=== PATIENT | male | born 1940 | race Caucasian/White ===

== ENCOUNTER → 2016-04-24 | Outpatient (CLI) | payer MEDICARE, BC ==
--- NOTE | 2016-04-24 09:53 | XR ---
EXAMINATION TYPE: XR chest 2V DATE OF EXAM: 04/24/2016 8:52 AM COMPARISON: NONE TECHNIQUE: PA and lateral views submitted. HISTORY: Upper respiratory infection FINDINGS: The lungs are clear and there is no pneumothorax, pleural effusion, or focal pneumonia. Arthropathy of the shoulder noted. Tiny calcified granuloma right lower lobe. Atherosclerotic change aorta and d egenerative change spine. IMPRESSION: 1. No acute process.
== END | disposition home or self-care (01) ==
LOC: RADXRMAIN 08:35
PROVIDERS: ATTEND Nurse Practitioner Family
DX: J06.9 Acute upper respiratory infection, unspecified (principal)
CPT/HCPCS: 71020

== ENCOUNTER → 2016-05-28 | Outpatient (CLI) | payer MEDICARE, BC ==
[2016-05-28 18:44] LABS: Blood Urea Nitrogen 19 mg/dL (9-20); Non-African American GFR(MDRD) >60 (>60 ml/min/1.73 sqM)
--- NOTE | 2016-05-28 20:04 | CT ---
EXAMINATION TYPE: CT chest w con DATE OF EXAM: 05/28/2016 7:26 PM COMPARISON: NONE HISTORY: Cough and congestion for [address] DLP: 417 mGycm Automated exposure control for dose reduction was used. CONTRAST: CT scan of the chest is performed with IV Contrast, patient injected with 100 mL of Omnipaque 300. FINDINGS: There are a few mediastinal lymph nodes measure up to 1 cm. There are mild bronchial lymph nodes that measure up to 1 cm. I see no filling defects in the pulmonary arteries. There is no sign of aortic a neurysm or dissection. There is subpleural interstitial infiltrate in both lungs and more on the righ t side compared to the left. There is no pericardial effusion. Heart size is normal. There is spurrin g in the thoracic spine. I see no focal bone destruction. There is no sign of a primary mass. There a re renal cortical cysts noted. There is a 1 cm cyst in the left lobe of the liver. IMPRESSION: Interstitial peripheral pulmonary infiltrates consistent with idiopathic pulmonary fibro sis. Mild nonspecific mediastinal and bronchial adenopathy. This probably relates to inflammatory dis ease.
== END | disposition home or self-care (01) ==
LOC: RADCTMAIN 18:08
PROVIDERS: ATTEND Family Medicine
DX: R91.8 Other nonspecific abnormal finding of lung field (principal); R59.0 Localized enlarged lymph nodes; R06.02 Shortness of breath; R05 Cough; R09.89 Other specified symptoms and signs involving the circulatory and respiratory systems
CPT/HCPCS: 82565; 84520; 71260; Q9967

== ENCOUNTER → 2016-06-26 | Outpatient (CLI) | payer MEDICARE, BC ==
[2016-06-26 09:40] LABS: EKG EKG PERFORMED
[2016-06-26 10:04] LABS: CH 30.2; CHCM 32.1; HCT 50.6 % (39.0-53.0); HDW 2.15; HGB 16.2 gm/dL (13.0-17.5); MCH 30.1 pg (25.0-35.0); MCHC 31.9 g/dL (31.0-37.0); MCV 94.4 fL (80.0-100.0); Mean Platelet Volume 8.5; RBC 5.36 m/uL (4.30-5.90); RDW 13.3 % (11.5-15.5); WBC 6.4 k/uL (3.8-10.6)
[2016-06-26 10:09] LABS: INR 1.2 (<1.1); Partial Thromboplastin Time 24.6 sec (22.0-30.0); Prothrombin Time 11.6 sec (9.0-12.0)
[2016-06-26 10:35] LABS: Anion Gap 12 mmol/L; Blood Urea Nitrogen 25 mg/dL (9-20); Carbon Dioxide 27 mmol/L (22-30); Chloride 104 mmol/L (98-107); Glucose 122 mg/dL (74-99); Non-African American GFR(MDRD) 57 (>60 ml/min/1.73 sqM); Potassium 4.8 mmol/L (3.5-5.1); Sodium 143 mmol/L (137-145)
== END | disposition home or self-care (01) ==
LOC: LABPAT 09:15
PROVIDERS: ATTEND Thoracic Surgery (Cardiothoracic Vascular Surgery)
DX: Z01.810 Encounter for preprocedural cardiovascular examination (principal); Z01.818 Encounter for other preprocedural examination; I10 Essential (primary) hypertension
CPT/HCPCS: 80051; 82565; 82947; 84520; 85027; 85610; 85730; 93005

== ENCOUNTER 2016-06-30 10:27 | Inpatient (IN) | payer MEDICARE, BC ==
[2016-06-26 11:14] VITALS: BMI 27.1
[~2016-06-30 10:27] MED LIST: DEXAMETHASONE SOD PHOSPHATE 10 MG/ML 1 ML VIAL IV ONE; HYDROmorphone 1 MG/ML 1 ML SYRINGE IVP PRN; LACTATED RINGERS 1,000 ML IV SCH; LIDOCAINE 1% 20 ML VIAL (10MG/ML) FOR IV START INTRADERMA PRN; ONDANSETRON 4 MG/2 ML VIAL IVP ONE
[2016-06-30] MEDS ORDERED: MIDAZOLAM 2 MG/2 ML VIAL ONE (14:13)
[2016-06-30] MEDS ORDERED: NEOSTIGMINE 1 MG/ML 10 ML VIAL ONE (14:13)
[2016-06-30] MEDS ORDERED: fentaNYL (PF) 50 MCG/ML 2 ML AMP ONE (14:13)
[2016-06-30] MEDS ORDERED: VECURONIUM 10 MG VIAL IV ONE (14:13)
[2016-06-30] MEDS ORDERED: SODIUM CHLORIDE 0.9% 100 ML with ceFAZolin 2,000 MG IV ONE ×2 (14:13)
[2016-06-30] MEDS ORDERED: GLYCOPYRROLATE 0.2 MG/ML 2 ML VIAL ONE (14:13)
[2016-06-30] MEDS ORDERED: LIDOCAINE 1% INJ 10MG/ML (20 ML MDV) ONE (14:13)
[2016-06-30] MEDS ORDERED: HYDROmorphone (PF) 1 MG/ML ONE (14:13)
[2016-06-30] MEDS ORDERED: ePHEDrine 50 MG/ML 1 ML AMP ONE (14:13)
[2016-06-30] MEDS ORDERED: SUCCINYLCHOLINE CHLORIDE 100 MG/5 ML SYR IV ONE (14:13)
[2016-06-30] MEDS ORDERED: PHENYLEPHRINE-0.9% NACL SYG 1 MG/10 ML SYRINGE ONE (14:13)
[2016-06-30] MEDS ORDERED: PROPOFOL 10 MG/ML 20 ML VIAL IV ONE (14:13)
[2016-06-30] MEDS ORDERED: BUPIVACAINE (PF) 0.5% 30 ML VIAL SQ ONE (14:59)
[2016-06-30] MEDS ORDERED: LACTATED RINGERS 1,000 ML IV ONE (15:28)
[2016-06-30] MEDS ORDERED: ONDANSETRON 4 MG/2 ML VIAL IVP PRN (15:39)
[2016-06-30] MEDS ORDERED: IPRATROPIUM-ALBUTEROL 3 ML NEB IH PRN (15:39)
[2016-06-30] MEDS ORDERED: METOCLOPRAMIDE 5 MG/ML 2 ML VIAL IVP PRN (15:39)
[2016-06-30] MEDS ORDERED: HYDROcodone/APAP 5-325MG 1 EACH TAB PO PRN ×2 (15:43)
--- NOTE | 2016-06-30 15:46 | P.OP ---
Date of Procedure: 06/30/16 Preoperative Diagnosis: Bilateral pulmonary infiltrates Postoperative Diagnosis: Bilateral pulmonary infiltrates Procedure(s) Performed: Right thoracoscopic lung biopsy Implants: Anesthesia: LORETAA Surgeon: Warren Handy Estimated Blood Loss (ml): 10 IV fluids (ml): 200 Urine output (ml): 0 Pathology: other (Biopsies of the right upper middle and lower lobe were sent for pathology, culture including routine acid-fast and fungal cultures.) Condition: stable Disposition: PACU Indications for Procedure: Bilateral pulmonary infiltrates Operative Findings: Normal-appearing lung Description of Procedure: Patient was brought to the operating room placed supine on the operating table anesthetized and intubated with a double-lumen endotracheal tube tube was positioned with fiberoptic bronchoscopy. Patient was turned in the left lateral decubitus position and the right chest sterilely prepped and draped. Single lung ventilation was initiated. 3 one-inch incisions were made in the right chest carried down through skin and subcutaneous tissue and into the pleural space. Pleural space was explored. The lung appeared normal. Generous wedges of the upper middle and lower lobe were obtained with multiple firings of Endo LUIS EDUARDO medium thick stapler. 28-Belgian chest tube was placed posterior apically through an anterior stab incision. The incisions were closed with layers of Vicryl suture. Rib blocks were performed at the level of the incisions. Band-Aid dressings and an drain sponge around the chest tube were placed and patient was turned supine and extubated and transferred to recovery room in stable condition.
[2016-06-30 16:13] LABS: Glucose,Whole Blood 98 mg/dL (75-99)
[2016-06-30] MEDS: IPRATROPIUM-ALBUTEROL 3 ML NEB IH SCH ×2 (17:12→20:18)
[2016-06-30] MEDS: DEXTROSE 5%-0.45% NACL 1,000 ML IV SCH (17:36)
--- NOTE | 2016-06-30 18:31 | P.CNPUL ---
History of Present Illness Consult date: 06/30/16 Requesting physician: Warren Handy Reason for consult: pulmonary fibrosis Chief complaint: Status post-thoracoscopic lung biopsy History of present illness: This is a 66-year-old white male who is primarily a patient of Dr. Kam and Dr. Celestin. Patient was seen by Dr. Celestin about a few months ago with persistent symptoms of cough and shortness of breath. PFT showed evidence of restrictive lung disease. He was referred to Dr. Kam, and CT of the chest showed peripheral infiltrates consistent with interstitial lung disease. Hence the patient was referred to Dr. Handy for thoracoscopic lung biopsy which was done today. Postoperatively I was asked to see the patient on consultation. Patient has chronic history of shortness of breath since February, dry hacking nonproductive cough, used to smoke however he quit many years ago. He was a 20- pack-year smoker in the past. Patient is also known to have history of multiple medical problems including prostate cancer GERD, osteoarthritis, previous right hip replacement. And previous history of back surgery. Postoperatively, patient is doing relatively well, no chest pain, no fever, no chills, no hemoptysis. Review of Systems 14 point review of systems were obtained, please refer to pertinent positives and negatives in HPI. Past Medical History Past Medical History: Cancer, GERD/Reflux, Hypertension, Osteoarthritis (OA) Additional Past Medical History / Comment(s): SOB w/exertion, hx. prostate cancer 2004, past hx. of having infection in hip after surg that he saw Dr Ortiz for-says Dr Ortiz is to be notified whenever he has surgery History of Any Multi-Drug Resistant Organisms: None Reported Past Surgical History: Back Surgery, Joint Replacement, Prostate Surgery Additional Past Surgical History / Comment(s): prostatectomy,right hip replaced Past Anesthesia/Blood Transfusion Reactions: No Reported Reaction Past Psychological History: No Psychological Hx Reported Smoking Status: Former smoker Past Alcohol Use History: Daily Additional Past Alcohol Use History / Comment(s): 1-2 drinks/day, quit smoking 35 yrs. ago, 1ppd for 20 yrs. Past Drug Use History: None Reported - Past Family History Brother(s) Family Medical History: Cancer Medications and Allergies Home Medications Medication Instructions Recorded Confirmed Type Albuterol Nebulized [Ventolin 2.5 mg INHALATION RT-Q6H PRN 06/26/16 06/30/16 History Nebulized] Aspirin 81 mg PO DAILY 06/26/16 06/30/16 History Ibuprofen [Motrin] 200 - 400 mg PO Q6HR PRN 06/26/16 06/30/16 History Magnesium Oxide [Mag-Ox] 250 mg PO DAILY 06/26/16 06/30/16 History Multivit-Min/FA/Lycopen/Lutein 1 tab PO DAILY 06/26/16 06/30/16 History [Centrum Silver Men Tablet] Olmesartan Medoxomil [Benicar] 40 mg PO DAILY 06/26/16 06/30/16 History Omeprazole 20 mg PO DAILY 06/26/16 06/30/16 History Allergies Allergy/AdvReac Type Severity Reaction Status Date / Time gentamicin AdvReac Nausea & Verified 06/26/16 11:00 Vomiting levofloxacin [From Levaquin] AdvReac Nausea & Verified 06/26/16 11:00 Vomiting Physical Exam Vitals: Vital Signs Temp Pulse Resp BP BP Pulse Ox 06/30/16 17:00 62 18 131/64 92 L 06/30/16 16:45 80 18 137/72 92 L 06/30/16 16:30 79 16 148/69 92 L 06/30/16 16:15 68 16 127/68 95 06/30/16 16:00 65 16 126/88 95 06/30/16 15:45 68 16 122/63 93 L 06/30/16 15:30 98.2 F 56 L 12 123/69 94 L 06/30/16 11:12 97.7 F 79 16 152/66 94 L Intake and Output 06/30/16 06/30/16 06/30/16 06:59 14:59 22:59 Intake Total 1200 50 Output Total 10 Balance 1200 40 Intake: IV 1200 50 Output: Estimated Blood Loss 10 Other: Weight 88.451 kg Patient Weight 07/01/16 06:59 Weight 88.451 kg Physical Exam: Revealed a 76-year-old in no distress. HEENT:[Neck is supple.] [No neck masses.] [No thyromegaly.] [No JVD.] Chest: Mild crackles at the right base ]Cardiac Exam: [Normal S1 and S2, no S3 gallop, no murmur. Abdomen: [Soft, nontender, no megaly, no rebound, no guarding, normal bowel sounds.] Extremities: [No clubbing, no edema, no cyanosis.] Neurological Exam: [No focal neurologic deficit.] Assessment and Plan Plan: Impression: Interstitial lung disease, differential diagnoses includes usual interstitial pneumonitis or nonspecific interstitial pneumonitis. Patient is status post thoracoscopic lung biopsy, doing relatively well in the postoperative period, incentive spirometry is at bedside, patient will likely be discharged home in a.m., and he will follow up with Dr. Kam as scheduled. In the meantime continue present meds as listed. Time with Patient: Greater than 30
--- NOTE | 2016-06-30 19:48 | XR ---
EXAMINATION TYPE: XR chest 1V DATE OF EXAM: 06/30/2016 7:31 PM COMPARISON: 04/24/2016 HISTORY: Postop lung biopsy TECHNIQUE: Single frontal view of the chest is obtained. FINDINGS: There is a right chest tube in good position. There is mild linear density in both lungs. There is no pneumothorax. Heart size is normal. IMPRESSION: Mild bilateral subsegmental atelectasis. No pneumothorax.
[2016-06-30] MEDS: ceFAZolin 2 GM in SODIUM CHLORIDE 0.9% 100 ML IVPB SCH (23:28)
[2016-07-01 06:43] LABS: Basophils % (A) 0 %; CH 30.2; CHCM 31.6; Eosinophils # (A) 0.1 k/uL (0-0.7); Eosinophils % (A) 1 %; HCT 44.2 % (39.0-53.0); HDW 2.07; Luc # (Auto) 0.22; Luc % (Auto) 2; Lymphocytes # (A) 1.2 k/uL (1.0-4.8); Lymphocytes % (A) 11 %; MCH 30.3 pg (25.0-35.0); MCHC 31.6 g/dL (31.0-37.0); MCV 95.9 fL (80.0-100.0); Mean Platelet Volume 9.4; Monocytes # (A) 0.8 k/uL (0-1.0); Monocytes % (A) 8 %; Neutrophils # (A) 8.5 k/uL (1.3-7.7); Neutrophils % (A) 78 %; RBC 4.61 m/uL (4.30-5.90); RDW 13.3 % (11.5-15.5); WBC 10.9 k/uL (3.8-10.6); WBC (Perox) 11.17
[2016-07-01 07:01] LABS: Anion Gap 8 mmol/L; Blood Urea Nitrogen 21 mg/dL (9-20); Calcium 9.2 mg/dL (8.4-10.2); Carbon Dioxide 28 mmol/L (22-30); Chloride 99 mmol/L (98-107); Glucose 109 mg/dL (74-99); Non-African American GFR(MDRD) >60 (>60 ml/min/1.73 sqM); Potassium 4.4 mmol/L (3.5-5.1); Sodium 135 mmol/L (137-145)
[2016-07-01] MEDS: ceFAZolin 2 GM in SODIUM CHLORIDE 0.9% 100 ML IVPB SCH (07:51)
[2016-07-01] MEDS: DEXTROSE 5%-0.45% NACL 1,000 ML IV SCH (07:52)
[2016-07-01] MEDS ORDERED: PANTOPRAZOLE 40 MG TABLET PO SCH (08:30)
--- NOTE | 2016-07-01 08:44 | XR ---
EXAMINATION TYPE: XR chest 2V DATE OF EXAM: 07/01/2016 6:43 AM COMPARISON: 06/30/2016 TECHNIQUE: PA and lateral views submitted. HISTORY: Shortness of breath FINDINGS: Chest tube stable. Coarsened interstitium noted with an area of nodular masslike consolidation right midlung which may represent contusion. In the region of the chest tube. Infiltrate or neoplasm not ex cluded. Subcutaneous emphysema on the right noted. Basilar atelectasis or infiltrate. Arthropathy of both shoulders. Heart size stable. Atherosclerotic change aorta. IMPRESSION: 1. Area of dense consolidation the right midlung may be related to contusion or infiltrate. 2. Right basilar atelectasis or infiltrate with tiny effusion 3. Interstitial prominence may been the basis of pneumonitis or venous congestion.
[2016-07-01] MEDS: IPRATROPIUM-ALBUTEROL 3 ML NEB IH SCH ×3 (08:50→15:58)
[2016-07-01] MEDS ORDERED: ASPIRIN 81 MG CHEW PO SCH (09:00)
[2016-07-01] MEDS ORDERED: LOSARTAN 50 MG TAB PO SCH (09:00)
[2016-07-01] MEDS ORDERED: MAGNESIUM OXIDE 400 MG TAB PO SCH (09:00)
--- NOTE | 2016-07-01 11:28 | XR ---
EXAMINATION TYPE: XR chest 1V portable DATE OF EXAM: 07/01/2016 11:21 AM COMPARISON: 07/01/2016 HISTORY: pneumothorax TECHNIQUE: Single frontal view of the chest is obtained. FINDINGS: Chest tube stable. Coarsened interstitium noted with an area of nodular masslike consolida tion right midlung which may represent contusion. In the region of the chest tube. Infiltrate or neop lasm not excluded. Subcutaneous emphysema on the right noted. Basilar atelectasis or infiltrate. Arth ropathy of both shoulders. Heart size stable. Atherosclerotic change aorta. IMPRESSION: 1. Area of dense consolidation the right midlung may be related to contusion or infiltrate. 2. Right basilar atelectasis or infiltrate with tiny effusion 3. Interstitial prominence may been the basis of pneumonitis or venous congestion.
[2016-07-01] MEDS ORDERED: MULTIVITAMINS, THERA 1 EACH TAB PO SCH (12:00)
--- NOTE | 2016-07-01 12:31 | P.PN ---
Subjective Principal diagnosis: Bilateral pulmonary infiltrates POD #1 right thorascopic lung biopsy Patient currently sitting up in bed in no apparent distress. Right pleural chest tube was placed to waterseal this morning with repeat X ray demonstrating no pneumothorax. Objective - Vital Signs Vital signs: Vital Signs Temp 97.8 F 07/01/16 11:52 Pulse 52 L 07/01/16 12:00 Resp 18 07/01/16 12:00 BP 127/59 07/01/16 11:52 Pulse Ox 93 L 07/01/16 11:52 Intake & Output 06/30/16 07/01/16 07/01/16 18:59 06:59 18:59 Intake Total 1250 1050 520 Output Total 10 393 Balance 1240 657 520 Weight 88.451 kg 87.9 kg Intake: IV 1250 450 Dextrose 5%-0.45% NaCl 1, 450 000 ml @ 75 mls/hr IV . [id number] [facility] Rx#:[id number] Oral 600 520 Output: Chest Tube Drainage 93 Chest Tube Right 93 Urine 300 Estimated Blood Loss 10 Other: Voiding Method Urinal Urinal - Constitutional General appearance: Present: cooperative, no acute distress - Respiratory Details: Lungs sounds diminished bilaterally. Respirations even, nonlabored. Currently on room air with oxygen saturation 93%. Right pleural chest tube to waterseal. Minimal serous output. No air leak present. - Cardiovascular Details: S1, S2 present. Regular rate and rhythm, normal sinus rhythm on telemetry. - Gastrointestinal Gastrointestinal Comment(s): Abdomen soft, nontender, nondistended. Active bowel sounds 4 quadrants. Tolerating diet. - Genitourinary Genitourinary Comment(s): Voiding clear, yellow urine. - Musculoskeletal Musculoskeletal: Present: strength equal bilaterally - Psychiatric Psychiatric: Present: A&O x's 3, appropriate affect, intact judgment & insight - Allied health notes Allied health notes reviewed: nursing - Labs CBC & Chem 7: 07/01/16 05:49 07/01/16 05:49 Labs: Abnormal Lab Results - Last 24 Hours (Table) 07/01/16 07/01/16 Range/Units 05:49 05:49 WBC 10.9 H (3.8-10.6) k/uL Neutrophils # 8.5 H (1.3-7.7) k/uL Sodium 135 L (137-145) mmol/L BUN 21 H (9-20) mg/dL Glucose 109 H (74-99) mg/dL Microbiology - Last 24 Hours (Table) 06/30/16 15:20 Gram Stain - Preliminary Lung - Right Tissue Culture - Preliminary 06/30/16 15:20 Gram Stain - Preliminary Lung - Right Lower Lobe Tissue Culture - Preliminary 06/30/16 15:20 Gram Stain - Preliminary Lung - Right Upper Lobe Tissue Culture - Preliminary 06/30/16 15:20 Fungal Culture - Preliminary Lung - Right Upper Lobe 06/30/16 15:20 Anaerobic Culture - Preliminary Lung - Right 06/30/16 15:20 Acid Fast Bacilli Culture - Preliminary Lung - Right Lower Lobe 06/30/16 15:20 Fungal Culture - Preliminary Lung - Right 06/30/16 15:20 Acid Fast Bacilli Culture - Preliminary Lung - Right 06/30/16 15:20 Fungal Culture - Preliminary Lung - Right Lower Lobe 06/30/16 15:20 Anaerobic Culture - Preliminary Lung - Right Upper Lobe 06/30/16 15:20 Anaerobic Culture - Preliminary Lung - Right Lower Lobe 06/30/16 15:20 Acid Fast Bacilli Culture - Preliminary Lung - Right Upper Lobe - Imaging and Cardiology Chest x-ray: image reviewed Assessment and Plan (1) Bilateral pulmonary infiltrates on chest x-ray Status: Acute Plan: The patient was seen and examined this morning with Dr. Alvarado. He is in no apparent distress. Chest tube was placed to water seal and repeat chest x-ray demonstrated no pneumothorax. There is no air leak and the chest tube. We will discontinue the chest tube and discontinue the patient to home. Time with Patient: Greater than 30
--- NOTE | 2016-07-01 15:12 | P.PN ---
Subjective Principal diagnosis: Status post VATS lung biopsy his is a 66-year-old white male who is primarily a patient of Dr. Kam and Dr. Celestin. Patient was seen by Dr. Celestin about a few months ago with persistent symptoms of cough and shortness of breath. PFT showed evidence of restrictive lung disease. He was referred to Dr. Kam, and CT of the chest showed peripheral infiltrates consistent with interstitial lung disease. Hence the patient was referred to Dr. Handy for thoracoscopic lung biopsy which was done today. Postoperatively I was asked to see the patient on consultation. Patient has chronic history of shortness of breath since February, dry hacking nonproductive cough, used to smoke however he quit many years ago. He was a 20- pack-year smoker in the past. Patient is also known to have history of multiple medical problems including prostate cancer GERD, osteoarthritis, previous right hip replacement. And previous history of back surgery. Postoperatively, patient is doing relatively well, no chest pain, no fever, no chills, no hemoptysis. Patient was reevaluated today on 07/01/2016, doing well, chest tube was removed, discharge planning is in progress to be done today. Patient is back to his baseline. Presently asymptomatic. Labs were reviewed including CBC and basic metabolic profile. Chest x-ray from this morning when the chest tube was still in place was also reviewed. Objective - Vital Signs Vital signs: Vital Signs Temp 97.8 F 07/01/16 11:52 Pulse 52 L 07/01/16 12:00 Resp 18 07/01/16 12:00 BP 127/59 07/01/16 11:52 Pulse Ox 93 L 07/01/16 11:52 Intake & Output 06/30/16 07/01/16 07/01/16 18:59 06:59 18:59 Intake Total 1250 1050 520 Output Total 10 393 Balance 1240 657 520 Weight 88.451 kg 87.9 kg Intake: IV 1250 450 Dextrose 5%-0.45% NaCl 1, 450 000 ml @ 75 mls/hr IV . [id number] [facility] Rx#:[id number] Oral 600 520 Output: Chest Tube Drainage 93 Chest Tube Right 93 Urine 300 Estimated Blood Loss 10 Other: Voiding Method Urinal Urinal - Exam Physical Exam: Revealed a 76-year-old in no distress. HEENT:[Neck is supple.] [No neck masses.] [No thyromegaly.] [No JVD.] Chest: Mild crackles at the right base ]Cardiac Exam: [Normal S1 and S2, no S3 gallop, no murmur. Abdomen: [Soft, nontender, no megaly, no rebound, no guarding, normal bowel sounds.] Extremities: [No clubbing, no edema, no cyanosis.] Neurological Exam: [No focal neurologic deficit.] - Labs CBC & Chem 7: 07/01/16 05:49 07/01/16 05:49 Labs: Abnormal Lab Results - Last 24 Hours (Table) 07/01/16 07/01/16 Range/Units 05:49 05:49 WBC 10.9 H (3.8-10.6) k/uL Neutrophils # 8.5 H (1.3-7.7) k/uL Sodium 135 L (137-145) mmol/L BUN 21 H (9-20) mg/dL Glucose 109 H (74-99) mg/dL Microbiology - Last 24 Hours (Table) 06/30/16 15:20 Gram Stain - Preliminary Lung - Right Tissue Culture - Preliminary 06/30/16 15:20 Gram Stain - Preliminary Lung - Right Lower Lobe Tissue Culture - Preliminary 06/30/16 15:20 Gram Stain - Preliminary Lung - Right Upper Lobe Tissue Culture - Preliminary 06/30/16 15:20 Fungal Culture - Preliminary Lung - Right Upper Lobe 06/30/16 15:20 Anaerobic Culture - Preliminary Lung - Right 06/30/16 15:20 Acid Fast Bacilli Culture - Preliminary Lung - Right Lower Lobe 06/30/16 15:20 Fungal Culture - Preliminary Lung - Right 06/30/16 15:20 Acid Fast Bacilli Culture - Preliminary Lung - Right 06/30/16 15:20 Fungal Culture - Preliminary Lung - Right Lower Lobe 06/30/16 15:20 Anaerobic Culture - Preliminary Lung - Right Upper Lobe 06/30/16 15:20 Anaerobic Culture - Preliminary Lung - Right Lower Lobe 06/30/16 15:20 Acid Fast Bacilli Culture - Preliminary Lung - Right Upper Lobe Assessment and Plan Plan: Impression: Interstitial lung disease, differential diagnoses includes usual interstitial pneumonitis or nonspecific interstitial pneumonitis. Patient is status post thoracoscopic lung biopsy, postoperative day #1 doing relatively well in the postoperative period, incentive spirometry is at bedside, patient will likely be discharged today, and the patient will follow up with Dr. Kam as scheduled. Time with Patient: Less than 30
--- NOTE | 2016-07-01 15:16 | P.DS ---
Providers Date of admission: 06/30/16 13:30 Attending physician: Warren Handy Consults: 06/30/16 15:39 Consult Physician Routine Consulting Provider: Jeffy Kam Consult Reason/Comments: pulmonology, post VATS Do you want consulting provider notified?: Yes 06/30/16 15:46 Consult Physician Routine Consulting Provider: Eagle Romero Consult Reason/Comments: medical management Do you want consulting provider notified?: Already Contacted Primary care physician: Jose Celestin - Discharge Diagnosis(es) (1) Bilateral pulmonary infiltrates on chest x-ray Current Visit: Yes Status: Acute Hospital Course: FINAL DIAGNOSIS: 1.[ Bilateral pulmonary infiltrates] 2.[ Hypertension] 3.[ History of prostate cancer] PRINCIPAL PROCEDURE: [] 1.[ Right thorascopic lung biopsy] HISTORY OF PRESENT ILLNESS: [This 76-year-old gentleman had a two-month history of increased shortness of breath and productive cough. He initially saw his primary care physician who treated him with antibiotics. He ultimately underwent 3 courses of antibiotics and 2 courses of steroids, which didn't improve his symptoms. He had a chest x-ray which was normal but subsequently had a CAT scan which demonstrated bilateral pulmonary infiltrates which were ground glass in appearance and relatively peripheral, more marked on the right lung then the left. Dr. Kam referred him to Dr. Handy for diagnostic lung biopsy. All risks and benefits were explained to the patient and he elected to proceed with surgery.] HOSPITAL COURSE:[ The patient was brought to the hospital on 06/30/2016, and brought to the operating room where Dr. Handy performed an elective right thorascopic lung biopsy with subsequent placement of right pleural chest tube. In completion of surgery, the patient is transferred to the recovery room where he was recovered and monitored hemodynamically. Subsequently he was transferred to [address] [place] [address] for further monitoring. His oxygen was titrated down, his chest tube was placed to waterseal on postoperative day #1, repeat chest x-ray demonstrated no pneumothorax and his right pleural chest tube was discontinued. He was ready to be discharged to home. He received written and verbal instruction regarding his medications, activity restrictions , signs and symptoms requiring physician notification, and follow-up appointments.] COMPLICATIONS: [The patient expanse no postoperative complications.] CONSULTATIONS: 1.[ Dr. Edouard for pulmonology] 2.[ Dr. Romero for medical management] DISCHARGE INSTRUCTIONS: 1. No driving for 2 weeks, or until physician gives their ok. 2. The patient should sleep in their own bed, no medical bed needed. 3. Please call Dr. Handy's office with any signs of infection, for example temperature greater than 10 1F, redness/purulent drainage from incisions. 4. No lifting, pushing, or pulling more than 10 pounds for 2 weeks. 5. The patient is expected to continue the prescribed walking program. 6. Continue pain control per as needed orders. 7. Continue with incentive spirometry until otherwise directed by the physician. 8. Please remove dressing on [, 07/03/2016]. Must shower daily using liquid antibacterial soap starting Plan - Discharge Summary Discharge Medication List Albuterol Nebulized [Ventolin Nebulized] 2.5 mg INHALATION RT-Q6H PRN 06/26/16 [ History] Aspirin 81 mg PO DAILY 06/26/16 [History] Ibuprofen [Motrin] 200 - 400 mg PO Q6HR PRN 06/26/16 [History] Magnesium Oxide [Mag-Ox] 250 mg PO DAILY 06/26/16 [History] Multivit-Min/FA/Lycopen/Lutein [Centrum Silver Men Tablet] 1 tab PO DAILY [History] Olmesartan Medoxomil [Benicar] 40 mg PO DAILY 06/26/16 [History] Omeprazole 20 mg PO DAILY 06/26/16 [History] Follow up Appointment(s)/Referral(s): Warren Handy MD [STAFF PHYSICIAN] - 07/21/16 2:45 pm Jeffy Kam DO [Doctor of Osteopathic Medicine] - 07/17/16 11:00 am Jose Celestin DO [Primary Care Provider] - 1 Week Discharge Disposition: HOME SELF-CARE
[2016-07-01 15:58] VITALS: BP 133/62; TEMP 97.5
[2016-07-01 16:00] VITALS: PULSE 66
[2016-07-01 16:09] VITALS: RESP 16
--- NOTE | 2016-07-01 19:22 | CONS ---
DATE OF CONSULTATION: 07/01/2016 REASON FOR CONSULTATION: Medical management requested Dr. Hadny. CONSULTATION: This is a 76-year-old patient of Dr. Celestin. Chronic stable medical conditions include GERD, hypertension, osteoarthritis. The patient has been having shortness of breath and found to have lung infiltrates on the CAT scan. Underwent lung biopsy today. Post lung biopsy patient had some cough with minimal hemoptysis. Able to tolerate a diet. Patient is an ex-smoker, lying in bed. Breathing is otherwise stable. Patient is also being by Dr. Kam from pulmonary. REVIEW OF SYSTEMS: CONSTITUTIONAL: None. HEENT: None. RESPIRATORY: Some shortness of breath. CARDIOVASCULAR: None. GASTROINTESTINAL: None. GENITOURINARY: None. MUSCULOSKELETAL: Aches and pains in the joints. DERMATOLOGICAL: None. HEMATOLOGICAL: None. LYMPHATIC: None. PSYCHIATRY: None. NEUROLOGICAL: None. PAST MEDICAL HISTORY: GERD, hypertension, osteoarthritis, prostate cancer in 2004, infection of the right hip after surgery. PAST SURGICAL HISTORY: Back surgery, joint replacement, prostate surgery, prostatectomy, right hip replaced. SOCIAL HISTORY: Patient drinks 1 or 2 drinks a day. Smoked for about 20 years; stopped 35 years ago. . FAMILY HISTORY: Cancer. HOME MEDICATIONS: 1. Omeprazole 20 mg a day. 2. Benicar 40 mg a day. 3. Centrum Silver 1 tablet p.o. daily. 4. Magnesium oxide 250 mg a day. 5. Motrin p.r.n. 6. Aspirin 81 mg a day. 7. Ventolin 2.5 q.6 p.r.n. ALLERGIES: GENTAMICIN AND LEVAQUIN. On examination, temperature 97.5, pulse 72, respirations 18, blood pressure 130/62, pulse ox 94% on room air. GENERAL APPEARANCE: Average build lying in bed, not in distress. EYES: Pupils equal. Conjunctivae normal. HEENT: External appearance of nose and ears normal. Oral cavity normal. NECK: JVD not raised. Mass not palpable. RESPIRATORY: Effort normal. LUNGS: Decreased breath sounds. CARDIOVASCULAR: First and second sounds normal. No edema. ABDOMEN: Soft, nontender. Liver and spleen not palpable. LYMPHATIC: No lymph nodes palpable effective. PSYCHIATRY: Alert and oriented x3. Mood and affect normal. NEUROLOGICAL: Pupils equal. Cranial nerves grossly intact. Power and sensation grossly intact. INVESTIGATIONS: White count 10.9, potassium 4.4, BUN 51, creatinine 1.09. Chest x-ray shows some infiltrate and interstitial prominence. ASSESSMENT: 1. Status post right thoracoscopic lung biopsy including cultures done. 2. Interstitial lung disease, wedge biopsy was done. 3. Primary osteoarthritis of multiple joints, bilateral. 4. Essential hypertension. 5. Gastroesophageal reflux disease. PLAN: Continue current medication and treatment plan. When discharged should follow up with the family doctor. Thank you Dr. Handy.
--- NOTE | 2016-07-10 09:52 | CDI ---
In responding to this query, please exercise your independent professional judgment. The [facility] Coding Staff and Clinical Documentation Specialists appreciate your assistance in clarifying documentation, maintaining compliance with coding guidelines, accurately documenting patients condition and capturing severity of illness. The fact that a question is asked does not imply that any particular answer is desired or expected. Communication forms are a method of clarifying documentation and are not made part of the Legal Health Record. Thank you in advance for your clarification. Last Revision, December 2014 Yenny Soto [address] [place] [address] Documentation Clarification Form Date: 07/10/2016 9:27:00 AM From: Kamila Bautista/Sylvie Darling Admit Date: 06/30/2016 1:30:00 PM Patient Name: Gustavo Rodriguez Visit Number: [id number] Discharge Date: Dr. Warren Handy Patient has a history of persistent cough and shortness of breath. PFT showed evidence of restrictive lung disease. Recent CT of the chest showed peripheral infiltrates consistent with interstitial lung disease. Clinical Indicators: Persistent cough and shortness of breath. Radiology findings: Chest x-ray: 1. Area of dense consolidation of the right midlung may be related to contusion or infiltrate. 2. Right basilar atelectasis or infiltrate with tiny effusion. 3. Interstitial prominence may be the basis of pneumonitis or venous congestion. Vital Signs: T. 97.7, P. 79, R. 16 BP 123/69 Pathology: Lung, right upper, middle and lower lobes, wedge biopsies: nonspecific interstitial pneumonia with fibrosis and chronic bonchiolitis. Treatment: Duoneb treatments, IV cefazolin sodium, IV Decadron Consults: Interstitial lung disease, differential diagnoses include usual interstitial pneumonitis or nospecific interstitial pneumonitis. In your professional opinion, can you give a more specific final diagnosis with the final pathology report now available? Other Unable to determine Please document in your progress notes and discharge summary in order to capture severity of illness and risk of mortality. Include clinical findings that support your diagnosis. FYI: Press F11 to launch patient chart. Place X here if this finding has no clinical significance, is not applicable or if you are not able to provide any additional documentation. GABRIELLED
== END 2016-07-01 17:28 | disposition home or self-care (01) | DRG 167 ==
LOC: OR 10:27 → EDSTATUS 12:00 → 6SEL 13:30
PROVIDERS: ADMIT Thoracic Surgery (Cardiothoracic Vascular Surgery); ATTEND Thoracic Surgery (Cardiothoracic Vascular Surgery)
PROC: 0BBC4ZX Excision of Right Upper Lung Lobe, Percutaneous Endoscopic Approach, Diagnostic (ICD-10-PCS; 2016-06-30)
PROC: 0BBD4ZX Excision of Right Middle Lung Lobe, Percutaneous Endoscopic Approach, Diagnostic (ICD-10-PCS; 2016-06-30)
PROC: 0BBF4ZX Excision of Right Lower Lung Lobe, Percutaneous Endoscopic Approach, Diagnostic (ICD-10-PCS; principal; 2016-06-30 12:00)
DX: J44.0 Chronic obstructive pulmonary disease with (acute) lower respiratory infection (principal); J84.9 Interstitial pulmonary disease, unspecified; J84.10 Pulmonary fibrosis, unspecified; I10 Essential (primary) hypertension; K21.9 Gastro-esophageal reflux disease without esophagitis; M15.9 Polyosteoarthritis, unspecified; Z79.82 Long term (current) use of aspirin; Z79.899 Other long term (current) drug therapy; Z85.46 Personal history of malignant neoplasm of prostate; Z87.891 Personal history of nicotine dependence; Z96.641 Presence of right artificial hip joint
CPT/HCPCS: 71010; 71020; 80048; 85025; 87070; 87075; 87102; 87116; 87205; 87206; 88307; 94640; 94760

== ENCOUNTER → 2016-07-17 | Outpatient (CLI) | payer MEDICARE, BC ==
[2016-07-21 14:47] LABS: Mis test requested (Blood) FUNGAL AB BY CF
[2016-07-26 11:36] LABS: Alternaria tenius IgG 27.7 mcg/mL (< 13.6); Cladosporium herbarium IgG 33.5 mcg/mL (< 14.7); Phoma ssp. IgG 32.5 mcg/mL (< 6.6); Saccaharomospora viridis Not detected (Not detected); Saccaharopoly. rectivirgula Not detected (Not detected)
== END | disposition home or self-care (01) ==
LOC: LABWHC1 11:42
PROVIDERS: ATTEND Internal Medicine Critical Care Medicine
DX: J67.9 Hypersensitivity pneumonitis due to unspecified organic dust (principal); J84.9 Interstitial pulmonary disease, unspecified
CPT/HCPCS: 36415; 82164; 86001; 86606; 86609; 86612; 86635; 86698

== ENCOUNTER → 2017-04-02 | Outpatient (CLI) | payer MEDICARE, BC ==
--- NOTE | 2017-04-02 09:32 | FL ---
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 Total fluoroscopy time: 1 minute. Total images: 11. FINDINGS: Real-time fluoroscopy of the lower thorax/diaphragm. The right leaf of the diaphragm is minimally hig her than the left. During normal, quite breathing, the right hemidiaphragm is noticed to be minimally sluggish as compar ed to the left. During deep inspiration and expiration, the right hemidiaphragm is again noted to be slightly sluggis h and with decreased excursion as compared to the left. However, with sniffing maneuver, there is appropriate symmetrical movement and excursion of both denia diaphragms. IMPRESSION: 1. Sniffing maneuver shows appropriate, symmetrical movement and excursion of both hemidiaphragms arg uing against any significant diaphragmatic paresis. 2. During both quiet breathing and deep inspirations, there is slight sluggish movement and decreased excursion noted of the right hemidiaphragm. This may be due to chest wall/chest wall musculature fac tors. Clinically correlate.
== END | disposition home or self-care (01) ==
LOC: RADFLWHC 07:52
PROVIDERS: ATTEND Internal Medicine
DX: J98.4 Other disorders of lung (principal)
CPT/HCPCS: 76000

== ENCOUNTER 2018-02-26 06:45 | Emergency (ER) | payer MEDICARE, BC ==
[2018-02-26 06:51] VITALS: BP 172/97; PULSE 49; RESP 18; TEMP 97.5
[2018-02-26] MEDS ORDERED: LIDOCAINE 1% INJ 10MG/ML (20 ML MDV) SQ ONE (07:21)
--- NOTE | 2018-02-26 07:26 | ED ---
General Adult HPI - General Chief complaint: Wound/Laceration Stated complaint: Laceration Time Seen by Provider: 02/26/18 07:10 Source: patient, RN notes reviewed, old records reviewed Mode of arrival: ambulatory Limitations: no limitations - History of Present Illness Initial comments: 77-year-old male presents with injury and laceration to the right dorsal hand. Injury occurred approximately 5 PM yesterday, 14 hours prior to evaluation. Patient was using a saw, piece of wood molding flew back striking the posterior aspect of his right hand. He has stellate laceration which he cleansed at home and applied Neosporin. He is presenting with concerns that this may need repair. He also has some pain and soft tissue swelling in the hand associated with this injury. Patient states his tetanus is up-to-date. No other injuries. No other complaints. - Related Data Home Medications Medication Instructions Recorded Confirmed Aspirin 81 mg PO DAILY 06/26/16 02/26/18 Magnesium Oxide [Mag-Ox] 250 mg PO DAILY 06/26/16 02/26/18 Multivit-Min/FA/Lycopen/Lutein 1 tab PO DAILY 06/26/16 02/26/18 [Centrum Silver Men Tablet] Olmesartan Medoxomil [Benicar] 40 mg PO DAILY 06/26/16 02/26/18 Omeprazole 20 mg PO DAILY 06/26/16 02/26/18 Metoprolol Succinate [Toprol XL] 25 mg PO DAILY 02/26/18 02/26/18 amLODIPine [Norvasc] 5 mg PO DAILY 02/26/18 02/26/18 Allergies Allergy/AdvReac Type Severity Reaction Status Date / Time gentamicin AdvReac Nausea & Verified 02/26/18 07:11 Vomiting levofloxacin [From Levaquin] AdvReac Nausea & Verified 02/26/18 07:11 Vomiting Review of Systems ROS Statement: Those systems with pertinent positive or pertinent negative responses have been documented in the HPI. ROS Other: All systems not noted in ROS Statement are negative. Past Medical History Past Medical History: Cancer, GERD/Reflux, Hypertension, Osteoarthritis (OA) Additional Past Medical History / Comment(s): SOB w/exertion, hx. prostate cancer 2005, past hx. of having infection in hip after surg that he saw Dr Ortiz for-says Dr Ortiz is to be notified whenever he has surgery History of Any Multi-Drug Resistant Organisms: None Reported Past Surgical History: Back Surgery, Joint Replacement, Prostate Surgery Additional Past Surgical History / Comment(s): prostatectomy,right hip replaced Past Anesthesia/Blood Transfusion Reactions: No Reported Reaction Past Psychological History: No Psychological Hx Reported Smoking Status: Former smoker Past Alcohol Use History: Daily Past Drug Use History: None Reported - Past Family History Brother(s) Family Medical History: Cancer General Exam Limitations: no limitations General appearance: alert, in no apparent distress Head exam: Present: atraumatic, normocephalic Eye exam: Present: normal appearance, PERRL Neck exam: Present: normal inspection. Absent: tenderness, meningismus Respiratory exam: Present: normal lung sounds bilaterally. Absent: respiratory distress, wheezes Cardiovascular Exam: Present: normal rhythm, bradycardia GI/Abdominal exam: Present: soft. Absent: distended, tenderness Extremities exam: Present: other Back exam: Present: normal inspection, full ROM Neurological exam: Present: alert, oriented X3. Absent: motor sensory deficit Psychiatric exam: Present: normal affect, normal mood Skin exam: Present: warm, dry. Absent: cyanosis, diaphoretic Course Vital Signs 02/26/18 06:45 Temperature 97.5 F L Pulse Rate 49 L Respiratory 18 Rate Blood Pressure 172/97 O2 Sat by Pulse 93 L Oximetry Procedures - Laceration Laceration #1 Consent Obtained: verbal consent Time Out Performed: Yes Indication: laceration Site: hand Description: stellate, flap, avulsion Depth: simple, single layer Anesthetic Used: lidocaine 1% Anesthesia Technique: local infiltration Pre-repair: wound explored, irrigated extensively Type of Sutures: nylon Size of Sutures: 5-0 Number of Sutures: 4 Technique: simple, interrupted Patient Tolerated Procedure: well Medical Decision Making - Medical Decision Making 77-year-old presents with laceration, curved 14 hours prior. There was some soft tissue injury and concern for bony abnormality. X-ray obtained, no foreign body, no visualized fracture deformity. This is reviewed by myself. Given the timeframe extensively irrigate this laceration and loosely approximated with 5-0 nylon suture. Patient will watch closely for signs of infection. There is no underlying tendon injury. He will return for suture removal in 10-14 days. Disposition Clinical Impression: Laceration Disposition: HOME SELF-CARE Condition: Good Instructions: Laceration (ED) Additional Instructions: Please return for suture removal 10-14 days Is patient prescribed a controlled substance at d/c from ED?: No Referrals: Jose Celestin DO [Primary Care Provider] - 1-2 days Time of Disposition: 07:53
--- NOTE | 2018-02-26 07:54 | XR ---
EXAMINATION TYPE: XR hand complete RT DATE OF EXAM: 02/26/2018 COMPARISON: None HISTORY: Laceration third metacarpal right hand TECHNIQUE: Three-view right hand FINDINGS: No acute fractures are evident. Advanced degenerative changes are within the distal interph alangeal joint spaces of the index and middle fingers. More moderate degenerative changes are present elsewhere within the joint spaces. There is advanced degenerative change within the proximal carpal row. Prior scaphoid fracture with re sorption of the proximal portion may be present with disruption of the scapholunate space by the capi tellum which articulates with the radius. Degenerative changes are through the first carpal metacarpa l region. Some soft tissue swelling is over the dorsum of the hand. No radiopaque foreign bodies are evident. IMPRESSION: 1. No acute osseous abnormality. 2. No radiopaque foreign body. 3. Advanced degenerative changes within the carpal row with disruption of the scapholunate space and interposition of the capitellum now articulating with the radius.
--- NOTE | 2018-02-28 02:29 | CDI ---
Documentation Clarification OP Dear Jeffy JEREZ MD, Please do addendum to ED report that describes the laceration length of the repair. Thank you, Ally Smith Graphic Artist If you have any question, Please contact coding machine operator at [phone] [facility]
== END 2018-02-26 08:05 | disposition home or self-care (01) ==
LOC: EC 06:45
DX: S61.411A Laceration without foreign body of right hand, initial encounter (principal); K21.9 Gastro-esophageal reflux disease without esophagitis; I10 Essential (primary) hypertension; Z79.82 Long term (current) use of aspirin; Z85.46 Personal history of malignant neoplasm of prostate; M19.90 Unspecified osteoarthritis, unspecified site; Z87.891 Personal history of nicotine dependence; Z79.899 Other long term (current) drug therapy; Z88.1 Allergy status to other antibiotic agents; Z96.641 Presence of right artificial hip joint; W22.8XXA Striking against or struck by other objects, initial encounter; Y93.89 Activity, other specified; Y92.009 Unspecified place in unspecified non-institutional (private) residence as the place of occurrence of the external cause
CPT/HCPCS: 73130; 99283; 12002; J2001

== ENCOUNTER → 2018-06-16 | Outpatient (CLI) | payer MEDICARE, BC | END | disposition home or self-care (01) | LOC: LABWHC1 15:52 | PROVIDERS: ATTEND Internal Medicine Critical Care Medicine | DX: F41.9 Anxiety disorder, unspecified (principal); R53.83 Other fatigue | CPT/HCPCS: 36415; 82533 ==

== ENCOUNTER → 2018-07-13 | Outpatient (CLI) | payer MEDICARE, BC ==
--- NOTE | 2018-07-13 14:32 | CT ---
EXAMINATION TYPE: CT chest wo con DATE OF EXAM: 07/13/2018 COMPARISON: 05/28/2016 HISTORY: Cough. hx of prostate CA CT DLP: 178 mGycm. Automated Exposure Control for Dose Reduction was Utilized. TECHNIQUE: CT scan of the thorax is performed without IV contrast. High-resolution chest CT protocol was performed limiting evaluation for pulmonary nodule. FINDINGS: LUNGS: There is bilateral subpleural reticulation that is seen in the upper and lower lobes throughou t with a slight upper lobe predominance. This is nondependent and does not improve in supine and pron e imaging. This is unchanged from the prior 05/28/2016 without progression. There are new calcified/hi gh density sutures contiguous with a chest wall defect beginning in the right midlung and extending t o the lateral right middle lobe from either prior open biopsy or wedge resection. There is no evidence of interlobular septal thickening. No honeycombing is seen. No suspicious pulmon marianela nodule or mass however there is limited evaluation for pulmonary nodule given noncontiguous slice s. New right basilar granulomas are seen posteriorly in the right lower lobe with surrounding fibrosi s and calcifications extending to the pleural surface. Alternatively this could be a second site of p rior biopsy. No focal consolidation, pleural effusion or pneumothorax. Main tracheobronchial tree appears patent. MEDIASTINUM: Lack of IV contrast is noted to limit evaluation for mediastinal and especially hilar ad enopathy. There are no definitive greater than 1 cm hilar or mediastinal lymph nodes. Heart is mildly enlarged without pericardial effusion. Moderate coronary artery calcifications are evident. OTHER: There is a too small to accurately characterize right hepatic lobe lesion in segment 8, stable from the prior and left hepatic lobe cyst measuring 1.4 cm. There are bilateral renal cysts that are partially visualized. Largest on the right measures up to 8.7 cm in its visualized portion. Very sma ll hiatal hernia is noted. Extensive degenerative changes of the shoulders are seen with diffuse osse ous demineralization and moderate to severe degenerative change of the spine. Old healed left rib fra ctures are seen. These are new from 2017. IMPRESSION: 1. Surgical change of either prior open biopsy or wedge resection with chest wall defect and slight h erniation of the adjacent right middle lobe. 2. Similar subpleural reticulation in comparison to the prior of 05/28/2016 without progression. This can be seen in early pulmonary fibrosis, aging independent of tobacco abuse, or early and NSIP. No fi ndings to suspect UIP. 3. High resolution protocol limits evaluation for pulmonary nodule in this patient with known prostat e carcinoma.
== END | disposition home or self-care (01) ==
LOC: RADCTMAIN 13:15
PROVIDERS: ATTEND Internal Medicine Critical Care Medicine
DX: J94.8 Other specified pleural conditions (principal); R05 Cough; Z98.890 Other specified postprocedural states; Z88.0 Allergy status to penicillin; Z88.1 Allergy status to other antibiotic agents
CPT/HCPCS: 71250

== ENCOUNTER → 2018-09-22 | Outpatient (CLI) | payer MEDICARE, BC ==
[2018-09-22 10:11] LABS: Potassium 4.7 mmol/L (3.5-5.1)
[2018-09-22 10:12] LABS: HCT 49.4 % (39.0-53.0); HGB 15.8 gm/dL (13.0-17.5); MCH 31.3 pg (25.0-35.0); MCV 97.8 fL (80.0-100.0); Mean Platelet Volume 9.4; Platelet Count 199 k/uL (150-450); RBC 5.05 m/uL (4.30-5.90); RDW 14.9 % (11.5-15.5); WBC 9.8 k/uL (3.8-10.6)
== END | disposition home or self-care (01) ==
LOC: LABPAT 09:29
PROVIDERS: ATTEND Internal Medicine Interventional Cardiology
DX: Z01.812 Encounter for preprocedural laboratory examination (principal); I48.1 Persistent atrial fibrillation
CPT/HCPCS: 36415; 80051; 82565; 84520; 85027

== ENCOUNTER → 2018-10-06 | Day surgery (SDC) | payer MEDICARE, BC ==
[2018-09-29 11:56] VITALS: BMI 26.7
[~2018-10-06] MED LIST changes: +ACETAMINOPHEN 650 MG PO PRN; +APIXABAN 5 MG TAB PO SCH; +ASPIRIN 81 MG PO SCH; +BENZOCAINE SPRAY 1 CAN MUCOUS MEM ONE; -DEXAMETHASONE SOD PHOSPHATE 10 MG/ML 1 ML VIAL IV ONE; +HYDROCORTISONE 10 MG TAB PO SCH; +HYDROCORTISONE 20 MG TAB PO SCH; -HYDROmorphone 1 MG/ML 1 ML SYRINGE IVP PRN; -LACTATED RINGERS 1,000 ML IV SCH; -LIDOCAINE 1% 20 ML VIAL (10MG/ML) FOR IV START INTRADERMA PRN; +METOPROLOL SUCCINATE (ER) 25 MG TAB.ER.24H PO SCH; +NON-FORMULARY DRUG (Magnesium Oxide 500 MG) PO SCH; +NON-FORMULARY DRUG (Multivit-Min/Fa/Lycopen/Lutein [Centrum Silver Men Tablet] 1 TAB) PO SCH; +NON-FORMULARY DRUG (Omeprazole [Omeprazole] 20 MG) PO SCH; +OLMESARTAN MEDOXOMIL 40 MG PO SCH; -ONDANSETRON 4 MG/2 ML VIAL IVP ONE; +PROPOFOL 10 MG/ML 20 ML VIAL IV ONE; +SODIUM CHLORIDE 0.9% 1,000 ML IV SCH; +SODIUM CHLORIDE 0.9% 500 ML 500 ML IV ONE; +amLODIPine 5 MG TAB PO SCH; +traMADol 50 MG TAB PO PRN
[2018-10-06 08:56] VITALS: TEMP 98.3
--- NOTE | 2018-10-06 11:01 | CE ---
CARDIAC ELECTROPHYSIOLOGY REPORT CARDIOVERSION DATE OF SERVICE: October 06, 2018. PERFORMING PHYSICIAN: Jim Mina MD. PROCEDURE PERFORMED: Cardioversion. INDICATION: Atrial fibrillation. COMPLICATION: None. LEVEL OF SEDATION: Deep sedation was performed with SUBMERSIBLE PILOT in the room. PROCEDURE DESCRIPTION: After transesophageal echocardiogram was performed and left atrial appendage thrombus was ruled out, we did cardioversion. The patient cardioverted from atrial fibrillation to normal sinus mechanism using 200 joules on attempt. CONCLUSION: Successful cardioversion of atrial fibrillation to normal sinus mechanism using 200 joules on attempt. MMODL / IJN: [id number] /
--- NOTE | 2018-10-06 11:22 | ECHOT ---
TRANSESOPHAGEAL ECHOCARDIOGRAM DATE OF SERVICE: 10/06/2018. PERFORMING PHYSICIAN: Jim Mina MD, Clearing Distribution Clerk. PROCEDURE PERFORMED: Transesophageal echocardiogram. INDICATION: This is a pleasant 78-year-old gentleman who continues to be in atrial fibrillation with RVR and he was brought today to undergo a ANETA and cardioversion. The ANETA is to rule out any intracardiac thrombus before the cardioversion. COMPLICATION: None. LEVEL OF SEDATION: Deep sedation was performed with a REGIONAL LIAISON in the room. PROCEDURE DESCRIPTION: After obtaining an informed consent, explaining the procedure, benefits, risks, complications and alternatives, the patient was brought to the transesophageal echocardiogram suite. A pulse oximetry and heart rate monitors were attached to the patient prior to the procedure. The patient's throat was sprayed using lidocaine locally. Following that, the patient was turned into left lateral position. A bite guard was placed and the patient was then sedated with the above doses of Versed and fentanyl in divided doses. Following that, the transesophageal echocardiogram probe was advanced through the bite guard into the mid esophagus where 2-D echocardiogram images as well as color Doppler images of various cardiac structures were obtained. We evaluated the interatrial septum using 2-D echocardiogram, color Doppler, and contrast study. The procedure was completed. There were no complications. FINDINGS: The left ventricular dimension and systolic function appeared to be within normal limits. The ejection fraction appeared to be in the range of 60%. The right ventricle appeared to be of normal size and function. The left atrium appeared to be mildly dilated. Left atrial appendage appeared to be free from any thrombus. The interatrial septum appeared to be intact. The aortic valve is trileaflet valve without stenosis or regurgitation. The mitral valve appeared to be mildly thickened with evidence of moderate to severe mitral regurgitation. The tricuspid valve and pulmonic valve appeared to be within normal limits. CONCLUSION: 1. Intact left atrial appendage without any evidence of thrombus. 2. Intact interatrial septum without any evidence of shunt. 3. Mildly dilated left and right atrium. 4. Normal left ventricular dimension and systolic function. 5. Trileaflet aortic valve without stenosis or regurgitation. 6. Thickened mitral valve leaflets with evidence of moderate to severe mitral regurgitation. 7. Normal tricuspid valve and pulmonic valve. 8. Normal aortic root dimension. 9. No evidence of pericardial effusion. MMODL / IJN: [id number] /
[2018-10-06 11:32] LABS: Calcium 9.3 mg/dL (8.4-10.2); Potassium 4.1 mmol/L (3.5-5.1)
[2018-10-06 13:08] VITALS: BP 128/73; PULSE 72; RESP 16
== END ==
LOC: CATHCVL 08:26
PROVIDERS: ATTEND Internal Medicine Interventional Cardiology
DX: I48.1 Persistent atrial fibrillation (principal); I34.0 Nonrheumatic mitral (valve) insufficiency; I49.1 Atrial premature depolarization; I10 Essential (primary) hypertension; E78.5 Hyperlipidemia, unspecified; K21.9 Gastro-esophageal reflux disease without esophagitis; Z79.01 Long term (current) use of anticoagulants; Z79.51 Long term (current) use of inhaled steroids; Z79.82 Long term (current) use of aspirin; Z79.899 Other long term (current) drug therapy; Z88.1 Allergy status to other antibiotic agents; Z82.49 Family history of ischemic heart disease and other diseases of the circulatory system
CPT/HCPCS: 93312; 93320; 93325; 92960; 80048; 83735; J2704

== ENCOUNTER 2019-02-28 06:03 | Day surgery (SDC) | payer MEDICARE, BC ==
[2019-02-21 14:54] VITALS: BMI 27.8
[~2019-02-28 06:03] MED LIST changes: -ACETAMINOPHEN 650 MG PO PRN; -APIXABAN 5 MG TAB PO SCH; -ASPIRIN 81 MG PO SCH; -BENZOCAINE SPRAY 1 CAN MUCOUS MEM ONE; -HYDROCORTISONE 10 MG TAB PO SCH; -HYDROCORTISONE 20 MG TAB PO SCH; +LACTATED RINGERS 1,000 ML IV SCH; -METOPROLOL SUCCINATE (ER) 25 MG TAB.ER.24H PO SCH; -NON-FORMULARY DRUG (Magnesium Oxide 500 MG) PO SCH; -NON-FORMULARY DRUG (Multivit-Min/Fa/Lycopen/Lutein [Centrum Silver Men Tablet] 1 TAB) PO SCH; -NON-FORMULARY DRUG (Omeprazole [Omeprazole] 20 MG) PO SCH; -OLMESARTAN MEDOXOMIL 40 MG PO SCH; -PROPOFOL 10 MG/ML 20 ML VIAL IV ONE; -SODIUM CHLORIDE 0.9% 500 ML 500 ML IV ONE; -amLODIPine 5 MG TAB PO SCH; -traMADol 50 MG TAB PO PRN
[2019-02-28 06:43] VITALS: TEMP 98.1
[2019-02-28 07:04] LABS: Calcium 9.4 mg/dL (8.4-10.2)
[2019-02-28 07:05] LABS: Potassium 5.4 mmol/L (3.5-5.1)
[2019-02-28] MEDS ORDERED: PROPOFOL 10 MG/ML 20 ML VIAL IV ONE (07:20)
[2019-02-28 07:50] VITALS: RESP 16
--- NOTE | 2019-02-28 08:18 | CE ---
CARDIAC ELECTROPHYSIOLOGY REPORT CARDIOVERSION: PERFORMING PHYSICIAN: Jim Mina MD. PROCEDURE PERFORMED: Cardioversion of atrial fibrillation. COMPLICATIONS: None. LEVEL OF SEDATION: The procedure was performed under deep sedation with CIGAR MAKING MACHINE OPERATOR in the room and using propofol. PROCEDURE DESCRIPTION: After deep sedation was achieved, we did a cardioversion of atrial fibrillation using 200 joules on first attempt. CONCLUSION: Successful cardioversion of atrial fibrillation to normal sinus mechanism using 200 joules on first attempt. MMODL / IJN: [id number] /
[2019-02-28 09:16] VITALS: BP 106/62; PULSE 64
== END 2019-02-28 09:16 | disposition home or self-care (01) ==
LOC: CATHCVL 06:03
PROVIDERS: ATTEND Internal Medicine Interventional Cardiology
DX: I48.0 Paroxysmal atrial fibrillation (principal); I10 Essential (primary) hypertension; E78.5 Hyperlipidemia, unspecified; I34.0 Nonrheumatic mitral (valve) insufficiency; K21.9 Gastro-esophageal reflux disease without esophagitis; Z82.49 Family history of ischemic heart disease and other diseases of the circulatory system; Z79.01 Long term (current) use of anticoagulants; Z79.82 Long term (current) use of aspirin; Z79.899 Other long term (current) drug therapy; Z88.1 Allergy status to other antibiotic agents
CPT/HCPCS: 92960; 80048; J2704

== ENCOUNTER → 2019-06-16 | Outpatient (CLI) | payer MEDICARE, BC ==
[2019-06-16 08:51] LABS: Basophils # (A) 0.1 k/uL (0-0.2); Basophils % (A) 1 %; Eosinophils # (A) 0.3 k/uL (0-0.7); Eosinophils % (A) 3 %; HCT 47.1 % (39.0-53.0); HGB 14.5 gm/dL (13.0-17.5); Lymphocytes # (A) 1.7 k/uL (1.0-4.8); Lymphocytes % (A) 18 %; MCH 30.2 pg (25.0-35.0); MCHC 30.9 g/dL (31.0-37.0); MCV 97.7 fL (80.0-100.0); Mean Platelet Volume 10.2; Monocytes # (A) 0.7 k/uL (0-1.0); Monocytes % (A) 8 %; Neutrophils # (A) 6.4 k/uL (1.3-7.7); Neutrophils % (A) 69 %; Platelet Count 205 k/uL (150-450); RBC 4.82 m/uL (4.30-5.90); RDW 14.1 % (11.5-15.5); WBC 9.3 k/uL (3.8-10.6)
[2019-06-16 17:21] LABS: T4, Free (Free Thyroxine) 1.3 ng/dL (0.80-1.80)
== END | disposition home or self-care (01) ==
LOC: LABWHC1 08:02
PROVIDERS: ATTEND Internal Medicine
DX: E27.40 Unspecified adrenocortical insufficiency (principal)
CPT/HCPCS: 36415; 84439; 84443; 85025

== ENCOUNTER 2019-07-18 08:03 | Observation (INO) | payer MEDICARE, BC ==
--- NOTE | 2019-07-18 08:23 | ED ---
Back Pain HPI - General Chief Complaint: Back Pain/Injury Stated Complaint: fall/Rib pain Time Seen by Provider: 07/18/19 08:11 Source: patient, RN notes reviewed, old records reviewed Limitations: no limitations - History of Present Illness Initial Comments: Patient is a pleasant 79-year-old male who states that he is having left-sided rib and paraspinal muscle tenderness after tripping on a hole in the yard and falling backward onto his left ribs. Patient states that he heard a crack at that time. Patient reports that he has worsening pain with movement and deep breath. Patient denies any chest pain. Denies any abdominal pain or nausea or vomiting. - Related Data Home Medications Medication Instructions Recorded Confirmed Aspirin 81 mg PO QAM 06/26/16 02/28/19 Magnesium Oxide [Mag-Ox] 500 mg PO DAILY 06/26/16 02/28/19 Multivit-Min/FA/Lycopen/Lutein 1 tab PO DAILY 06/26/16 02/28/19 [Centrum Silver Men Tablet] Olmesartan Medoxomil [Benicar] 40 mg PO DAILY 06/26/16 02/28/19 Omeprazole 20 mg PO DAILY 06/26/16 02/28/19 Metoprolol Succinate [Toprol XL] 25 mg PO BID 02/26/18 02/28/19 amLODIPine [Norvasc] 5 mg PO QAM 02/26/18 02/28/19 Simvastatin [Zocor] 20 mg PO HS 06/21/18 02/28/19 Apixaban [Eliquis] 5 mg PO BID 09/29/18 02/28/19 Hydrocortisone 10 mg PO HS 09/29/18 02/28/19 Hydrocortisone 20 mg PO QAM 09/29/18 02/28/19 Amiodarone HCl [Pacerone] 200 mg PO DAILY 02/21/19 02/28/19 Allergies Allergy/AdvReac Type Severity Reaction Status Date / Time gentamicin AdvReac Nausea & Verified 07/18/19 09:46 Vomiting levofloxacin [From Levaquin] AdvReac Nausea & Verified 07/18/19 09:46 Vomiting Review of Systems ROS Statement: Those systems with pertinent positive or pertinent negative responses have been documented in the HPI. ROS Other: All systems not noted in ROS Statement are negative. Past Medical History Past Medical History: Atrial Fibrillation, Cancer, GERD/Reflux, Hypertension, Osteoarthritis (OA) Additional Past Medical History / Comment(s): See Dr Mina's H&P. SOB w/exertion, resolving, hx. prostate cancer 2004. History of Any Multi-Drug Resistant Organisms: None Reported Past Surgical History: Back Surgery, Joint Replacement, Prostate Surgery Additional Past Surgical History / Comment(s): Prostatectomy, right hip replac ement. Past Anesthesia/Blood Transfusion Reactions: No Reported Reaction Past Psychological History: No Psychological Hx Reported Smoking Status: Former smoker Past Alcohol Use History: Occasional Past Drug Use History: None Reported - Past Family History Brother(s) Family Medical History: Cancer Mother Family Medical History: Cancer General Exam - General Exam Comments Initial Comments: 79-year-old male. Alert and oriented. No distress. Limitations: no limitations General appearance: alert, in no apparent distress Head exam: Present: atraumatic, normocephalic, normal inspection Eye exam: Present: normal appearance, PERRL, EOMI. Absent: scleral icterus, conjunctival injection, periorbital swelling ENT exam: Present: normal exam, mucous membranes moist Neck exam: Present: normal inspection. Absent: tenderness, meningismus, lymphadenopathy Respiratory exam: Present: normal lung sounds bilaterally, other (tenderness over left ribs). Absent: respiratory distress, wheezes, rales, rhonchi, stridor Cardiovascular Exam: Present: regular rate, normal rhythm, normal heart sounds. Absent: systolic murmur, diastolic murmur, rubs, gallop, clicks GI/Abdominal exam: Present: soft, normal bowel sounds. Absent: distended, tenderness, guarding, rebound, rigid Extremities exam: Present: normal inspection Back exam: Present: normal inspection Neurological exam: Present: alert, oriented X3, CN II-XII intact Psychiatric exam: Present: normal affect, normal mood Skin exam: Present: warm, dry, intact, normal color. Absent: rash Course Vital Signs 07/18/19 07/18/19 08:06 09:40 Temperature 98.2 F Pulse Rate 89 71 Respiratory 18 18 Rate Blood Pressure 150/78 147/84 O2 Sat by Pulse 95 95 Oximetry Medical Decision Making - Medical Decision Making This patient's a pleasant 79-year-old male who presents emergency department today for evaluation for left-sided rib pain after tripping on his lawn and falling backward. Patient's states since then he's been having some generalized weakness or tingling getting up especially due to the rib pain. Chest x-ray shows evidence of displaced fractures on ribs 78 and 9 and possibly the sixth rib. I discussed the case with Dr. Velazquez and he discussed the case with Dr. Busby. Patient admitted under trauma services consult anesthesia in regards to patient's persistent rib pain and may possibly have a nerve block. - Lab Data Result diagrams: 07/18/19 09:19 07/18/19 09:19 Lab Results 07/18/19 07/18/19 07/18/19 Range/Units 09:19 09:19 09:19 WBC 10.1 (3.8-10.6) k/uL RBC 5.60 (4.30-5.90) m/uL Hgb 17.1 (13.0-17.5) gm/dL Hct 54.3 H (39.0-53.0) % MCV 96.9 (80.0-100.0) fL MCH 30.5 (25.0-35.0) pg MCHC 31.5 (31.0-37.0) g/dL RDW 13.2 (11.5-15.5) % Plt Count 252 (150-450) k/uL Neutrophils % 75 % Lymphocytes % 11 % Monocytes % 9 % Eosinophils % 2 % Basophils % 1 % Neutrophils # 7.6 (1.3-7.7) k/uL Lymphocytes # 1.1 (1.0-4.8) k/uL Monocytes # 0.9 (0-1.0) k/uL Eosinophils # 0.2 (0-0.7) k/uL Basophils # 0.1 (0-0.2) k/uL PT 10.1 (9.0-12.0) sec INR 1.0 (<1.2) APTT 25.2 (22.0-30.0) sec Sodium 140 (137-145) mmol/L Potassium 5.4 H (3.5-5.1) mmol/L Chloride 100 (98-107) mmol/L Carbon Dioxide 27 (22-30) mmol/L Anion Gap 13 mmol/L BUN 31 H (9-20) mg/dL Creatinine 1.87 H (0.66-1.25) mg/dL Est GFR (CKD-EPI)AfAm 39 (>60 ml/min/1.73 sqM) Est GFR (CKD-EPI)NonAf 34 (>60 ml/min/1.73 sqM) Glucose 126 H (74-99) mg/dL Calcium 10.4 H (8.4-10.2) mg/dL Magnesium 2.2 (1.6-2.3) mg/dL Total Bilirubin 0.7 (0.2-1.3) mg/dL AST 33 (17-59) U/L ALT 25 (4-49) U/L Alkaline Phosphatase 83 (38-126) U/L NT-Pro-B Natriuret Pep pg/mL Total Protein 8.1 (6.3-8.2) g/dL Albumin 4.8 (3.5-5.0) g/dL Lipase 257 (23-300) U/L 07/18/19 Range/Units 09:19 WBC (3.8-10.6) k/uL RBC (4.30-5.90) m/uL Hgb (13.0-17.5) gm/dL Hct (39.0-53.0) % MCV (80.0-100.0) fL MCH (25.0-35.0) pg MCHC (31.0-37.0) g/dL RDW (11.5-15.5) % Plt Count (150-450) k/uL Neutrophils % % Lymphocytes % % Monocytes % % Eosinophils % % Basophils % % Neutrophils # (1.3-7.7) k/uL Lymphocytes # (1.0-4.8) k/uL Monocytes # (0-1.0) k/uL Eosinophils # (0-0.7) k/uL Basophils # (0-0.2) k/uL PT (9.0-12.0) sec INR (<1.2) APTT (22.0-30.0) sec Sodium (137-145) mmol/L Potassium (3.5-5.1) mmol/L Chloride (98-107) mmol/L Carbon Dioxide (22-30) mmol/L Anion Gap mmol/L BUN (9-20) mg/dL Creatinine (0.66-1.25) mg/dL Est GFR (CKD-EPI)AfAm (>60 ml/min/1.73 sqM) Est GFR (CKD-EPI)NonAf (>60 ml/min/1.73 sqM) Glucose (74-99) mg/dL Calcium (8.4-10.2) mg/dL Magnesium (1.6-2.3) mg/dL Total Bilirubin (0.2-1.3) mg/dL AST (17-59) U/L ALT (4-49) U/L Alkaline Phosphatase (38-126) U/L NT-Pro-B Natriuret Pep 282 pg/mL Total Protein (6.3-8.2) g/dL Albumin (3.5-5.0) g/dL Lipase (23-300) U/L - Radiology Data Radiology results: report reviewed Posterior lateral rib fractures are chronic at left third fourth ribs. Fractures are noted with minimal displacement on 7 8/9 and possibly sixth rib. No evident pneumothorax or pleural effusion. Arthropathy is noted within shoulders. Cardiac mediastinal silhouette and pulmonary vascular are stable. Interstitial lung disease is noted. Thoracic spondylosis. The aortic stents. Disposition Clinical Impression: Rib fracture, Fall, MIQUEL (acute kidney injury) Disposition: ADMITTED IP TO THIS HOSP Is patient prescribed a controlled substance at d/c from ED?: No Referrals: Jose Celestin DO [Primary Care Provider] - 1-2 days Time of Disposition: 10:01
--- NOTE | 2019-07-18 08:46 | XR ---
Chest x-ray with left RIBS HISTORY: Trauma 3 days prior, pain Frontal view of the chest, 6 views of the left ribs submitted and correlated to prior chest x-ray 05/11, chest CT 07/13/2018 Posterior lateral left rib fractures are chronic at the left third, fourth ribs. There are rib fractu res noted with minimal displacement of the left seventh, eighth, ninth ribs, possibly sixth rib. Ther e is no evident pneumothorax or pleural effusion. Arthropathy is noted within the shoulders. Cardiac mediastinal silhouette, pulmonary vascularity and edith are stable. Interstitial lung disease is again noted. There is thoracic spondylosis. Aorta is dense. IMPRESSION: Rib fractures as described.
[2019-07-18] MEDS ORDERED: MORPHINE SULFATE 4 MG/ML SYRINGE IV STA (09:00)
[2019-07-18] MEDS ORDERED: SODIUM CHLORIDE 0.9% 1,000 ML IV STA ×2 (09:00)
[2019-07-18] MEDS ORDERED: ACETAMINOPHEN TAB 325 MG TAB PO PRN (09:16)
[2019-07-18] MEDS ORDERED: NALOXONE 0.4 MG/ML 1 ML VIAL IV PRN (09:16)
[2019-07-18 09:30] LABS: Basophils # (A) 0.1 k/uL (0-0.2); Basophils % (A) 1 %; Eosinophils # (A) 0.2 k/uL (0-0.7); Eosinophils % (A) 2 %; HCT 54.3 % (39.0-53.0); HGB 17.1 gm/dL (13.0-17.5); Lymphocytes # (A) 1.1 k/uL (1.0-4.8); Lymphocytes % (A) 11 %; MCH 30.5 pg (25.0-35.0); MCHC 31.5 g/dL (31.0-37.0); MCV 96.9 fL (80.0-100.0); Mean Platelet Volume 9.8; Monocytes # (A) 0.9 k/uL (0-1.0); Monocytes % (A) 9 %; Neutrophils # (A) 7.6 k/uL (1.3-7.7); Neutrophils % (A) 75 %; Platelet Count 252 k/uL (150-450); RDW 13.2 % (11.5-15.5); WBC 10.1 k/uL (3.8-10.6)
[2019-07-18 09:40] LABS: Albumin 4.8 g/dL (3.5-5.0); Calcium 10.4 mg/dL (8.4-10.2); Magnesium 2.2 mg/dL (1.6-2.3); Partial Thromboplastin Time 25.2 sec (22.0-30.0); Potassium 5.4 mmol/L (3.5-5.1); Prothrombin Time 10.1 sec (9.0-12.0); Total Bilirubin 0.7 mg/dL (0.2-1.3); Total Protein 8.1 g/dL (6.3-8.2)
--- NOTE | 2019-07-18 10:44 | P.GSHP ---
History of Present Illness H&P Date: 07/18/19 Chief Complaint: Left back pain This is a 71-year-old male who fell 3 days ago while bleed with pain. Patient states he fell on his back. Patient had complaints of left-sided back pain. Patient underwent chest x-ray which shows evidence of third, fourth, 6, seventh, eighth, ninth rib fractures. Patient denies any other significant pain. Past Medical History Past Medical History: Atrial Fibrillation, Cancer, GERD/Reflux, Hypertension, Osteoarthritis (OA) Additional Past Medical History / Comment(s): See Dr Mina's H&P. SOB w/exertion, resolving, hx. prostate cancer 2004. History of Any Multi-Drug Resistant Organisms: None Reported Past Surgical History: Back Surgery, Joint Replacement, Prostate Surgery Additional Past Surgical History / Comment(s): Prostatectomy, right hip replacement. Past Anesthesia/Blood Transfusion Reactions: No Reported Reaction Past Psychological History: No Psychological Hx Reported Smoking Status: Former smoker Past Alcohol Use History: Occasional Past Drug Use History: None Reported - Past Family History Brother(s) Family Medical History: Cancer Mother Family Medical History: Cancer Medications and Allergies Home Medications Medication Instructions Recorded Confirmed Type Aspirin 81 mg PO QAM 06/26/16 07/18/19 History Multivit-Min/FA/Lycopen/Lutein 1 tab PO DAILY 06/26/16 07/18/19 History [Centrum Silver Men Tablet] Olmesartan Medoxomil [Benicar] 40 mg PO DAILY 06/26/16 07/18/19 History Omeprazole 20 mg PO DAILY 06/26/16 07/18/19 History Metoprolol Succinate [Toprol XL] 25 mg PO BID 02/26/18 07/18/19 History amLODIPine [Norvasc] 5 mg PO QAM 02/26/18 07/18/19 History Simvastatin [Zocor] 20 mg PO HS 06/21/18 07/18/19 History Apixaban [Eliquis] 5 mg PO BID 09/29/18 07/18/19 History Hydrocortisone 10 mg PO HS 09/29/18 07/18/19 History Amiodarone HCl [Pacerone] 200 mg PO DAILY 02/21/19 07/18/19 History ALPRAZolam [Xanax] 0.25 mg PO HS PRN 07/18/19 07/18/19 History Acetaminophen [Tylenol Arthritis] 1,300 mg PO Q8H PRN 07/18/19 07/18/19 History Cholecalciferol [Vitamin D3 (25 1,000 unit PO DAILY 07/18/19 07/18/19 History Mcg = 1000 Iu)] Hydrocortisone 20 mg PO QAM 07/18/19 07/18/19 History Loratadine [Claritin] 10 mg PO DAILY 07/18/19 07/18/19 History Magnesium Oxide [Meehan] 500 mg PO DAILY 07/18/19 07/18/19 History traMADol HCL 50 mg PO Q6H PRN 07/18/19 07/18/19 History Allergies Allergy/AdvReac Type Severity Reaction Status Date / Time gentamicin AdvReac Nausea & Verified 07/18/19 09:46 Vomiting levofloxacin [From Levaquin] AdvReac Nausea & Verified 07/18/19 09:46 Vomiting Surgical - Exam Vital Signs Temp Pulse Resp BP Pulse Ox 98.2 F 89 18 150/78 95 07/18/19 08:06 07/18/19 08:06 07/18/19 08:06 07/18/19 08:06 07/18/19 08:06 - General well developed, well nourished, no distress - Eyes PERRL - ENT normal pinna - Neck no masses - Respiratory normal expansion - Cardiovascular Rhythm: regular - Abdomen Abdomen: soft, non tender Results - Labs 07/18/19 09:19 07/18/19 09:19 Abnormal Lab Results - Last 24 Hours (Table) 07/18/19 07/18/19 Range/Units 09:19 09:19 Hct 54.3 H (39.0-53.0) % Potassium 5.4 H (3.5-5.1) mmol/L BUN 31 H (9-20) mg/dL Creatinine 1.87 H (0.66-1.25) mg/dL Glucose 126 H (74-99) mg/dL Calcium 10.4 H (8.4-10.2) mg/dL Diabetes panel 07/18/19 Range/Units 09:19 Sodium 140 (137-145) mmol/L Potassium 5.4 H (3.5-5.1) mmol/L Chloride 100 (98-107) mmol/L Carbon Dioxide 27 (22-30) mmol/L BUN 31 H (9-20) mg/dL Creatinine 1.87 H (0.66-1.25) mg/dL Glucose 126 H (74-99) mg/dL Calcium 10.4 H (8.4-10.2) mg/dL AST 33 (17-59) U/L ALT 25 (4-49) U/L Alkaline Phosphatase 83 (38-126) U/L Total Protein 8.1 (6.3-8.2) g/dL Albumin 4.8 (3.5-5.0) g/dL Calcium panel 07/18/19 Range/Units 09:19 Calcium 10.4 H (8.4-10.2) mg/dL Albumin 4.8 (3.5-5.0) g/dL Pituitary panel 07/18/19 Range/Units 09:19 Sodium 140 (137-145) mmol/L Potassium 5.4 H (3.5-5.1) mmol/L Chloride 100 (98-107) mmol/L Carbon Dioxide 27 (22-30) mmol/L BUN 31 H (9-20) mg/dL Creatinine 1.87 H (0.66-1.25) mg/dL Glucose 126 H (74-99) mg/dL Calcium 10.4 H (8.4-10.2) mg/dL Adrenal panel 07/18/19 Range/Units 09:19 Sodium 140 (137-145) mmol/L Potassium 5.4 H (3.5-5.1) mmol/L Chloride 100 (98-107) mmol/L Carbon Dioxide 27 (22-30) mmol/L BUN 31 H (9-20) mg/dL Creatinine 1.87 H (0.66-1.25) mg/dL Glucose 126 H (74-99) mg/dL Calcium 10.4 H (8.4-10.2) mg/dL Total Bilirubin 0.7 (0.2-1.3) mg/dL AST 33 (17-59) U/L ALT 25 (4-49) U/L Alkaline Phosphatase 83 (38-126) U/L Total Protein 8.1 (6.3-8.2) g/dL Albumin 4.8 (3.5-5.0) g/dL Assessment and Plan Assessment: Multiple rib fractures left side. Patient was admitted to hospital for analgesia.
[2019-07-18] MEDS ORDERED: ALPRAZolam 0.25 MG TAB PO PRN (11:56)
[2019-07-18] MEDS ORDERED: PNEUMOCOCCAL VACC-PNEUMOVAX 23 25 MCG/0.5 ML VIAL IM ONE (11:56)
--- NOTE | 2019-07-18 12:15 | P.CNPUL ---
History of Present Illness Consult date: 07/18/19 Requesting physician: Daryl Hartman Reason for consult: chest pain Chief complaint: Fall, multiple rib fractures History of present illness: 79-year-old white male patient of Dr. Price with past medical history of chronic A. 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 Patient states he heard a crack at that time. He is experiencing worsening pain over last 3 days with any movement and deep breathing. He denied any lightheadedness or syncopal episode, no nausea vomiting diarrhea, no fever or chills. Patient presents the emergency department today on 07/18/2019 for evaluation of worsening left chest rib pain, his chest x-ray showed rib fractures with minimal displacement of the left seventh and eighth and ninth ribs, possibly the 6th rib. No evident pneumothorax or pleural effusion. Interstitial lung disease was noted. EKG s hows sinus rhythm with PACs, and evidence of possible inferior infarct of undetermined age. No signs are stable, temperature is 98.2, blood pressure is 150/78, sinus mechanism, controlled rate on the monitor, room air pulse ox is 94%. Lab work has been reviewed showing white blood cell count of 10.1, hemoglobin of 17.1, INR is 1.0, sodium is 140, potassium is 5.4, heart is 100, BUN is 31 creatinine is 1.87, troponin is 0.022, proBNP is 282. Review of Systems All systems: negative Constitutional: Denies chills, Denies fever Eyes: denies blurred vision, denies pain Ears, nose, mouth and throat: Denies headache, Denies sore throat Cardiovascular: Denies chest pain, Denies shortness of breath Respiratory: Reports pain, Denies cough Gastrointestinal: Denies abdominal pain, Denies diarrhea, Denies nausea, Denies vomiting Musculoskeletal: Reports limitation of motion, Denies myalgias Integumentary: Denies pruritus, Denies rash Neurological: Denies numbness, Denies weakness Psychiatric: Denies anxiety, Denies depression Endocrine: Denies fatigue, Denies weight change 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 History of Any Multi-Drug Resistant Organisms: None Reported Past Surgical History: Adenoidectomy, Back Surgery, Joint Replacement, Orthopedic Surgery, Prostate Surgery, Tonsillectomy Additional Past Surgical History / Comment(s): Prostatectomy, right hip replacement, low back surgery, L hand 2nd/3rd finger partial amputations, ANETA/cardioversions, colonoscopy, R lung thorascopy. Past Anesthesia/Blood Transfusion Reactions: No Reported Reaction Smoking Status: Former smoker - Past Family History Brother(s) Family Medical History: Cancer Additional Family Medical History / Comment(s): Brother of pancreatic cancer. Mother Family Medical History: Vascular Disorder Additional Family Medical History / Comment(s): Mother had varicosities and leg ulcers. Father Family Medical History: Myocardial Infarction ([place]) Additional Family Medical History / Comment(s): Father of a [place] at the age of 64 yrs. Medications and Allergies Home Medications Medication Instructions Recorded Confirmed Type Aspirin 81 mg PO QAM 06/26/16 07/18/19 History Multivit-Min/FA/Lycopen/Lutein 1 tab PO DAILY 06/26/16 07/18/19 History [Centrum Silver Men Tablet] Olmesartan Medoxomil [Benicar] 40 mg PO DAILY 06/26/16 07/18/19 History Omeprazole 20 mg PO DAILY 06/26/16 07/18/19 History Metoprolol Succinate [Toprol XL] 25 mg PO BID 02/26/18 07/18/19 History amLODIPine [Norvasc] 5 mg PO QAM 02/26/18 07/18/19 History Simvastatin [Zocor] 20 mg PO HS 06/21/18 07/18/19 History Apixaban [Eliquis] 5 mg PO BID 09/29/18 07/18/19 History Hydrocortisone 10 mg PO HS 09/29/18 07/18/19 History Amiodarone HCl [Pacerone] 200 mg PO DAILY 02/21/19 07/18/19 History ALPRAZolam [Xanax] 0.25 mg PO HS PRN 07/18/19 07/18/19 History Acetaminophen [Tylenol Arthritis] 1,300 mg PO Q8H PRN 07/18/19 07/18/19 History Cholecalciferol [Vitamin D3 (25 1,000 unit PO DAILY 07/18/19 07/18/19 History Mcg = 1000 Iu)] Hydrocortisone 20 mg PO QAM 07/18/19 07/18/19 History Loratadine [Claritin] 10 mg PO DAILY 07/18/19 07/18/19 History Magnesium Oxide [Meehan] 500 mg PO DAILY 07/18/19 07/18/19 History traMADol HCL 50 mg PO Q6H PRN 07/18/19 07/18/19 History Allergies Allergy/AdvReac Type Severity Reaction Status Date / Time gentamicin AdvReac Nausea & Verified 07/18/19 09:46 Vomiting levofloxacin [From Levaquin] AdvReac Nausea & Verified 07/18/19 09:46 Vomiting Physical Exam Vitals: Vital Signs Temp Pulse Resp BP Pulse Ox 07/18/19 11:34 61 18 139/77 94 L 07/18/19 10:00 61 16 142/77 93 L 07/18/19 09:40 71 18 147/84 95 07/18/19 08:06 98.2 F 89 18 150/78 95 Intake and Output 07/17/19 07/18/19 07/18/19 22:59 06:59 14:59 Other: Weight 93.894 kg GENERAL EXAM: Alert, very pleasant, 79-year-old white male, on room air with a pulse ox of 94-95% comfortable in no apparent distress. HEAD: Normocephalic/atraumatic. EYES: Normal reaction of pupils, equal size. Conjunctiva pink, sclera white. NOSE: Clear with pink turbinates. THROAT: No erythema or exudates. NECK: No masses, no JVD, no thyroid enlargement, no adenopathy. CHEST: No chest wall deformity. Symmetrical expansion. Left rib chest ten derness with deep breathing and coughing LUNGS: Equal air entry with no crackles, wheeze, rhonchi or dullness. CVS: Regular rate and rhythm, normal S1 and S2, no gallops, no murmurs, no rubs ABDOMEN: Soft, nontender. No hepatosplenomegaly, normal bowel sounds, no guarding or rigidity. EXTREMITIES: No clubbing, no edema, no cyanosis, 2+ pulses and upper and lower extremities. MUSCULOSKELETAL: Muscle strength and tone normal. SPINE: No scoliosis or deformity SKIN: No rashes CENTRAL NERVOUS SYSTEM: Alert and oriented -3. No focal deficits, tone is normal in all 4 extremities. PSYCHIATRIC: Alert and oriented -3. Appropriate affect. Intact judgment and insight. Results - Laboratory Findings CBC and BMP: 07/18/19 09:19 07/18/19 09:19 PT/INR, D-dimer PT 10.1 sec (9.0-12.0) 07/18/19 09:19 INR 1.0 (<1.2) 07/18/19 09:19 Abnormal lab findings: Abnormal Labs 07/18/19 07/18/19 09:19 09:19 Hct 54.3 H Potassium 5.4 H BUN 31 H Creatinine 1.87 H Glucose 126 H Calcium 10.4 H - Diagnostic Findings Chest x-ray: report reviewed, image reviewed Assessment and Plan Plan: Assessment: #1. Left chest rib pain, related to multiple rib fractures of the seventh, eighth, ninth, and possibly the sixth rib on the left side. No evidence of pneumothorax or pleural effusion. #2. Mechanical fall at home, sustaining trauma to the left ribs #3. 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 Chronic adrenal cortical hypofunction #5. Chronic atrial fibrillation, currently in sinus rhythm, on Eliquis for anticoagulation #6. Benign essential hypertension #7. GERD/reflux #8. History of prostate cancer #9. Hyperlipidemia #10. Mild hyperkalemia, serum potassium is 5.4 #11. Acute kidney injury Plan: We'll reorder patient's home medications will hold Benicar. Patient is receiving IV hydration for acute kidney injury. Hold Eliquis and aspirin for possibility of epidural, pain control anesthesia services have been consulted, encourage deep breathing and coughing, chest x-ray showed multiple broken ribs on the left side but no evidence of pneumothorax, no acute dyspnea, vital signs are stable, we'll reorder patient's anticoagulation for history of atrial fibrillation. Will restart home dose of Cortef 20 mg in the morning and 10 mg at night. Continue IV hydration. Recheck labs in the morning. Repeat chest x- ray in the morning I performed a history & physical examination of the patient and discussed their management with my nurse practitioner, Jennifer Pal. I reviewed the nurse practitioner's note and agree with the documented findings and plan of care. Lung sounds are positive for diminished breath sounds at the bases. The findings and the impression was discussed with the patient. I attest to the documentation by the nurse practitioner. Time with Patient: Greater than 30
[2019-07-18] MEDS ORDERED: SODIUM POLYSTYRENE SULFONATE 15 GM/60 ML BOTTLE PO STA (12:25)
[2019-07-18] MEDS: HYDROcodone/APAP 5-325MG 1 EACH TAB PO PRN ×2 (15:37→20:15)
[2019-07-18] MEDS: ENOXAPARIN 40 MG/0.4 ML SYRINGE SQ SCH (15:37)
[2019-07-18] MEDS: DIAZEPAM 2 MG TAB PO SCH ×2 (17:40→21:48)
--- NOTE | 2019-07-18 18:28 | P.CONS ---
History of Present Illness - Reason for Consult Consult date: 07/18/19 Medical management Requesting physician: Daryl Hartman - Chief Complaint Fall - History of Present Illness Consultation: This is a very pleasant 79-year-old patient of Dr. Celestin. Chronic stable medical conditions include GERD, hypertension, hyperlipidemia, osteoarthritis, hiatal hernia, colonic diverticulosis, interstitial lung disease, atrial fibrillation the past. Patient drinks about 2 beers and couple shots of alcohol at night. at the bedside states he probably drinks a bit more. Patient was in her yard and he tripped on a hole in the yard and fell backwards onto his left ribs. He had a crack at that time. His worsening pain with deep breaths and movement. Denies any loss of consciousness, no palpitation, no hemoptysis. This occurred about 3 days ago. The patient has been worsening. To control the pain was drinking a bit more of alcohol. Review of systems: GEN.: None EYES: None HEENT: None NECK: None RESPIRATORY: As above CARDIOVASCULAR: None GASTROINTESTINAL: None GENITOURINARY: None MUSCULOSKELETAL: Joint pains and as above LYMPHATICS: None HEMATOLOGICAL: None PSYCHIATRY: None NEUROLOGICAL: None Past medical history to include: Atrial fibrillation corrected, GERD, hyperlipidemia, hypertension, osteoarthritis, prostate cancer in 2004 with surgery, hiatal hernia, gastric ulcer as a teenager, iron deficiency anemia, diverticulosis, interstitial lung disease, anxiety Social history: . Started smoking in 9060. Benign 2017. Drinking at least 2 beers and a couple shots of alcohol more so in the last few 3 days since the fall. Retired Physical examination: VITAL SIGNS: 98.2, 89, 18, 150/78, 95% on room air GENERAL: BMI 28.9, propped up in bed, slightly uncomfortable. EYES: Pupils equal. Conjunctiva normal. HEENT: External appearance of nose and ears normal, oral cavity grossly normal. NECK: JVD not raised; masses not palpable. HEART: First and second heart sounds are normal; no edema. LUNGS: Respiratory rate increased, diminished breath sounds but strongly left- sided MUSCULOSKELETAL: Left chest wall tenderness and evidence of OA. ABDOMEN: Soft, nontender, liver spleen not palpable, no masses palpable. PSYCH: Alert and oriented x3; mood and affect normal. NEUROLOGICAL: Cranial nerves grossly intact; no facial asymmetry, power and sensation grossly intact. LYMPHATICS: No lymph nodes palpable in the axilla and neck INVESTIGATIONS, reviewed in the clinical context: White count 10.1 hemoglobin 17.1 potassium 5.4 bun 31 creatinine 1.87 EKG tracing personally reviewed by me-normal sinus rhythm Chest x-ray film personally reviewed by me-also report was reviewed by me. Left rib fractures a chronic cath third fourth. Also fractures noted with minimal displacement of left 7 8/9 possibly sixth. Lab work from February 2019 shows a bun of 21 and creatinine of 1.29 Assessment: -Acute fracture of the left ribs 7, 8, 9 possibly 6, with evidence of chronic rib fractures of third and fourth, secondary to fall -Paroxysmal atrial fibrillation patient was cardioverted in February of this year. Currently in sinus rhythm -GERD -Hyperlipidemia -Essential hypertension -Primary osteoarthritis -Hiatal hernia -Chronic diverticulosis and -Interstitial lung disease -COPD in an ex-smoker -Recent increase in alcohol use as per the , patient feels otherwise -Chronic kidney disease stage III likely nephrosclerosis. Patient also has some kidney stones removed. -Hyperkalemia secondary to chronic kidney disease Plan: Home medications resumed. Patient educated about incentive spirometry and given 1. Lovenox for DVT prophylaxis. CIWA scale. Care was discussed at length with the patient and . Questions were answered. We'll put the patient on DT prophylactic doses of Valium 2 mg every 8. We'll order renal ultrasound. And a UA. Also given a dose of Kayexalate. Repeat labs in the morning. Patient also getting IV fluids. We will DC Tylenol arthritis. Thank you Dr. Hartman 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 History of Any Multi-Drug Resistant Organisms: None Reported Past Surgical History: Adenoidectomy, Back Surgery, Joint Replacement, Orthopedic Surgery, Prostate Surgery, Tonsillectomy Additional Past Surgical History / Comment(s): Prostatectomy, right hip replacement, low back surgery, L hand 2nd/3rd finger partial amputations, ANETA/cardioversions, colonoscopy, R lung thorascopy. Past Anesthesia/Blood Transfusion Reactions: No Reported Reaction Smoking Status: Former smoker - Past Family History Brother(s) Family Medical History: Cancer Additional Family Medical History / Comment(s): Brother of pancreatic cancer. Mother Family Medical History: Vascular Disorder Additional Family Medical History / Comment(s): Mother had varicosities and leg ulcers. Father Family Medical History: Myocardial Infarction ([place]) Additional Family Medical History / Comment(s): Father of a [place] at the age of 64 yrs. Medications and Allergies Home Medications Medication Instructions Recorded Confirmed Type Aspirin 81 mg PO QAM 06/26/16 07/18/19 History Multivit-Min/FA/Lycopen/Lutein 1 tab PO DAILY 06/26/16 07/18/19 History [Centrum Silver Men Tablet] Olmesartan Medoxomil [Benicar] 40 mg PO DAILY 06/26/16 07/18/19 History Omeprazole 20 mg PO DAILY 06/26/16 07/18/19 History Metoprolol Succinate [Toprol XL] 25 mg PO BID 02/26/18 07/18/19 History amLODIPine [Norvasc] 5 mg PO QAM 02/26/18 07/18/19 History Simvastatin [Zocor] 20 mg PO HS 06/21/18 07/18/19 History Apixaban [Eliquis] 5 mg PO BID 09/29/18 07/18/19 History Hydrocortisone 10 mg PO HS 09/29/18 07/18/19 History Amiodarone HCl [Pacerone] 200 mg PO DAILY 02/21/19 07/18/19 History ALPRAZolam [Xanax] 0.25 mg PO HS PRN 07/18/19 07/18/19 History Acetaminophen [Tylenol Arthritis] 1,300 mg PO Q8H PRN 07/18/19 07/18/19 History Cholecalciferol [Vitamin D3 (25 1,000 unit PO DAILY 07/18/19 07/18/19 History Mcg = 1000 Iu)] Hydrocortisone 20 mg PO QAM 07/18/19 07/18/19 History Loratadine [Claritin] 10 mg PO DAILY 07/18/19 07/18/19 History Magnesium Oxide [Meehan] 500 mg PO DAILY 07/18/19 07/18/19 History traMADol HCL 50 mg PO Q6H PRN 07/18/19 07/18/19 History Allergies Allergy/AdvReac Type Severity Reaction Status Date / Time gentamicin AdvReac Nausea & Verified 07/18/19 09:46 Vomiting levofloxacin [From Levaquin] AdvReac Nausea & Verified 07/18/19 09:46 Vomiting Physical Exam Vitals: Vital Signs Temp Pulse Resp BP Pulse Ox 07/18/19 11:34 61 18 139/77 94 L 07/18/19 10:00 61 16 142/77 93 L 07/18/19 09:40 71 18 147/84 95 07/18/19 08:06 98.2 F 89 18 150/78 95 Intake and Output 07/17/19 07/18/19 07/18/19 22:59 06:59 14:59 Other: Weight 93.894 kg Results CBC & Chem 7: 07/18/19 09:19 07/18/19 09:19 Labs: Abnormal Lab Results - Last 24 Hours (Table) 07/18/19 07/18/19 Range/Units 09:19 09:19 Hct 54.3 H (39.0-53.0) % Potassium 5.4 H (3.5-5.1) mmol/L BUN 31 H (9-20) mg/dL Creatinine 1.87 H (0.66-1.25) mg/dL Glucose 126 H (74-99) mg/dL Calcium 10.4 H (8.4-10.2) mg/dL
--- NOTE | 2019-07-18 18:41 | US ---
EXAMINATION TYPE: US kidneys/renal and bladder DATE OF EXAM: 07/18/2019 COMPARISON: CT CLINICAL HISTORY: assess for CKD. CKD EXAM MEASUREMENTS: Right Kidney: 10.6 x 6.4 x 6.3 cm Left Kidney: 11.5 x 6.4 x 5.7 cm Right Kidney: Cortical thinning, multiple cysts, largest upper pole= 8.9 x 6.8 x 7.4 cm Left Kidney: Cortical thinning, multiple cysts, largest upper pole= 4.0 x 3.1 x 4.6 cm Bladder: wnl Bilateral Jets seen: No There is no evidence for hydronephrosis at this point in time. No nephrolithiasis is seen. No jaylin s are identified. The urinary bladder is anechoic. Bilateral ureteral jets are seen. IMPRESSION: There is mild renal bilateral atrophy. Multiple renal simple cortical cysts. No solid renal mass. No evidence of a bladder mass.
[2019-07-18] MEDS: METOPROLOL SUCCINATE (ER) 25 MG TAB.ER.24H PO SCH (20:15)
[2019-07-18] MEDS ORDERED: ATORVASTATIN 10 MG TAB PO SCH (21:00)
[2019-07-18] MEDS ORDERED: APIXABAN 5 MG TAB PO SCH (21:00)
[2019-07-18] MEDS ORDERED: HYDROCORTISONE 10 MG TAB PO SCH (21:00)
[2019-07-19 03:16] LABS: Appearance,Urine Clear (Clear); Bilirubin,Urine Negative (Negative); Blood,Urine Negative (Negative); Color,Urine Yellow; Glucose,Urine (UA) Negative (Negative); Ketones,Urine 1+ (Negative); Leukocyte Esterase,Urine Negative (Negative); Nitrite,Urine Negative (Negative); PH, Urine 6.5 (5.0-8.0); Protein,Urine Trace (Negative); Specific Gravity,Urine 1.018 (1.001-1.035); Urobilinogen,Urine <2.0 mg/dL (<2.0)
[2019-07-19] MEDS ORDERED: PANTOPRAZOLE 40 MG TABLET PO SCH (07:30)
[2019-07-19 07:44] LABS: HCT 45.7 % (39.0-53.0); HGB 14.2 gm/dL (13.0-17.5); MCH 30.5 pg (25.0-35.0); MCHC 31.1 g/dL (31.0-37.0); MCV 98.1 fL (80.0-100.0); Mean Platelet Volume 9.3; Platelet Count 181 k/uL (150-450); RBC 4.66 m/uL (4.30-5.90); RDW 13.4 % (11.5-15.5); WBC 7.4 k/uL (3.8-10.6)
[2019-07-19 07:54] LABS: Calcium 8.9 mg/dL (8.4-10.2); Potassium 4.4 mmol/L (3.5-5.1)
[2019-07-19] MEDS: DIAZEPAM 2 MG TAB PO SCH (08:35)
[2019-07-19] MEDS: METOPROLOL SUCCINATE (ER) 25 MG TAB.ER.24H PO SCH (08:35)
[2019-07-19] MEDS: ENOXAPARIN 40 MG/0.4 ML SYRINGE SQ SCH (08:36)
[2019-07-19] MEDS ORDERED: LORATADINE 10 MG TAB PO SCH (09:00)
[2019-07-19] MEDS ORDERED: CHOLECALCIFEROL 1,000 UNIT TAB PO SCH (09:00)
[2019-07-19] MEDS ORDERED: amLODIPine 5 MG TAB PO SCH (09:00)
[2019-07-19] MEDS ORDERED: NON FORMULARY DRUG (Omeprazole [Omeprazole] 20 MG) PO SCH (09:00)
[2019-07-19] MEDS ORDERED: ASPIRIN 81 MG PO SCH (09:00)
[2019-07-19] MEDS ORDERED: AMIODARONE 200 MG TAB PO SCH (09:00)
[2019-07-19] MEDS ORDERED: OLMESARTAN MEDOXOMIL 40 MG PO SCH (09:00)
[2019-07-19] MEDS ORDERED: HYDROCORTISONE 20 MG TAB PO SCH (09:00)
[2019-07-19] MEDS ORDERED: MULTIVITAMINS, THERA 1 EACH TAB PO SCH (09:00)
--- NOTE | 2019-07-19 10:51 | P.NPCON ---
History of Present Illness - Reason for Consult acute renal failure - History of Present Illness Reason for consultation: Acute kidney injury History of present illness: Patient is a 79-year-old male seen in consultation for acute kidney injury. Patient's creatinine was 1.87 on admission and is down to 1.1 today. Patient denies any prior history of kidney disease. He states he fell in his yard on Thursday and landed on his left ribs. He did hear a crack at the time. He is noted to have fractures of left sixth through ninth ribs. Patient states due to pain he wasn't eating and drinking much over the weekend. He denies any chest pain or shortness of breath now. No vomiting or diarrhea. Oral intake is better now. Denies use of nonsteroidals. Hemodynamically stable. No evidence of hypotension. No history of diabetes. Denies family history of renal disease. Renal ultrasound revealed no evidence of hydronephrosis. He does have history of atrial fibrillation. Patient also has history of interstitial lung disease. No active complaints at this time. No edema. No hematuria or dysur ia. Pain controlled. He does admit to drinking alcohol on a daily basis. Vital signs are stable. General: The patient appeared well nourished and normally developed. HEENT: Head exam is unremarkable. Neck is without jugular venous distension. LUNGS: Lungs are clear to auscultation and percussion. Breath sounds decreased. HEART: Rate and Rhythm are regular. ABDOMEN: Nontender, nondistended. EXTREMITITES: No clubbing, cyanosis, or edema. Past Medical History Past Medical History: Atrial Fibrillation, Cancer, GERD/Reflux, Hyperlipidemia, Hypertension, Osteoarthritis (OA), Respiratory Disorder Additional Past Medical History / Comment(s): 2005 prostate cancer with surgery, hiatal hernia, gastric ulcers when a teenager, iron anemia in the past, diverticulosis, 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 History of Any Multi-Drug Resistant Organisms: None Reported Past Surgical History: Adenoidectomy, Back Surgery, Joint Replacement, Orthopedic Surgery, Prostate Surgery, Tonsillectomy Additional Past Surgical History / Comment(s): Prostatectomy, right hip replacement, low back surgery, L hand 2nd/3rd finger partial amputations, ANETA/cardioversions, colonoscopy, R lung thorascopy. Past Anesthesia/Blood Transfusion Reactions: No Reported Reaction Smoking Status: Former smoker - Past Family History Brother(s) Family Medical History: Cancer Additional Family Medical History / Comment(s): Brother of pancreatic cancer. Mother Family Medical History: Vascular Disorder Additional Family Medical History / Comment(s): Mother had varicosities and leg ulcers. Father Family Medical History: Myocardial Infarction ([place]) Additional Family Medical History / Comment(s): Father of a [place] at the age of 64 yrs. Medications and Allergies Home Medications Medication Instructions Recorded Confirmed Type Aspirin 81 mg PO QAM 06/26/16 07/18/19 History Multivit-Min/FA/Lycopen/Lutein 1 tab PO DAILY 06/26/16 07/18/19 History [Centrum Silver Men Tablet] Olmesartan Medoxomil [Benicar] 40 mg PO DAILY 06/26/16 07/18/19 History Omeprazole 20 mg PO DAILY 06/26/16 07/18/19 History Metoprolol Succinate [Toprol XL] 25 mg PO BID 02/26/18 07/18/19 History amLODIPine [Norvasc] 5 mg PO QAM 02/26/18 07/18/19 History Simvastatin [Zocor] 20 mg PO HS 06/21/18 07/18/19 History Apixaban [Eliquis] 5 mg PO BID 09/29/18 07/18/19 History Hydrocortisone 10 mg PO HS 09/29/18 07/18/19 History Amiodarone HCl [Pacerone] 200 mg PO DAILY 02/21/19 07/18/19 History ALPRAZolam [Xanax] 0.25 mg PO HS PRN 07/18/19 07/18/19 History Acetaminophen [Tylenol Arthritis] 1,300 mg PO Q8H PRN 07/18/19 07/18/19 History Cholecalciferol [Vitamin D3 (25 1,000 unit PO DAILY 07/18/19 07/18/19 History Mcg = 1000 Iu)] Hydrocortisone 20 mg PO QAM 07/18/19 07/18/19 History Loratadine [Claritin] 10 mg PO DAILY 07/18/19 07/18/19 History Magnesium Oxide [Meehan] 500 mg PO DAILY 07/18/19 07/18/19 History traMADol HCL 50 mg PO Q6H PRN 07/18/19 07/18/19 History Allergies Allergy/AdvReac Type Severity Reaction Status Date / Time gentamicin AdvReac Nausea & Verified 07/18/19 09:46 Vomiting levofloxacin [From Levaquin] AdvReac Nausea & Verified 07/18/19 09:46 Vomiting Physical Exam Vitals: Vital Signs Temp Pulse Pulse Resp BP BP Pulse Ox 07/19/19 05:00 98.3 F 59 L 18 160/83 94 L 07/18/19 20:33 98.1 F 68 18 137/79 93 L 07/18/19 14:05 98.1 F 72 18 140/81 94 L 07/18/19 13:15 65 18 161/95 94 L 07/18/19 11:34 61 18 139/77 94 L Intake and Output 07/18/19 07/19/19 07/19/19 22:59 06:59 14:59 Intake Total 425 240 Balance 425 240 Intake: Oral 425 240 Other: Voiding Method Toilet # Voids 1 1 Results - Lab Results Most recent lab results Calcium 8.9 mg/dL (8.4-10.2) 07/19/19 07:26 Magnesium 2.2 mg/dL (1.6-2.3) 07/18/19 09:19 07/19/19 07:26 07/19/19 07:26 Assessment and Plan Plan: Assessment: 1. Acute kidney injury mostly prerenal improving with IV fluids. Creatinine was 1.87 on admission and is 1.1 today. UA fairly benign. No evidence of hydronephrosis noted on kidney ultrasound. 2. Mild hypercalcemia secondary to volume depletion and vitamin D supplementation. Resolved. 3. Benign hypertension. Stable. 4. Status post fall with left sided rib fractures. Surgery following. 5. History of A. fib maintained on amiodarone as well as Toprol. 6. Chronic renal insufficiency maintained on Cortef. Blood pressure stable. Plan: Hep-Lock IV fluids. Encouraged oral intake. Avoid nephrotoxins. Thank you for the consultation. I will continue to follow patient with you during his hospital stay.
--- NOTE | 2019-07-19 10:57 | P.DS ---
Providers Date of admission: 07/18/19 09:13 Expected date of discharge: 07/19/19 Attending physician: Daryl Hartman Consults: 07/18/19 09:13 Consult Physician Urgent Consulting Provider: Eagle Romero Consult Reason/Comments: medical care Do you want consulting provider notified?: Yes 07/18/19 09:16 Consult to Anesthesia Stat Consulting Provider: Anesthesia,Services Consult Reason/Comments: rib fractures 07/18/19 12:23 Consult Physician Routine Consulting Provider: Jimbo Mckeon Consult Reason/Comments: renal failure Do you want consulting provider notified?: Yes Primary care physician: [facility] Course: This a 71-year-old male who was admitted to the hospital for multiple left rib fractures after a ground-level fall. Patient received IV analgesia. Patient had good pain control on his due to his admission. Please see hospital chart for details. Health Concerns: Multiple left rib fractures Patient Condition at Discharge: Good Plan - Discharge Summary Discharge Rx Participant: No New Discharge Prescriptions: New Docusate [Colace] 100 mg PO BID #20 capsule HYDROcodone/APAP 5-325MG [[place] 5-325] 1 tab PO Q6HR PRN #10 tab PRN Reason: Pain No Action Omeprazole 20 mg PO DAILY Olmesartan Medoxomil [Benicar] 40 mg PO DAILY Aspirin 81 mg PO QAM Multivit-Min/FA/Lycopen/Lutein [Centrum Silver Men Tablet] 1 tab PO DAILY Metoprolol Succinate [Toprol XL] 25 mg PO BID amLODIPine [Norvasc] 5 mg PO QAM Simvastatin [Zocor] 20 mg PO HS Apixaban [Eliquis] 5 mg PO BID Hydrocortisone 10 mg PO HS Amiodarone HCl [Pacerone] 200 mg PO DAILY traMADol HCL 50 mg PO Q6H PRN PRN Reason: Pain Cholecalciferol [Vitamin D3 (25 Mcg = 1000 Iu)] 1,000 unit PO DAILY Loratadine [Claritin] 10 mg PO DAILY Magnesium Oxide [Meehan] 500 mg PO DAILY Hydrocortisone 20 mg PO QAM ALPRAZolam [Xanax] 0.25 mg PO HS PRN PRN Reason: sleep Acetaminophen [Tylenol Arthritis] 1,300 mg PO Q8H PRN PRN Reason: Pain Discharge Medication List Aspirin 81 mg PO QAM 06/26/16 [History] Multivit-Min/FA/Lycopen/Lutein [Centrum Silver Men Tablet] 1 tab PO DAILY 06/26/16 [History] Olmesartan Medoxomil [Benicar] 40 mg PO DAILY 06/26/16 [History] Omeprazole 20 mg PO DAILY 06/26/16 [History] Metoprolol Succinate [Toprol XL] 25 mg PO BID 02/26/18 [History] amLODIPine [Norvasc] 5 mg PO QAM 02/26/18 [History] Simvastatin [Zocor] 20 mg PO HS 06/21/18 [History] Apixaban [Eliquis] 5 mg PO BID 09/29/18 [History] Hydrocortisone 10 mg PO HS 09/29/18 [History] Amiodarone HCl [Pacerone] 200 mg PO DAILY 02/21/19 [History] ALPRAZolam [Xanax] 0.25 mg PO HS PRN 07/18/19 [History] Acetaminophen [Tylenol Arthritis] 1,300 mg PO Q8H PRN 07/18/19 [History] Cholecalciferol [Vitamin D3 (25 Mcg = 1000 Iu)] 1,000 unit PO DAILY 07/18/19 [History] Hydrocortisone 20 mg PO QAM 07/18/19 [History] Loratadine [Claritin] 10 mg PO DAILY 07/18/19 [History] Magnesium Oxide [Meehan] 500 mg PO DAILY 07/18/19 [History] traMADol HCL 50 mg PO Q6H PRN 07/18/19 [History] Docusate [Colace] 100 mg PO BID #20 capsule 07/19/19 [Rx] HYDROcodone/APAP 5-325MG [[place] 5-325] 1 tab PO Q6HR PRN #10 tab 07/19/19 [Rx] Follow up Appointment(s)/Referral(s): Jose Celestin DO [Primary Care Provider] - 1-2 days Daryl Hartman MD [STAFF PHYSICIAN] - 1 Week
--- NOTE | 2019-07-19 11:04 | XR ---
EXAMINATION TYPE: XR chest 2V DATE OF EXAM: 07/19/2019 COMPARISON: Prior chest x-ray dated 07/18/2019 HISTORY: Rib fractures TECHNIQUE: Frontal and lateral views of the chest are obtained. FINDINGS: Minimal blunting the posterior costophrenic angle noted on the lateral exam. No evident pn eumothorax. Heart size is stable. Aorta is dense. Arthropathy again noted within the shoulders. Upper old healed left-sided rib fractures again seen. Lower rib fractures not as well identified. Lung vol umes are low. Patchy basilar density noted. Thoracic and lumbar degenerative disc changes are present . IMPRESSION: Probable basilar subsegmental atelectatic changes, there may be minimal effusion.
[2019-07-19] MEDS: HYDROcodone/APAP 5-325MG 1 EACH TAB PO PRN (11:34)
--- NOTE | 2019-07-19 11:45 | P.PN ---
Subjective Progress Note Date: 07/19/19 Principal diagnosis: Fall, trauma, left chest rib pain, multiple rib fractures 79-year-old white male patient of Dr. Dee Celestin with past medical history of chronic A. 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 Patient states he heard a crack at that time. He is experiencing worsening pain over last 3 days with any movement and deep breathing. He denied any lightheadedness or syncopal episode, no nausea vomiting diarrhea, no fever or chills. Patient presents the emergency department today on 07/18/2019 for evaluation of worsening left chest rib pain, his chest x-ray showed rib fractures with minimal displacement of the left seventh and eighth and ninth ribs, possibly the 6th rib. No evident pneumothorax or pleural effusion. Interstitial lung disease was noted. EKG shows sinus rhythm with PACs, and evidence of possible inferior infarct of undetermined age. No signs are stable, temperature is 98.2, blood pressure is 150/78, sinus mechanism, controlled rate on the monitor, room air pulse ox is 94%. Lab work has been reviewed showing white blood cell count of 10.1, hemoglobin of 17.1, INR is 1.0, sodium is 140, potassium is 5.4, heart is 100, BUN is 31 creatinine is 1.87, troponin is 0.022, proBNP is 282. On 07/19/2019 patient seen in follow-up on medical floor. His left-sided rib pain is better controlled, he is in no acute distress, no shortness of breath, room air pulse ox is 94%, no fever or chills, hemodynamically patient is stable, today's chest x-ray has been reviewed showing probable basilar subsegmental atelectatic changes, with minimal effusion. Today's labs have been reviewed, CBC is within normal limits, repeat renal profile showed improvement with BUN down to 21 and creatinine is 1.1, Benicar remains on hold, patient has received IV hydration, nephrology has been consulted, ultrasound of the kidneys, renal and bladder showed no evidence for hydronephrosis, known nephrolithiasis no masses. No acute issues overnight, anticipate discharge home today. Objective - Vital Signs Vital signs: Vital Signs Temp 98.3 F 07/19/19 05:00 Pulse 59 L 07/19/19 05:00 Resp 18 07/19/19 05:00 BP 160/83 07/19/19 05:00 Pulse Ox 94 L 07/19/19 05:00 Intake & Output 07/18/19 07/19/19 07/19/19 18:59 06:59 18:59 Intake Total 120 425 240 Balance 120 425 240 Weight 93.894 kg Intake: Oral 120 425 240 Other: Voiding Method Toilet # Voids 1 - Exam GENERAL EXAM: Alert, very pleasant, 79-year-old white male, on room air with a pulse ox of 94-95% comfortable in no apparent distress. HEAD: Normocephalic/atraumatic. EYES: Normal reaction of pupils, equal size. Conjunctiva pink, sclera white. NOSE: Clear with pink turbinates. THROAT: No erythema or exudates. NECK: No masses, no JVD, no thyroid enlargement, no adenopathy. CHEST: No chest wall deformity. Symmetrical expansion. Left rib chest tenderness with deep breathing and coughing LUNGS: Equal air entry with no crackles, wheeze, rhonchi or dullness. CVS: Regular rate and rhythm, normal S1 and S2, no gallops, no murmurs, no rubs ABDOMEN: Soft, nontender. No hepatosplenomegaly, normal bowel sounds, no guarding or rigidity. EXTREMITIES: No clubbing, no edema, no cyanosis, 2+ pulses and upper and lower extremities. MUSCULOSKELETAL: Muscle strength and tone normal. SPINE: No scoliosis or deformity SKIN: No rashes CENTRAL NERVOUS SYSTEM: Alert and oriented -3. No focal deficits, tone is normal in all 4 extremities. PSYCHIATRIC: Alert and oriented -3. Appropriate affect. Intact judgment and insight. - Labs CBC & Chem 7: 07/19/19 07:26 07/19/19 07:26 Labs: Abnormal Lab Results - Last 24 Hours (Table) 07/18/19 07/19/19 07/19/19 Range/Units 03:00 07:26 07:26 BUN 21 H (9-20) mg/dL Plasma Lactic Acid Esteban 0.6 L (0.7-2.0) mmol/L Urine Protein Trace H (Negative) Urine Ketones 1+ H (Negative) Assessment and Plan Plan: Assessment: #1. Left chest rib pain, related to multiple rib fractures of the seventh, eighth, ninth, and possibly the sixth rib on the left side. No evidence of pneumothorax or pleural effusion. #2. Mechanical fall at home, sustaining trauma to the left ribs #3. 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 Chronic adrenal cortical hypofunction #5. Chronic atrial fibrillation, currently in sinus rhythm, on Eliquis for anticoagulation #6. Benign essential hypertension #7. GERD/reflux #8. History of prostate cancer #9. Hyperlipidemia #10. Mild hyperkalemia, serum potassium is 5.4 #11. Acute kidney injury Plan: Patient is doing well, pain is under reasonable control, he is on room air, no shortness of breath, today's chest x-ray has been reviewed showing some atelectatic changes at left base, no pneumothorax. Renal profile has recovered, no nausea vomiting or diarrhea, patient has received IV hydration, blood press ure stable, no acute issues overnight, patient is being discharged home today. I performed a history & physical examination of the patient and discussed their management with my nurse practitioner, Jennifer Pal. I reviewed the nurse practitioner's note and agree with the documented findings and plan of care. Lung sounds are positive for diminished breath sounds at the bases. The findings and the impression was discussed with the patient. I attest to the documentation by the nurse practitioner. Time with Patient: Less than 30
[2019-07-19 12:59] VITALS: BP 132/82; PULSE 60; RESP 22; TEMP 97.9
--- NOTE | 2019-07-19 22:31 | P.PN ---
Progress Note - Text Progress Note Date: 07/19/19 - Chief Complaint Fall Consultation: This is a very pleasant 79-year-old patient of Dr. Celestin. Chronic stable medical conditions include GERD, hypertension, hyperlipidemia, osteoarthritis, hiatal hernia, colonic diverticulosis, interstitial lung disease, atrial fibrillation the past. Patient drinks about 2 beers and couple shots of alcohol at night. at the bedside states he probably drinks a bit more. Patient was in her yard and he tripped on a hole in the yard and fell backwards onto his left ribs. He had a crack at that time. His worsening pain with deep breaths and movement. Denies any loss of consciousness, no palpitation, no hemoptysis. This occurred about 3 days ago. The patient has been worsening. To control the pain was drinking a bit more of alcohol. Today-feeling better. Pain is better controlled. Has been using his incentive spirometer. Keen to go home. Care was discussed with the patient. Question answered. Review of systems: Was done for constitutional, cardiovascular, GI, pulmonary. relevant finding as above Current medications reviewed in today's electronic records Physical examination: VITAL SIGNS: 97.9, 60, 22, 130 282, 95% on room air GENERAL: BMI 28.9, propped up in bed, slightly uncomfortable. EYES: Pupils equal. Conjunctiva normal. HEENT: External appearance of nose and ears normal, oral cavity grossly normal. NECK: JVD not raised; masses not palpable. HEART: First and second heart sounds are normal; no edema. LUNGS: Respiratory rate increased, diminished breath sounds but strongly left- sided MUSCULOSKELETAL: Left chest wall tenderness and evidence of OA. ABDOMEN: Soft, nontender, liver spleen not palpable, no masses palpable. PSYCH: Alert and oriented x3; mood and affect normal. INVESTIGATIONS, reviewed in the clinical context: White count 7.4 hemoglobin 14.2 potassium 4.4 creatinine 1.10 Previous testing White count 10.1 hemoglobin 17.1 potassium 5.4 bun 31 creatinine 1.87 EKG tracing personally reviewed by me-normal sinus rhythm Chest x-ray film personally reviewed by me-also report was reviewed by me. Left rib fractures a chronic cath third fourth. Also fractures noted with minimal displacement of left 7 8/9 possibly sixth. Lab work from February 2019 shows a bun of 21 and creatinine of 1.29 Assessment: -Acute fracture of the left ribs 7, 8, 9 possibly 6, with evidence of chronic rib fractures of third and fourth, secondary to fall -Paroxysmal atrial fibrillation patient was cardioverted in February of this year. Currently in sinus rhythm -GERD -Hyperlipidemia -Essential hypertension -Primary osteoarthritis -Hiatal hernia -Chronic diverticulosis and -Interstitial lung disease -COPD in an ex-smoker -Recent increase in alcohol use as per the , patient feels otherwise -Acute kidney injury likely prerenal -Chronic kidney disease stage 2 likely nephrosclerosis. Patient also has some kidney stones removed. -Hyperkalemia secondary to chronic kidney disease-improved Plan: -Blood pressure medications resumed. Patient never outpatient follow-up with regional function. Discussed with him. Advised against alcohol. Thank you Dr. Hartman
== END 2019-07-19 13:48 | disposition home or self-care (01) ==
LOC: EC 08:03 → 5NMEDONC 09:13 → INTOOBSV 09:13 → 5NMEDONC 13:04
PROVIDERS: ADMIT Surgery; ATTEND Surgery
DX: S22.42XA Multiple fractures of ribs, left side, initial encounter for closed fracture (principal); S37.099A Other injury of unspecified kidney, initial encounter; W01.198A Fall on same level from slipping, tripping and stumbling with subsequent striking against other object, initial encounter; Y92.007 Garden or yard of unspecified non-institutional (private) residence as the place of occurrence of the external cause; J84.9 Interstitial pulmonary disease, unspecified; Z77.098 Contact with and (suspected) exposure to other hazardous, chiefly nonmedicinal, chemicals; E27.40 Unspecified adrenocortical insufficiency; K21.9 Gastro-esophageal reflux disease without esophagitis; I48.0 Paroxysmal atrial fibrillation; K44.9 Diaphragmatic hernia without obstruction or gangrene; E78.5 Hyperlipidemia, unspecified; Z87.891 Personal history of nicotine dependence; Z87.11 Personal history of peptic ulcer disease; Z85.46 Personal history of malignant neoplasm of prostate; Z96.641 Presence of right artificial hip joint; Z98.890 Other specified postprocedural states; Z80.0 Family history of malignant neoplasm of digestive organs; Z82.49 Family history of ischemic heart disease and other diseases of the circulatory system; K57.30 Diverticulosis of large intestine without perforation or abscess without bleeding; M19.91 Primary osteoarthritis, unspecified site; J44.9 Chronic obstructive pulmonary disease, unspecified; E87.5 Hyperkalemia; I12.9 Hypertensive chronic kidney disease with stage 1 through stage 4 chronic kidney disease, or unspecified chronic kidney disease; N18.3 Chronic kidney disease, stage 3 (moderate); Z87.442 Personal history of urinary calculi; Z89.022 Acquired absence of left finger(s); Z90.79 Acquired absence of other genital organ(s); Z79.01 Long term (current) use of anticoagulants; Z79.82 Long term (current) use of aspirin; Z79.52 Long term (current) use of systemic steroids; Z79.899 Other long term (current) drug therapy; Z88.1 Allergy status to other antibiotic agents; R06.02 Shortness of breath
CPT/HCPCS: 96361 ×3; 96372 ×2; 96374; 99285; 36415; 93005; 83880; 80053; 80048; 83605; 83690; 83735; 84484; 85025; 85027; 85610; 85730; 81003; 71101; 71046; 76770; 90732; G0378 ×2; U0003; G0009; J2270; J1650 ×2

== ENCOUNTER → 2019-07-20 | Outpatient (CLI) | payer MEDICARE, BC ==
--- NOTE | 2019-07-21 09:25 | CT ---
EXAMINATION TYPE: High-resolution CT chest DATE OF EXAM: 07/21/2019 COMPARISON: 07/13/2018 HISTORY: 79-year-old male J84.9, unspecified ILD TECHNIQUE: Contiguous high-resolution axial scanning of the chest utilizing 1 mm slice thickness and 1 cm gap or HRCT protocol without IV contrast. Patient unable to perform imaging in the prone positio n. CT DLP: 438.20 mGycm Automated exposure control for dose reduction was used. FINDINGS: Heart is upper limits of normal in size without pericardial effusion. Scattered coronary artery calci fications are present. Aorta is ectatic with ascending aorta measuring up to 3.5 cm and upper descending thoracic aorta arlene uring 3.1 cm. Moderate atherosclerotic arch calcifications with conventional branching anatomy. Borderline caliber to the main right and left pulmonary arteries and 2.7 and 2.5 cm, respectively, ra ising possibility of underlying pulmonary hypertension. Allowing for HRCT technique, no obvious thoracic lymphadenopathy. Subpleural reticulations and mild groundglass is redemonstrated. Scattered calcified granulomas are n oted. HRCT technique limits assessment for pulmonary nodules. Overall appearance is unchanged from 07/13/2018. No farnaz honeycombing is identified. No thickening of the bronchovascular bundles. There may be mild posterior basilar bronchiolectasis. No dominant cystic change. Small hiatal hernia. A 1.3 cm hypodense lesion, probable cyst within the left hepatic dome is unchang ed. Some chronic left-sided healed fracture deformities. However, new lucencies are present, such as ramirez g the fifth, seventh, and eighth lateral left ribs. IMPRESSION: 1. STABLE INTERSTITIAL THICKENING AND MINIMAL GROUNDGLASS THROUGHOUT THE PERIPHERY OF THE BILATERAL L UNGS. CORRELATE FOR INTERSTITIAL FIBROSIS INCLUDING NSIP. NO PROGRESSION TO HONEYCOMBING TO SUGGEST U IP. 2. THERE MAY BE UNDERLYING PULMONARY ARTERIAL HYPERTENSION. 3. SMALL HIATAL HERNIA. 4. SOME LUCENCIES ALONG THE LEFT LATERAL FIFTH, SEVENTH, EIGHTH RIBS NOT CLEARLY SEEN ON 07/13/2018. CO RRELATE TO EXCLUDE ACUTE OR SUBACUTE NONDISPLACED FRACTURES HERE.
== END | disposition home or self-care (01) ==
LOC: RADCTMAIN 13:21
PROVIDERS: ATTEND Internal Medicine Critical Care Medicine
DX: J98.4 Other disorders of lung (principal); K44.9 Diaphragmatic hernia without obstruction or gangrene
CPT/HCPCS: 71250

== ENCOUNTER 2020-02-02 12:11 | Emergency (ER) | payer MEDICARE, BC ==
[2020-02-02 12:17] VITALS: BP 182/81; PULSE 82; RESP 18; TEMP 99
[2020-02-02] MEDS ORDERED: LIDOCAINE 1% INJ 10MG/ML (20 ML MDV) SQ ONE (12:28)
--- NOTE | 2020-02-02 12:30 | ED ---
General Adult HPI - General Chief complaint: Skin/Abscess/Foreign Body Stated complaint: Head bleeding Time Seen by Provider: 02/02/20 12:19 Source: patient, family, RN notes reviewed Mode of arrival: ambulatory Limitations: no limitations - History of Present Illness Initial comments: Patient is a pleasant 79-year-old male presenting to the emergency department for bleeding. Patient states he did have an area removed on the scalp 2 weeks ago to look for skin cancer. Patient states this Fell off yesterday. Patient states all of a sudden this morning it started bleeding and squirting. Patient is on Eliquis and aspirin secondary to history of atrial fibrillation. Patient denies any weakness or lightheadedness. No other areas of bleeding. Patient states he has soaked through a couple of wash rag Carissa. - Related Data Home Medications Medication Instructions Recorded Confirmed Aspirin 81 mg PO QAM 06/26/16 07/18/19 Multivit-Min/FA/Lycopen/Lutein 1 tab PO DAILY 06/26/16 07/18/19 [Centrum Silver Men Tablet] Olmesartan Medoxomil [Benicar] 40 mg PO DAILY 06/26/16 07/18/19 Omeprazole 20 mg PO DAILY 06/26/16 07/18/19 Metoprolol Succinate [Toprol XL] 25 mg PO BID 02/26/18 07/18/19 amLODIPine [Norvasc] 5 mg PO QAM 02/26/18 07/18/19 Simvastatin [Zocor] 20 mg PO HS 06/21/18 07/18/19 Apixaban [Eliquis] 5 mg PO BID 09/29/18 07/18/19 Hydrocortisone 10 mg PO HS 09/29/18 07/18/19 Amiodarone HCl [Pacerone] 200 mg PO DAILY 02/21/19 07/18/19 ALPRAZolam [Xanax] 0.25 mg PO HS PRN 07/18/19 07/18/19 Acetaminophen [Tylenol Arthritis] 1,300 mg PO Q8H PRN 07/18/19 07/18/19 Cholecalciferol [Vitamin D3 (25 1,000 unit PO DAILY 07/18/19 07/18/19 Mcg = 1000 Iu)] Hydrocortisone 20 mg PO QAM 07/18/19 07/18/19 Loratadine [Claritin] 10 mg PO DAILY 07/18/19 07/18/19 Magnesium Oxide [Meehan] 500 mg PO DAILY 07/18/19 07/18/19 Previous Rx's Medication Instructions Recorded Docusate [Colace] 100 mg PO BID #20 capsule 07/19/19 HYDROcodone/APAP 5-325MG [[place] 1 tab PO Q6HR PRN #10 tab 07/19/19 5-325] Allergies Allergy/AdvReac Type Severity Reaction Status Date / Time gentamicin AdvReac Nausea & Verified 02/02/20 12:17 Vomiting levofloxacin [From Levaquin] AdvReac Nausea & Verified 02/02/20 12:17 Vomiting Review of Systems ROS Statement: Those systems with pertinent positive or pertinent negative responses have been documented in the HPI. ROS Other: All systems not noted in ROS Statement are negative. Constitutional: Denies: fever Eyes: Denies: eye pain ENT: Denies: ear pain Respiratory: Denies: cough Cardiovascular: Denies: chest pain Endocrine: Denies: fatigue Gastrointestinal: Denies: abdominal pain Genitourinary: Denies: dysuria Musculoskeletal: Denies: back pain Skin: Denies: rash Neurological: Denies: headache 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 History of Any Multi-Drug Resistant Organisms: None Reported Past Surgical History: Adenoidectomy, Back Surgery, Joint Replacement, Orthopedic Surgery, Prostate Surgery, Tonsillectomy Additional Past Surgical History / Comment(s): Prostatectomy, right hip replacement, low back surgery, L hand 2nd/3rd finger partial amputations, ANETA/cardioversions, colonoscopy, R lung thorascopy. Past Anesthesia/Blood Transfusion Reactions: No Reported Reaction Past Psychological History: Anxiety Smoking Status: Former smoker Past Alcohol Use History: Daily Past Drug Use History: None Reported - Past Family History Brother(s) Family Medical History: Cancer Additional Family Medical History / Comment(s): Brother of pancreatic cancer. Mother Family Medical History: Vascular Disorder Additional Family Medical History / Comment(s): Mother had varicosities and leg ulcers. Father Family Medical History: Myocardial Infarction (PA) Additional Family Medical History / Comment(s): Father of a PA at the age of 64 yrs. General Exam Limitations: no limitations General appearance: alert, in no apparent distress Head exam: Present: other (Right parietal scalp region with small bleeding varicocele) Eye exam: Present: normal appearance Neck exam: Present: normal inspection Respiratory exam: Present: normal lung sounds bilaterally Cardiovascular Exam: Present: regular rate, normal rhythm. Absent: irregular rhythm Neurological exam: Present: alert Psychiatric exam: Present: normal affect, normal mood Skin exam: Present: other (Scalpel bleeding) Course Vital Signs 02/02/20 12:14 Temperature 99.0 F Pulse Rate 82 Respiratory 18 Rate Blood Pressure 182/81 O2 Sat by Pulse 94 L Oximetry Procedures - Laceration Laceration #1 Consent Obtained: verbal consent Indication: other (Bleeding vessel) Site: scalp Anesthetic Used: lidocaine 1% Anesthesia Technique: local infiltration Pre-repair: wound explored (Betadine cleansing) Size of Sutures: 5-0 Number of Sutures: 3 Technique: simple, interrupted Patient Tolerated Procedure: well, no complications Additional Comments: Bleeding vessel hemostasis obtained with third suture. Disposition Clinical Impression: Bleeding of blood vessel Disposition: HOME SELF-CARE Condition: Stable Additional Instructions: Hold Eliquis for the next 3 days. Twice daily apply antibiotic ointment to area. Please follow-up with senior procurement specialist in the next couple of days for recheck. Return for bleeding, other areas of bleeding, worsening symptoms or other concerns. Is patient prescribed a controlled substance at d/c from ED?: No Referrals: Jose Celestin DO [Primary Care Provider] - 1-2 days Time of Disposition: 12:58
[2020-02-02] MEDS ORDERED: BACITRACIN OINT 1 EACH PACKET TOPICAL ONE (12:43)
== END 2020-02-02 13:03 | disposition home or self-care (01) ==
LOC: EC 12:11
DX: S09.0XXA Injury of blood vessels of head, not elsewhere classified, initial encounter (principal); F41.9 Anxiety disorder, unspecified; I48.91 Unspecified atrial fibrillation; K21.9 Gastro-esophageal reflux disease without esophagitis; E78.5 Hyperlipidemia, unspecified; I10 Essential (primary) hypertension; M19.90 Unspecified osteoarthritis, unspecified site; Z79.01 Long term (current) use of anticoagulants; Z79.82 Long term (current) use of aspirin; Z79.899 Other long term (current) drug therapy; Z88.1 Allergy status to other antibiotic agents; Z88.8 Allergy status to other drugs, medicaments and biological substances; Z87.891 Personal history of nicotine dependence; Z90.89 Acquired absence of other organs; Z96.641 Presence of right artificial hip joint; Z89.022 Acquired absence of left finger(s); Z90.79 Acquired absence of other genital organ(s); X58.XXXA Exposure to other specified factors, initial encounter
CPT/HCPCS: 99283 ×2; 12001 ×2; J2001

== ENCOUNTER 2020-02-11 01:11 | Observation (INO) | payer MEDICARE, BC ==
[2020-02-11] MEDS ORDERED: SODIUM CHLORIDE 0.9% 1,000 ML IV STA (01:28)
[2020-02-11] MEDS ORDERED: ONDANSETRON 4 MG/2 ML VIAL IVP STA (01:28)
[2020-02-11] MEDS ORDERED: MORPHINE SULFATE 4 MG/ML SYRINGE IV STA (01:28)
--- NOTE | 2020-02-11 01:39 | ED ---
Abdominal Pain HPI - General Source: patient, family Mode of arrival: wheelchair Limitations: no limitations <Kandice Philippe - Last Filed: 02/11/20 03:01> <Art You - Last Filed: 02/13/20 09:07> - General Chief Complaint: Abdominal Pain Stated Complaint: Chest Pain Time Seen by Provider: 02/11/20 01:22 - History of Present Illness Initial Comments: 79-year-old male patient presents to the emergency department today for evaluation of midepigastric abdominal pain, nausea, vomiting. Patient states symptoms started this morning and have been worsening throughout the day. Denies history of similar symptoms. She denies history of abdominal surgery. Denies any fever or chills. Denies hematuria, dysuria, urinary frequency, urinary urgency. Denies hematemesis, hematochezia, or melena. States he did have an ulcer when he was in his 20s. Denies any known history of aortic aneurysm. Patient denies any recent rash, cough, shortness of breath, chest pain, diarrhea, constipation, back pain, numbness, tingling, dizziness, weakness, headache, visual changes, or any other complaints. (Kandice Philippe) - Related Data Home Medications Medication Instructions Recorded Confirmed Aspirin 81 mg PO QAM 06/26/16 02/11/20 Multivit-Min/FA/Lycopen/Lutein 1 tab PO DAILY 06/26/16 02/11/20 [Centrum Silver Men Tablet] Olmesartan Medoxomil [Benicar] 40 mg PO DAILY 06/26/16 02/11/20 Omeprazole 20 mg PO DAILY 06/26/16 02/11/20 Metoprolol Succinate [Toprol XL] 25 mg PO BID 02/26/18 02/11/20 amLODIPine [Norvasc] 5 mg PO QAM 02/26/18 02/11/20 Simvastatin [Zocor] 10 mg PO HS 06/21/18 02/11/20 Apixaban [Eliquis] 5 mg PO BID 09/29/18 02/11/20 Hydrocortisone 10 mg PO HS 09/29/18 02/11/20 Amiodarone HCl [Pacerone] 100 mg PO DAILY 02/21/19 02/11/20 ALPRAZolam [Xanax] 0.25 mg PO HS PRN 07/18/19 02/11/20 Acetaminophen [Tylenol Arthritis] 1,300 mg PO Q8H PRN 07/18/19 02/11/20 Cholecalciferol [Vitamin D3 (25 1,000 unit PO DAILY 07/18/19 02/11/20 Mcg = 1000 Iu)] Hydrocortisone 15 mg PO QAM 07/18/19 02/11/20 Loratadine [Claritin] 10 mg PO DAILY 07/18/19 02/11/20 Magnesium Oxide [Meehan] 500 mg PO DAILY 07/18/19 02/11/20 Aspirin EC [Ecotrin Low Dose] 81 mg PO DAILY 02/11/20 02/11/20 Allergies Allergy/AdvReac Type Severity Reaction Status Date / Time gentamicin AdvReac Nausea & Verified 02/11/20 01:16 Vomiting levofloxacin [From Levaquin] AdvReac Nausea & Verified 02/11/20 01:16 Vomiting Review of Systems ROS Other: All systems not noted in ROS Statement are negative. <Kandice Philippe - Last Filed: 02/11/20 03:01> ROS Other: All systems not noted in ROS Statement are negative. <Art You - Last Filed: 02/13/20 09:07> ROS Statement: Those systems with pertinent positive or pertinent negative responses have been documented in the HPI. 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 History of Any Multi-Drug Resistant Organisms: None Reported Past Surgical History: Adenoidectomy, Back Surgery, Joint Replacement, Orthopedic Surgery, Prostate Surgery, Tonsillectomy Additional Past Surgical History / Comment(s): Prostatectomy, right hip replacement, low back surgery, L hand 2nd/3rd finger partial amputations, ANETA/cardioversions, colonoscopy, R lung thorascopy. Past Anesthesia/Blood Transfusion Reactions: No Reported Reaction Past Psychological History: Anxiety Smoking Status: Former smoker Past Alcohol Use History: Daily Past Drug Use History: None Reported - Past Family History Brother(s) Family Medical History: Cancer Additional Family Medical History / Comment(s): Brother of pancreatic cancer. Mother Family Medical History: Vascular Disorder Additional Family Medical History / Comment(s): Mother had varicosities and leg ulcers. Father Family Medical History: Myocardial Infarction ([place]) Additional Family Medical History / Comment(s): Father of a [place] at the age of 64 yrs. <Kandice Philippe Last Filed: 02/11/20 03:01> General Exam Limitations: no limitations General appearance: alert, in no apparent distress, other (This is a well- developed, well-nourished adult male patient in no acute distress. Vital signs upon presentation temperature 98.9F, pulse 69, respirations 24, blood pressure 166/85, pulse ox 95% on room air.) Eye exam: Present: normal appearance, PERRL, EOMI. Absent: scleral icterus, conjunctival injection, periorbital swelling ENT exam: Present: normal exam, normal oropharynx, mucous membranes moist Respiratory exam: Present: normal lung sounds bilaterally. Absent: respiratory distress, wheezes, rales, rhonchi, stridor Cardiovascular Exam: Present: regular rate, normal rhythm, normal heart sounds. Absent: systolic murmur, diastolic murmur, rubs, gallop, clicks GI/Abdominal exam: Present: soft, tenderness (Midepigastric), normal bowel sound s. Absent: distended, guarding, rebound, rigid Neurological exam: Present: alert, oriented X3, CN II-XII intact Psychiatric exam: Present: normal affect, normal mood Skin exam: Present: warm, dry, intact, normal color. Absent: rash <Kandice Philippe - Last Filed: 02/11/20 03:01> Course Vital Signs 02/11/20 02/11/20 01:13 04:05 Temperature 98.9 F Pulse Rate 69 92 Respiratory 24 16 Rate Blood Pressure 166/85 130/103 O2 Sat by Pulse 95 96 Oximetry Medical Decision Making - Lab Data Result diagrams: 02/11/20 01:47 02/11/20 01:47 - Radiology Data Radiology results: report reviewed, image reviewed <Kandice Philippe Last Filed: 02/11/20 03:01> - Lab Data Result diagrams: 02/12/20 06:44 02/12/20 06:44 <Art You - Last Filed: 02/13/20 09:07> - Medical Decision Making 79-year-old male patient presents to the emergency department today for evaluation of midepigastric pain with vomiting. Physical examination did reveal midepigastric tenderness. Labs reviewed and did reveal white blood cell count is 17.8. Urinalysis is pending. CT abdomen and pelvis was obtained and did show ground glass opacities in the lower lungs as well as thickening of the descending colon consistent with underdistention versus colitis. Given white blood cell count pain and findings on CT we will admit to the hospital with IV antibiotics. We will consult GI specialist. Patient is agreeable to this plan. (Kandice Philippe) I saw this patient in conjunction with the physician environmental emergencies assistant. I performed independent history and physical exam. Agree with case management. (Art You) - Lab Data Lab Results 02/11/20 02/11/20 02/11/20 Range/Units 01:47 01:47 01:47 WBC 17.9 H (3.8-10.6) k/uL RBC 4.94 (4.30-5.90) m/uL Hgb 15.0 (13.0-17.5) gm/dL Hct 45.2 (39.0-53.0) % MCV 91.5 (80.0-100.0) fL MCH 30.4 (25.0-35.0) pg MCHC 33.2 (31.0-37.0) g/dL RDW 13.2 (11.5-15.5) % Plt Count 251 (150-450) k/uL MPV 9.9 Neutrophils % 85 % Lymphocytes % 5 % Monocytes % 8 % Eosinophils % 1 % Basophils % 1 % Neutrophils # 15.2 H (1.3-7.7) k/uL Lymphocytes # 0.8 L (1.0-4.8) k/uL Monocytes # 1.4 H (0-1.0) k/uL Eosinophils # 0.2 (0-0.7) k/uL Basophils # 0.1 (0-0.2) k/uL Sodium 136 L (137-145) mmol/L Potassium 4.8 (3.5-5.1) mmol/L Chloride 100 (98-107) mmol/L Carbon Dioxide 29 (22-30) mmol/L Anion Gap 7 mmol/L BUN 20 (9-20) mg/dL Creatinine 1.30 H (0.66-1.25) mg/dL Est GFR (CKD-EPI)AfAm 61 (>60 ml/min/1.73 sqM) Est GFR (CKD-EPI)NonAf 52 (>60 ml/min/1.73 sqM) Glucose 154 H (74-99) mg/dL Plasma Lactic Acid Esteban 1.3 (0.7-2.0) mmol/L Calcium 10.1 (8.4-10.2) mg/dL Total Bilirubin 0.8 (0.2-1.3) mg/dL AST 28 (17-59) U/L ALT 20 (4-49) U/L Alkaline Phosphatase 94 (38-126) U/L Troponin I (0.000-0.034) ng/mL Total Protein 7.4 (6.3-8.2) g/dL Albumin 4.4 (3.5-5.0) g/dL Amylase 114 H (30-110) U/L Lipase 220 (23-300) U/L 02/11/20 Range/Units 01:47 WBC (3.8-10.6) k/uL RBC (4.30-5.90) m/uL Hgb (13.0-17.5) gm/dL Hct (39.0-53.0) % MCV (80.0-100.0) fL MCH (25.0-35.0) pg MCHC (31.0-37.0) g/dL RDW (11.5-15.5) % Plt Count (150-450) k/uL MPV Neutrophils % % Lymphocytes % % Monocytes % % Eosinophils % % Basophils % % Neutrophils # (1.3-7.7) k/uL Lymphocytes # (1.0-4.8) k/uL Monocytes # (0-1.0) k/uL Eosinophils # (0-0.7) k/uL Basophils # (0-0.2) k/uL Sodium (137-145) mmol/L Potassium (3.5-5.1) mmol/L Chloride (98-107) mmol/L Carbon Dioxide (22-30) mmol/L Anion Gap mmol/L BUN (9-20) mg/dL Creatinine (0.66-1.25) mg/dL Est GFR (CKD-EPI)AfAm (>60 ml/min/1.73 sqM) Est GFR (CKD-EPI)NonAf (>60 ml/min/1.73 sqM) Glucose (74-99) mg/dL Plasma Lactic Acid Esteban (0.7-2.0) mmol/L Calcium (8.4-10.2) mg/dL Total Bilirubin (0.2-1.3) mg/dL AST (17-59) U/L ALT (4-49) U/L Alkaline Phosphatase (38-126) U/L Troponin I 0.017 (0.000-0.034) ng/mL Total Protein (6.3-8.2) g/dL Albumin (3.5-5.0) g/dL Amylase (30-110) U/L Lipase (23-300) U/L - Radiology Data CT abdomen and pelvis is obtained. Report was reviewed in its entirety. Impression by Dr. Tian shows scattered reticular and groundglass opacities within the visualized lower lungs which may represent chronic interstitial lung disease versus an acute infectious process. Nonobstructing calculus within the left kidney. No hydronephrosis. Apparent thickening of the descending colon extending to the sigmoid colon likely secondary to underdistention versus a nonspecific colitis. (Kandice Philippe) Disposition <Kandice Philippe - Last Filed: 02/11/20 03:01> <Art You - Last Filed: 02/13/20 09:07> Clinical Impression: Abdominal pain, Leukocytosis, Colitis Disposition: ADMITTED IP TO THIS [facility] Condition: Serious
[2020-02-11 02:04] LABS: Basophils # (A) 0.1 k/uL (0-0.2); Basophils % (A) 1 %; Eosinophils # (A) 0.2 k/uL (0-0.7); Eosinophils % (A) 1 %; HCT 45.2 % (39.0-53.0); Lymphocytes # (A) 0.8 k/uL (1.0-4.8); Lymphocytes % (A) 5 %; MCH 30.4 pg (25.0-35.0); MCHC 33.2 g/dL (31.0-37.0); MCV 91.5 fL (80.0-100.0); Mean Platelet Volume 9.9; Monocytes # (A) 1.4 k/uL (0-1.0); Monocytes % (A) 8 %; Neutrophils # (A) 15.2 k/uL (1.3-7.7); Neutrophils % (A) 85 %; Platelet Count 251 k/uL (150-450); RBC 4.94 m/uL (4.30-5.90); RDW 13.2 % (11.5-15.5); WBC 17.9 k/uL (3.8-10.6)
[2020-02-11 02:07] LABS: Albumin 4.4 g/dL (3.5-5.0); Calcium 10.1 mg/dL (8.4-10.2); Potassium 4.8 mmol/L (3.5-5.1); Total Bilirubin 0.8 mg/dL (0.2-1.3); Total Protein 7.4 g/dL (6.3-8.2)
[2020-02-11] MEDS ORDERED: HYDROmorphone 1 MG/ML 1 ML SYRINGE IVP STA (02:44)
--- NOTE | 2020-02-11 02:47 | CT ---
EXAM: CT Abdomen and Pelvis With Intravenous Contrast CLINICAL HISTORY: ITS.REASON CT Reason: Abd pain; leukocytosis TECHNIQUE: Axial computed tomography images of the abdomen and pelvis with intravenous contrast. CTDI is 29.4 mGy and DLP is 1256.7 mGy-cm. This CT exam was performed using one or more of the following dose reduction techniques: automated exposure control, adjustment of the mA and/or kV according to patient size, and/or use of iterative reconstruction technique. COMPARISON: No relevant prior studies available. FINDINGS: Lung bases: Scattered reticular and groundglass opacities within visualized lower lungs which may represent chronic interstitial lung disease versus an acute infectious process. ABDOMEN: Liver: 14 mm hypodensity within the left hepatic lobe. Question liver cirrhosis. Gallbladder and bile ducts: Unremarkable. Pancreas: Unremarkable. Spleen: Unremarkable. Adrenals: Unremarkable. Kidneys and ureters: Nonobstructing calculus within the left kidney. No hydronephrosis. Cyst within both kidneys. Stomach and bowel: Apparent wall thickening of the descending colon extending the sigmoid colon likely secondary to underdistention versus a nonspecific colitis. Colonic diverticulosis. PELVIS: Appendix: Appendix is unremarkable. Bladder: Unremarkable. Reproductive: Unremarkable as visualized. ABDOMEN and PELVIS: Intraperitoneal space: Unremarkable. Bones/joints: Total right hip arthroplasty. No acute fracture. No dislocation. Soft tissues: Unremarkable. Vasculature: Extensive vascular calcifications. Lymph nodes: Unremarkable. IMPRESSION: 1. Scattered reticular and groundglass opacities within visualized lower lungs which may represent chronic interstitial lung disease versus an acute infectious process. 2. Nonobstructing calculus within the left kidney. No hydronephrosis. 3. Apparent wall thickening of the descending colon extending the sigmoid colon likely secondary to underdistention versus a nonspecific colitis.
[2020-02-11] MEDS ORDERED: PIPERACILLIN-TAZOBACTAM 3.375 GM in SODIUM CHLORIDE 0.9% 100 ML IVPB STA (02:52)
[2020-02-11] MEDS ORDERED: ONDANSETRON 4 MG/2 ML VIAL IVP PRN (02:54)
[2020-02-11] MEDS ORDERED: HYDROmorphone 1 MG/ML 1 ML SYRINGE IVP PRN (02:54)
[2020-02-11] MEDS ORDERED: NALOXONE 0.4 MG/ML 1 ML VIAL IV PRN (02:54)
[2020-02-11] MEDS: SODIUM CHLORIDE 0.9% 1,000 ML IV SCH ×2 (03:34→16:20)
[2020-02-11 04:24] LABS: Appearance,Urine Clear (Clear); Bilirubin,Urine Negative (Negative); Blood,Urine Negative (Negative); Color,Urine Yellow; Glucose,Urine (UA) Negative (Negative); Ketones,Urine Negative (Negative); Leukocyte Esterase,Urine Negative (Negative); Mucus,Urine Rare /hpf; Nitrite,Urine Negative (Negative); PH, Urine 5.5 (5.0-8.0); Protein,Urine 2+ (Negative); RBC,Urine 1 /hpf (0-5); Urobilinogen,Urine <2.0 mg/dL (<2.0); WBC,Urine <1 /hpf (0-5)
[2020-02-11 04:50] LABS: Specific Gravity,Urine >1.050 (1.001-1.035)
[2020-02-11] MEDS ORDERED: ALPRAZolam 0.25 MG TAB PO PRN (08:34)
[2020-02-11] MEDS ORDERED: ACETAMINOPHEN TAB 325 MG TAB PO PRN (08:34)
[2020-02-11] MEDS ORDERED: PANTOPRAZOLE 40 MG TABLET PO SCH (09:00)
[2020-02-11] MEDS: ASPIRIN 81 MG PO SCH (09:21)
[2020-02-11] MEDS: APIXABAN 5 MG TAB PO SCH ×2 (09:21→20:03)
[2020-02-11] MEDS: LOSARTAN 50 MG TAB PO SCH (09:21)
[2020-02-11] MEDS: MAGNESIUM OXIDE 400 MG TAB PO SCH (09:21)
[2020-02-11] MEDS: AMIODARONE 100 MG TAB PO SCH (09:22)
[2020-02-11] MEDS: HYDROCORTISONE 10 MG TAB PO SCH ×2 (09:22→20:33)
[2020-02-11] MEDS: METOPROLOL SUCCINATE (ER) 25 MG TAB.ER.24H PO SCH ×2 (09:22→20:34)
--- NOTE | 2020-02-11 09:26 | P.CRDCN ---
History of Present Illness Consult date: 02/11/20 Consult reason: known to you History of present illness: The patient is a 79-year-old male with past medical history of hypertension, dyslipidemia, interstitial lung disease, and paroxysmal atrial fibrillation who follows in the office with Dr. Alba. He presented to the emergency room after experiencing epigastric discomfort, which worsened over the past 24 hours. He states it was mild in the morning, however steadily progressed throughout the day. He states the pain worsened with eating and eventually caused him to vomit around 8-9 PM last night. He denies any fever or chills. No change in bowel habits. His emesis did not contain blood or coffee grounds. He denies any dark or bloody stools. He states he has not been ill recently. DIAGNOSTICS: Sinus rhythm with PACs CT of the chest and abdomen shows scattered groundglass opacities in the lower lungs correlating with his history of interstitial lung disease. Wall thickenin g of the descending colon extending into the sigmoid colon, secondary to under distention versus nonspecific colitis Laboratory data shows WBC at 17.9, hemoglobin 15.0, hematocrit 45.2, platelet 251, sodium 136, potassium 4.8, BUN 20, creatinine 1.30, lactic acid 1.3, AST 28, ALT 20, troponin 0.017, amylase 114, lipase 220 Vital signs show blood pressure 159/82, respiratory rate 20, pulse rate 98, temperature 99.1F, SpO2 89% on room air PAST MEDICAL HISTORY: Hypertension, dyslipidemia, interstitial lung disease, paroxysmal atrial fibrillation, acid reflux, hiatal hernia, prostate cancer REVIEW OF SYSTEMS: No fever or chills. No cough or expectoration. No diaphoresis. Patient denies headache, dizziness, blurred vision, double vision. Positive for abdominal pain. Positive for nausea. No vomiting since arrival to the hospital. No hematochezia. No hematemesis. Denies any black stools or blood in his stools. Denies dysuria or hematuria. No muscle weakness or numbness. Negative for chest pain. Positive for chronic shortness of breath; unchanged. PHYSICAL EXAMINATION: This is a 79-year-old -year-old in no apparent distress at the time of my examination. HEENT: Head is atraumatic, normocephalic. Pupils are equal, round. Sclerae anicteric. Conjunctivae are clear. Mucous membranes of the mouth are moist. Neck is supple. There is no jugular venous distention. No carotid bruit is heard. CHEST EXAMINATION: Lungs are clear to auscultation. No chest wall tenderness is noted on palpation or with deep breathing. HEART EXAMINATION: Heart regular rate and rhythm; occasional PACs. S1, S2 heard. No murmurs, gallops or rub. ABDOMEN: Soft. Mild tenderness to deep palpation in right upper and lower quadrants. Bowel sounds are hypoactive. No organomegaly noted. EXTREMITIES: 2+ peripheral pulses with no evidence of peripheral edema and no calf tenderness noted. NEUROLOGIC EXAMINATION: Patient is awake, alert and oriented x3. FINAL ASSESSMENT AND PLAN: #1 abdominal pain, possible colitis #2 leukocytosis #3 paroxysmal atrial fibrillation, maintaining sinus rhythm #4 hypertension #5 dyslipidemia PLAN: May hold Eliquis until cleared to resume by gastroenterology Continue all other cardiac medications No need for additional testing from the cardiac standpoint at this time. The patient has been seen and evaluated. Plan of care has been reviewed and agreed upon by Dr Hightower. 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 History of Any Multi-Drug Resistant Organisms: None Reported Past Surgical History: Adenoidectomy, Back Surgery, Joint Replacement, Orthopedic Surgery, Prostate Surgery, Tonsillectomy Additional Past Surgical History / Comment(s): Prostatectomy, right hip repl acement, low back surgery, L hand 2nd/3rd finger partial amputations, ANETA/cardioversions, colonoscopy, R lung thorascopy. Past Anesthesia/Blood Transfusion Reactions: No Reported Reaction Past Psychological History: Anxiety Additional Psychological History / Comment(s): Pt resides with his spouse. He is independent. Smoking Status: Former smoker Past Alcohol Use History: Daily Additional Past Alcohol Use History / Comment(s): Pt started smoking in 1961 and quit in 2018. Pt states he has 2 beers or a couple shots of alcohol pretty much nightly. Past Drug Use History: None Reported - Past Family History Brother(s) Family Medical History: Cancer Additional Family Medical History / Comment(s): Brother of pancreatic cancer. Mother Family Medical History: Vascular Disorder Additional Family Medical History / Comment(s): Mother had varicosities and leg ulcers. Father Family Medical History: Myocardial Infarction ([place]) Additional Family Medical History / Comment(s): Father of a [place] at the age of 64 yrs. Medications and Allergies Home Medications Medication Instructions Recorded Confirmed Type Aspirin 81 mg PO QAM 06/26/16 02/11/20 History Multivit-Min/FA/Lycopen/Lutein 1 tab PO DAILY 06/26/16 02/11/20 History [Centrum Silver Men Tablet] Olmesartan Medoxomil [Benicar] 40 mg PO DAILY 06/26/16 02/11/20 History Omeprazole 20 mg PO DAILY 06/26/16 02/11/20 History Metoprolol Succinate [Toprol XL] 25 mg PO BID 02/26/18 02/11/20 History amLODIPine [Norvasc] 5 mg PO QAM 02/26/18 02/11/20 History Simvastatin [Zocor] 10 mg PO HS 06/21/18 02/11/20 History Apixaban [Eliquis] 5 mg PO BID 09/29/18 02/11/20 History Hydrocortisone 10 mg PO HS 09/29/18 02/11/20 History Amiodarone HCl [Pacerone] 100 mg PO DAILY 02/21/19 02/11/20 History ALPRAZolam [Xanax] 0.25 mg PO HS PRN 07/18/19 02/11/20 History Acetaminophen [Tylenol Arthritis] 1,300 mg PO Q8H PRN 07/18/19 02/11/20 History Cholecalciferol [Vitamin D3 (25 1,000 unit PO DAILY 07/18/19 02/11/20 History Mcg = 1000 Iu)] Hydrocortisone 15 mg PO QAM 07/18/19 02/11/20 History Loratadine [Claritin] 10 mg PO DAILY 07/18/19 02/11/20 History Magnesium Oxide [Meehan] 500 mg PO DAILY 07/18/19 02/11/20 History Aspirin EC [Ecotrin Low Dose] 81 mg PO DAILY 02/11/20 02/11/20 History Allergies Allergy/AdvReac Type Severity Reaction Status Date / Time gentamicin AdvReac Nausea & Verified 02/11/20 01:16 Vomiting levofloxacin [From Levaquin] AdvReac Nausea & Verified 02/11/20 01:16 Vomiting Physical Exam Vitals: Vital Signs Temp Pulse Pulse Resp BP BP Pulse Ox 02/11/20 08:00 99.1 F 98 20 159/82 89 L 02/11/20 04:12 99.3 F 63 18 156/77 93 L 02/11/20 04:05 92 16 130/103 96 02/11/20 01:13 98.9 F 69 24 166/85 95 Intake and Output 02/10/20 02/11/20 02/11/20 22:59 06:59 14:59 Other: # Voids 1 Weight 95.254 kg Results 02/11/20 01:47 02/11/20 01:47 Cardiac Enzymes 02/11/20 02/11/20 Range/Units 01:47 01:47 AST 28 (17-59) U/L Troponin I 0.017 (0.000-0.034) ng/mL CBC 02/11/20 Range/Units 01:47 WBC 17.9 H (3.8-10.6) k/uL RBC 4.94 (4.30-5.90) m/uL Hgb 15.0 (13.0-17.5) gm/dL Hct 45.2 (39.0-53.0) % Plt Count 251 (150-450) k/uL Comprehensive Metabolic Panel 02/11/20 Range/Units 01:47 Sodium 136 L (137-145) mmol/L Potassium 4.8 (3.5-5.1) mmol/L Chloride 100 (98-107) mmol/L Carbon Dioxide 29 (22-30) mmol/L BUN 20 (9-20) mg/dL Creatinine 1.30 H (0.66-1.25) mg/dL Glucose 154 H (74-99) mg/dL Calcium 10.1 (8.4-10.2) mg/dL AST 28 (17-59) U/L ALT 20 (4-49) U/L Alkaline Phosphatase 94 (38-126) U/L Total Protein 7.4 (6.3-8.2) g/dL Albumin 4.4 (3.5-5.0) g/dL Current Medications Generic Name Dose Route Start Last Admin Trade Name Freq PRN Reason Stop Dose Admin Acetaminophen 650 mg 02/11/20 08:34 Acetaminophen Tab 325 Mg Tab PO Q4H PRN Pain Alprazolam 0.25 mg 02/11/20 08:34 Alprazolam 0.25 Mg Tab PO HS PRN sleep Amiodarone HCl 100 mg 02/11/20 09:00 Amiodarone 100 Mg Tab PO DAILY [facility] Amlodipine Besylate 5 mg 02/11/20 09:00 Amlodipine 5 Mg Tab PO QAM [facility] Apixaban 5 mg 02/11/20 09:00 Apixaban 5 Mg Tab PO BID [facility] Aspirin 81 mg 02/11/20 09:00 Aspirin 81 Mg PO QAM [facility] Atorvastatin Calcium 10 mg 02/11/20 21:00 Atorvastatin 10 Mg Tab PO HS [facility] Cholecalciferol 1,000 unit 02/11/20 09:00 Cholecalciferol 1,000 Unit Tab PO DAILY [facility] Hydrocortisone 10 mg 02/11/20 21:00 Hydrocortisone 10 Mg Tab PO HS [facility] Hydrocortisone 15 mg 02/11/20 09:00 Hydrocortisone 10 Mg Tab PO QAM [facility] Hydromorphone HCl 1 mg 02/11/20 02:54 Hydromorphone 1 Mg/Ml 1 Ml Syringe IVP Q3HR PRN Severe Pain Piperacillin Sod/Tazobactam 100 mls @ 25 mls/hr 02/11/20 08:00 Sod 3.375 gm/ Sodium Chloride IVPB Q8HR [facility] Sodium Chloride 1,000 mls @ 75 mls/hr 02/11/20 03:00 02/11/20 03:34 Saline 0.9% IV 75 mls/hr .[id number] [facility] Administration Loratadine 10 mg 02/11/20 09:00 Loratadine 10 Mg Tab PO DAILY [facility] Losartan Potassium 150 mg 02/11/20 09:00 Losartan 50 Mg Tab PO DAILY [facility] Magnesium Oxide 400 mg 02/11/20 09:00 Magnesium Oxide 400 Mg Tab PO DAILY [facility] Metoprolol Succinate 25 mg 02/11/20 09:00 Metoprolol Succinate (Er) 25 Mg Tab.Er.24h PO BID [facility] Multivitamins 1 each 02/11/20 09:00 Multivitamins, Thera 1 Each Tab PO DAILY [facility] Naloxone HCl 0.2 mg 02/11/20 02:54 Naloxone 0.4 Mg/Ml 1 Ml Vial IV Q2M PRN Opioid Reversal Ondansetron HCl 4 mg 02/11/20 02:54 Ondansetron 4 Mg/2 Ml Vial IVP Q8HR PRN Nausea And Vomiting Pantoprazole Sodium 40 mg 02/11/20 09:00 Pantoprazole 40 Mg Tablet PO [id number] [facility] Intake and Output 02/10/20 02/11/20 02/11/20 22:59 06:59 14:59 Other: # Voids 1 Weight 95.254 kg 02/11/20 01:47 02/11/20 01:47
[2020-02-11] MEDS: PIPERACILLIN-TAZOBACTAM 3.375 GM in SODIUM CHLORIDE 0.9% 100 ML IVPB SCH ×4 (09:30→23:29)
[2020-02-11] MEDS: MULTIVITAMINS, THERA 1 EACH TAB PO SCH (13:15)
[2020-02-11] MEDS: LORATADINE 10 MG TAB PO SCH (13:15)
[2020-02-11] MEDS: CHOLECALCIFEROL 1,000 UNIT TAB PO SCH (13:15)
[2020-02-11] MEDS: amLODIPine 5 MG TAB PO SCH (13:17)
--- NOTE | 2020-02-11 14:13 | P.HPIM ---
History of Present Illness H&P Date: 02/11/20 Chief Complaint: Abdominal pain for one to 2 day duration Patient is a pleasant 79-year-old male came into the hospital with epigastric abdominal pain along with that he had some nausea vomiting associated, he had the symptoms started 1 day prior to coming into the hospital, denies any prior episode before denies any chills nausea vomiting and diarrhea, denies any melena, he does have a history of the ulcer in and remote past, his past medical history significant for a hypertension hypertensive cardiovascular disease dyslipidemia, chronic atrial fibrillation history of GERD, also history of degenerative joint disease osteoarthritis, history of prostate cancer status post surgery, patient noted to have elevated WBC count of 17,800, CT scan does show some groundglass attenuation and infiltrate in the bases, along with that some colitis-like changes seen in the descending and sigmoid colon, patient admitted into the hospital with GI on consult, a covid testing has been sent to rule out covid, Review of Systems All systems: negative 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 History of Any Multi-Drug Resistant Organisms: None Reported Past Surgical History: Adenoidectomy, Back Surgery, Joint Replacement, Orthopedic Surgery, Prostate Surgery, Tonsillectomy Additional Past Surgical History / Comment(s): Prostatectomy, right hip repl acement, low back surgery, L hand 2nd/3rd finger partial amputations, ANETA/cardioversions, colonoscopy, R lung thorascopy. Past Anesthesia/Blood Transfusion Reactions: No Reported Reaction Past Psychological History: Anxiety Additional Psychological History / Comment(s): Pt resides with his spouse. He is independent. Smoking Status: Former smoker Past Alcohol Use History: Daily Additional Past Alcohol Use History / Comment(s): Pt started smoking in 1961 and quit in 2018. Pt states he has 2 beers or a couple shots of alcohol pretty much nightly. Past Drug Use History: None Reported - Past Family History Brother(s) Family Medical History: Cancer Additional Family Medical History / Comment(s): Brother of pancreatic cancer. Mother Family Medical History: Vascular Disorder Additional Family Medical History / Comment(s): Mother had varicosities and leg ulcers. Father Family Medical History: Myocardial Infarction ([place]) Additional Family Medical History / Comment(s): Father of a [place] at the age of 64 yrs. Medications and Allergies Home Medications Medication Instructions Recorded Confirmed Type Aspirin 81 mg PO QAM 06/26/16 02/11/20 History Multivit-Min/FA/Lycopen/Lutein 1 tab PO DAILY 06/26/16 02/11/20 History [Centrum Silver Men Tablet] Olmesartan Medoxomil [Benicar] 40 mg PO DAILY 06/26/16 02/11/20 History Omeprazole 20 mg PO DAILY 06/26/16 02/11/20 History Metoprolol Succinate [Toprol XL] 25 mg PO BID 02/26/18 02/11/20 History amLODIPine [Norvasc] 5 mg PO QAM 02/26/18 02/11/20 History Simvastatin [Zocor] 10 mg PO HS 06/21/18 02/11/20 History Apixaban [Eliquis] 5 mg PO BID 09/29/18 02/11/20 History Hydrocortisone 10 mg PO HS 09/29/18 02/11/20 History Amiodarone HCl [Pacerone] 100 mg PO DAILY 02/21/19 02/11/20 History ALPRAZolam [Xanax] 0.25 mg PO HS PRN 07/18/19 02/11/20 History Acetaminophen [Tylenol Arthritis] 1,300 mg PO Q8H PRN 07/18/19 02/11/20 History Cholecalciferol [Vitamin D3 (25 1,000 unit PO DAILY 07/18/19 02/11/20 History Mcg = 1000 Iu)] Hydrocortisone 15 mg PO QAM 07/18/19 02/11/20 History Loratadine [Claritin] 10 mg PO DAILY 07/18/19 02/11/20 History Magnesium Oxide [Meehan] 500 mg PO DAILY 07/18/19 02/11/20 History Aspirin EC [Ecotrin Low Dose] 81 mg PO DAILY 02/11/20 02/11/20 History Allergies Allergy/AdvReac Type Severity Reaction Status Date / Time gentamicin AdvReac Nausea & Verified 02/11/20 01:16 Vomiting levofloxacin [From Levaquin] AdvReac Nausea & Verified 02/11/20 01:16 Vomiting Physical Exam Vitals: Vital Signs Temp Pulse Pulse Resp BP BP Pulse Ox 02/11/20 12:54 68 20 125/57 94 L 02/11/20 09:43 85 96 02/11/20 09:00 20 02/11/20 08:00 99.1 F 98 20 159/82 89 L 02/11/20 04:12 99.3 F 63 18 156/77 93 L 02/11/20 04:05 92 16 130/103 96 02/11/20 01:13 98.9 F 69 24 166/85 95 Intake and Output 02/10/20 02/11/20 02/11/20 22:59 06:59 14:59 Other: Voiding Method Toilet # Voids 1 Weight 95.254 kg - Constitutional General appearance: average body habitus, cooperative, disheveled - EENT Eyes: EOMI, PERRLA Ears: bilateral: normal - Neck Carotids: bilateral: upstroke normal - Respiratory Respiratory: bilateral: CTA - Cardiovascular Rhythm: irregularly irregular Heart sounds: normal: S1, S2 - Gastrointestinal General gastrointestinal: soft - Neurologic Neurologic: CNII-XII intact - Musculoskeletal Musculoskeletal: gait normal, generalized weakness, strength equal bilaterally - Psychiatric Psychiatric: A&O x's 3, appropriate affect, intact judgment & insight Results CBC & Chem 7: 02/11/20 01:47 02/11/20 01:47 Labs: Abnormal Lab Results - Last 24 Hours (Table) 02/11/20 02/11/20 02/11/20 Range/Units 01:47 01:47 04:05 WBC 17.9 H (3.8-10.6) k/uL Neutrophils # 15.2 H (1.3-7.7) k/uL Lymphocytes # 0.8 L (1.0-4.8) k/uL Monocytes # 1.4 H (0-1.0) k/uL Sodium 136 L (137-145) mmol/L Creatinine 1.30 H (0.66-1.25) mg/dL Glucose 154 H (74-99) mg/dL Amylase 114 H (30-110) U/L Ur Specific [place] >1.050 H (1.001-1.035) Urine Protein 2+ H (Negative) Urine Mucus Rare H (None) /hpf Chest x-ray: report reviewed, image reviewed Thrombosis Risk Factor Assmnt - Choose All That Apply Each Risk Factor Represents 3 Points: Age 75 years or older Thrombosis Risk Factor Assessment Total Risk Factor Score: 3 Thrombosis Risk Factor Assessment Level: Moderate Risk Assessment and Plan Assessment: Colitis of sigmoid colon and descending colon Leukocytosis Interstitial infiltrates/pneumonia Hypertension hypertensive cardiovascular disease Chronic atrial fibrillation History of GERD Plan: Patient is being started on PPI Antibiotics Continue home medications Supportive care GI evaluation Further recommendations pending plan of care as per clinical response of patient Time with Patient: Greater than 30
--- NOTE | 2020-02-11 17:59 | P.CONS ---
History of Present Illness - Reason for Consult Consult date: 02/11/20 Abdominal pain Requesting physician: Jules Wild - Chief Complaint Abdominal pain - History of Present Illness 79-year-old male with a medical history significant for hypertension, coronary artery disease, chronic atrial fibrillation on anticoagulation therapy, GERD, osteoarthritis, history of prior prostate cancer treated with surgical resection, remote history of peptic ulcer disease in his 20s who presented to the hospital for abdominal pain. The patient reports that the pain started suddenly. Pain was in the epigastric region of his abdomen and was sharp and constant. He had some associated nausea and vomiting. He denies any signs or symptoms of GI bleeding with no hematemesis, coffee-ground emesis, melena or hematochezia. He denies any change in his bowel habits and reports a normal nonbloody bowel movement yesterday. On presentation laboratory evaluation significant for a normal hemoglobin of 15 with a WBC 17.9, platelet count 251,000, total bilirubin 0.8, pleasant phosphatase 94, AST 28 and ALT 20 with a amylase of 114 and a lipase of 220. Computed tomography scan of the abdomen performed in evaluation showed opacities in the lower lungs, left sided renal calculus, and wall thickening of the descending colon and sigmoid possibly under distention versus nonspecific colitis. He denies any pain in that area at this time. He reports that his last colonoscopy was in the past few years and normal. He denies any excessive NSAID use and reports taking Tylenol for pain. He is on daily PPI therapy for reflux. Review of Systems REVIEW OF SYSTEMS: CONSTITUTIONAL: Denies any fevers, chills, weight change or fatigue. CARDIOVASCULAR: Denies any chest pain, palpitations high or low blood pressures RESPIRATORY: Denies any shortness of breath, hemoptysis or cough. GENITOURINARY: No dysuria or hematuria. MUSCULOSKELETAL: No weakness reported. SKIN: Denies any new rashes or lesions, jaundice or pallor. PSYCHIATRIC: Denies any depression or anxiety. NEUROLOGY: Denies headache, denies any new focal deficits. EARS/NOSE/THROAT: No recent hearing change, congestion, nasal discharge or sore throat. EYES: No pain in eyes, discharge or change in vision. GASTROINTESTINAL: As per HPI. 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 History of Any Multi-Drug Resistant Organisms: None Reported Past Surgical History: Adenoidectomy, Back Surgery, Joint Replacement, Orthopedic Surgery, Prostate Surgery, Tonsillectomy Additional Past Surgical History / Comment(s): Prostatectomy, right hip replacem ent, low back surgery, L hand 2nd/3rd finger partial amputations, ANETA/cardioversions, colonoscopy, R lung thorascopy. Past Anesthesia/Blood Transfusion Reactions: No Reported Reaction Past Psychological History: Anxiety Additional Psychological History / Comment(s): Pt resides with his spouse. He is independent. Smoking Status: Former smoker Past Alcohol Use History: Daily Additional Past Alcohol Use History / Comment(s): Pt started smoking in 196 and quit in 2017. Pt states he has 2 beers or a couple shots of alcohol pretty much nightly. Past Drug Use History: None Reported - Past Family History Brother(s) Family Medical History: Cancer Additional Family Medical History / Comment(s): Brother of pancreatic cancer. Mother Family Medical History: Vascular Disorder Additional Family Medical History / Comment(s): Mother had varicosities and leg ulcers. Father Family Medical History: Myocardial Infarction ([place]) Additional Family Medical History / Comment(s): Father of a [place] at the age of 64 yrs. Medications and Allergies Home Medications Medication Instructions Recorded Confirmed Type Aspirin 81 mg PO QAM 06/26/16 02/11/20 History Multivit-Min/FA/Lycopen/Lutein 1 tab PO DAILY 06/26/16 02/11/20 History [Centrum Silver Men Tablet] Olmesartan Medoxomil [Benicar] 40 mg PO DAILY 06/26/16 02/11/20 History Omeprazole 20 mg PO DAILY 06/26/16 02/11/20 History Metoprolol Succinate [Toprol XL] 25 mg PO BID 02/26/18 02/11/20 History amLODIPine [Norvasc] 5 mg PO QAM 02/26/18 02/11/20 History Simvastatin [Zocor] 10 mg PO HS 06/21/18 02/11/20 History Apixaban [Eliquis] 5 mg PO BID 09/29/18 02/11/20 History Hydrocortisone 10 mg PO HS 09/29/18 02/11/20 History Amiodarone HCl [Pacerone] 100 mg PO DAILY 02/21/19 02/11/20 History ALPRAZolam [Xanax] 0.25 mg PO HS PRN 07/18/19 02/11/20 History Acetaminophen [Tylenol Arthritis] 1,300 mg PO Q8H PRN 07/18/19 02/11/20 History Cholecalciferol [Vitamin D3 (25 1,000 unit PO DAILY 07/18/19 02/11/20 History Mcg = 1000 Iu)] Hydrocortisone 15 mg PO QAM 07/18/19 02/11/20 History Loratadine [Claritin] 10 mg PO DAILY 07/18/19 02/11/20 History Magnesium Oxide [Meehan] 500 mg PO DAILY 07/18/19 02/11/20 History Aspirin EC [Ecotrin Low Dose] 81 mg PO DAILY 02/11/20 02/11/20 History Allergies Allergy/AdvReac Type Severity Reaction Status Date / Time gentamicin AdvReac Nausea & Verified 02/11/20 01:16 Vomiting levofloxacin [From Levaquin] AdvReac Nausea & Verified 02/11/20 01:16 Vomiting Physical Exam Vitals: Vital Signs Temp Pulse Pulse Resp BP BP Pulse Ox 02/11/20 09:43 85 96 02/11/20 09:00 20 02/11/20 08:00 99.1 F 98 20 159/82 89 L 02/11/20 04:12 99.3 F 63 18 156/77 93 L 02/11/20 04:05 92 16 130/103 96 02/11/20 01:13 98.9 F 69 24 166/85 95 Intake and Output 02/10/20 02/11/20 02/11/20 22:59 06:59 14:59 Other: Voiding Method Toilet # Voids 1 Weight 95.254 kg On physical examination, patient appears comfortable in no apparent distress. HEAD: Normocephalic, atraumatic. EYES: No scleral icterus. No conjunctival injection. MOUTH: No lesions, tongue midline. NECK: Trachea midline, no gross abnormalities. CHEST: Clear to auscultation with no wheezing or rhonchi appreciated. HEART: . S1-S2 appreciated ABDOMEN: Soft, nontender to palpation. Bowel sounds are positive. No organomegaly. No guarding or rigidity. EXTREMITIES: No pedal edema. SKIN: No rashes, no jaundice. NEUROLOGIC: Alert and oriented x3. No focal deficits. Results CBC & Chem 7: 02/11/20 01:47 02/11/20 01:47 Labs: Abnormal Lab Results - Last 24 Hours (Table) 02/11/20 02/11/20 02/11/20 Range/Units 01:47 01:47 04:05 WBC 17.9 H (3.8-10.6) k/uL Neutrophils # 15.2 H (1.3-7.7) k/uL Lymphocytes # 0.8 L (1.0-4.8) k/uL Monocytes # 1.4 H (0-1.0) k/uL Sodium 136 L (137-145) mmol/L Creatinine 1.30 H (0.66-1.25) mg/dL Glucose 154 H (74-99) mg/dL Amylase 114 H (30-110) U/L Ur Specific [place] >1.050 H (1.001-1.035) Urine Protein 2+ H (Negative) Urine Mucus Rare H (None) /hpf CT scan - abdomen: report reviewed (Computed tomography scan of the abdomen with findings of opacities in the lower lung bases, left renal calculi, and some wall thickening of the descending and sigmoid colon possibly secondary to under distention versus nonspecific colitis.) Assessment and Plan (1) Colitis Narrative/Plan: 71-year-old male with multiple medical comorbidities who presented to the hospital due to complaints of epigastric abdominal pain. Pain started suddenly and was in the epigastric region of his abdomen with associated nausea and vomiting. Subsequently the symptoms of improved. It is unknown history of reflux and is on home PPI therapy. He denies any signs or symptoms GI bleeding. He did have a leukocytosis with a WBC count of 17.9 on presentation. Amylase and lipase normalized 114 and 220. Currently symptoms are resolved. Computed tomography scan of the abdomen with findings of opacities of the lung bases, left renal calculi and possible colitis of the descending colon and sigmoid versus under distention. He denies any change in bowel habits, blood per rectum, diarrhea or constipation reports a normal bowel movement yesterday. Unclear etiology, may be related to infectious or ischemic colitis, however given the absence of lower GI symptoms may be related to under distention of the colon as stated and CT report. Current Visit: Yes Status: Acute Code(s): K52.9 - NONINFECTIVE GASTROENTERITIS AND COLITIS, UNSPECIFIED SNOMED Code(s): 46871188 (2) GERD (gastroesophageal reflux disease) Current Visit: Yes Status: Acute Code(s): K21.9 - GASTRO-ESOPHAGEAL REFLUX DISEASE WITHOUT ESOPHAGITIS SNOMED Code(s): 754242872 (3) Abdominal pain Current Visit: Yes Status: Acute Code(s): R10.9 - UNSPECIFIED ABDOMINAL PAIN SNOMED Code(s): 26337290 (4) Leukocytosis Current Visit: Yes Status: Acute Code(s): D72.829 - ELEVATED WHITE BLOOD CELL COUNT, UNSPECIFIED SNOMED Code(s): 911547593 Plan: Supportive care Okay for liquid diet, advance to low fiber low residual is tired tolerated Continue to monitor stool output Continue monitor CBC, BMP, LFTs [place] okay for short seven-day course of antibiotics for possible colitis No plans for endoscopic evaluation at this time, however would recommend colonoscopy in 4-6 weeks if patient's colonoscopies are not up to date as no report was able to be identified in the system, however he does report that he believes last colonoscopy was in the past 2-3 years Okay to resume anticoagulation therapy Thank you for allowing us to participate in the care of the patient
[2020-02-11] MEDS: ATORVASTATIN 10 MG TAB PO SCH (20:03)
[2020-02-12] MEDS: SODIUM CHLORIDE 0.9% 1,000 ML IV SCH ×2 (03:42→16:59)
[2020-02-12] MEDS: PANTOPRAZOLE 40 MG TABLET PO SCH ×2 (06:35→16:25)
[2020-02-12 07:02] LABS: Basophils # (A) 0.1 k/uL (0-0.2); Basophils % (A) 1 %; Eosinophils # (A) 0.3 k/uL (0-0.7); Eosinophils % (A) 2 %; HCT 39.7 % (39.0-53.0); Lymphocytes # (A) 1.3 k/uL (1.0-4.8); Lymphocytes % (A) 10 %; MCH 30.9 pg (25.0-35.0); MCHC 32.8 g/dL (31.0-37.0); MCV 94.2 fL (80.0-100.0); Mean Platelet Volume 8.9; Monocytes # (A) 1.3 k/uL (0-1.0); Monocytes % (A) 10 %; Neutrophils # (A) 9.7 k/uL (1.3-7.7); Neutrophils % (A) 76 %; Platelet Count 180 k/uL (150-450); RBC 4.21 m/uL (4.30-5.90); RDW 13.1 % (11.5-15.5); WBC 12.8 k/uL (3.8-10.6)
[2020-02-12 07:11] LABS: Albumin 3.3 g/dL (3.5-5.0); Calcium 8.9 mg/dL (8.4-10.2); Potassium 4.8 mmol/L (3.5-5.1); Total Bilirubin 0.8 mg/dL (0.2-1.3); Total Protein 5.9 g/dL (6.3-8.2)
[2020-02-12] MEDS: LOSARTAN 50 MG TAB PO SCH (08:41)
[2020-02-12] MEDS: METOPROLOL SUCCINATE (ER) 25 MG TAB.ER.24H PO SCH ×2 (08:41→20:14)
[2020-02-12] MEDS: MAGNESIUM OXIDE 400 MG TAB PO SCH (08:41)
[2020-02-12] MEDS: CHOLECALCIFEROL 1,000 UNIT TAB PO SCH (08:42)
[2020-02-12] MEDS: APIXABAN 5 MG TAB PO SCH ×2 (08:42→20:15)
[2020-02-12] MEDS: HYDROCORTISONE 10 MG TAB PO SCH ×2 (08:42→20:14)
[2020-02-12] MEDS: MULTIVITAMINS, THERA 1 EACH TAB PO SCH (08:42)
[2020-02-12] MEDS: ASPIRIN 81 MG PO SCH (08:42)
[2020-02-12] MEDS: PIPERACILLIN-TAZOBACTAM 3.375 GM in SODIUM CHLORIDE 0.9% 100 ML IVPB SCH ×2 (08:42→16:25)
[2020-02-12] MEDS: AMIODARONE 100 MG TAB PO SCH (08:42)
[2020-02-12] MEDS: LORATADINE 10 MG TAB PO SCH (08:42)
--- NOTE | 2020-02-12 09:45 | P.PN ---
Subjective Progress Note Date: 02/12/20 Principal diagnosis: Colitis, GERD Patient seen lying in bed. He states he has had no further pain since presentation. No reports of diarrhea or GI bleeding. Objective - Vital Signs Vital signs: Vital Signs Temp 99.1 F 02/12/20 02:19 Pulse 65 02/12/20 02:19 Resp 18 02/12/20 02:19 BP 121/48 02/12/20 02:19 Pulse Ox 94 L 02/12/20 02:19 Intake & Output 02/11/20 02/12/20 02/12/20 18:59 06:59 18:59 Intake Total 1000 Output Total 300 1200 Balance 700 -1200 Intake: IV 800 Piperacillin-Tazobactam 3 200 .375 gm In Sodium Chloride 0.9% 100 ml @ 200 mls/hr IVPB ONCE STA Rx#:[id number] Sodium Chloride 0.9% 1, 600 000 ml @ 75 mls/hr IV . [id number] Rx#:[id number] Oral 200 Output: Urine 300 1200 Other: Voiding Method Toilet Toilet Urinal - Exam On physical examination, patient appears comfortable in no apparent distress. HEAD: Normocephalic, atraumatic. EYES: No scleral icterus. No conjunctival injection. MOUTH: No lesions, tongue midline. NECK: Trachea midline, no gross abnormalities. CHEST: Clear to auscultation with no wheezing or rhonchi appreciated. HEART: Regular rate and rhythm. ABDOMEN: Soft, obese. Bowel sounds are positive. No organomegaly. No guarding or rigidity. EXTREMITIES: No pedal edema. SKIN: No rashes, no jaundice. NEUROLOGIC: Alert and oriented x3. No focal deficits. - Labs CBC & Chem 7: 02/12/20 06:44 02/12/20 06:44 Labs: Abnormal Lab Results - Last 24 Hours (Table) 02/12/20 02/12/20 Range/Units 06:44 06:44 WBC 12.8 H (3.8-10.6) k/uL RBC 4.21 L (4.30-5.90) m/uL Neutrophils # 9.7 H (1.3-7.7) k/uL Monocytes # 1.3 H (0-1.0) k/uL Sodium 133 L (137-145) mmol/L Carbon Dioxide 34 H (22-30) mmol/L Creatinine 1.33 H (0.66-1.25) mg/dL Total Protein 5.9 L (6.3-8.2) g/dL Albumin 3.3 L (3.5-5.0) g/dL Assessment and Plan (1) Colitis Narrative/Plan: 79-year-old male with multiple medical comorbidities who presented to the hospital due to complaints of epigastric abdominal pain. Pain started suddenly and was in the epigastric region of his abdomen with associated nausea and vomiting. Subsequently the symptoms of improved. It is unknown history of reflux and is on home PPI therapy. He denies any signs or symptoms GI bleeding. He did have a leukocytosis with a WBC count of 17.9 on presentation. Amylase and lipase normalized 114 and 220. Currently symptoms are resolved. Computed tomography scan of the abdomen with findings of opacities of the lung bases, left renal calculi and possible colitis of the descending colon and sigmoid versus under distention. He denies any change in bowel habits, blood per rectum, diarrhea or constipation reports a normal bowel movement yesterday. Unclear etiology, may be related to infectious or ischemic colitis, however given the absence of lower GI symptoms may be related to under distention of the colon as stated and CT report. Patient continues to do well today. No complaints of constipation or diarrhea or any further abdominal pain. Current Visit: Yes Status: Acute Code(s): K52.9 - NONINFECTIVE GASTROENTERITIS AND COLITIS, UNSPECIFIED SNOMED Code(s): 75001991 (2) GERD (gastroesophageal reflux disease) Current Visit: Yes Status: Acute Code(s): K21.9 - GASTRO-ESOPHAGEAL REFLUX DISEASE WITHOUT ESOPHAGITIS SNOMED Code(s): 237507869 (3) Abdominal pain Current Visit: Yes Status: Acute Code(s): R10.9 - UNSPECIFIED ABDOMINAL PAIN SNOMED Code(s): 28281382 (4) Leukocytosis Current Visit: Yes Status: Acute Code(s): D72.829 - ELEVATED WHITE BLOOD CELL COUNT, UNSPECIFIED SNOMED Code(s): 846118429 Plan: Supportive care Diet advance to low fiber low residual astolerated Continue to monitor stool output Continue monitor CBC, BMP, LFTs [place] okay for short seven-day course of antibiotics for possible colitis No plans for endoscopic evaluation at this time, however would recommend colonoscopy in 4-6 weeks if patient's colonoscopies are not up to date as no report was able to be identified in the system, however he does report that he believes last colonoscopy was in the past 2-3 years Okay to resume anticoagulation therapy Okay for discharge from GI when otherwise medically stable Thank you for allowing us to participate in the care of the patient
--- NOTE | 2020-02-12 14:38 | P.PN ---
Subjective Progress Note Date: 02/12/20 Principal diagnosis: Colitis of sigmoid colon and descending colon Leukocytosis Interstitial infiltrates/pneumonia Hypertension hypertensive cardiovascular disease Chronic atrial fibrillation History of GERD 02/12/2020, patient seen eval examined remains on antibiotic and PPI, has been resumed on home medications, now with improved abdominal discomfort, patient has been evaluated by cardiovascular and GI services, is gradually being Advanced, patient to be continued on IV antibiotics hopefully changed to oral in next 24-48 hours Patient is a pleasant 79-year-old male came into the hospital with epigastric abdominal pain along with that he had some nausea vomiting associated, he had the symptoms started 1 day prior to coming into the hospital, denies any prior episode before denies any chills nausea vomiting and diarrhea, denies any melena, he does have a history of the ulcer in and remote past, his past medical history significant for a hypertension hypertensive cardiovascular disease dyslipidemia, chronic atrial fibrillation history of GERD, also history of degenerative joint disease osteoarthritis, history of prostate cancer status post surgery, patient noted to have elevated WBC count of 17,800, CT scan does show some groundglass attenuation and infiltrate in the bases, along with that some colitis-like changes seen in the descending and sigmoid colon, patient admitted into the hospital with GI on consult, a covid testing has been sent to rule out covid, Objective - Vital Signs Vital signs: Vital Signs Temp 99.1 F 02/12/20 08:40 Pulse 57 L 02/12/20 08:40 Resp 20 02/12/20 09:00 BP 144/70 02/12/20 08:40 Pulse Ox 96 02/12/20 08:40 Intake & Output 02/11/20 02/12/20 02/12/20 18:59 06:59 18:59 Intake Total 1000 500 Output Total 300 1200 300 Balance 700 -1200 200 Intake: IV 800 Piperacillin-Tazobactam 3 200 .375 gm In Sodium Chloride 0.9% 100 ml @ 200 mls/hr IVPB ONCE [facility] Rx#:[id number] Sodium Chloride 0.9% 1, 600 000 ml @ 75 mls/hr IV . [id number] [facility] Rx#:[id number] Oral 200 500 Output: Urine 300 1200 300 Other: Voiding Method Toilet Toilet Toilet Urinal Urinal - Exam - Constitutional General appearance: average body habitus, cooperative, disheveled - EENT Eyes: EOMI, PERRLA Ears: bilateral: normal - Neck Carotids: bilateral: upstroke normal - Respiratory Respiratory: bilateral: CTA - Cardiovascular Rhythm: irregularly irregular Heart sounds: normal: S1, S2 - Gastrointestinal General gastrointestinal: soft - Neurologic Neurologic: CNII-XII intact - Musculoskeletal Musculoskeletal: gait normal, generalized weakness, strength equal bilaterally - Psychiatric Psychiatric: A&O x's 3, appropriate affect, intact judgment & insight - Labs CBC & Chem 7: 02/12/20 06:44 02/12/20 06:44 Labs: Abnormal Lab Results - Last 24 Hours (Table) 02/12/20 02/12/20 Range/Units 06:44 06:44 WBC 12.8 H (3.8-10.6) k/uL RBC 4.21 L (4.30-5.90) m/uL Neutrophils # 9.7 H (1.3-7.7) k/uL Monocytes # 1.3 H (0-1.0) k/uL Sodium 133 L (137-145) mmol/L Carbon Dioxide 34 H (22-30) mmol/L Creatinine 1.33 H (0.66-1.25) mg/dL Total Protein 5.9 L (6.3-8.2) g/dL Albumin 3.3 L (3.5-5.0) g/dL Assessment and Plan Assessment: Colitis of sigmoid colon and descending colon Leukocytosis Interstitial infiltrates/pneumonia Hypertension hypertensive cardiovascular disease Chronic atrial fibrillation History of GERD Plan: Patient is being continued on PPI Antibiotics Continue home medications Supportive care GI evaluation and cardiovascular evaluation Further recommendations pending plan of care as per clinical response of patient Time with Patient: Greater than 30
[2020-02-12] MEDS: amLODIPine 5 MG TAB PO SCH (14:51)
[2020-02-12] MEDS: ATORVASTATIN 10 MG TAB PO SCH (20:15)
[2020-02-13] MEDS: PIPERACILLIN-TAZOBACTAM 3.375 GM in SODIUM CHLORIDE 0.9% 100 ML IVPB SCH ×2 (00:19→08:39)
[2020-02-13] MEDS: PANTOPRAZOLE 40 MG TABLET PO SCH (06:17)
[2020-02-13 07:42] VITALS: BP 156/91; PULSE 62; RESP 16; TEMP 98.9
[2020-02-13] MEDS: CHOLECALCIFEROL 1,000 UNIT TAB PO SCH (08:42)
[2020-02-13] MEDS: APIXABAN 5 MG TAB PO SCH (08:42)
[2020-02-13] MEDS: ASPIRIN 81 MG PO SCH (08:42)
[2020-02-13] MEDS: MULTIVITAMINS, THERA 1 EACH TAB PO SCH (08:42)
[2020-02-13] MEDS: MAGNESIUM OXIDE 400 MG TAB PO SCH (08:42)
[2020-02-13] MEDS: HYDROCORTISONE 10 MG TAB PO SCH (08:42)
[2020-02-13] MEDS: LOSARTAN 50 MG TAB PO SCH (08:42)
[2020-02-13] MEDS: LORATADINE 10 MG TAB PO SCH (08:42)
[2020-02-13] MEDS: AMIODARONE 100 MG TAB PO SCH (08:42)
[2020-02-13] MEDS: amLODIPine 5 MG TAB PO SCH (08:42)
[2020-02-13] MEDS: METOPROLOL SUCCINATE (ER) 25 MG TAB.ER.24H PO SCH (08:43)
[2020-02-13] MEDS: SODIUM CHLORIDE 0.9% 1,000 ML IV SCH (08:46)
--- NOTE | 2020-02-13 17:00 | P.PN ---
Subjective Progress Note Date: 02/13/20 Principal diagnosis: Colitis, GERD Patient was seen sitting up in bed. He states he's had no further abdominal pain. He reports no nausea or vomiting, no diarrhea or GI bleeding. Objective - Vital Signs Vital signs: Vital Signs Temp 98.9 F 02/13/20 07:41 Pulse 62 02/13/20 07:42 Resp 16 02/13/20 07:42 BP 156/91 02/13/20 07:41 Pulse Ox 91 L 02/13/20 07:41 Intake & Output 02/12/20 02/13/20 02/13/20 18:59 06:59 18:59 Intake Total 1300 660 Output Total 300 1100 1200 Balance 1000 -440 -1200 Intake: IV 700 Piperacillin-Tazobactam 3 100 .375 gm In Sodium Chloride 0.9% 100 ml @ 25 mls/hr IVPB Q8HR [facility] Rx# :[id number] Sodium Chloride 0.9% 1, 600 000 ml @ 75 mls/hr IV . [id number] [facility] Rx#:[id number] Oral 600 660 Output: Urine 300 1100 1200 Other: Voiding Method Toilet Toilet Toilet Urinal Urinal Urinal # Voids 1 1 1 # Bowel Movements 1 - Exam General appearance: The patient is alert, oriented, in no acute distress. HET: Head is normocephalic and atraumatic. Conjunctiva pink. Sclera anicteric. Neck: Supple without lymphadenopathy. Abdomen: Soft, nontender, nondistended with bowel sounds. No guarding or r igidity. Extremities: Normal skin color and turgor. No pedal edema Neurological: No focal deficits. Alert and oriented 3. - Labs CBC & Chem 7: 02/12/20 06:44 02/12/20 06:44 Labs: Microbiology - Last 24 Hours (Table) 02/11/20 14:50 Blood Culture - Preliminary Blood No Growth after 24 hours Assessment and Plan (1) Colitis Narrative/Plan: 79-year-old male with multiple medical comorbidities who presented to the hospital due to complaints of epigastric abdominal pain. Pain started suddenly and was in the epigastric region of his abdomen with associated nausea and vomiting. Subsequently the symptoms of improved. It is unknown history of reflux and is on home PPI therapy. He denies any signs or symptoms GI bleeding. He did have a leukocytosis with a WBC count of 17.9 on presentation. Amylase and lipase normalized 114 and 220. Currently symptoms are resolved. Computed tomography scan of the abdomen with findings of opacities of the lung bases, left renal calculi and possible colitis of the descending colon and sigmoid versus under distention. He denies any change in bowel habits, blood per rectum, diarrhea or constipation reports a normal bowel movement yesterday. Unclear etiology, may be related to infectious or ischemic colitis, however given the absence of lower GI symptoms may be related to under distention of the colon as stated and CT report. Status: Acute Code(s): K52.9 - NONINFECTIVE GASTROENTERITIS AND COLITIS, UNSPECIFIED SNOMED Code(s): 50240598 (2) Abdominal pain Status: Acute Code(s): R10.9 - UNSPECIFIED ABDOMINAL PAIN SNOMED Code(s): 09593302 (3) GERD (gastroesophageal reflux disease) Status: Acute Code(s): K21.9 - GASTRO-ESOPHAGEAL REFLUX DISEASE WITHOUT E SOPHAGITIS SNOMED Code(s): 157790192 (4) Leukocytosis Status: Acute Code(s): D72.829 - ELEVATED WHITE BLOOD CELL COUNT, UNSPECIFIED SNOMED Code(s): 805494012 Plan: 1. Supportive care 2. Continue low fiber lower residual diet 3. No plans for endoscopic evaluation at this time, it is recommended patient have colonoscopy in 4-6 weeks 4. Patient may be discharged home from a gastrointestinal standpoint Dr. Remington Stone I agree with the dictator's note, documented as a scribe by Jennifer Rooney.
--- NOTE | 2020-02-14 19:09 | P.DS ---
Providers Date of admission: 02/11/20 03:40 Expected date of discharge: 02/13/20 Attending physician: Eagle Romero Consults: 02/11/20 02:58 Consult Physician Routine Consulting Provider: Gilberto Freeman Consult Reason/Comments: Poss colitis; abd pain Do you want consulting provider notified?: Yes Primary care physician: [facility] Course: Presenting complaint: Abdominal pain Interval history: Patient presented 1 day history of nausea vomiting abdominal pain. Computed tomography scan abdomen is suggestive of descending colon colitis. Patient was treated with IV Zosyn. Seen by GI. Responded well. Today-feeling well. Tolerated diet. No abdominal pain. Cleared by GI to go home. On examination: 98.9, 62, 16, 156.91, 91% room air Abdomen-soft nontender Lungs-clear Investigations: White count 12.8 hemoglobin 13.0 platelets 180 potassium 4.88 creatinine 1.33 COVID 19 P/Cr-not detected Computed tomography scan of the abdomen-scattered reticular and groundglass obesity in the lower lungs. Nonobstructing calculus in the left kidney. Thickening of the descending colon extending into the sigmoid colon. Consultation: Gastroenterology. Dr. Hightower from cardiology Final diagnosis: -Acute colitis, left: -Calculus in the left kidney-nonobstructive -Paroxysmal atrial fibrillation, currently in sinus rhythm on eliquis -GERD -Essential hypertension -Hyperlipidemia -Primary osteoarthritis -Diverticulosis-colonic -Chronic adrenal insufficiency on steroids Disposition: Home Patient Condition at Discharge: Stable Plan - Discharge Summary New Discharge Prescriptions: New Amoxicillin/Potassium Clav [Augmentin 875-125 Tablet] 1 tab PO BID #14 tab Continue Omeprazole 20 mg PO DAILY Olmesartan Medoxomil [Benicar] 40 mg PO DAILY Multivit-Min/FA/Lycopen/Lutein [Centrum Silver Men Tablet] 1 tab PO DAILY Metoprolol Succinate [Toprol XL] 25 mg PO BID amLODIPine [Norvasc] 5 mg PO QAM Simvastatin [Zocor] 10 mg PO HS Apixaban [Eliquis] 5 mg PO BID Hydrocortisone 10 mg PO HS Amiodarone HCl [Pacerone] 100 mg PO DAILY Cholecalciferol [Vitamin D3 (25 Mcg = 1000 Iu)] 1,000 unit PO DAILY Loratadine [Claritin] 10 mg PO DAILY Magnesium Oxide [Meehan] 500 mg PO DAILY Hydrocortisone 15 mg PO QAM ALPRAZolam [Xanax] 0.25 mg PO HS PRN PRN Reason: sleep Acetaminophen [Tylenol Arthritis] 1,300 mg PO Q8H PRN PRN Reason: Pain Aspirin EC [Ecotrin Low Dose] 81 mg PO DAILY Discontinued Aspirin 81 mg PO QAM Discharge Medication List Multivit-Min/FA/Lycopen/Lutein [Centrum Silver Men Tablet] 1 tab PO DAILY 06/26/16 [History] Olmesartan Medoxomil [Benicar] 40 mg PO DAILY 06/26/16 [History] Omeprazole 20 mg PO DAILY 06/26/16 [History] Metoprolol Succinate [Toprol XL] 25 mg PO BID 02/26/18 [History] amLODIPine [Norvasc] 5 mg PO QAM 02/26/18 [History] Simvastatin [Zocor] 10 mg PO HS 06/21/18 [History] Apixaban [Eliquis] 5 mg PO BID 09/29/18 [History] Hydrocortisone 10 mg PO HS 09/29/18 [History] Amiodarone HCl [Pacerone] 100 mg PO DAILY 02/21/19 [History] ALPRAZolam [Xanax] 0.25 mg PO HS PRN 07/18/19 [History] Acetaminophen [Tylenol Arthritis] 1,300 mg PO Q8H PRN 07/18/19 [History] Cholecalciferol [Vitamin D3 (25 Mcg = 1000 Iu)] 1,000 unit PO DAILY 07/18/19 [History] Hydrocortisone 15 mg PO QAM 07/18/19 [History] Loratadine [Claritin] 10 mg PO DAILY 07/18/19 [History] Magnesium Oxide [Meehan] 500 mg PO DAILY 07/18/19 [History] Aspirin EC [Ecotrin Low Dose] 81 mg PO DAILY 02/11/20 [History] Amoxicillin/Potassium Clav [Augmentin 875-125 Tablet] 1 tab PO BID #14 tab 02/13/20 [Rx] Follow up Appointment(s)/Referral(s): Jose Celestin DO [Primary Care Provider] - 02/21/20 11:45 am Gilberto Freeman MD [STAFF PHYSICIAN] - 03/15/20 2:30 pm Patient Instructions/Handouts: Gastroesophageal Reflux Disease (DC) Activity/Diet/Wound Care/Special Instructions: soft bland diet
== END 2020-02-13 13:14 ==
LOC: EC 01:11 → 1SOBS 03:40
PROVIDERS: ADMIT Hospitalist; ATTEND Hospitalist
DX: K52.9 Noninfective gastroenteritis and colitis, unspecified (principal); K21.9 Gastro-esophageal reflux disease without esophagitis; N20.0 Calculus of kidney; I48.0 Paroxysmal atrial fibrillation; I11.9 Hypertensive heart disease without heart failure; E78.5 Hyperlipidemia, unspecified; M89.49 Other hypertrophic osteoarthropathy, multiple sites; K57.30 Diverticulosis of large intestine without perforation or abscess without bleeding; E27.40 Unspecified adrenocortical insufficiency; K44.9 Diaphragmatic hernia without obstruction or gangrene; J98.4 Other disorders of lung; F41.9 Anxiety disorder, unspecified; R00.0 Tachycardia, unspecified; I49.1 Atrial premature depolarization; Z20.828 Contact with and (suspected) exposure to other viral communicable diseases; Z79.82 Long term (current) use of aspirin; Z79.899 Other long term (current) drug therapy; Z79.02 Long term (current) use of antithrombotics/antiplatelets; Z79.52 Long term (current) use of systemic steroids; Z79.01 Long term (current) use of anticoagulants; Z88.1 Allergy status to other antibiotic agents; Z85.46 Personal history of malignant neoplasm of prostate; Z87.09 Personal history of other diseases of the respiratory system; Z98.890 Other specified postprocedural states; Z87.11 Personal history of peptic ulcer disease; Z86.2 Personal history of diseases of the blood and blood-forming organs and certain disorders involving the immune mechanism; Z90.89 Acquired absence of other organs; Z96.641 Presence of right artificial hip joint; Z90.79 Acquired absence of other genital organ(s); Z89.022 Acquired absence of left finger(s); Z87.891 Personal history of nicotine dependence; Z80.0 Family history of malignant neoplasm of digestive organs; Z82.49 Family history of ischemic heart disease and other diseases of the circulatory system; Z84.0 Family history of diseases of the skin and subcutaneous tissue
CPT/HCPCS: 96361 ×3; 96366 ×3; 96376; 96365; 96375; 99285; 36415; 93005; 80053 ×2; 82150; 83605; 83690 ×2; 84484; 85025 ×2; 81001; 87040; 74177; G0378 ×3; U0003; J2543 ×3; J2270; J2405; J1170; Q9967

== ENCOUNTER 2020-06-15 06:28 | Day surgery (SDC) | payer MEDICARE, BC ==
[2020-06-12 13:10] VITALS: BMI 29.2
[~2020-06-15 06:28] MED LIST changes: -LACTATED RINGERS 1,000 ML IV SCH
[2020-06-15] MEDS ORDERED: SODIUM CHLORIDE 0.9% 1,000 ML IV ONE ×2 (06:44→08:19)
[2020-06-15 06:51] VITALS: TEMP 98.1
[2020-06-15 07:12] LABS: Calcium 9.4 mg/dL (8.4-10.2); Potassium 5.1 mmol/L (3.5-5.1)
[2020-06-15] MEDS ORDERED: PROPOFOL 10 MG/ML 20 ML VIAL IV ONE (07:28)
--- NOTE | 2020-06-15 08:16 | CE ---
CARDIAC ELECTROPHYSIOLOGY REPORT DATE OF SERVICE: June 15, 2020. PERFORMING PHYSICIAN: Jim Mina MD. PROCEDURE PERFORMED: Successful cardioversion of atrial fibrillation to normal sinus mechanism using 200 joules on first attempt. INDICATION: Atrial fibrillation. PROCEDURE DESCRIPTION: After obtaining an informed consent, the patient was brought to the recovery room. The pulse oximetry and heart rate monitors were attached to the patient. The patient was receiving oral anticoagulation for the last 6 weeks continuously and for that reason, ANETA was not performed. The patient successfully cardioverted to normal sinus mechanism using 200 joules on first attempt. CONCLUSION: Successful cardioversion of atrial fibrillation to normal sinus mechanism using 200 joules on first attempt. MMODL / IJN: [id number] /
[2020-06-15 08:18] VITALS: RESP 14
[2020-06-15 09:35] VITALS: BP 138/71; PULSE 90
== END 2020-06-15 09:35 | disposition home or self-care (01) ==
LOC: CATHCVL 06:28
PROVIDERS: ATTEND Internal Medicine Interventional Cardiology
DX: I48.0 Paroxysmal atrial fibrillation (principal); I12.9 Hypertensive chronic kidney disease with stage 1 through stage 4 chronic kidney disease, or unspecified chronic kidney disease; N18.9 Chronic kidney disease, unspecified; E78.5 Hyperlipidemia, unspecified; Z20.822 Contact with and (suspected) exposure to COVID-19; I65.23 Occlusion and stenosis of bilateral carotid arteries; J44.9 Chronic obstructive pulmonary disease, unspecified; Z82.49 Family history of ischemic heart disease and other diseases of the circulatory system; Z79.01 Long term (current) use of anticoagulants; Z79.899 Other long term (current) drug therapy; Z88.1 Allergy status to other antibiotic agents
CPT/HCPCS: 92960; 80048; 87635; J2704; 93005

== ENCOUNTER 2020-07-06 07:21 | Day surgery (SDC) | payer MEDICARE, BC ==
[2020-07-03 16:08] VITALS: BMI 28.7
[~2020-07-06 07:21] MED LIST changes: +ALPRAZolam 0.25 MG TAB PO PRN; +ALPRAZolam 0.5 MG TAB PO PRN; +ASPIRIN 325 MG TAB PO ONE; +ATORVASTATIN 80 MG TAB PO ONE; +HEPARIN SODIUM,PORCINE 10,000 UNIT in SODIUM CHLORIDE 0.9% 1,000 ML IRRIGATION PRN; +HEPARIN SODIUM,PORCINE 2,500 UNIT in SODIUM CHLORIDE 0.9% 250 ML IRRIGATION PRN; +NITROGLYCERIN SL TABS 0.4 MG TAB SUBLINGUAL PRN; -SODIUM CHLORIDE 0.9% 1,000 ML IV SCH; +SODIUM CHLORIDE 0.9% 1,000 ML in EMPTY BAG 1 BAG IV ONE
[2020-07-06 08:09] LABS: Basophils # (A) 0.1 k/uL (0-0.2); Basophils % (A) 1 %; Eosinophils # (A) 0.5 k/uL (0-0.7); Eosinophils % (A) 4 %; HGB 14.5 gm/dL (13.0-17.5); Lymphocytes # (A) 1.2 k/uL (1.0-4.8); Lymphocytes % (A) 10 %; MCH 30.8 pg (25.0-35.0); MCV 93.5 fL (80.0-100.0); Mean Platelet Volume 9.2; Monocytes # (A) 0.9 k/uL (0-1.0); Monocytes % (A) 8 %; Neutrophils # (A) 8.8 k/uL (1.3-7.7); Neutrophils % (A) 75 %; Platelet Count 323 k/uL (150-450); RBC 4.71 m/uL (4.30-5.90); RDW 14.4 % (11.5-15.5); WBC 11.7 k/uL (3.8-10.6)
[2020-07-06] MEDS ORDERED: LIDOCAINE 1% INJ 10MG/ML (20 ML MDV) ONE (09:01)
[2020-07-06] MEDS ORDERED: VERAPAMIL 2.5 MG/ML 2 ML AMP ONE (09:22)
[2020-07-06] MEDS ORDERED: MIDAZOLAM 2 MG/2 ML VIAL IV ONE (09:25)
[2020-07-06] MEDS ORDERED: LIDOCAINE 1% INJ 10MG/ML (20 ML MDV) SQ ONE (09:36)
[2020-07-06] MEDS: VERAPAMIL SYRINGE (5 MG/10 ML) INTRAARTER ONE ×2 (09:37→11:05)
[2020-07-06] MEDS: MIDAZOLAM 2 MG/2 ML VIAL IV ONE ×2 (09:40→09:58)
[2020-07-06] MEDS ORDERED: HEPARIN SODIUM 1,000 UN/ML (10ML VL) ONE (09:41)
[2020-07-06] MEDS: HEPARIN SODIUM 1,000 UN/ML (10ML VL) IV ONE ×2 (09:43→10:01)
[2020-07-06] MEDS ORDERED: IOPAMIDOL-370 125ML BTL INJ ONE (10:18)
[2020-07-06] MEDS ORDERED: CLOPIDOGREL 75 MG TAB ONE (10:40)
[2020-07-06] MEDS ORDERED: CLOPIDOGREL 75 MG TAB PO ONE (10:54)
[2020-07-06] MEDS ORDERED: IOPAMIDOL-370 100ML BTL INJ ONE (11:00)
[2020-07-06] MEDS ORDERED: NITROGLYCERIN 1000MCG/10ML SYRINGE IV ONE (11:02)
[2020-07-06] MEDS ORDERED: ACETAMINOPHEN TAB 325 MG TAB PO PRN (11:11)
[2020-07-06] MEDS ORDERED: SODIUM CHLORIDE 0.9% 1,000 ML IV SCH (11:15)
--- NOTE | 2020-07-06 12:01 | CC ---
CARDIAC CATHETERIZATION REPORT DATE OF SERVICE: 07/06/2020 PERFORMING PHYSICIAN: Jim Mina MD. PROCEDURE PERFORMED: 1. Right heart catheterization. 2. Left heart catheterization. 3. Selective right and left coronary angiogram. 4. Successful stenting of the distal left circumflex using 2.0 x 18 mm Stilwell drug- eluting stent with an excellent angiographic results. 5. Successful stenting of the mid left circumflex using 3.0 x 23 mm Xience drug- eluting stent with an excellent angiographic results. 6. Successful stenting of the proximal left circumflex using 3.5 x 15 mm Xience drug- eluting stent with an excellent angiographic result. INDICATION: This is a 80-year-old gentleman who continues to have shortness of breath in spite of maximized medical treatment. Because of that, a heart catheterization was advised. APPROACH: Right radial artery. COMPLICATION: None. LEVEL OF SEDATION: Moderate with sedation length of 90 minutes. PROCEDURE DESCRIPTION: After obtaining informed consent, the patient was brought to the cardiac slab puller. The right radial artery was cannulated using micropuncture technique. A micropuncture wire passed easily. Then I placed a 6-Mont[place]grin sheath. I gave the patient 2 mg of verapamil IA and 5000 units of heparin IV. I did exchange the IV access in the vein in the right arm using an 018 wire and I placed a 6-[place] sheath there. Right heart catheterization was performed using 6-[place]in [place] catheter. Left heart catheterization was performed using the JR4 catheter which crossed the aortic valve then I did pullback across the valve. Selective right and left coronary angiogram performed using JR4 and JL3.5 catheters. After that, I did intervene on the left circumflex. Please see a separate paragraph for that. HEMODYNAMIC: 1. Pulmonary capillary wedge pressure was 13 mmHg. 2. PA pressures were as follows: Systolic 38 and diastolic 18 and mean of 24 mmHg. 3. RV pressures were as follows: Systolic 33 and end-diastolic of 10 mmHg. 4. RA pressure was 8 mmHg. 5. LVEDP was 11 mmHg. SELECTIVE CORONARY ANGIOGRAM: 1. RCA is a large caliber vessel. It is a dominant vessel. The RCA is angiographically normal. Distally, it bifurcates into PDA and PLV branches both appeared to be angiographically normal. 2. The left main is angiographically normal. It bifurcates into LCX and LAD. 3. The LCX proximally has a lesion appeared to be in the range of 70%. The mid left circumflex has a lesion appeared to be in the range of 50% by the bifurcation of a large OM branch and the circumflex distally appeared to have a long tubular lesion appeared to be in the range of 80% to 90%. 4. The LAD is a large caliber vessel. The LAD has mild diffuse disease only. PCI OF THE LCX: Anticoagulation was achieved with heparin only with continuous ACT monitoring. After that, I did engage the left circumflex using JL35 guide. I did wire it using 2 wires. A run-through and whisper wire. Balloon angioplasty was performed using 2.0 x 12 mm balloon. Attempting advancing stent was unsuccessful in spite of using the GuideLiner. At that point, I decided to balloon the mid left circumflex. I did that using 3.0 x 12 mm balloon and in spite of that, I was able to deliver the stent to distal left circumflex. After that, I did place an Ironman wire. With that, I was able to deliver the stent to the left circumflex distally where I placed x 2.0 x 18 mm stent. In the mid left circumflex, I placed 3.0 x 18 mm and proximally I placed 3.5 x 15 mm. The final angiogram showed excellent angiographic results and the procedure was completed without any complication. CONCLUSION: 1. Mildly calcified right and left coronary system. 2. Critical disease involving the left circumflex. 3. Successful stenting of the left circumflex as described above. 4. Mild pulmonary hypertension. 5. Normal filling pressures. MMODL / IJN: [id number] /
[2020-07-06] MEDS: SODIUM CHLORIDE 0.9% 1,000 ML IV SCH ×3 (15:46→21:10)
[2020-07-06] MEDS ORDERED: ATORVASTATIN 10 MG TAB PO SCH (21:00)
[2020-07-06] MEDS ORDERED: HYDROCORTISONE 10 MG TAB PO SCH (21:00)
[2020-07-06] MEDS: APIXABAN 5 MG TAB PO SCH (21:08)
[2020-07-07] MEDS ORDERED: PANTOPRAZOLE 40 MG TABLET PO SCH (07:30)
[2020-07-07 07:52] VITALS: BP 131/75; RESP 19; TEMP 98.5
[2020-07-07] MEDS: APIXABAN 5 MG TAB PO SCH (08:45)
[2020-07-07] MEDS ORDERED: LOSARTAN 50 MG TAB PO SCH (09:00)
[2020-07-07] MEDS ORDERED: LORATADINE 10 MG TAB PO SCH (09:00)
[2020-07-07] MEDS ORDERED: MAGNESIUM OXIDE 400 MG TAB PO SCH (09:00)
[2020-07-07] MEDS ORDERED: HYDROCORTISONE 10 MG TAB PO SCH (09:00)
[2020-07-07] MEDS ORDERED: CLOPIDOGREL 75 MG TAB PO SCH (09:00)
[2020-07-07] MEDS ORDERED: AMIODARONE 200 MG TAB PO SCH (09:00)
[2020-07-07] MEDS ORDERED: CHOLECALCIFEROL 25 MCG (1000 IU) TABLET PO SCH (09:00)
[2020-07-07] MEDS ORDERED: MULTIVITAMINS, THERA 1 EACH TAB PO SCH (09:00)
[2020-07-07] MEDS ORDERED: METOPROLOL SUCCINATE (ER) 50 MG TAB.ER.24H PO SCH (09:00)
[2020-07-07] MEDS ORDERED: amLODIPine 5 MG TAB PO SCH (09:00)
[2020-07-07 09:01] LABS: Basophils # (A) 0.1 k/uL (0-0.2); Basophils % (A) 1 %; Eosinophils # (A) 0.3 k/uL (0-0.7); Eosinophils % (A) 3 %; HGB 14.2 gm/dL (13.0-17.5); Lymphocytes # (A) 1.3 k/uL (1.0-4.8); Lymphocytes % (A) 13 %; MCH 30.2 pg (25.0-35.0); MCHC 32.3 g/dL (31.0-37.0); MCV 93.5 fL (80.0-100.0); Mean Platelet Volume 8.9; Monocytes # (A) 0.8 k/uL (0-1.0); Monocytes % (A) 8 %; Neutrophils # (A) 7.5 k/uL (1.3-7.7); Neutrophils % (A) 73 %; Platelet Count 279 k/uL (150-450); RDW 14.3 % (11.5-15.5); WBC 10.3 k/uL (3.8-10.6)
--- NOTE | 2020-07-07 09:11 | DS ---
DISCHARGE SUMMARY DATE OF ADMISSION: July 06, 2020 DATE OF DISCHARGE: July 07, 2020 BRIEF HISTORY: This is a very pleasant 80-year-old female patient with permanent atrial fibrillation, who was experiencing increasing shortness of breath with exertion concerning for severe underlying coronary artery disease. He underwent a heart catheterization yesterday and was found to have complex lesion involving the proximal and mid and distal left circumflex coronary artery. He underwent successful percutaneous coronary intervention of the left circumflex with an excellent angiographic results and without any complication. The patient was seen this morning. He is feeling overall better. He is going to be discharged on dual anti-platelet therapy along with low dose oral anticoagulation, to be seen in the office in a week or so. MMODL / IJN: [id number] /
[2020-07-07 09:13] LABS: African American GFR (CKD) 59 (>60 ml/min/1.73 sqM); Anion Gap 7 mmol/L; Blood Urea Nitrogen 18 mg/dL (9-20); Calcium 9.4 mg/dL (8.4-10.2); Carbon Dioxide 29 mmol/L (22-30); Chloride 102 mmol/L (98-107); Glucose 98 mg/dL (74-99); Non-African American GFR(CKD) 51 (>60 ml/min/1.73 sqM); Potassium 4.5 mmol/L (3.5-5.1); Sodium 138 mmol/L (137-145)
[2020-07-07 09:14] VITALS: PULSE 84
== END 2020-07-07 12:00 | disposition home or self-care (01) ==
LOC: CATHCVL 07:21 → 6NMEDSUR 12:48 → CATHCVL 07-07 12:00
PROVIDERS: ATTEND Internal Medicine Interventional Cardiology
DX: I25.10 Atherosclerotic heart disease of native coronary artery without angina pectoris (principal); I27.20 Pulmonary hypertension, unspecified; I48.19 Other persistent atrial fibrillation; Z79.01 Long term (current) use of anticoagulants; I12.9 Hypertensive chronic kidney disease with stage 1 through stage 4 chronic kidney disease, or unspecified chronic kidney disease; N18.9 Chronic kidney disease, unspecified; E78.5 Hyperlipidemia, unspecified; I65.23 Occlusion and stenosis of bilateral carotid arteries; J44.9 Chronic obstructive pulmonary disease, unspecified; Z82.49 Family history of ischemic heart disease and other diseases of the circulatory system; I34.0 Nonrheumatic mitral (valve) insufficiency; Z79.899 Other long term (current) drug therapy
CPT/HCPCS: 93460; 80048; 85025 ×2; 87635; C9600; C1769 ×4; C1887 ×2; C1894; C1725 ×2; C1751; C1874 ×2; J2250; J2001; J1644; Q9967 ×2

== ENCOUNTER 2021-07-03 09:05 | Emergency (ER) | payer MEDICARE, BC ==
[2021-07-03 09:09] VITALS: BP 119/72; PULSE 107; RESP 14; TEMP 97.5
--- NOTE | 2021-07-03 09:48 | XR ---
Bilateral knees HISTORY: Trauma and pain 3 views of each knee submitted. Bone mineralization, joint spaces and alignment are maintained. Vascular calcifications are noted inc identally. There is soft tissue swelling. Suprapatellar increased density bilaterally suggest joint e ffusions. Marginal spurring present at patellofemoral joints suggesting osteoarthritic change. IMPRESSION: No radiographically apparent fracture or dislocation.
--- NOTE | 2021-07-03 10:30 | ED ---
General Adult HPI - General Chief complaint: Extremity Injury, Lower Stated complaint: Fall, knee injury Time Seen by Provider: 07/03/21 09:17 Source: patient, RN notes reviewed, old records reviewed Mode of arrival: ambulatory Limitations: no limitations - History of Present Illness Initial comments: Patient is an 81-year-old male with past medical history remarkable for cancer, hypertension, atrial fibrillation on xeralto who presents emergency Department after falling on Thursday. Is currently Thursday. Patient states that he reached for the rail when he got out of bed, however missed and fell for dental bilateral knees. Has been having persistent bilateral right knee pain. States his anterior over the kneecaps. Has been attempting use Tylenol for pain control with mild improvement. Presents for further evaluation of this time. Denies any numbness. Denies any weakness. Denies any abdominal pain, nausea, vomiting. Denies any chest pain, shortness breath. Denies hitting his head or loss of consciousness. Has been acting normally since. No other acute complaints at this time. Is seeking evaluation of his bilateral knee pain. - Related Data Home Medications Medication Instructions Recorded Confirmed Multivit-Min/FA/Lycopen/Lutein 1 tab PO DAILY 06/26/16 05/14/21 [Centrum Silver Men Tablet] Olmesartan Medoxomil [Benicar] 40 mg PO QAM 06/26/16 05/14/21 Omeprazole 20 mg PO QAM 06/26/16 05/14/21 amLODIPine [Norvasc] 2.5 mg PO QAM 02/26/18 05/14/21 Simvastatin [Zocor] 20 mg PO HS 06/21/18 05/14/21 ALPRAZolam [Xanax] 0.125 mg PO HS PRN 07/18/19 05/14/21 Acetaminophen [Tylenol Arthritis] 1,300 mg PO Q8H PRN 07/18/19 05/14/21 Cholecalciferol [Vitamin D3 (25 1,000 unit PO DAILY 07/18/19 05/14/21 Mcg = 1000 Iu)] Loratadine [Claritin] 10 mg PO DAILY 07/18/19 05/14/21 Magnesium Oxide [Meehan] 500 mg PO DAILY 07/18/19 05/14/21 Metoprolol Succinate (ER) [Toprol 50 mg PO QAM 07/03/20 05/14/21 XL] Rivaroxaban [Xarelto] 15 mg PO DAILY 05/10/21 05/14/21 Previous Rx's Medication Instructions Recorded Clopidogrel Bisulfate [Plavix] 75 mg PO DAILY #90 tab 07/07/20 Methocarbamol [Robaxin-750] 750 mg PO BID PRN 7 Days #14 tablet 07/03/21 Allergies Allergy/AdvReac Type Severity Reaction Status Date / Time gentamicin AdvReac Nausea & Verified 07/03/21 09:09 Vomiting levofloxacin [From Levaquin] AdvReac Nausea & Verified 07/03/21 09:09 Vomiting Review of Systems ROS Statement: Those systems with pertinent positive or pertinent negative responses have been documented in the HPI. Review of Systems: CONST: Denies fever EYES: Denies blurry vision ENT: Denies nasal congestion C/V: Denies Chest pain RESP: Denies shortness of breath GI: Denies abdominal pain : Denies dysuria SKIN: Denies rash. MSK: Endorses bilateral knee pain NEURO: Denies headache ROS Other: All systems not noted in ROS Statement are negative. 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, bronchitis-last episode May 2020 ,adrenal insufficiency, arthritis in multiple joints,prednisone May 2020,steroids April 2020,Back infection after back surgery History of Any Multi-Drug Resistant Organisms: None Reported Past Surgical History: Adenoidectomy, Back Surgery, Cardiac Ablation, EPS, Heart Catheterization With Stent, Joint Replacement, Orthopedic Surgery, Prostate Surgery, Tonsillectomy Additional Past Surgical History / Comment(s): Prostatectomy, right hip replacement, low back surgery, L hand 2nd/3rd finger partial amputations, ANETA/cardioversions, colonoscopy, R lung thorascopy,cardiac stents x3 Past Anesthesia/Blood Transfusion Reactions: No Reported Reaction Date of Last Stent Placement:: Past Psychological History: Anxiety Smoking Status: Former smoker Past Alcohol Use History: None Reported Past Drug Use History: None Reported - Past Family History Brother(s) Family Medical History: Cancer Additional Family Medical History / Comment(s): Brother of pancreatic cancer. Mother Family Medical History: Vascular Disorder Additional Family Medical History / Comment(s): Mother had varicosities and leg ulcers. Father Family Medical History: Myocardial Infarction ([place]) Additional Family Medical History / Comment(s): Father of a [place] at the age of 64 yrs. General Exam - General Exam Comments Initial Comments: General: Appears in no acute distress. HEAD: Normal with no signs of head trauma. EYES: EOMI ENT: Hearing grossly intact, normal oropharynx. RESPIRATORY: Clear breath sounds bilaterally. No wheezes, rales, or rhonchi. C/V: Regular rate and rhythm. S1 and S2 auscultated, no edema, peripheral pulses 2+ and intact throughout ABD: Abd is soft, nontender, nondistended EXT: No obvious deformity. Tenderness to palpation over bilateral patella. Able to hold bilateral knees and full extension. Mild tenderness with flexion. No obvious deformities. No obvious injuries. Neurovascularly intact throughout including bilateral lower extremities. SKIN: No rashes or lesions observed on exposed skin. NEURO: Alert and oriented 4. Limitations: no limitations Course Vital Signs 07/03/21 09:06 Temperature 97.5 F L Pulse Rate 107 H Respiratory 14 Rate Blood Pressure 119/72 O2 Sat by Pulse 96 Oximetry Medical Decision Making - Medical Decision Making Based on the patient's presentation and physical exam, I'm concerned for acute bony traumatic injury to the patient's bilateral knees. Screening x-rays will be obtained. I do not believe that further laboratory studies or imaging required at this time. He was in agreement this plan. Bilateral x-ray showed no acute process. I discussed results with the patient. I believe it is safe for him to be discharged home. Will be given a muscle relaxer for home. Recommended follow-up with his orthopedic surgeon if symptoms persist and he was in agreement this plan. He likely experienced significant bone bruising. I will provide the patient with a prescription for Robaxin. I instructed the patient to follow up with their PCP in the next 3 days. I explained that the patient should return to the emergency department if they experience any worsening symptoms. Strict return precautions were discussed with the patient. The patient expressed understanding of these instructions. I answered all questions that the patient had. The patient was discharged home in good condition with their prescriptions and follow up information. Disposition Clinical Impression: Knee pain, Fall Disposition: HOME SELF-CARE Condition: Good Instructions (If sedation given, give patient instructions): Knee Pain (ED) Prescriptions: Methocarbamol [Robaxin-750] 750 mg PO BID PRN 7 Days #14 tablet PRN Reason: Pain Is patient prescribed a controlled substance at d/c from ED?: No Referrals: Jose Celestin DO [Primary Care Provider] - 1-2 days Time of Disposition: 10:18
== END 2021-07-03 10:41 | disposition home or self-care (01) ==
LOC: EC 09:05
DX: M25.562 Pain in left knee (principal); M25.561 Pain in right knee; I10 Essential (primary) hypertension; E78.5 Hyperlipidemia, unspecified; I48.91 Unspecified atrial fibrillation; K21.9 Gastro-esophageal reflux disease without esophagitis; M19.90 Unspecified osteoarthritis, unspecified site; F41.9 Anxiety disorder, unspecified; Z79.01 Long term (current) use of anticoagulants; Z79.02 Long term (current) use of antithrombotics/antiplatelets; Z79.899 Other long term (current) drug therapy; Z87.891 Personal history of nicotine dependence; Z95.5 Presence of coronary angioplasty implant and graft; W06.XXXA Fall from bed, initial encounter
CPT/HCPCS: 99284

== ENCOUNTER → 2021-08-09 | Outpatient (CLI) | payer MEDICARE, BC ==
--- NOTE | 2021-08-09 17:38 | CT ---
EXAMINATION TYPE: High resolution CT chest DATE OF EXAM: 08/09/2021 COMPARISON: 07/20/2019 HISTORY: 81-year-old male follow-up, J84.9 INTERSTITIAL PULMONARY DISEASE, UNSPECIFIED TECHNIQUE: High-resolution CT chest without contrast utilizing 1 mm slice thickness at 1 cm gap. Both supine and prone imaging is performed. CT DLP: 908.2 mGycm Automated exposure control for dose reduction was used. FINDINGS: Heart upper limits of normal in size without pericardial effusion. Three-vessel coronary artery calci fication is present and there is a marker for coronary artery disease. Ascending aorta borderline ectatic at 3.5 cm and upper descending thoracic aorta 3.1 cm. Mild to mode rate atherosclerotic arch calcifications with conventional arch vessel branching anatomy. Allowing for HRCT technique, no thoracic lymphadenopathy seen. Borderline to mildly enlarged caliber to the main right and left pulmonary arteries up to 2.6 cm may be seen with pulmonary arterial hypertension as mentioned previously. Redemonstrated diffuse subpleural interstitial reticulations and scattered minimal groundglass change . Surgical material periphery of the right midlung and also posterior right base. Interstitial change s are unchanged from 07/20/2019. No farnaz progression to honeycombing. Mild bibasilar bronchiolectasis . Small hiatal hernia. Unchanged hepatic hypodensities and bilateral renal cysts measuring up to 3.1 cm . Bones: Interval healing of previous left-sided rib fractures. Moderate endplate spondylosis mid to lo wer thoracic spine. IMPRESSION: 1. REDEMONSTRATED SUBPLEURAL RETICULATIONS THROUGHOUT THE LUNGS, MINIMAL ASSOCIATED GROUNDGLASS DENSI TY, AND MILD BIBASILAR BRONCHIOLECTASIS. POSSIBLE NSIP WITHOUT FARNAZ HONEYCOMBING TO CLEARLY SUGGEST UIP. OVERALL FINDINGS REMAIN SIMILAR TO 07/20/2019 WITHOUT ANY SIGNIFICANT PROGRESSION. 2. PULMONARY ARTERIAL HYPERTENSION AND CAD WITH 3 VESSEL CORONARY ARTERY CALCIFICATIONS. 3. SMALL HIATAL HERNIA.
== END | disposition home or self-care (01) ==
LOC: RADCTMAIN 13:06
PROVIDERS: ATTEND Internal Medicine Critical Care Medicine
DX: J84.9 Interstitial pulmonary disease, unspecified (principal); K44.9 Diaphragmatic hernia without obstruction or gangrene; I25.10 Atherosclerotic heart disease of native coronary artery without angina pectoris
CPT/HCPCS: 71250

== ENCOUNTER → 2022-04-29 | Outpatient (CLI) | payer MEDICARE, BC ==
[2022-04-29 14:21] LABS: HCT 46.5 % (39.6-50.0); HGB 14.6 g/dL (13.0-17.0); MCH 30.5 pg (27.0-32.0); MCHC 31.4 g/dL (32.0-37.0); MCV 97.1 fL (80.0-97.0); Mean Platelet Volume 12.3 fL (9.5-12.2); NRBC Per 100 WBC 0 /100 WBCS (0.0-0.0); Platelet Count 216 X 10*3/uL (140-440); RBC 4.79 X 10*6/uL (4.40-5.60); RDW 15.7 % (11.5-14.5); WBC 20.66 X 10*3/uL (4.50-10.00)
[2022-04-29 15:26] LABS: African American GFR (CKD) 59.7 (60.0-200.0); Blood Urea Nitrogen 31.3 mg/dL (9.0-27.0); Non-African American GFR(CKD) 51.5 (60.0-200.0)
== END | disposition home or self-care (01) ==
LOC: LABPAT 08:21
PROVIDERS: ATTEND Internal Medicine Interventional Cardiology
DX: Z01.812 Encounter for preprocedural laboratory examination (principal); I25.10 Atherosclerotic heart disease of native coronary artery without angina pectoris; R06.02 Shortness of breath
CPT/HCPCS: 82565; 84520; 85027

== ENCOUNTER 2022-05-06 08:42 | Day surgery (SDC) | payer MEDICARE, BC ==
[~2022-05-06 08:42] MED LIST changes: -ATORVASTATIN 80 MG TAB PO ONE; -HEPARIN SODIUM,PORCINE 10,000 UNIT in SODIUM CHLORIDE 0.9% 1,000 ML IRRIGATION PRN; -HEPARIN SODIUM,PORCINE 2,500 UNIT in SODIUM CHLORIDE 0.9% 250 ML IRRIGATION PRN; +LIDOCAINE 1% INJ 10MG/ML (20 ML MDV) SQ ONE
[2022-05-06] MEDS ORDERED: MIDAZOLAM 2 MG/2 ML VIAL IV ONE (09:35)
[2022-05-06] MEDS ORDERED: HEPARIN SODIUM 1,000 UN/ML (10ML VL) ONE (09:35)
[2022-05-06] MEDS ORDERED: VERAPAMIL 2.5 MG/ML 2 ML AMP ONE (09:35)
[2022-05-06] MEDS ORDERED: VERAPAMIL SYRINGE (5 MG/10 ML) INTRAARTER ONE (09:42)
[2022-05-06] MEDS ORDERED: HEPARIN SODIUM 1,000 UN/ML (10ML VL) IV ONE (09:45)
[2022-05-06] MEDS ORDERED: CLOPIDOGREL 75 MG TAB ONE (10:10)
[2022-05-06] MEDS ORDERED: CLOPIDOGREL 75 MG TAB PO ONE (10:20)
[2022-05-06] MEDS ORDERED: IOPAMIDOL-370 125ML BTL INJ ONE (10:20)
[2022-05-06] MEDS ORDERED: ACETAMINOPHEN TAB 325 MG TAB PO PRN (10:32)
[2022-05-06] MEDS ORDERED: MAG HYDROX/AL HYDROX/SIMETH 30 ML CUP PO PRN (10:34)
[2022-05-06] MEDS ORDERED: ATROPINE SULFATE 0.1 MG/ML 10ML SYRINGE IV PRN (10:34)
[2022-05-06] MEDS ORDERED: RX INFO: IV CONTRAST WAS GIVEN 1 EACH MISC MISCELLANE PRN (10:34)
[2022-05-06] MEDS ORDERED: ZOLPIDEM 5 MG TAB PO PRN (10:34)
[2022-05-06] MEDS ORDERED: SODIUM CHLORIDE 0.9% 1,000 ML in EMPTY BAG 1 BAG IV SCH (10:45)
--- NOTE | 2022-05-06 11:09 | P.PCN ---
Date of Procedure: 05/06/22 Operative Findings: Heart catheterization and percutaneous coronary intervention Performing physician Jim Mina MD Procedure performed 1. Selective right and left coronary angiogram 2. Left heart catheterization 3. FFR of the LAD 4. Successful stenting of the proximal left anterior descending artery using 3.5 x 15 mm Xience MAGALI with an excellent angiographic results with adjunctive use of Indication The patient is a pleasant 81-year-old gentleman with known CAD and prior stenting of the LCx who continues to be symptomatic in terms of shortness of breath with exertion which was his angina symptoms previously. Because he continues to be symptomatic and the symptoms got worse lately he is scheduled to undergo a heart catheterization Approach Right radial artery Complications None Level of sedation Moderate with sedation length of 45 minutes Procedure description After obtaining informed consent the patient was brought to the cardiac Music Director. Right radial artery was cannulated using micropuncture technique the micropuncture wire passed easily then I placed a 6 Polish sheath with a give the patient 2 mg of verapamil intra-arterial and 5000 units of heparin intravenous. Selective right and left coronary angiogram performed using JR 3.5 and JL 3.5 catheters. Left heart catheterization was performed using the JR catheter which crossed the aortic valve then I did pullback across the valve. After that I did FFR of the LAD and subsequ Selective coronary angiogram The RCA is a large-caliber vessel and the dominant vessel with mild disease only. The left main has mild disease only. The LCx is a large-caliber vessel and codominant vessel. The stents in the proximal and distal LCx are patent. OM 2 has ostial lesion appears to be in the range of 50% The LAD is a large-caliber vessel. The proximal LAD has intermediate lesion appears to be in the range of 60% was mostly identified on the HURD caudal view. We did an IFR on it and that came in to be ischemic. The mid and distal LAD appear to be angiographically FFR and PCI of the LAD Initially I decided to do an IFR of the LAD. After zeroing the Doppler wire and equalizing between the Doppler wire and the guiding catheter we did an IFR and that came in to be ischemic at 0.84 and repeated 1 was 0.86. Subsequently I did do intravascular ultrasound and that showed a diameter of the LAD around 3.75 mm. I did balloon angioplasty using 3.5 mm x 12 mm balloon before I deployed a 3.5 x 15 mm stent where the stent was positioned under fluoroscopy guidance and deployed under 16 andressa with postdilatation was performed using 3.75 mm noncompliant balloon with a final angiogram showing excellent angiographic results and the procedure was completed with no complication Conclusion 1. Patent stents in the LCx 2. Intermediate disease involving the LAD. iFR was ischemic. I did perform successful stenting of the LAD. Postprocedure management Dual antiplatelet therapy using aspirin and Plavix for 6 months Aggressive cholesterol control Risk factors modification
[2022-05-06] MEDS ORDERED: ATORVASTATIN 10 MG TAB PO SCH (21:00)
[2022-05-07] MEDS ORDERED: PANTOPRAZOLE 40 MG TABLET PO SCH (07:30)
[2022-05-07 08:47] VITALS: BP 103/60; PULSE 96; RESP 16; TEMP 98
[2022-05-07] MEDS ORDERED: amLODIPine 2.5 MG TAB PO SCH (09:00)
[2022-05-07] MEDS ORDERED: CLOPIDOGREL 75 MG TAB PO SCH (09:00)
[2022-05-07] MEDS ORDERED: LOSARTAN 50 MG TAB PO SCH (09:00)
[2022-05-07] MEDS ORDERED: RIVAROXABAN 15 MG TAB PO SCH (09:00)
[2022-05-07] MEDS ORDERED: ASPIRIN 81 MG PO SCH (09:00)
[2022-05-07] MEDS ORDERED: LORATADINE 10 MG TAB PO SCH (09:00)
--- NOTE | 2022-05-07 09:01 | P.DS ---
Providers Attending physician: Jim Mina Consults: 05/06/22 10:34 Consult Physician Routine Consulting Provider: [facility] Consult Reason/Comments: Post Interventional patient Do you want consulting provider notified?: Already Contacted Primary care physician: [facility] Course: The patient is a pleasant 81-year-old gentleman who underwent yesterday successful stenting of the left anterior descending artery. He was seen this morning. He stated that he is feeling better. The shortness of breath is better. No pain in the chest. He is going to be discharged on anticoagulation for atrial fibrillation as well as antiplatelet with Plavix. The right radial site is soft and nontender and with good pulse. The patient is going to be discharged home today and follow-up with me in the office in a week from now Plan - Discharge Summary Discharge Rx Participant: No New Discharge Prescriptions: Continue Omeprazole 20 mg PO QAM Olmesartan Medoxomil [Benicar] 40 mg PO QAM Multivit-Min/FA/Lycopen/Lutein [Centrum Silver Men Tablet] 1 tab PO DAILY amLODIPine [Norvasc] 2.5 mg PO QAM Simvastatin [Zocor] 20 mg PO HS Cholecalciferol [Vitamin D3 (25 Mcg = 1000 Iu)] 1,000 unit PO DAILY Loratadine [Claritin] 10 mg PO DAILY Magnesium Oxide [Meehan] 500 mg PO DAILY ALPRAZolam [Xanax] 0.125 mg PO HS PRN PRN Reason: sleep Acetaminophen [Tylenol Arthritis] 1,300 mg PO Q8H PRN PRN Reason: Pain Calcium Carbonate [Calcium] 600 mg PO BID Metoprolol Succinate (ER) [Toprol XL] 50 mg PO QAM Clopidogrel Bisulfate [Plavix] 75 mg PO DAILY #90 tab Rivaroxaban [Xarelto] 15 mg PO DAILY Discharge Medication List Multivit-Min/FA/Lycopen/Lutein [Centrum Silver Men Tablet] 1 tab PO DAILY 06/26/16 [History] Olmesartan Medoxomil [Benicar] 40 mg PO QAM 06/26/16 [History] Omeprazole 20 mg PO QAM 06/26/16 [History] amLODIPine [Norvasc] 2.5 mg PO QAM 02/26/18 [History] Simvastatin [Zocor] 20 mg PO HS 06/21/18 [History] ALPRAZolam [Xanax] 0.125 mg PO HS PRN 07/18/19 [History] Acetaminophen [Tylenol Arthritis] 1,300 mg PO Q8H PRN 07/18/19 [History] Cholecalciferol [Vitamin D3 (25 Mcg = 1000 Iu)] 1,000 unit PO DAILY 07/18/19 [History] Loratadine [Claritin] 10 mg PO DAILY 07/18/19 [History] Magnesium Oxide [Meehan] 500 mg PO DAILY 07/18/19 [History] Metoprolol Succinate (ER) [Toprol XL] 50 mg PO QAM 07/03/20 [History] Clopidogrel Bisulfate [Plavix] 75 mg PO DAILY #90 tab 07/07/20 [Rx] Rivaroxaban [Xarelto] 15 mg PO DAILY 05/10/21 [History] Calcium Carbonate [Calcium] 600 mg PO BID 05/01/22 [History] Follow up Appointment(s)/Referral(s): Jim Mina MD [STAFF PHYSICIAN] - 05/14/22 3:30 pm ()
[2022-05-07 11:23] VITALS: BMI 26.3
[2022-05-07 11:36] LABS: Basophils % (A) 0 %; Eosinophils # (A) 0.2 k/uL (0-0.7); Eosinophils % (A) 2 %; HCT 48.4 % (39.0-53.0); HGB 15.3 gm/dL (13.0-17.5); Lymphocytes # (A) 1.2 k/uL (1.0-4.8); Lymphocytes % (A) 10 %; MCH 30.4 pg (25.0-35.0); MCHC 31.5 g/dL (31.0-37.0); MCV 96.5 fL (80.0-100.0); Mean Platelet Volume 9.4; Monocytes # (A) 0.9 k/uL (0-1.0); Monocytes % (A) 8 %; Neutrophils # (A) 9.2 k/uL (1.3-7.7); Neutrophils % (A) 79 %; Platelet Count 177 k/uL (150-450); RBC 5.02 m/uL (4.30-5.90); RDW 14.7 % (11.5-15.5); WBC 11.7 k/uL (3.8-10.6)
[2022-05-07 11:47] LABS: African American GFR (CKD) 70 (>60 ml/min/1.73 sqM); Anion Gap 6 mmol/L; Blood Urea Nitrogen 19 mg/dL (9-20); Calcium 9.2 mg/dL (8.4-10.2); Carbon Dioxide 30 mmol/L (22-30); Chloride 104 mmol/L (98-107); Glucose 72 mg/dL (74-99); Non-African American GFR(CKD) 60 (>60 ml/min/1.73 sqM); Potassium 4.8 mmol/L (3.5-5.1); Sodium 140 mmol/L (137-145)
== END 2022-05-07 13:17 | disposition home or self-care (01) ==
LOC: CATHCVL 08:42 → 6NMEDSUR 10:11 → CATHCVL 05-07 13:17
PROVIDERS: ATTEND Internal Medicine Interventional Cardiology
DX: I25.10 Atherosclerotic heart disease of native coronary artery without angina pectoris (principal); Z79.01 Long term (current) use of anticoagulants; Z95.5 Presence of coronary angioplasty implant and graft
CPT/HCPCS: 94760; 92978; 93458; 93799; 80048; 84132; 85025; C9600; C1887; C1769 ×2; C1894; C1725 ×2; C1753; C1874; J2250; J2001; J1644; Q9967

== ENCOUNTER 2022-05-25 11:40 | Inpatient (IN) | payer MEDICARE, BC ==
--- NOTE | 2022-05-25 12:07 | ED ---
General Adult HPI - General Chief complaint: Shortness of Breath Stated complaint: SOB Time Seen by Provider: 05/25/22 11:53 Source: patient, RN notes reviewed Mode of arrival: wheelchair Limitations: no limitations - History of Present Illness Initial comments: Patient is a pleasant 81-year-old male presenting to the emergency department with concerns with not feeling well. Onset of symptoms was the past one to 2 weeks. Patient is having a lot of fatigue. Patient does have some cough and some shortness of breath. No chest pain. Patient states his blood pressure has been labile. - Related Data Home Medications Medication Instructions Recorded Confirmed Multivit-Min/FA/Lycopen/Lutein 1 tab PO DAILY 06/26/16 05/06/22 [Centrum Silver Men Tablet] Olmesartan Medoxomil [Benicar] 40 mg PO QAM 06/26/16 05/06/22 Omeprazole 20 mg PO QAM 06/26/16 05/06/22 amLODIPine [Norvasc] 2.5 mg PO QAM 02/26/18 05/06/22 Simvastatin [Zocor] 20 mg PO HS 06/21/18 05/06/22 ALPRAZolam [Xanax] 0.125 mg PO HS PRN 07/18/19 05/06/22 Acetaminophen [Tylenol Arthritis] 1,300 mg PO Q8H PRN 07/18/19 05/01/22 Cholecalciferol [Vitamin D3 (25 1,000 unit PO DAILY 07/18/19 05/06/22 Mcg = 1000 Iu)] Loratadine [Claritin] 10 mg PO DAILY 07/18/19 05/06/22 Magnesium Oxide [Meehan] 500 mg PO DAILY 07/18/19 05/06/22 Metoprolol Succinate (ER) [Toprol 50 mg PO QAM 07/03/20 05/06/22 XL] Rivaroxaban [Xarelto] 15 mg PO DAILY 05/10/21 05/06/22 Calcium Carbonate [Calcium] 600 mg PO BID 05/01/22 05/06/22 Previous Rx's Medication Instructions Recorded Clopidogrel Bisulfate [Plavix] 75 mg PO DAILY #90 tab 07/07/20 Allergies Allergy/AdvReac Type Severity Reaction Status Date / Time gentamicin AdvReac Nausea & Verified 05/25/22 11:49 Vomiting levofloxacin [From Levaquin] AdvReac Nausea & Verified 05/25/22 11:49 Vomiting Review of Systems ROS Statement: Those systems with pertinent positive or pertinent negative responses have been documented in the HPI. ROS Other: All systems not noted in ROS Statement are negative. Constitutional: Denies: fever Eyes: Denies: eye pain ENT: Denies: ear pain Respiratory: Reports: as per HPI, cough, dyspnea Cardiovascular: Denies: chest pain Endocrine: Reports: fatigue Gastrointestinal: Reports: nausea. 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,prednisone May 2020,steroids April 2020,Back infection after back surgery History of Any Multi-Drug Resistant Organisms: None Reported Past Surgical History: Adenoidectomy, Back Surgery, Cardiac Ablation, EPS, Heart Catheterization With Stent, Joint Replacement, Orthopedic Surgery, Prostate Surgery, Tonsillectomy Additional Past Surgical History / Comment(s): Prostatectomy, right hip replacement, low back surgery, L hand 2nd/3rd finger partial amputations, ANETA/cardioversions, colonoscopy, R lung thorascopy,cardiac stents x3 Past Anesthesia/Blood Transfusion Reactions: No Reported Reaction Date of Last Stent Placement:: Past Psychological History: Anxiety Smoking Status: Never smoker Past Alcohol Use History: None Reported Past Drug Use History: None Reported - Past Family History Brother(s) Family Medical History: Cancer Additional Family Medical History / Comment(s): Brother of pancreatic cancer. Mother Family Medical History: Vascular Disorder Additional Family Medical History / Comment(s): Mother had varicosities and leg ulcers. Father Family Medical History: Myocardial Infarction ([place]) Additional Family Medical History / Comment(s): Father of a [place] at the age of 64 yrs. General Exam Limitations: no limitations General appearance: alert, in no apparent distress Head exam: Present: normocephalic Eye exam: Present: normal appearance Neck exam: Present: normal inspection Respiratory exam: Present: normal lung sounds bilaterally Cardiovascular Exam: Present: tachycardia, irregular rhythm GI/Abdominal exam: Present: soft. Absent: tenderness Extremities exam: Present: normal inspection Neurological exam: Present: alert. Absent: motor sensory deficit Psychiatric exam: Present: normal affect, normal mood Skin exam: Present: normal color Course Vital Signs 05/25/22 05/25/22 05/25/22 11:45 13:00 13:07 Temperature 98.1 F Pulse Rate 65 104 H 122 H Respiratory 18 18 20 Rate Blood Pressure 98/68 95/70 O2 Sat by Pulse 95 90 L 95 Oximetry 05/25/22 05/25/22 13:30 14:00 Temperature Pulse Rate 123 H 122 H Respiratory 24 24 Rate Blood Pressure 105/77 O2 Sat by Pulse 95 95 Oximetry - Reevaluation(s) Reevaluation #1: 05/25/22 14:08 Patient does meet sepsis criteria diagnosed at 1405. Blood culture and lactic acid and IV antibiotics and follow-up and ordered. EKG Findings - EKG Results: EKG: interpreted by ERMD, normal axis, normal QRS, normal ST/T EKG shows: tachycardia, atrial fibrillation Medical Decision Making - Medical Decision Making Was pt. sent in by a medical professional or institution (, PA, ARCHITECTURAL EXAMINER, urgent care, hospital, or alf...) When possible be specific @ -No Did you speak to anyone other than the patient for history (EMS, parent, family, police, friend...)? What history was obtained from this source @ -No Did you review nursing and triage notes (agree or disagree)? Why? @ -I reviewed and agree with nursing and triage notes Were old charts reviewed (outside hosp., previous admission, EMS record, old EKG, old radiological studies, urgent care reports/EKG's, alf records)? Report findings @ -No old charts were reviewed Differential Diagnosis (chest pain, altered mental status, abdominal pain women, abdominal pain men, vaginal bleeding, weakness, fever, dyspnea, syncope, headache, dizziness, GI bleed, back pain, seizure, CVA, palpatations, mental health)? @ -Differential Dyspnea: Coronary syndrome, arrhythmia, tamponade, asthma, COPD, pulmonary embolism, pneumonia, pneumothorax, pulmonary effusion, anaphylaxis, diabetic ketoacidosis, flailed chest, pulmonary contusion, diaphragmatic rupture, anemia, neuromuscular, this is not meant to be an all-inclusive list. EKG interpreted by me (3pts min.). @ -As above X-rays interpreted by me (1pt min.). @ -Chest x-ray shows bibasilar infiltrates concerning for pneumonia CT interpreted by me (1pt min.). @ -None done U/S interpreted by me (1pt. min.). @ -None done What testing was considered but not performed or refused? (CT, X-rays, U/S, labs)? Why? @ -None What meds were considered but not given or refused? Why? @ -None Did you discuss the management of the patient with other professionals (professionals i.e. Dr., PA, ARCHITECTURAL EXAMINER, lab, RT, psych nurse, director of social work, offset platemaker, teacher, protection officer, porter sample case)? Give summary @ -Case was discussed with Dr. Farrar, who will admit covering for Dr. Celestin. Was smoking cessation discussed for >3mins.? @ -No Was critical care preformed (if so, how long)? @ -32 minutes critical care time Were there social determinants of health that impacted care today? How? (Homelessness, low income, unemployed, alcoholism, drug addiction, transportation, low edu. Level, literacy, decrease access to med. care, prison, rehab)? @ -No Was there de-escalation of care discussed even if they declined (Discuss DNR or withdrawal of care, Hospice)? DNR status @ -No What co-morbidities impacted this encounter? (DM, HTN, Smoking, COPD, CAD, Cancer, CVA, ARF, Chemo, Hep., AIDS, mental health diagnosis, sleep apnea, morbid obesity)? @ -None Was patient admitted / discharged? Hospital course, mention meds given and route, prescriptions, significant lab abnormalities, going to OR and other pertinent info. @ -Patient reevaluated. Patient states A. fib with a heart rate of 124. Patient and family are updated on results and plan. Patient will be admitted with IV antibiotics and cardiac consult. Undiagnosed new problem with uncertain prognosis? @ -No Drug Therapy requiring intensive monitoring for toxicity (Heparin, Nitro, Insulin, Cardizem)? @ -Patient will be placed on Cardizem drip and need to be monitored for heart rate Were any procedures done? @ -No Diagnosis/symptom? @ -Pneumonia, sepsis, A. fib with RVR Acute, or Chronic, or Acute on Chronic? @ -Acute, acute, acute on chronic Uncomplicated (without systemic symptoms) or Complicated (systemic symptoms)? @ -Pneumonia complicated with sepsis Side effects of treatment? @ -No Exacerbation, Progression, or Severe Exacerbation? @ -No Poses a threat to life or bodily function? How? (Chest pain, USA, [place], pneumonia, PE, COPD, DKA, ARF, appy, cholecystitis, CVA, Diverticulitis, Homicidal, Suicidal, threat to staff... and all critical care pts) @ -And potential threat to life and lungs and cardiac pneumonia sepsis in A. fib - Lab Data Result diagrams: 05/25/22 12:06 05/25/22 12:06 Lab Results 05/25/22 05/25/22 05/25/22 Range/Units 12:06 12:06 12:06 WBC 23.4 H (3.8-10.6) k/uL RBC 5.18 (4.30-5.90) m/uL Hgb 15.9 (13.0-17.5) gm/dL Hct 48.7 (39.0-53.0) % MCV 94.0 (80.0-100.0) fL MCH 30.7 (25.0-35.0) pg MCHC 32.6 (31.0-37.0) g/dL RDW 13.9 (11.5-15.5) % Plt Count 241 (150-450) k/uL MPV 8.8 Neutrophils % 88 % Lymphocytes % 5 % Monocytes % 4 % Eosinophils % 2 % Basophils % 0 % Neutrophils # 20.7 H (1.3-7.7) k/uL Lymphocytes # 1.1 (1.0-4.8) k/uL Monocytes # 1.0 (0-1.0) k/uL Eosinophils # 0.4 (0-0.7) k/uL Basophils # 0.1 (0-0.2) k/uL PT 11.9 (9.0-12.0) sec INR 1.2 H (<1.2) APTT 25.0 (22.0-30.0) sec Sodium 137 (137-145) mmol/L Potassium 4.9 (3.5-5.1) mmol/L Chloride 102 (98-107) mmol/L Carbon Dioxide 25 (22-30) mmol/L Anion Gap 10 mmol/L BUN 25 H (9-20) mg/dL Creatinine 1.68 H (0.66-1.25) mg/dL Est GFR (CKD-EPI)AfAm 44 (>60 ml/min/1.73 sqM) Est GFR (CKD-EPI)NonAf 38 (>60 ml/min/1.73 sqM) Glucose 110 H (74-99) mg/dL Plasma Lactic Acid Esteban (0.7-2.0) mmol/L Calcium 10.3 H (8.4-10.2) mg/dL Magnesium 1.8 (1.6-2.3) mg/dL Total Bilirubin 0.9 (0.2-1.3) mg/dL AST 32 (17-59) U/L ALT 26 (4-49) U/L Alkaline Phosphatase 74 (38-126) U/L Troponin I (0.000-0.034) ng/mL NT-Pro-B Natriuret Pep pg/mL Total Protein 7.1 (6.3-8.2) g/dL Albumin 4.0 (3.5-5.0) g/dL Influenza Type A (PCR) (Not Detectd) Influenza Type B (PCR) (Not Detectd) RSV (PCR) (Not Detectd) SARS-CoV-2 (PCR) (Not Detectd) 05/25/22 05/25/22 05/25/22 Range/Units 12:06 12:06 12:06 WBC (3.8-10.6) k/uL RBC (4.30-5.90) m/uL Hgb (13.0-17.5) gm/dL Hct (39.0-53.0) % MCV (80.0-100.0) fL MCH (25.0-35.0) pg MCHC (31.0-37.0) g/dL RDW (11.5-15.5) % Plt Count (150-450) k/uL MPV Neutrophils % % Lymphocytes % % Monocytes % % Eosinophils % % Basophils % % Neutrophils # (1.3-7.7) k/uL Lymphocytes # (1.0-4.8) k/uL Monocytes # (0-1.0) k/uL Eosinophils # (0-0.7) k/uL Basophils # (0-0.2) k/uL PT (9.0-12.0) sec INR (<1.2) APTT (22.0-30.0) sec Sodium (137-145) mmol/L Potassium (3.5-5.1) mmol/L Chloride (98-107) mmol/L Carbon Dioxide (22-30) mmol/L Anion Gap mmol/L BUN (9-20) mg/dL Creatinine (0.66-1.25) mg/dL Est GFR (CKD-EPI)AfAm (>60 ml/min/1.73 sqM) Est GFR (CKD-EPI)NonAf (>60 ml/min/1.73 sqM) Glucose (74-99) mg/dL Plasma Lactic Acid Esteban 1.6 (0.7-2.0) mmol/L Calcium (8.4-10.2) mg/dL Magnesium (1.6-2.3) mg/dL Total Bilirubin (0.2-1.3) mg/dL AST (17-59) U/L ALT (4-49) U/L Alkaline Phosphatase (38-126) U/L Troponin I 0.069 H* (0.000-0.034) ng/mL NT-Pro-B Natriuret Pep 3130 pg/mL Total Protein (6.3-8.2) g/dL Albumin (3.5-5.0) g/dL Influenza Type A (PCR) (Not Detectd) Influenza Type B (PCR) (Not Detectd) RSV (PCR) (Not Detectd) SARS-CoV-2 (PCR) (Not Detectd) 05/25/22 Range/Units 12:06 WBC (3.8-10.6) k/uL RBC (4.30-5.90) m/uL Hgb (13.0-17.5) gm/dL Hct (39.0-53.0) % MCV (80.0-100.0) fL MCH (25.0-35.0) pg MCHC (31.0-37.0) g/dL RDW (11.5-15.5) % Plt Count (150-450) k/uL MPV Neutrophils % % Lymphocytes % % Monocytes % % Eosinophils % % Basophils % % Neutrophils # (1.3-7.7) k/uL Lymphocytes # (1.0-4.8) k/uL Monocytes # (0-1.0) k/uL Eosinophils # (0-0.7) k/uL Basophils # (0-0.2) k/uL PT (9.0-12.0) sec INR (<1.2) APTT (22.0-30.0) sec Sodium (137-145) mmol/L Potassium (3.5-5.1) mmol/L Chloride (98-107) mmol/L Carbon Dioxide (22-30) mmol/L Anion Gap mmol/L BUN (9-20) mg/dL Creatinine (0.66-1.25) mg/dL Est GFR (CKD-EPI)AfAm (>60 ml/min/1.73 sqM) Est GFR (CKD-EPI)NonAf (>60 ml/min/1.73 sqM) Glucose (74-99) mg/dL Plasma Lactic Acid Esteban (0.7-2.0) mmol/L Calcium (8.4-10.2) mg/dL Magnesium (1.6-2.3) mg/dL Total Bilirubin (0.2-1.3) mg/dL AST (17-59) U/L ALT (4-49) U/L Alkaline Phosphatase (38-126) U/L Troponin I (0.000-0.034) ng/mL NT-Pro-B Natriuret Pep pg/mL Total Protein (6.3-8.2) g/dL Albumin (3.5-5.0) g/dL Influenza Type A (PCR) Not Detected (Not Detectd) Influenza Type B (PCR) Not Detected (Not Detectd) RSV (PCR) Not Detected (Not Detectd) SARS-CoV-2 (PCR) Not Detected (Not Detectd) Critical Care Time Critical Care Time: Yes Total Critical Care Time: 32 Disposition Clinical Impression: Atrial fibrillation with RVR, Pneumonia, Sepsis Disposition: ADMITTED IP TO THIS HOSP Is patient prescribed a controlled substance at d/c from ED?: No Referrals: Jose Celestin DO [Primary Care Provider] - 1-2 days Time of Disposition: 14:08
[2022-05-25 12:31] LABS: Basophils # (A) 0.1 k/uL (0-0.2); Basophils % (A) 0 %; Eosinophils # (A) 0.4 k/uL (0-0.7); Eosinophils % (A) 2 %; HCT 48.7 % (39.0-53.0); HGB 15.9 gm/dL (13.0-17.5); Lymphocytes # (A) 1.1 k/uL (1.0-4.8); Lymphocytes % (A) 5 %; MCH 30.7 pg (25.0-35.0); MCHC 32.6 g/dL (31.0-37.0); Mean Platelet Volume 8.8; Monocytes % (A) 4 %; Neutrophils # (A) 20.7 k/uL (1.3-7.7); Neutrophils % (A) 88 %; Platelet Count 241 k/uL (150-450); RBC 5.18 m/uL (4.30-5.90); RDW 13.9 % (11.5-15.5); WBC 23.4 k/uL (3.8-10.6)
--- NOTE | 2022-05-25 12:36 | XR ---
EXAMINATION TYPE: XR chest 2V DATE OF EXAM: 05/25/2022 12:31 PM COMPARISON: Chest radiographs from 04/18/2022 TECHNIQUE: XR chest 2V Frontal and lateral views of the chest. CLINICAL INDICATION:Male, 81 years old with history of difficulty breathing; FINDINGS: Lungs/Pleura: No pleural effusion or pneumothorax. Subtle bibasilar patchy airspace opacities. Pulmonary vascularity: Unremarkable. Heart/mediastinum: Cardiomediastinal silhouette is unremarkable. Atherosclerotic calcifications are seen in the aorta. Musculoskeletal: Multiple level degenerative disc disease changes seen throughout the spine. No acute osseous abnormality. Right shoulder arthropathy. IMPRESSION: Subtle bibasilar patchy airspace opacities concerning for pneumonia.
[2022-05-25 12:42] LABS: Calcium 10.3 mg/dL (8.4-10.2); Magnesium 1.8 mg/dL (1.6-2.3); Potassium 4.9 mmol/L (3.5-5.1); Total Bilirubin 0.9 mg/dL (0.2-1.3); Total Protein 7.1 g/dL (6.3-8.2)
[2022-05-25 12:45] LABS: INR 1.2 (<1.2); Prothrombin Time 11.9 sec (9.0-12.0)
[2022-05-25] MEDS ORDERED: AZITHROMYCIN 500 MG in SODIUM CHLORIDE 0.9% 250 ML IVPB STA (14:09)
[2022-05-25] MEDS ORDERED: PNEUMONIA PROTOCOL UTILIZED 1 EACH MISC PO PRN (14:09)
[2022-05-25] MEDS ORDERED: DILTIAZEM 125 MG in SODIUM CHLORIDE 0.9% 100 ML IV SCH (14:15)
[2022-05-25] MEDS ORDERED: ALBUTEROL NEBULIZED 2.5 MG/3 ML INHALATION PRN (15:39)
[2022-05-25] MEDS ORDERED: FUROSEMIDE 10 MG/ML 2 ML VIAL IV STA (15:41)
[2022-05-25] MEDS: RIVAROXABAN 15 MG TAB PO SCH (20:50)
[2022-05-25] MEDS: ALPRAZolam 0.25 MG TAB PO PRN (20:54)
[2022-05-25] MEDS ORDERED: ATORVASTATIN 10 MG TAB PO SCH (21:00)
--- NOTE | 2022-05-25 22:57 | P.HPIM ---
History of Present Illness H&P Date: 05/25/22 Chief Complaint: Shortness of breath Patient is a 81-year-old male with a known history of coronary artery disease status post stent placement in June 2020, history of fibrillation, history of gastric ulcer, prostate cancer status postsurgery, interstitial lung disease due to chemical exposure, renal insufficiency and other medical problems presents to ER with complaints of shortness of breath and not feeling well. He has been having cough with greenish to yellowish phlegm. Did have episodes of vomiting x2 and he was hypoxic when checked his oxygen at home. Patient also felt very weak. No complaints of chest pain. No leg swelling. Was diaphoretic last night. Patient states that he had cardiac cath on 29 April 2022. He has not been feeling well since then and his symptoms worsened last couple of days which made him come to ER. Chest x-ray showed subtle bibasilar basilar patchy airspace opacities concerning for pneumonia. EKG showed atrial fibrillation with rapid ventricular response. Laboratory data showed WBC 23.4 hemoglobin 15.9 and platelets 241 Sodium 137 potassium 4.9 chloride 102 bicarb is 25 BUN 25 creatinine 1.68, calcium 10.3 Troponin 0.069 and proBNP 3130 COVID-19, influenza A B and RSV PCR not detected. Review of Systems Constitutional: Patient denies any fever or chills. Patient does have generalized weakness. Abdomen: Had nausea and episode of vomiting x2. No abd. pain. No diarrhea. Cardiovascular: Patient denies any chest pain. Patient does have short of breath no palpitations. No leg swelling. Respiratory: Cough with green sputum production and shortness of breath Neurologic: Patient denied any numbness or tingling headache. Musculoskeletal: Patient denies any complaints of joint swelling or deformity. Skin: Negative Psychiatric: Negative Endocrine: No heat or cold intolerance. No recent weight gain. Genitourinary: No dysuria or hematuria. 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,prednisone May 2020,steroids April 2020,Back infection after back surgery History of Any Multi-Drug Resistant Organisms: None Reported Past Surgical History: Adenoidectomy, Back Surgery, Cardiac Ablation, EPS, Heart Catheterization With Stent, Joint Replacement, Orthopedic Surgery, Prostate Surgery, Tonsillectomy Additional Past Surgical History / Comment(s): Prostatectomy, right hip replacement, low back surgery, L hand 2nd/3rd finger partial amputations, ANETA/cardioversions, colonoscopy, R lung thorascopy,cardiac stents x3 Past Anesthesia/Blood Transfusion Reactions: No Reported Reaction Date of Last Stent Placement:: Past Psychological History: Anxiety Smoking Status: Never smoker Past Alcohol Use History: None Reported Past Drug Use History: None Reported - Past Family History Brother(s) Family Medical History: Cancer Additional Family Medical History / Comment(s): Brother of pancreatic cancer. Mother Family Medical History: Vascular Disorder Additional Family Medical History / Comment(s): Mother had varicosities and leg ulcers. Father Family Medical History: Myocardial Infarction ([place]) Additional Family Medical History / Comment(s): Father of a NC at the age of 64 yrs. Medications and Allergies Home Medications Medication Instructions Recorded Confirmed Type Multivit-Min/FA/Lycopen/Lutein 1 tab PO DAILY 06/26/16 05/25/22 History [Centrum Silver Men Tablet] Olmesartan Medoxomil [Benicar] 40 mg PO DAILY 06/26/16 05/25/22 History amLODIPine [Norvasc] 2.5 mg PO DAILY 02/26/18 05/25/22 History Simvastatin [Zocor] 20 mg PO HS 06/21/18 05/25/22 History ALPRAZolam [Xanax] 0.125 mg PO HS PRN 07/18/19 05/25/22 History Acetaminophen [Tylenol Arthritis] 1,300 mg PO Q8H PRN 07/18/19 05/25/22 History Cholecalciferol [Vitamin D3 (25 25 mcg PO DAILY 07/18/19 05/25/22 History Mcg = 1000 Iu)] Loratadine [Claritin] 10 mg PO DAILY 07/18/19 05/25/22 History Magnesium Oxide [Meehan] 500 mg PO DAILY 07/18/19 05/25/22 History Metoprolol Succinate (ER) [Toprol 50 mg PO DAILY 07/03/20 05/25/22 History XL] Clopidogrel Bisulfate [Plavix] 75 mg PO DAILY #90 tab 07/07/20 05/25/22 Rx Rivaroxaban [Xarelto] 15 mg PO HS 05/10/21 05/25/22 History Calcium Carbonate [Calcium] 600 mg PO BID 05/01/22 05/25/22 History Albuterol Nebulized [Ventolin 2.5 mg INHALATION RT-TID 05/25/22 05/25/22 History Nebulized] Pantoprazole [Protonix] 40 mg PO DAILY 05/25/22 05/25/22 History Allergies Allergy/AdvReac Type Severity Reaction Status Date / Time gentamicin AdvReac Nausea & Verified 05/25/22 14:50 Vomiting levofloxacin [From Levaquin] AdvReac Nausea & Verified 05/25/22 14:50 Vomiting Physical Exam Vitals: Vital Signs Temp Pulse Resp BP Pulse Ox 05/25/22 15:30 110 H 18 112/80 96 05/25/22 15:00 130 H 20 108/76 95 05/25/22 14:30 123 H 20 108/74 94 L 05/25/22 14:00 122 H 24 105/77 95 05/25/22 13:30 123 H 24 95 05/25/22 13:07 122 H 20 95 05/25/22 13:00 104 H 18 95/70 90 L 05/25/22 11:45 98.1 F 65 18 98/68 95 Intake and Output 05/25/22 05/25/22 05/25/22 06:59 14:59 22:59 Other: Weight 81.647 kg PHYSICAL EXAMINATION: Patient is lying in the bed comfortably, no acute distress, awake alert and o riented.. HEENT: Normocephalic. Neck is supple. Pupils reactive. Nostrils clear. Oral cavity is moist. Neck reveals no JVD, carotid bruits, or thyromegaly. CHEST EXAMINATION: Trachea is central. Symmetrical expansion. Bibasilar crackles. No wheezing or rhonchi.. CARDIAC: Normal S1, S2 with no gallops. No murmurs. Irregularly irregular rhythm. ABDOMEN: Soft. Bowel sounds present. Nontender. No organomegaly. No abdominal bruits. Extremities: reveal no edema. No clubbing or cyanosis Neurologically awake, alert, oriented x3 with well-coordinated movements. No focal deficits noted Skin: No rash or skin lesions. Psychiatric: Coperative. Nonsuicidal, Musculoskeletal: No joint swelling or deformity. Normal range of motion. Results CBC & Chem 7: 05/25/22 12:06 05/25/22 12:06 Labs: Abnormal Lab Results - Last 24 Hours (Table) 05/25/22 05/25/22 05/25/22 Range/Units 12:06 12:06 12:06 WBC 23.4 H (3.8-10.6) k/uL Neutrophils # 20.7 H (1.3-7.7) k/uL INR 1.2 H (<1.2) BUN 25 H (9-20) mg/dL Creatinine 1.68 H (0.66-1.25) mg/dL Glucose 110 H (74-99) mg/dL Calcium 10.3 H (8.4-10.2) mg/dL Troponin I (0.000-0.034) ng/mL 05/25/22 Range/Units 12:06 WBC (3.8-10.6) k/uL Neutrophils # (1.3-7.7) k/uL INR (<1.2) BUN (9-20) mg/dL Creatinine (0.66-1.25) mg/dL Glucose (74-99) mg/dL Calcium (8.4-10.2) mg/dL Troponin I 0.069 H* (0.000-0.034) ng/mL Thrombosis Risk Factor Assmnt - DVT/VTE Prophylaxis DVT/VTE Prophylaxis: Pharmacologic Prophylaxis ordered Assessment and Plan Assessment: Acute hypoxic respiratory failure requiring oxygen at 2 L via nasal cannula due to pneumonia and CHF Atrial fibrillation with rapid ventricular response Acute CHF. Ejection fraction not known.. Bibasilar pneumonia and sepsis Elevated troponin level/troponin leak Acute kidney injury likely prerenal. Creatinine 1.68. Baseline 1.1 Coronary artery disease with history of stent placement and recent cardiac cath in April 2022 Interstitial lung disease due to chemical exposure History of prostate cancer status post surgery History of ANETA/cardioversion Paroxysmal atrial fibrillation on anticoagulation with Xarelto Osteoarthritis History of low back surgery Anxiety GI prophylaxis Plan: Patient will be continued on telemetry monitoring. Started on Cardizem drip due to atrial fibrillation with rapid ventricular response. Lasix 20 mg IV push x1 and monitor respiratory status and renal function closely. Continue with oxygen supplementation. Cardiology consult for evaluation. Continue with ceftriaxone azithromycin. Procalcitonin was ordered. Continue other home medications and follow-up closely. Prognosis is guarded at this time. Discussed with the patient and his at bedside in detail. Time with Patient: Greater than 30
--- NOTE | 2022-05-26 02:32 | P.CNPUL ---
History of Present Illness Consult date: 05/26/22 Requesting physician: Yayo Velazquez Reason for consult: pneumonia Chief complaint: Exertional shortness of breath History of present illness: I am seeing this patient in new consultation today 05/26/2022 for suspected pneumonia. Patient is a 81-year-old white male with past medical history of chr onic interstitial lung disease, extrinsic ALLERGIC alveolitis, previous rib fractures, hypertension, hyperlipidemia, atrial fibrillation anticoagulated on Xarelto, coronary artery disease with previous stents, GERD, prostate cancer with previous prostatectomy, remote history of smoking. Patient does follow with Dr. Kam in the office, and was recently seen and treated for acute bronchitis with prednisone and azithromycin. Patient also takes an as needed albuterol inhaler. Patient presented to the emergency room yesterday evening with a chief complaint of exertional dyspnea for approximately 2 weeks. Patient denies any fever, chills, cough, chest pain. Denies any heart palpitations, lig htheadedness, syncope, orthopnea. Patient is currently resting comfortably, on 2 L nasal cannula, in no acute distress. Patient's chest x-ray on arrival showed some bibasilar patchy infiltrates concerning for pneumonia. Patient's CBC on arrival showed some leukocytosis with a WBC count of 23.4, hemoglobin 15.9, hematocrit 40.7, platelets 241,000. Patient's BMP on arrival showed a sodium 137, potassium 4.9, chloride 102, serum CO2 25, BUN 25, creatinine 1.68, glucose 110. Patient was also found to be in atrial fibrillation with rapid ventricular rate on arrival. Patient was initially started on a Cardizem infusion at 10 mg an hour, which is currently on hold. Troponins are slightly elevated at 0.069. An NT-proBNP is 3130. Patient was negative for influenza, RSV, COVID-19. Patient is being covered for community-acquired pneumonia with a combination of Rocephin and Zithromax. Procalcitonin levels pending. Heart rhythm is currently atrial fibrillation with a controlled ventricular rate of about 100 bpm. Vital signs are stable. Review of Systems REVIEW OF SYSTEMS: CONSTITUTIONAL: Denies any recent significant weight loss or weight gain. EYES: Denies change in vision. EARS, NOSE, MOUTH, THROAT: Denies headaches, denies sore throat. CARDIOVASCULAR: Denies chest pain, palpitations or syncopal episodes. RESPIRATORY: See HPI GASTROINTESTINAL: Denies change in appetite, abdominal pain, nausea and vomiting, or diarrhea GENITOURINARY: Denies hematuria, denies infections. MUSKULOSKELETAL: Denies pain, denies swelling. INTEGUMENTARY: Denies rash, denies eczema. NEUROLOGICAL: Denies recent memory loss, no recent seizure activity. PSYCHIATRIC: Denies anxiety, denies depression. 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,prednisone May 2020,steroids April 2020,Back infection after back surgery History of Any Multi-Drug Resistant Organisms: None Reported Past Surgical History: Adenoidectomy, Back Surgery, Cardiac Ablation, EPS, Heart Catheterization With Stent, Joint Replacement, Orthopedic Surgery, Prostate Surgery, Tonsillectomy Additional Past Surgical History / Comment(s): Prostatectomy, right hip replacement, low back surgery, L hand 2nd/3rd finger partial amputations, ANETA/cardioversions, colonoscopy, R lung thorascopy,cardiac stents x3 Past Anesthesia/Blood Transfusion Reactions: No Reported Reaction Date of Last Stent Placement:: Smoking Status: Former smoker - Past Family History Brother(s) Family Medical History: Cancer Additional Family Medical History / Comment(s): Brother of pancreatic cancer. Mother Family Medical History: Vascular Disorder Additional Family Medical History / Comment(s): Mother had varicosities and leg ulcers. Father Family Medical History: Myocardial Infarction ([place]) Additional Family Medical History / Comment(s): Father of a NC at the age of 64 yrs. Medications and Allergies Home Medications Medication Instructions Recorded Confirmed Type Multivit-Min/FA/Lycopen/Lutein 1 tab PO DAILY 06/26/16 05/25/22 History [Centrum Silver Men Tablet] Olmesartan Medoxomil [Benicar] 40 mg PO DAILY 06/26/16 05/25/22 History amLODIPine [Norvasc] 2.5 mg PO DAILY 02/26/18 05/25/22 History Simvastatin [Zocor] 20 mg PO HS 06/21/18 05/25/22 History ALPRAZolam [Xanax] 0.125 mg PO HS PRN 07/18/19 05/25/22 History Acetaminophen [Tylenol Arthritis] 1,300 mg PO Q8H PRN 07/18/19 05/25/22 History Cholecalciferol [Vitamin D3 (25 25 mcg PO DAILY 07/18/19 05/25/22 History Mcg = 1000 Iu)] Loratadine [Claritin] 10 mg PO DAILY 07/18/19 05/25/22 History Magnesium Oxide [Meehan] 500 mg PO DAILY 07/18/19 05/25/22 History Metoprolol Succinate (ER) [Toprol 50 mg PO DAILY 07/03/20 05/25/22 History XL] Clopidogrel Bisulfate [Plavix] 75 mg PO DAILY #90 tab 07/07/20 05/25/22 Rx Rivaroxaban [Xarelto] 15 mg PO HS 05/10/21 05/25/22 History Calcium Carbonate [Calcium] 600 mg PO BID 05/01/22 05/25/22 History Albuterol Nebulized [Ventolin 2.5 mg INHALATION RT-TID 05/25/22 05/25/22 History Nebulized] Pantoprazole [Protonix] 40 mg PO DAILY 05/25/22 05/25/22 History Allergies Allergy/AdvReac Type Severity Reaction Status Date / Time gentamicin AdvReac Nausea & Verified 05/25/22 14:50 Vomiting levofloxacin [From Levaquin] AdvReac Nausea & Verified 05/25/22 14:50 Vomiting Physical Exam Vitals: Vital Signs Temp Pulse Pulse Resp BP BP Pulse Ox 05/26/22 01:10 98.2 F 113 H 19 102/65 93 L 05/26/22 00:25 103 H 18 104/64 95 05/26/22 00:01 107 H 20 100/68 93 L 05/25/22 22:32 98 22 89/69 95 05/25/22 21:28 104 H 05/25/22 21:16 101 H 05/25/22 19:48 102 H 18 110/80 97 05/25/22 18:26 101 H 20 99/70 94 L 05/25/22 18:00 113 H 18 113/88 95 05/25/22 17:30 112 H 18 95 05/25/22 17:00 101 H 20 95 05/25/22 16:30 121 H 24 113/88 95 05/25/22 16:00 113 H 18 122/85 95 05/25/22 15:30 110 H 18 112/80 96 05/25/22 15:00 130 H 20 108/76 95 05/25/22 14:30 123 H 20 108/74 94 L 05/25/22 14:00 122 H 24 105/77 95 05/25/22 13:30 123 H 24 95 05/25/22 13:07 122 H 20 95 05/25/22 13:00 104 H 18 95/70 90 L 05/25/22 11:45 98.1 F 65 18 98/68 95 Intake and Output 05/25/22 05/25/22 05/26/22 14:59 22:59 06:59 Intake Total 14.083 Balance 14.083 Intake: Intake, IV Titration 14.083 Amount Diltiazem 125 mg In 14.083 Sodium Chloride 0.9% 100 ml @ 5 MG/HR 5 mls/hr IV .Q24H [facility] Rx#:[id number] Other: Weight 81.647 kg 81.647 kg GENERAL EXAM: Alert, 81-year-old white male, comfortable in no apparent distress. HEAD: Normocephalic and atraumatic EYES: Normal reaction of pupils, equal size. NOSE: Clear with pink turbinates. THROAT: No erythema or exudates. NECK: No masses, no JVD. CHEST: No chest wall deformity. LUNGS: Equal air entry with diffuse bilateral Velcro crackles. No wheeze, rhonchi or dullness. On 2 L nasal cannula. No conversational dyspnea or accessory muscle use.. CVS: S1 and S2 normal with no audible murmur, irregular rhythm. No extra heart sounds ABDOMEN: No hepatosplenomegaly, active bowel sounds, no guarding or rigidity. SPINE: No scoliosis or deformity SKIN: No rashes CENTRAL NERVOUS SYSTEM: No focal deficits, tone is normal in all 4 extremities. EXTREMITIES: There is no peripheral edema, clubbing, or cyanosis. Peripheral pulses are intact. Results - Laboratory Findings CBC and BMP: 05/25/22 12:06 05/25/22 12:06 PT/INR, D-dimer PT 11.9 sec (9.0-12.0) 05/25/22 12:06 INR 1.2 (<1.2) H 05/25/22 12:06 Abnormal lab findings: Abnormal Labs 05/25/22 05/25/22 05/25/22 12:06 12:06 12:06 WBC 23.4 H Neutrophils # 20.7 H INR 1.2 H BUN 25 H Creatinine 1.68 H Glucose 110 H Calcium 10.3 H Troponin I 05/25/22 12:06 WBC Neutrophils # INR BUN Creatinine Glucose Calcium Troponin I 0.069 H* - Diagnostic Findings Chest x-ray: image reviewed Assessment and Plan Assessment: Acute hypoxic respiratory failure secondary to suspected community-acquired pneumonia and a component of congestive heart failure. Currently on 2 L nasal cannula Atrial fibrillation with rapid ventricular rate, currently under control and Cardizem is paused Elevated troponins, likely related to supply demand mismatch History of chronic interstitial lung disease/extrinsic ALLERGIC alveolitis Acute kidney injury Coronary artery disease with previous stents to the left circumflex Hyperlipidemia GERD History of prostate cancer post-prostatectomy Plan: Patient's medication, labs, chest x-ray reviewed Continue antibiotics for community-acquired pneumonia Check pro calcitonin level Continue supplemental oxygen maintain oxygen saturation of 92% or greater Continue bronchodilators Patient was given one dose of Lasix Cardizem is currently paused Anticoagulation was resumed Protonix for GI prophylaxis We will continue to follow I have personally seen and examined the patient, performed the documentation and the assessment and plan as written. Number of minutes spent on the visit:20 Time with Patient: Greater than 30
[2022-05-26] MEDS: PANTOPRAZOLE 40 MG TABLET PO SCH (06:05)
[2022-05-26] MEDS: ALBUTEROL NEBULIZED 2.5 MG/3 ML INHALATION SCH ×4 (07:33→20:35)
[2022-05-26] MEDS ORDERED: AMIODARONE 360 MG in DEXTROSE 5% IN WATER 200 ML IV ONE ×2 (07:51)
[2022-05-26] MEDS ORDERED: DEXTROSE 5% IN WATER 100 ML with AMIODARONE 150 MG IV ONE (07:51)
[2022-05-26] MEDS: CLOPIDOGREL 75 MG TAB PO SCH (08:10)
[2022-05-26] MEDS: MAGNESIUM OXIDE 400 MG TAB PO SCH (08:10)
[2022-05-26 08:14] LABS: Basophils % (A) 0 %; Eosinophils # (A) 0.2 k/uL (0-0.7); Eosinophils % (A) 2 %; HCT 44.9 % (39.0-53.0); HGB 14.8 gm/dL (13.0-17.5); Lymphocytes # (A) 1.2 k/uL (1.0-4.8); Lymphocytes % (A) 11 %; MCH 31.4 pg (25.0-35.0); MCHC 32.9 g/dL (31.0-37.0); MCV 95.3 fL (80.0-100.0); Mean Platelet Volume 9.2; Monocytes # (A) 0.7 k/uL (0-1.0); Monocytes % (A) 7 %; Neutrophils # (A) 8.5 k/uL (1.3-7.7); Neutrophils % (A) 78 %; Platelet Count 214 k/uL (150-450); RBC 4.71 m/uL (4.30-5.90); RDW 13.8 % (11.5-15.5); WBC 10.9 k/uL (3.8-10.6)
[2022-05-26 08:27] LABS: Calcium 9.7 mg/dL (8.4-10.2); Potassium 4.5 mmol/L (3.5-5.1)
[2022-05-26] MEDS: LOSARTAN 50 MG TAB PO SCH (08:31)
[2022-05-26] MEDS ORDERED: LOSARTAN 50 MG TAB PO SCH (09:00)
[2022-05-26] MEDS ORDERED: METOPROLOL SUCCINATE (ER) 50 MG TAB.ER.24H PO SCH (09:00)
[2022-05-26] MEDS ORDERED: AZITHROMYCIN 500 MG TAB PO SCH (09:00)
--- NOTE | 2022-05-26 09:06 | XR ---
EXAMINATION TYPE: XR chest 1V DATE OF EXAM: 05/26/2022 6:53 AM COMPARISON: Chest radiographs from 05/25/2022 TECHNIQUE: XR chest 1V Frontal view of the chest. CLINICAL INDICATION:Male, 81 years old with history of Pneumonia; FINDINGS: Lungs/Pleura: Similar multifocal airspace opacities. No evidence of pneumothorax or pleural effusion. Chronic interstitial thickening is unchanged. Pulmonary vascularity: Unremarkable. Heart/mediastinum: Cardiomediastinal silhouette is unremarkable. Musculoskeletal: Degenerative changes of the shoulder joints. IMPRESSION: Stable exam with persistent chronic interstitial opacities superimposed on suspected acute airspace d isease.
--- NOTE | 2022-05-26 10:04 | P.CRDCN ---
History of Present Illness Consult date: 05/26/22 History of present illness: HISTORY OF PRESENT ILLNESS: This is a 81-year-old male with a past medical history significant for coronary artery disease with previous stenting, hypertension, hyperlipidemia, valvular heart disease, permanent atrial fibrillation, pulmonary hypertension, and COPD. Patient follows in the office with Dr. Mina. We have been asked to see the patient in consultation for A. fib with RVR. Patient examined at the bedside. Patient presented to the hospital with a chief complaint of shortness of breath. Patient states he has been feeling short of breath for the past few days. He reports he has been feeling more tired than usual. He reports a productive cough at home with yellow sputum. Patient is being treated for pneumonia and is receiving IV antibiotics. Patient was found to be in A. fib with RVR when he came to the hospital. Patient was started on a Cardizem drip. However, this made him hypotensive and it was discontinued. Patient maintaining atrial fibrillation this morning with a heart rate in the 140s. IV amiodarone has been ordered but not yet started at the time of examination. Patient denies any chest pain or pressure. Blood pressure stable. * EKG reveals atrial fibrillation with RVR * Chest xray: Stable exam with persistent chronic interstitial opacity superimposed on suspected acute airspace disease. * Laboratory data: WBC 23.4. Hemoglobin 15.9. Platelet count 241. Sodium 137. Potassium 4.9. BUN 25. Creatinine 1.68. Troponin 0.069. ProBNP 3130. * Current home cardiac medications include Norvasc 2.5 mg daily, simvastatin 20 mg at night, Xarelto 15 mg at night, Benicar 40 mg daily, Plavix 75 mg daily * Most recent echocardiogram obtained in July 2021 revealed normal ejection fraction, mild MR, severe pulmonary hypertension * Cardiac catheterization history: 05/06/2022 with PCI to the LAD. Patient had patent stent in the left circumflex REVIEW OF SYSTEMS: At the time of my exam: CONSTITUTIONAL: Denies fever or chills. HEENT: Denies blurred vision, vision changes, or eye pain. Denies hemoptysis CARDIOVASCULAR: Denies chest pain. Denies orthopnea. Denies PND. Denies palpitations RESPIRATORY: Reports shortness of breath. GASTROINTESTINAL: Denies abdominal pain. Denies nausea or vomiting. HEMATOLOGIC: Denies bleeding disorders. GENITOURINARY: Denies any blood in urine. SKIN: Denies pruitis. Denies rash. PHYSICAL EXAM: VITAL SIGNS: Reviewed. GENERAL: Well-developed in no acute distress. HEENT: Head is normocephalic. Pupils are equal, round. Sclerae anicteric. Mucous membranes of the mouth are moist. Neck supple. No JVD or thyromegaly LUNGS: Respirations even and unlabored. Lungs diminished bilaterally. No crackles noted. HEART: Tachycardia. Irregular rate and rhythm. S1 and S2 heard. Systolic mu rmur noted. ABDOMEN: Soft. Nondistended. Nontender. EXTREMITIES: Normal range of motion. No clubbing or cyanosis. Peripheral pulses intact. No lower extremity edema NEUROLOGIC: Awake and alert. Oriented x 3. ASSESSMENT: Shortness of breath Leukocytosis Pneumonia Permanent atrial fibrillation with RVR History of cardioversion 2 Coronary artery disease with previous stenting, most recently to the LAD in April 2021 Hypertension Hyperlipidemia Valvular heart disease Pulmonary hypertension PLAN: Obtain 2-D echo to assess cardiac structure and function Continue anticoagulation with Xarelto Continue Plavix secondary to recent stenting IV amiodarone ordered for rate control Increase metoprolol succinate to 50 mg twice a day Continue telemetry monitoring Decrease losartan to 50 mg daily. Continue to monitor blood pressure Further recommendations pending patient's course Nurse practitioner note has been reviewed by physician. Signing provider agrees with the documented findings, assessment, and plan of care. 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,prednisone May 2020,steroids April 2020,Back infection after back surgery History of Any Multi-Drug Resistant Organisms: None Reported Past Surgical History: Adenoidectomy, Back Surgery, Cardiac Ablation, EPS, Heart Catheterization With Stent, Joint Replacement, Orthopedic Surgery, Prostate Surgery, Tonsillectomy Additional Past Surgical History / Comment(s): Prostatectomy, right hip replacement, low back surgery, L hand 2nd/3rd finger partial amputations, ANETA/cardioversions, colonoscopy, R lung thorascopy,cardiac stents x3 Past Anesthesia/Blood Transfusion Reactions: No Reported Reaction Date of Last Stent Placement:: Smoking Status: Former smoker - Past Family History Brother(s) Family Medical History: Cancer Additional Family Medical History / Comment(s): Brother of pancreatic cancer. Mother Family Medical History: Vascular Disorder Additional Family Medical History / Comment(s): Mother had varicosities and leg ulcers. Father Family Medical History: Myocardial Infarction ([place]) Additional Family Medical History / Comment(s): Father of a DC at the age of 64 yrs. Medications and Allergies Home Medications Medication Instructions Recorded Confirmed Type Multivit-Min/FA/Lycopen/Lutein 1 tab PO DAILY 06/26/16 05/25/22 History [Centrum Silver Men Tablet] Olmesartan Medoxomil [Benicar] 40 mg PO DAILY 06/26/16 05/25/22 History amLODIPine [Norvasc] 2.5 mg PO DAILY 02/26/18 05/25/22 History Simvastatin [Zocor] 20 mg PO HS 06/21/18 05/25/22 History ALPRAZolam [Xanax] 0.125 mg PO HS PRN 07/18/19 05/25/22 History Acetaminophen [Tylenol Arthritis] 1,300 mg PO Q8H PRN 07/18/19 05/25/22 History Cholecalciferol [Vitamin D3 (25 25 mcg PO DAILY 07/18/19 05/25/22 History Mcg = 1000 Iu)] Loratadine [Claritin] 10 mg PO DAILY 07/18/19 05/25/22 History Magnesium Oxide [Meehan] 500 mg PO DAILY 07/18/19 05/25/22 History Metoprolol Succinate (ER) [Toprol 50 mg PO DAILY 07/03/20 05/25/22 History XL] Clopidogrel Bisulfate [Plavix] 75 mg PO DAILY #90 tab 07/07/20 05/25/22 Rx Rivaroxaban [Xarelto] 15 mg PO HS 05/10/21 05/25/22 History Calcium Carbonate [Calcium] 600 mg PO BID 05/01/22 05/25/22 History Albuterol Nebulized [Ventolin 2.5 mg INHALATION RT-TID 05/25/22 05/25/22 History Nebulized] Pantoprazole [Protonix] 40 mg PO DAILY 05/25/22 05/25/22 History Allergies Allergy/AdvReac Type Severity Reaction Status Date / Time gentamicin AdvReac Nausea & Verified 05/25/22 14:50 Vomiting levofloxacin [From Levaquin] AdvReac Nausea & Verified 05/25/22 14:50 Vomiting Physical Exam Vitals: Vital Signs Temp Pulse Pulse Resp BP BP Pulse Ox 05/26/22 09:07 111 H 17 110/70 93 L 05/26/22 08:52 118 H 18 95/62 91 L 05/26/22 08:37 120 H 17 111/62 92 L 05/26/22 08:22 141 H 18 105/68 93 L 05/26/22 08:10 98.3 F 141 H 17 91/63 91 L 05/26/22 07:49 104 H 05/26/22 07:34 108 H 92 L 05/26/22 04:00 98.2 F 112 H 18 105/74 96 05/26/22 01:10 98.2 F 113 H 19 102/65 93 L 05/26/22 00:25 103 H 18 104/64 95 05/26/22 00:01 107 H 20 100/68 93 L 05/25/22 22:32 98 22 89/69 95 05/25/22 21:28 104 H 05/25/22 21:16 101 H 05/25/22 19:48 102 H 18 110/80 97 05/25/22 18:26 101 H 20 99/70 94 L 05/25/22 18:00 113 H 18 113/88 95 05/25/22 17:30 112 H 18 95 05/25/22 17:00 101 H 20 95 05/25/22 16:30 121 H 24 113/88 95 05/25/22 16:00 113 H 18 122/85 95 05/25/22 15:30 110 H 18 112/80 96 05/25/22 15:00 130 H 20 108/76 95 05/25/22 14:30 123 H 20 108/74 94 L 05/25/22 14:00 122 H 24 105/77 95 05/25/22 13:30 123 H 24 95 05/25/22 13:07 122 H 20 95 05/25/22 13:00 104 H 18 95/70 90 L 05/25/22 11:45 98.1 F 65 18 98/68 95 Intake and Output 0405/26/22 05/26/22 22:59 06:59 14:59 Intake Total 14.083 Output Total 150 Balance 14.083 -150 Intake: Intake, IV Titration 14.083 Amount Diltiazem 125 mg In 14.083 Sodium Chloride 0.9% 100 ml @ 5 MG/HR 5 mls/hr IV .Q24H [facility] Rx#:[id number] Output: Urine 150 Other: Voiding Method Toilet Toilet Urinal Urinal Weight 81.647 kg Results 05/26/22 07:27 05/26/22 07:27 Cardiac Enzymes 05/25/22 05/25/22 Range/Units 12:06 12:06 AST 32 (17-59) U/L Troponin I 0.069 H* (0.000-0.034) ng/mL Coagulation 05/25/22 Range/Units 12:06 PT 11.9 (9.0-12.0) sec APTT 25.0 (22.0-30.0) sec CBC 05/25/22 05/26/22 Range/Units 12:06 07:27 WBC 23.4 H 10.9 H (3.8-10.6) k/uL RBC 5.18 4.71 (4.30-5.90) m/uL Hgb 15.9 14.8 (13.0-17.5) gm/dL Hct 48.7 44.9 (39.0-53.0) % Plt Count 241 214 (150-450) k/uL Comprehensive Metabolic Panel 05/25/22 05/26/22 Range/Units 12:06 07:27 Sodium 137 138 (137-145) mmol/L Potassium 4.9 4.5 (3.5-5.1) mmol/L Chloride 102 102 (98-107) mmol/L Carbon Dioxide 25 29 (22-30) mmol/L BUN 25 H 23 H (9-20) mg/dL Creatinine 1.68 H 1.58 H (0.66-1.25) mg/dL Glucose 110 H 90 (74-99) mg/dL Calcium 10.3 H 9.7 (8.4-10.2) mg/dL AST 32 (17-59) U/L ALT 26 (4-49) U/L Alkaline Phosphatase 74 (38-126) U/L Total Protein 7.1 (6.3-8.2) g/dL Albumin 4.0 (3.5-5.0) g/dL Current Medications Generic Name Dose Route Start Last Admin Trade Name Freq PRN Reason Stop Dose Admin Albuterol Sulfate 2.5 mg 05/25/22 15:39 05/25/22 21:15 Albuterol Nebulized 2.5 Mg/3 Ml INHALATION 2.5 mg RT-TID PRN Administration Shortness Of Breath Albuterol Sulfate 2.5 mg 05/26/22 08:00 05/26/22 07:33 Albuterol Nebulized 2.5 Mg/3 Ml INHALATION 2.5 mg RT-QID WILFRED Administration Alprazolam 0.125 mg 05/25/22 15:39 05/25/22 20:54 Alprazolam 0.25 Mg Tab PO 0.125 mg HS PRN Administration Insomnia Atorvastatin Calcium 40 mg 05/26/22 21:00 Atorvastatin 40 Mg Tab PO HS WILFRED Azithromycin 500 mg 05/26/22 09:00 05/26/22 08:10 Azithromycin 500 Mg Tab PO 05/27/22 09:01 500 mg DAILY WILFRED Administration Protocol Clopidogrel Bisulfate 75 mg 05/26/22 09:00 05/26/22 08:10 Clopidogrel 75 Mg Tab PO 75 mg DAILY WILFRED Administration Ceftriaxone Sodium 2 gm/ 50 mls @ 100 mls/hr 05/26/22 09:00 05/26/22 08:10 Sodium Chloride IVPB 05/29/22 09:29 100 mls/hr Q24HR WILFRED Administration Protocol Amiodarone HCl 360 mg/ 200 mls @ 33.333 mls/hr 05/26/22 07:51 05/26/22 08:32 Dextrose/Water IV 05/26/22 13:50 1 mg/min .Q6H ONE 33.333 mls/hr Administration Protocol 1 MG/MIN Amiodarone HCl 450 mg/ 250 mls @ 16.667 mls/hr 05/26/22 14:00 Dextrose/Water IV 05/27/22 07:59 .Q15H WILFRED Protocol 0.5 MG/MIN Losartan Potassium 50 mg 05/26/22 09:00 05/26/22 08:31 Losartan 50 Mg Tab PO 50 mg DAILY WILFRED Administration Magnesium Oxide 400 mg 05/26/22 09:00 05/26/22 08:10 Magnesium Oxide 400 Mg Tab PO 400 mg DAILY WILFRED Administration Metoprolol Succinate 50 mg 05/26/22 21:00 Metoprolol Succinate (Er) 50 Mg Tab.Er.24h PO BID [facility] Miscellaneous Information 1 each 05/25/22 14:09 Pneumonia Protocol Utilized 1 Each Misc PO ONCE PRN Per Protocol Pantoprazole Sodium 40 mg 05/26/22 07:30 05/26/22 06:05 Pantoprazole 40 Mg Tablet PO 40 mg DAILY@0730 WILFRED Administration Rivaroxaban 15 mg 05/25/22 21:00 05/25/22 20:50 Rivaroxaban 15 Mg Tab PO 15 mg HS WILFRED Administration Protocol Intake and Output 05/25/22 05/26/22 05/26/22 22:59 06:59 14:59 Intake Total 14.083 Output Total 150 Balance 14.083 -150 Intake: Intake, IV Titration 14.083 Amount Diltiazem 125 mg In 14.083 Sodium Chloride 0.9% 100 ml @ 5 MG/HR 5 mls/hr IV .Q24H [facility] Rx#:[id number] Output: Urine 150 Other: Voiding Method Toilet Toilet Urinal Urinal Weight 81.647 kg 05/26/22 07:27 05/26/22 07:27
--- NOTE | 2022-05-26 11:23 | CA ---
Transthoracic Echo Report Name: Gustavo Rodriguez Age: 81 Gender: M : 1940 Exam Date: 05/26/2022 08:51 Exam Location: [facility] Ht (in): 71 Wt (lb): 185 Ordering Physician: Harriett Salnias Attending/Referring Phys: [id number], Rita [employer] Source Collection Manager Ko Doyle RDCS Procedure CPT: Indications: LV function Cardiac Hx: HTN; A. Fib.; High Chol. Technical Quality: Fair Contrast 1: Total Dose (mL): Contrast 2: Total Dose (mL): MEASUREMENTS (Male / Female) Normal Values 2D ECHO LV Diastolic Diameter PLAX 3.2 cm 4.2 - 5.9 / 3.9 - 5.3 cm LV Systolic Diameter PLAX 2.5 cm LV Fractional Shortening PLAX 23.5 % IVS Diastolic Thickness 1.5 cm 0.6 - 1.0 / 0.6 - 0.9 cm IVS Systolic Thickness 1.6 cm LVPW Diastolic Thickness 1.5 cm 0.6 - 1.0 / 0.6 - 0.9 cm LVPW Systolic Thickness 1.9 cm LV Relative Wall Thickness 0.9 RV Internal Dim ED PLAX 3.8 cm LVOT Diameter 2.0 cm LA Systolic Diameter LX 4.1 cm 3.0 - 4.0 / 2.7 - 3.8 cm LV Diastolic Volume MOD BP 71.2 cm??? 67 - 155 / 56 - 104 cm??? LV Systolic Volume MOD BP 21.4 cm??? 22 - 58 / 19 - 49 cm??? LV Ejection Fraction MOD BP 70.0 % >= 55 % LV Stroke Volume MOD BP 49.8 cm??? LV Diastolic Volume MOD 4C 73.9 cm??? LV Systolic Volume MOD 4C 22.8 cm??? LV Ejection Fraction MOD 4C 69.2 % LV Stroke Volume MOD 4C 51.1 cm??? LV Diastolic Length 4C 7.3 cm LV Systolic Length 4C 5.2 cm LV Diastolic Volume MOD 2C 67.9 cm??? LV Systolic Volume MOD 2C 19.3 cm??? LV Ejection Fraction MOD 2C 71.5 % LV Stroke Volume MOD 2C 48.5 cm??? LV Diastolic Length 2C 7.4 cm LV Systolic Length 2C 5.4 cm Ascending Aorta Diameter 2.3 cm M-MODE Aortic Root Diameter MM 3.5 cm LA Systolic Diameter MM 5.1 cm LA Ao Ratio MM 1.5 AV Cusp Separation MM 1.8 cm DOPPLER AV Peak Velocity 124.3 cm/s AV Peak Gradient 6.2 mmHg LVOT Peak Velocity 118.9 cm/s LVOT Peak Gradient 5.7 mmHg AV Area Cont Eq pk 3.0 cm??? MV Peak Velocity 133.2 cm/s MV Peak Gradient 7.1 mmHg MV Mean Velocity 78.7 cm/s MV Mean Gradient 2.9 mmHg MV Velocity Time Integral 23.2 cm MR Peak Velocity 448.3 cm/s MR Peak Gradient 80.4 mmHg MV E' Velocity 8.1 cm/s TR Peak Velocity 307.0 cm/s TR Peak Gradient 37.7 mmHg Right Ventricular Systolic Press 47.7 mmHg PV Peak Velocity 98.2 cm/s PV Peak Gradient 3.9 mmHg FINDINGS Left Ventricle Left ventricular ejection fraction is estimated at 45-50%. Moderate concentric left ventricular hypertrophy. Abnormal left ventricular diastolic filling pattern. Decreased basal systolic function. Right Ventricle Right ventricular dilatation. RVSP-48 mm Hg. Right Atrium Mild right atrial dilatation. Left Atrium Mild left atrial dilatation. Mitral Valve Mitral valve thickened. Minimal mitral stenosis. Moderate mitral regurgitation. Aortic Valve Trileaflet aortic valve. Diffuse thickening (sclerosis) of the aortic valve cusps without reduced excursion. Tricuspid Valve [id number] tricuspid regurgitation. Pulmonic Valve Pulmonic valve not well visualized. Mild pulmonic regurgitation. Pericardium Normal pericardium. No pericardial effusion. Aorta Mild aortic dilatation at the level of the sinuses of valsalva (root). CONCLUSIONS Mild LV systolic dysfunction Basal inferior wall hypokinesis Moderate pulmonary hypertension Mild to moderate tricuspid regurgitation Moderate mitral regurgitation Previewed by: Dr. José Luis Stone MD (Electronically Signed) Final Date: 26 May 2022 11:22
[2022-05-26] MEDS: AMIODARONE 450 MG in DEXTROSE 5% IN WATER 250 ML IV SCH ×2 (15:11)
[2022-05-26] MEDS: ALPRAZolam 0.25 MG TAB PO PRN (20:12)
[2022-05-26] MEDS: RIVAROXABAN 15 MG TAB PO SCH (20:49)
[2022-05-26] MEDS: METOPROLOL SUCCINATE (ER) 50 MG TAB.ER.24H PO SCH (20:50)
[2022-05-26] MEDS ORDERED: ATORVASTATIN 40 MG TAB PO SCH (21:00)
--- NOTE | 2022-05-27 04:54 | P.PN ---
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 He has been having cough with greenish to yellowish phlegm. Did have episodes of vomiting x2 and he was hypoxic when checked his oxygen at home. Patient also felt very weak. No complaints of chest pain. No leg swelling. Was diaphoretic last night. Patient states that he had cardiac cath on 29 April 2022. He has not been feeling well since then and his symptoms worsened last couple of days which made him come to ER. Chest x-ray showed subtle bibasilar basilar patchy airspace opacities concerning for pneumonia. EKG showed atrial fibrillation with rapid ventricular response. Laboratory data showed WBC 23.4 hemoglobin 15.9 and platelets 241 Sodium 137 potassium 4.9 chloride 102 bicarb is 25 BUN 25 creatinine 1.68, calcium 10.3 Troponin 0.069 and proBNP 3130 COVID-19, influenza A B and RSV PCR not detected. 05/26/2022 Patient seen and evaluated in follow-up today being followed by cardiology along with pulmonary. Patient remains with atrial fibrillation with RVR having irregular elevated rates in the 140s overnight being started on amiodarone drip per cardiology. Repeat echo ordered and pending at this time patient recently had PCI stenting in April 2022 is maintained on anticoagulation along with Plavix and will continue. Patient is currently requiring 2-3 L via nasal cannula for shortness of breath. Patient reports that shortness of breath is okay while at rest although when getting up to walk he has to take multiple breaks due to shortness of breath. Patient does not wear oxygen in the outpatient setting. Patient was given a dose of Lasix. Awaiting pro calcitonin level as patient is maintained on IV antibiotics for possible pneumonia. Patient is afebrile and WBC is trending down with no reports of chest pain noted. Patient does report some palpitations although denies dizziness or lightheadedness. Will continue breathing treatments as well. Review of systems: Constitutional: No reports of fatigue, fever, or chills Cardiovascular: No reports of chest pain, reports palpitations Respiratory: reports of shortness of breath especially with exertion GI: No reports of nausea, vomiting, or diarrhea : No reports of dysuria or retention Neurovascular: No reports of weakness or numbness All medications have been reviewed Active Medications Albuterol Sulfate (Albuterol Nebulized 2.5 Mg/3 Ml) 2.5 mg INHALATION RT-TID PRN PRN Reason: Shortness Of Breath Last Admin: 05/25/22 21:15 Dose: 2.5 mg Albuterol Sulfate (Albuterol Nebulized 2.5 Mg/3 Ml) 2.5 mg INHALATION RT-QID [facility] Last Admin: 05/26/22 07:33 Dose: 2.5 mg Alprazolam (Alprazolam 0.25 Mg Tab) 0.125 mg PO HS PRN PRN Reason: Insomnia Last Admin: 05/25/22 20:54 Dose: 0.125 mg Atorvastatin Calcium (Atorvastatin 40 Mg Tab) 40 mg PO HS WILFRED Azithromycin (Azithromycin 500 Mg Tab) 500 mg PO DAILY [facility]; Protocol Stop: 05/27/22 09:01 Last Admin: 05/26/22 08:10 Dose: 500 mg Clopidogrel Bisulfate (Clopidogrel 75 Mg Tab) 75 mg PO DAILY [facility] Last Admin: 05/26/22 08:10 Dose: 75 mg Ceftriaxone Sodium 2 gm/ (Sodium Chloride) 50 mls @ 100 mls/hr IVPB Q24HR [facility]; Protocol Stop: 05/29/22 09:29 Last Admin: 05/26/22 08:10 Dose: 100 mls/hr Amiodarone HCl 360 mg/ (Dextrose/Water) 200 mls @ 33.333 mls/hr IV .Q6H [facility]; Protocol Stop: 05/26/22 13:50 Last Admin: 05/26/22 08:32 Dose: 1 mg/min, 33.333 mls/hr Amiodarone HCl 450 mg/ (Dextrose/Water) 250 mls @ 16.667 mls/hr IV .Q15H [facility]; Protocol Stop: 05/27/22 07:59 Losartan Potassium (Losartan 50 Mg Tab) 50 mg PO DAILY [facility] Last Admin: 05/26/22 08:31 Dose: 50 mg Magnesium Oxide (Magnesium Oxide 400 Mg Tab) 400 mg PO DAILY [facility] Last Admin: 05/26/22 08:10 Dose: 400 mg Metoprolol Succinate (Metoprolol Succinate (Er) 50 Mg Tab.Er.24h) 50 mg PO BID [facility] Miscellaneous Information (Pneumonia Protocol Utilized 1 Each Misc) 1 each PO ONCE PRN PRN Reason: Per Protocol Pantoprazole Sodium (Pantoprazole 40 Mg Tablet) 40 mg PO DAILY@0730 [facility] Last Admin: 05/26/22 06:05 Dose: 40 mg Rivaroxaban (Rivaroxaban 15 Mg Tab) 15 mg PO HS [facility]; Protocol Last Admin: 05/25/22 20:50 Dose: 15 mg PHYSICAL EXAMINATION: Patient is sitting up in the chair comfortably, no acute distress, awake alert and oriented.. HEENT: Normocephalic. Neck is supple. Pupils reactive. Nostrils clear. Oral cavity is moist. Neck reveals no JVD, carotid bruits, or thyromegaly. CHEST EXAMINATION: Trachea is central. Symmetrical expansion. Bibasilar crackles. No wheezing or rhonchi.. CARDIAC: S1, S2 are muffled with an irregularly irregular rhythm ABDOMEN: Soft. Bowel sounds present. Nontender. No organomegaly. No abdominal bruits. Extremities: reveal no edema. No clubbing or cyanosis Neurologically awake, alert, oriented x3 with well-coordinated movements. No focal deficits noted Skin: No rash or skin lesions. Psychiatric: Cooperative. Non-suicidal, Musculoskeletal: No joint swelling or deformity. Normal range of motion. Assessment: Acute hypoxic respiratory failure requiring oxygen at 2 L via nasal cannula due to CHF exacerbation Atrial fibrillation with rapid ventricular response Acute CHF. Ejection fraction not known.. Concerns of Bibasilar pneumonia and sepsis, present on admission although suspicion is low and pro calcitonin is negative, most likely CHF exacerbation Elevated troponin level/troponin leak Acute kidney injury likely prerenal. Creatinine 1.68. Baseline 1.1, trending down Coronary artery disease with history of stent placement and recent cardiac cath in April 2022 Interstitial lung disease due to chemical exposure History of prostate cancer status post surgery History of ANETA/cardioversion Paroxysmal atrial fibrillation on anticoagulation with Xarelto Osteoarthritis History of low back surgery Anxiety GI prophylaxis Plan: Recommend patient to continue on telemetry monitoring with pulmonary following. Patient was continued on IV antibiotics although pro calcitonin is negative and will discontinue antibiotics and monitor closely off. Patient is continued on breathing treatments and currently 2-3 L via nasal cannula and recommend weaning FiO2 as tolerated. Patient did receive a dose of IV Lasix and awaiting follow- up chest x-ray Patient's heart rate into the 140s with A. fib with RVR and was on Cardizem and now being transitioned amiodarone drip with cardiology following. Awaiting 2-D echo. Patient had recent stenting in April 2022 to the LAD. Encouraged increased activity as tolerated Recommend repeat labs in the a.m. to monitor kidney functions and electrolytes and recommend replacing per protocol. The impression and plan of care has been dictated by Luba Ortiz, Nurse Practitioner as directed. Dr. Thang MD I have performed a history and examination and MDM of this patient, discussed the same with the dictator, and agree with the dictator's assessment and plan as written ,documented as a scribe. Based on total visit time, I have performed more than 50% of the visit. Objective - Vital Signs Vital signs: Vital Signs Temp 98.3 F 05/26/22 08:10 Pulse 111 H 05/26/22 09:07 Resp 17 05/26/22 09:07 BP 110/70 05/26/22 09:07 Pulse Ox 93 L 05/26/22 09:07 FiO2 Intake & Output 05/25/22 05/26/22 05/26/22 18:59 06:59 18:59 Intake Total 14.083 Output Total 150 Balance 14.083 -150 Weight 81.647 kg 81.647 kg Intake: Intake, IV Titration 14.083 Amount Diltiazem 125 mg In 14.083 Sodium Chloride 0.9% 100 ml @ 5 MG/HR 5 mls/hr IV .Q24H [facility] Rx#:[id number] Output: Urine 150 Other: Voiding Method Toilet Toilet Urinal Urinal - Labs CBC & Chem 7: 05/26/22 07:27 05/26/22 07:27 Labs: Abnormal Lab Results - Last 24 Hours (Table) 05/25/22 05/25/22 05/25/22 Range/Units 12:06 12:06 12:06 WBC 23.4 H (3.8-10.6) k/uL Neutrophils # 20.7 H (1.3-7.7) k/uL INR 1.2 H (<1.2) BUN 25 H (9-20) mg/dL Creatinine 1.68 H (0.66-1.25) mg/dL Glucose 110 H (74-99) mg/dL Calcium 10.3 H (8.4-10.2) mg/dL Troponin I (0.000-0.034) ng/mL 05/25/22 05/26/22 05/26/22 Range/Units 12:06 07:27 07:27 WBC 10.9 H (3.8-10.6) k/uL Neutrophils # 8.5 H (1.3-7.7) k/uL INR (<1.2) BUN 23 H (9-20) mg/dL Creatinine 1.58 H (0.66-1.25) mg/dL Glucose (74-99) mg/dL Calcium (8.4-10.2) mg/dL Troponin I 0.069 H* (0.000-0.034) ng/mL
[2022-05-27] MEDS: PANTOPRAZOLE 40 MG TABLET PO SCH (06:22)
[2022-05-27 07:28] LABS: Basophils % (A) 0 %; Eosinophils # (A) 0.3 k/uL (0-0.7); Eosinophils % (A) 3 %; HCT 43.5 % (39.0-53.0); HGB 14.1 gm/dL (13.0-17.5); Lymphocytes # (A) 1.2 k/uL (1.0-4.8); Lymphocytes % (A) 11 %; MCH 31.1 pg (25.0-35.0); MCHC 32.3 g/dL (31.0-37.0); MCV 96.1 fL (80.0-100.0); Mean Platelet Volume 9.9; Monocytes # (A) 0.8 k/uL (0-1.0); Monocytes % (A) 7 %; Neutrophils # (A) 8.8 k/uL (1.3-7.7); Neutrophils % (A) 77 %; Platelet Count 222 k/uL (150-450); RBC 4.52 m/uL (4.30-5.90); RDW 13.8 % (11.5-15.5); WBC 11.4 k/uL (3.8-10.6)
[2022-05-27 07:50] LABS: Calcium 9.4 mg/dL (8.4-10.2); Magnesium 1.8 mg/dL (1.6-2.3); Potassium 4.5 mmol/L (3.5-5.1)
[2022-05-27] MEDS: METOPROLOL SUCCINATE (ER) 50 MG TAB.ER.24H PO SCH (08:15)
[2022-05-27] MEDS: MAGNESIUM OXIDE 400 MG TAB PO SCH (08:15)
[2022-05-27] MEDS: CLOPIDOGREL 75 MG TAB PO SCH (08:15)
[2022-05-27] MEDS: LOSARTAN 50 MG TAB PO SCH (08:15)
--- NOTE | 2022-05-27 09:41 | P.PN ---
Subjective Progress Note Date: 05/27/22 I am seeing this patient in new consultation today 05/26/2022 for suspected pne [facility]. Patient is a 81-year-old white male with past medical history of chronic interstitial lung disease, extrinsic ALLERGIC alveolitis, previous rib fractures, hypertension, hyperlipidemia, atrial fibrillation anticoagulated on Xarelto, coronary artery disease with previous stents, GERD, prostate cancer with previous prostatectomy, remote history of smoking. Patient does follow with Dr. Kam in the office, and was recently seen and treated for acute bronchitis with prednisone and azithromycin. Patient also takes an as needed albuterol inhaler. Patient presented to the emergency room yesterday evening with a chief complaint of exertional dyspnea for approximately 2 weeks. Patient denies any fever, chills, cough, chest pain. Denies any heart palpitations, lightheadedness, syncope, orthopnea. Patient is currently resting comfortably, on 2 L nasal cannula, in no acute distress. Patient's chest x-ray on arrival showed some bibasilar patchy infiltrates concerning for pneumonia. Patient's CBC on arrival showed some leukocytosis with a WBC count of 23.4, hemoglobin 15.9, hematocrit 40.7, platelets 241,000. Patient's BMP on arrival showed a sodium 137, potassium 4.9, chloride 102, serum CO2 25, BUN 25, creatinine 1.68, glucose 110. Patient was also found to be in atrial fibrillation with rapid ventricular rate on arrival. Patient was initially started on a Cardizem infusi on at 10 mg an hour, which is currently on hold. Troponins are slightly elevated at 0.069. An NT-proBNP is 3130. Patient was negative for influenza, RSV, COVID-19. Patient is being covered for community-acquired pneumonia with a combination of Rocephin and Zithromax. Procalcitonin levels pending. Heart rhythm is currently atrial fibrillation with a controlled ventricular rate of about 100 bpm. Vital signs are stable. On today's evaluation of 2022, the patient is feeling better. Is less short of breath. He remains on 2 L. He has some limited cough and congestion. Overall feeling better. The white cell count is improved and is down to 11.4. Sodium is at 140, BUN is at 24 with a creatinine of 1.6. His pro calcitonin level is at 0.07. ProBNP level was 3130. Echo of the heart showed mild LV systolic dysfunction. Moderate pulmonary hypertension. Moderate tricuspid regurgitation. RVSP was 48. The repeat chest x-ray showed stable persistent chronic interstitial opacities superimposed on a suspected acute airspace disease. Objective - Vital Signs Vital signs: Vital Signs Temp 97.6 F 05/27/22 03:49 Pulse 76 05/27/22 03:49 Resp 14 05/27/22 03:49 BP 100/67 05/27/22 03:49 Pulse Ox 91 L 05/27/22 03:49 FiO2 Intake & Output 05/26/22 05/27/22 05/27/22 18:59 06:59 18:59 Intake Total 354 240 118 Balance 354 240 118 Intake: Oral 354 240 118 Other: Voiding Method Toilet Toilet Urinal Urinal # Voids 1 1 - Exam GENERAL EXAM: Alert, 81-year-old white male, comfortable in no apparent distress. HEAD: Normocephalic and atraumatic EYES: Normal reaction of pupils, equal size. NOSE: Clear with pink turbinates. THROAT: No erythema or exudates. NECK: No masses, no JVD. CHEST: No chest wall deformity. LUNGS: Equal air entry with diffuse bilateral Velcro crackles. No wheeze, rhonchi or dullness. On 2 L nasal cannula. No conversational dyspnea or accessory muscle use.. CVS: S1 and S2 normal with no audible murmur, irregular rhythm. No extra heart sounds ABDOMEN: No hepatosplenomegaly, active bowel sounds, no guarding or rigidity. SPINE: No scoliosis or deformity SKIN: No rashes CENTRAL NERVOUS SYSTEM: No focal deficits, tone is normal in all 4 extremities. EXTREMITIES: There is no peripheral edema, clubbing, or cyanosis. Peripheral pulses are intact. - Labs CBC & Chem 7: 05/27/22 05:21 05/27/22 05:21 Labs: Abnormal Lab Results - Last 24 Hours (Table) 05/27/22 05/27/22 Range/Units 05:21 05:21 WBC 11.4 H (3.8-10.6) k/uL Neutrophils # 8.8 H (1.3-7.7) k/uL Carbon Dioxide 31 H (22-30) mmol/L BUN 24 H (9-20) mg/dL Creatinine 1.69 H (0.66-1.25) mg/dL Microbiology - Last 24 Hours (Table) 05/26/22 15:29 Gram Stain - Preliminary Sputum Sputum Culture - Preliminary 05/25/22 15:29 Legionella Culture - Preliminary Sputum 05/25/22 14:30 Blood Culture - Preliminary Blood No Growth after 24 hours 05/25/22 14:45 Blood Culture - Preliminary Blood No Growth after 24 hours Assessment and Plan Plan: Acute hypoxic respiratory failure secondary to suspected community-acquired pneumonia and a component of congestive heart failure. Currently on 2 L nasal cannula Atrial fibrillation with rapid ventricular rate, currently under control and Cardizem is paused Elevated troponins, likely related to supply demand mismatch History of chronic interstitial lung disease/extrinsic ALLERGIC alveolitis Acute kidney injury Coronary artery disease with previous stents to the left circumflex Hyperlipidemia GERD History of prostate cancer post-prostatectomy Plan: Clinically improving and a white cell count is improving Continue antibiotics for community-acquired pneumonia, we'll complete a course of Augmentin for the next 1 week Check pro calcitonin level, levels are low Continue supplemental oxygen maintain oxygen saturation of 92% or greater Continue bronchodilators Patient was given one dose of Lasix Cardizem is currently paused Anticoagulation was resumed Protonix for GI prophylaxis We will continue to follow
[2022-05-27] MEDS ORDERED: AMOXIC-POT CLAV 875-125MG 1 EACH TAB PO SCH (10:00)
[2022-05-27] MEDS: ALBUTEROL NEBULIZED 2.5 MG/3 ML INHALATION SCH ×2 (10:13→13:55)
--- NOTE | 2022-05-27 10:30 | P.PN ---
Subjective Progress Note Date: 05/27/22 HISTORY OF PRESENT ILLNESS: This is a 81-year-old male with a past medical history significant for coronary artery disease with previous stenting, hypertension, hyperlipidemia, valvular heart disease, permanent atrial fibrillation, pulmonary hypertension, and COPD. Patient follows in the office with Dr. Mina. We have been asked to see the patient in consultation for A. fib with RVR. Patient examined at the bedside. Patient presented to the hospital with a chief complaint of shortness of breath. Patient states he has been feeling short of breath for the past few days. He reports he has been feeling more tired than usual. He reports a productive cough at home with yellow sputum. Patient is being treated for pneumonia and is receiving IV antibiotics. Patient was found to be in A. fib with RVR when he came to the hospital. Patient was started on a Cardizem drip. However, this made him hypotensive and it was discontinued. Patient maintaining atrial fibrillation this morning with a heart rate in the 140s. IV amiodarone has been ordered but not yet started at the time of examination. Patient denies any chest pain or pressure. Blood pressure stable. * EKG reveals atrial fibrillation with RVR * Chest xray: Stable exam with persistent chronic interstitial opacity superimposed on suspected acute airspace disease. * Laboratory data: WBC 23.4. Hemoglobin 15.9. Platelet count 241. Sodium 137. Potassium 4.9. BUN 25. Creatinine 1.68. Troponin 0.069. ProBNP 3130. * Current home cardiac medications include Norvasc 2.5 mg daily, simvastatin 20 mg at night, Xarelto 15 mg at night, Benicar 40 mg daily, Plavix 75 mg daily * Most recent echocardiogram obtained in July 2021 revealed normal ejection fraction, mild MR, severe pulmonary hypertension * Cardiac catheterization history: 05/06/2022 with PCI to the LAD. Patient had patent stent in the left circumflex 05/27/2022 Patient examined this morning at the bedside. Patient denies chest pain or pressure. Patient reports improvement in his shortness of breath. Telemetry reveals atrial fibrillation with a heart rate between 90 and 105. IV amiodarone has finished this morning. Echocardiogram completed revealing ejection fraction 45-50%, moderate MR, [id number] TR, and moderate pulmonary hypertension PHYSICAL EXAM: VITAL SIGNS: Reviewed. GENERAL: Well-developed in no acute distress. HEENT: Head is normocephalic. Pupils are equal, round. Sclerae anicteric. Mucous membranes of the mouth are moist. Neck supple. No JVD or thyromegaly LUNGS: Respirations even and unlabored. Lungs diminished bilaterally. No crackles noted. HEART: Irregular rate and rhythm. S1 and S2 heard. Systolic murmur noted. ABDOMEN: Soft. Nondistended. Nontender. EXTREMITIES: Normal range of motion. No clubbing or cyanosis. Peripheral pulses intact. No lower extremity edema NEUROLOGIC: Awake and alert. Oriented x 3. ASSESSMENT: Shortness of breath Leukocytosis Pneumonia Permanent atrial fibrillation with RVR History of cardioversion 2 Coronary artery disease with previous stenting, most recently to the LAD in April 2021 Hypertension Hyperlipidemia Valvular heart disease Pulmonary hypertension PLAN: Continue anticoagulation with Xarelto Continue Plavix secondary to recent stenting IV amiodarone infusion finished this morning. No oral amiodarone at this time. Continue current dose of metoprolol succinate Continue telemetry monitoring Patient is stable from a cardiac standpoint Further recommendations pending patient's course Nurse practitioner note has been reviewed by physician. Signing provider agrees with the documented findings, assessment, and plan of care. Objective - Vital Signs Vital signs: Vital Signs Temp 97.6 F 05/27/22 03:49 Pulse 95 05/27/22 10:23 Resp 14 05/27/22 03:49 BP 100/67 05/27/22 03:49 Pulse Ox 91 L 05/27/22 03:49 FiO2 Intake & Output 05/26/22 05/27/22 05/27/22 18:59 06:59 18:59 Intake Total 354 240 118 Balance 354 240 118 Intake: Oral 354 240 118 Other: Voiding Method Toilet Toilet Urinal Urinal # Voids 1 1 - Labs CBC & Chem 7: 05/27/22 05:21 05/27/22 05:21 Labs: Abnormal Lab Results - Last 24 Hours (Table) 05/27/22 05/27/22 Range/Units 05:21 05:21 WBC 11.4 H (3.8-10.6) k/uL Neutrophils # 8.8 H (1.3-7.7) k/uL Carbon Dioxide 31 H (22-30) mmol/L BUN 24 H (9-20) mg/dL Creatinine 1.69 H (0.66-1.25) mg/dL Microbiology - Last 24 Hours (Table) 05/26/22 15:29 Gram Stain - Preliminary Sputum Sputum Culture - Preliminary 05/25/22 15:29 Legionella Culture - Preliminary Sputum 05/25/22 14:30 Blood Culture - Preliminary Blood No Growth after 24 hours 05/25/22 14:45 Blood Culture - Preliminary Blood No Growth after 24 hours
[2022-05-27 10:39] VITALS: TEMP 98.1
[2022-05-27] MEDS: AMIODARONE 450 MG in DEXTROSE 5% IN WATER 250 ML IV SCH ×2 (11:15)
[2022-05-27 12:29] VITALS: BP 92/62; RESP 17
[2022-05-27 14:08] VITALS: PULSE 98
--- NOTE | 2022-05-29 11:55 | CDI ---
Documentation Clarification Form Date: 05/29/2022 11:36:58 AM From: Agata Cormier Admit Date: 05/25/2022 2:09:00 PM Patient Name: Gustavo Rodriguez Visit Number: [id number] Discharge Date: 05/27/2022 3:49:00 PM ATTENTION: The Clinical Documentation Specialists (CDI) and [facility] Coding Staff appreciate your assistance in clarifying documentation. Please respond to the clarification below the line at the bottom and electronically sign. The CDI & [facility] Coding staff will review the response and follow-up if needed. Please note: Queries are made part of the Legal Health Record. If you have any questions, please contact the author of this message via ITS. Dr. Roverto Farrar Per H and P "Bibasilar pneumonia and sepsis elevated troponin level/troponin leak Acute kidney injury likely prerenal." Documentation of sepsis is not carried through the chart. Please clarify if patient had sepsis or was it ruled out. History/Risk Factors: Pneumonia Clinical Indicators: WBC 23.4 Lactic acid: 1.6 Blood cultures: No growth Vitals signs: 98.1 F, 123 BPM, 18, 98/68, 95 RA Treatment: IV antibiotics ID Consult: Antibiotics: Rocephin and Zithromax Did patient have sepsis or was sepsis ruled out: [ x ] Sepsis, present on admission [ ] Sepsis ruled out [ ] Other, please specify [ ] Unable to determine SIRS Criteria: 2 or more of the following may indicate SIRS Temperature < 96.8F (36C) or > 101.0F (38.3C) Heart Rate > 90 bpm Respiratory Rate > 20 breaths/min or PaCO2 < 32 mmHg White Blood Cell Count > 12,000 or < 4,000 cells/mm3 or > 10% bands MTDD
--- NOTE | 2022-05-30 06:55 | P.DS ---
Providers Date of admission: 05/25/22 14:09 Expected date of discharge: 05/27/22 Attending physician: Roverto Farrar Consults: 05/25/22 14:09 Consult Physician Routine Consulting Provider: Jeffy Kam Consult Reason/Comments: pneumonia Do you want consulting provider notified?: Yes Consult Physician Routine Consulting Provider: Jim Mina Consult Reason/Comments: a fib Do you want consulting provider notified?: Yes Primary care physician: Jose Celestin Hospital Course: Final diagnosis Acute hypoxic respiratory failure requiring oxygen at 2 L via nasal cannula due to CHF exacerbation Atrial fibrillation with rapid ventricular response Acute CHF. Ejection fraction not known.. Concerns of Bibasilar pneumonia and sepsis, present on admission although suspicion is low and pro calcitonin is negative, most likely CHF exacerbation, sepsis ruled out Elevated troponin level/troponin leak Acute kidney injury likely prerenal. Creatinine 1.68. 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 Patient will follow-up with Dr. Celestin in the outpatient setting upon discharge. Patient is to follow-up with pulmonary and cardiology outpatient as scheduled. Patient will continue short course of oral Augmentin per pulmonary recommendations to complete the course. Total time taken is greater than 35 minutes. Hospital course This is a 81-year-old male who was recently admitted with shortness of breath and atrial fibrillation with RVR. Patient was being closely monitored and also admitted for CHF exacerbation. Patient was initially started on some antibiotics empirically with concerns of possible pneumonia and pro calcitonin was low recommend discontinuing antibiotics and continuing to treat CHF exacerbation. Pulmonary following recommending a short course of oral antibiotics in the form of Augmentin with close outpatient follow-up with them in the clinic. Patient also encouraged to follow-up with cardiology outpatient. Patient has been cleared by consultations for discharge. Please refer to consultation notes for further HPI. Patient reports shortness of breath is improved and is currently on room air. Currently no reports of chest pain, shortness of breath, or palpitations. Patient is afebrile. No reports of nausea or vomiting and patient is tolerating diet. Patient will be discharged home today. Physical exam: Gen: This is a 81-year-old male who is awake, alert and oriented 3, well- developed, well-nourished HEENT: Head is atraumatic, normocephalic. Pupils equal, round. Sclerae is anicteric. NECK: Supple. No JVD. No lymphadenopathy. No thyromegaly. LUNGS: Diminished breath sounds bilaterally with no wheezes or rhonchi. No intercostal retractions. HEART: S1, S2 are muffled ABDOMEN: Soft. Bowel sounds are present. No masses. No tenderness. EXTREMITIES: No pedal edema. No calf tenderness. NEUROLOGICAL: Patient is awake, alert and oriented x3. Cranial nerves 2 through 12 are grossly intact. Please refer to medication reconciliation sheet for a list of medications. The impression and plan of care has been dictated by Luba Ortiz, Nurse Practitioner as directed. Dr. Thang MD I have performed a history and examination and MDM of this patient, discussed the same with the dictator, and agree with the dictator's assessment and plan as written ,documented as a scribe. Based on total visit time, I have performed more than 50% of the visit. Plan - Discharge Summary Discharge Rx Participant: No New Discharge Prescriptions: New Amoxic-Pot Clav 875-125Mg [Augmentin 875-125] 1 each PO Q12HR 7 Days #14 tab Metoprolol Succinate (ER) [Toprol XL] 50 mg PO BID #60 tab Losartan [Cozaar] 25 mg PO DAILY 30 Days #15 tab Albuterol Nebulized [Ventolin Nebulized] 2.5 mg INHALATION RT-TID PRN ml PRN Reason: Shortness Of Breath Continue Multivit-Min/FA/Lycopen/Lutein [Centrum Silver Men Tablet] 1 tab PO DAILY Simvastatin [Zocor] 20 mg PO HS Cholecalciferol [Vitamin D3 (25 Mcg = 1000 Iu)] 25 mcg PO DAILY Loratadine [Claritin] 10 mg PO DAILY Magnesium Oxide [Meehan] 500 mg PO DAILY ALPRAZolam [Xanax] 0.125 mg PO HS PRN PRN Reason: Insomnia Acetaminophen [Tylenol Arthritis] 1,300 mg PO Q8H PRN PRN Reason: Pain Calcium Carbonate [Calcium] 600 mg PO BID Pantoprazole [Protonix] 40 mg PO DAILY Clopidogrel Bisulfate [Plavix] 75 mg PO DAILY #90 tab Rivaroxaban [Xarelto] 15 mg PO HS Changed Albuterol Nebulized [Ventolin Nebulized] 2.5 mg INHALATION QID #0 Discontinued Olmesartan Medoxomil [Benicar] 40 mg PO DAILY amLODIPine [Norvasc] 2.5 mg PO DAILY Metoprolol Succinate (ER) [Toprol XL] 50 mg PO DAILY Discharge Medication List Multivit-Min/FA/Lycopen/Lutein [Centrum Silver Men Tablet] 1 tab PO DAILY 06/26/16 [History] Simvastatin [Zocor] 20 mg PO HS 06/21/18 [History] ALPRAZolam [Xanax] 0.125 mg PO HS PRN 07/18/19 [History] Acetaminophen [Tylenol Arthritis] 1,300 mg PO Q8H PRN 07/18/19 [History] Cholecalciferol [Vitamin D3 (25 Mcg = 1000 Iu)] 25 mcg PO DAILY 07/18/19 [History] Loratadine [Claritin] 10 mg PO DAILY 07/18/19 [History] Magnesium Oxide [Meeahn] 500 mg PO DAILY 07/18/19 [History] Clopidogrel Bisulfate [Plavix] 75 mg PO DAILY #90 tab 07/07/20 [Rx] Rivaroxaban [Xarelto] 15 mg PO HS 05/10/21 [History] Calcium Carbonate [Calcium] 600 mg PO BID 05/01/22 [History] Pantoprazole [Protonix] 40 mg PO DAILY 05/25/22 [History] Albuterol Nebulized [Ventolin Nebulized] 2.5 mg INHALATION QID #0 05/27/22 [Rx] Albuterol Nebulized [Ventolin Nebulized] 2.5 mg INHALATION RT-TID PRN ml 05/27/22 [Rx] Amoxic-Pot Clav 875-125Mg [Augmentin 875-125] 1 each PO Q12HR 7 Days #14 tab 05/27/22 [Rx] Losartan [Cozaar] 25 mg PO DAILY 30 Days #15 tab 05/27/22 [Rx] Metoprolol Succinate (ER) [Toprol XL] 50 mg PO BID #60 tab 05/27/22 [Rx] Follow up Appointment(s)/Referral(s): Trey Ibrahim MD [STAFF PHYSICIAN] - 06/04/22 2:30 pm (previous appointment with Dr Mina) Jose Celestin DO [Primary Care Provider] - 1-2 days Ishan Alonzo MD [STAFF PHYSICIAN] - 06/02/22 2:00 pm Ambulatory/Diagnostic Orders: Complete Blood Count w/diff [LAB.AMB] Time Frame: 3 Days, Location: None Selected Patient Instructions/Handouts: A-fib (Atrial Fibrillation) (DC), Pneumonitis (DC) Activity/Diet/Wound Care/Special Instructions: Activity Limited until follow-up Continue taking medications as prescribed Follow-up with primary care provider along with pulmonary and cardio this week Continue taking antibiotics until done Recommend repeat labs in the next few days Discharge Disposition: HOME SELF-CARE
--- NOTE | 2022-05-30 09:08 | CDI ---
Documentation Clarification Form Date: 05/30/2022 8:42:55 AM From: Leana Martinez RN, CCDS Admit Date: 05/25/2022 2:09:00 PM Patient Name: Gustavo Rodriguez Visit Number: [id number] Discharge Date: 05/27/2022 3:49:00 PM ATTENTION: The Clinical Documentation Specialists (CDI) and [facility] Coding Staff appreciate your assistance in clarifying documentation. Please respond to the clarification below the line at the bottom and electronically sign. The CDI & [facility] Coding staff will review the response and follow-up if needed. Please note: Queries are made part of the Legal Health Record. If you have any questions, please contact the author of this message via ITS. Dr. Roverto Farrar Your patient has the documented diagnosis of unspecified Acute CHF in the H/P and subsequent discharge summary. Additional information regarding the type of CHF is requested. History/Risk Factors: Coronary artery disease Prostate ca, interstitial lung disease Clinical Indicators: 81-year-old male with complaints of shortness of breath 05/25 VS/Pulse OX: 98/68 65 18 98.1 95 % RA 05/25 BNP: 3130 05/25 CXR: Subtle bibasilar patchy airspace opacities concerning for pneumonia. 05/26/22 Echocardiogram Results: left ventricular ejection fraction is estimated at 45-50%. Moderate concentric. Mild LV systolic dysfunction, Basal inferior wall hypokinesis Basal inferior wall hypokinesis, Basal inferior wall hypokinesis, Basal inferior wall hypokinesis Treatment: Telemetry Monitoring Lasix 20 MG IV Once 05/25 Toprol XL 50 MG OP BID 05/26-05/27 Cozaar 50 MG PO Daily 05/26 -05/27 In your professional opinion, can you please clarify the type of acute CHF exacerbation if known? [ x ] Acute on Chronic Systolic Heart Failure (reduced EF) [ ] Acute on Chronic Diastolic Heart Failure (preserved EF) [ ] Acute on Chronic Heart Failure Systolic & Diastolic Heart Failure [ ] Other, please specify [ ] Unable to determine (Template Last Revised: March 2020) MTDD
--- NOTE | 2022-06-03 19:42 | CDI ---
Documentation Clarification Form Date: 06/03/2022 7:37:50 PM From: Leana Martinez RN, CCDS Admit Date: 05/25/2022 2:09:00 PM Patient Name: Gustavo Rodriguez Visit Number: [id number] Discharge Date: 05/27/2022 3:49:00 PM ATTENTION: The Clinical Documentation Specialists (CDI) and [facility] Coding Staff appreciate your assistance in clarifying documentation. Please respond to the clarification below the line at the bottom and electronically sign. The CDI & [facility] Coding staff will review the response and follow-up if needed. Please note: Queries are made part of the Legal Health Record. If you have any questions, please contact the author of this message via ITS. Dr. Trey Ibrahim Hypotension is documented in the cardiology consult and subsequent progress note starting on 05/26/22. Additional clarification regarding this diagnosis is requested. 05/26 Cardiology consult: Patient was started on Cardizem drip. However, this made him hypotensive, and it was discontinued. Patient maintain atrial fibrillation this morning with a heart rate in the 140s. IV amiodarone has been ordered but not yet started at the time of exam. Patient denies any chest pain or pressure. Blood pressure stable. History/Risk Factors: Coronary artery disease, Permanent Atrial fibrillation Clinical Indicators: 81-year-old male presenting to ED with complaints fatigue cough and shortness of breath. Cardiovascular Exam: tachycardia, irregular rhythm 05/25 EKG: Atrial fibrillation with RVR @ 123 bpm 05/25 Vital signs: (11:45) 98/68 65 18 95 % RA, (13:00) 95/70 104 190 % RA, (14:00) 105/77 122 24, (18:26) 90/70 101 20, 05/26 Vital signs: (08:10 91/63 141 17, (08:52) 95/63 118 18, (11:55 111/77 118 17 Treatment: Cardiac Telemetry Monitoring Cardizem 125 MG in 125 mls @ 5 mls/hr. IV (titrate per orders) 05/25 (14:15) - 05/25 (23:42 turned off pt. asymptomatic) Xarelto 15 MG PO HS 05/25-05/26 Amiodarone 150 MG in 103 mls @618 mls/hr. IV 05/26 titrate per orders 360MG IN 200 ML, then 450 MG in 250 ml, DC 05/27 Monitor blood pressure. Can the hypotension be further specified? [ ] Hypotension due to Atrial Fibrillation with RVR [xx ] Hypotension due to Cardizem [ ] Hypotension is not clinically significant [ ] Other Condition, please specify [ ] Unable to determine (Template Last Revised: April 2020) MTDD
== END 2022-05-27 15:49 | disposition home or self-care (01) | DRG 193 ==
LOC: EC 11:40 → 3SCARD 14:09
PROVIDERS: ADMIT Internal Medicine; ATTEND Internal Medicine
DX: J18.9 Pneumonia, unspecified organism (principal); I50.23 Acute on chronic systolic (congestive) heart failure; J96.01 Acute respiratory failure with hypoxia; J44.0 Chronic obstructive pulmonary disease with (acute) lower respiratory infection; I48.21 Permanent atrial fibrillation; E27.40 Unspecified adrenocortical insufficiency; N17.9 Acute kidney failure, unspecified; I24.8 Other forms of acute ischemic heart disease; K21.9 Gastro-esophageal reflux disease without esophagitis; I08.1 Rheumatic disorders of both mitral and tricuspid valves; Z20.822 Contact with and (suspected) exposure to COVID-19; I95.2 Hypotension due to drugs; T46.1X5A Adverse effect of calcium-channel blockers, initial encounter; I27.20 Pulmonary hypertension, unspecified; I11.0 Hypertensive heart disease with heart failure; E78.5 Hyperlipidemia, unspecified; F41.9 Anxiety disorder, unspecified; I25.10 Atherosclerotic heart disease of native coronary artery without angina pectoris; M15.9 Polyosteoarthritis, unspecified; K57.90 Diverticulosis of intestine, part unspecified, without perforation or abscess without bleeding; K44.9 Diaphragmatic hernia without obstruction or gangrene; Z89.022 Acquired absence of left finger(s); Z96.641 Presence of right artificial hip joint; Z85.46 Personal history of malignant neoplasm of prostate; Z90.79 Acquired absence of other genital organ(s); Z87.11 Personal history of peptic ulcer disease; Z88.1 Allergy status to other antibiotic agents; Z82.49 Family history of ischemic heart disease and other diseases of the circulatory system; Z79.02 Long term (current) use of antithrombotics/antiplatelets; Z79.01 Long term (current) use of anticoagulants; Z79.899 Other long term (current) drug therapy
CPT/HCPCS: 36415; 71045; 71046; 80048; 80053; 83036; 83605; 83735; 83880; 84145; 84484; 85025; 85610; 85730; 87040; 87070; 87205; 87636; 93005; 93306; 94640; 94760; 96365; 96366; 96367; 96368; 96375; 99291

== ENCOUNTER → 2022-06-24 | Outpatient (CLI) | payer MEDICARE, BC ==
--- NOTE | 2022-06-24 19:10 | CT ---
EXAMINATION TYPE: CT chest wo con DATE OF EXAM: 06/24/2022 COMPARISON: 08/09/2021 HISTORY: lung infection that wont clear up CT DLP: 878.30 mGycm, Automated exposure control for dose reduction was used. CONTRAST: None TECHNIQUE: Axial images were obtained at 1 mm thick sections at 10 mm intervals. This will limit po rtions of the examination which may not be visualized within the [id number]. Images were obtained in the prone and supine views. FINDINGS: Portion of the thyroid visualized is normal. Peripheral infiltrates are present. This appear to worsen on the prone imaging compared to supine vie ws. This appears to involve predominantly the anterior upper lung nunez. Fibrotic hypersensitivity p neumonitis should be considered. Some bronchiectasis appears to be present right mid lung This likely involves less than 5% of the lung nunez, suggesting but not diagnostic for UIP. A 2.0 cm lymph node is in the subcarinal region. There are multiple scattered small lymph nodes pres ent. The ascending aorta diameter at the level of the main pulmonary artery is 3.8 cm. The main pulm onary artery diameter at the bifurcation is 3.6 cm. Coronary artery calcification is present Limited CT sections are obtained through the upper abdomen. Abdomen is essentially unremarkable. IMPRESSIONS: 1. Peripheral pulmonary fibrosis. Differential diagnosis should include hypersensitivity pneumonitis and UIP. There is some change between prone and supine views suggesting some superimposed atelectasis is involved.
== END | disposition home or self-care (01) ==
LOC: RADCTMAIN 09:36
PROVIDERS: ATTEND Internal Medicine Critical Care Medicine
DX: J84.9 Interstitial pulmonary disease, unspecified (principal); J84.10 Pulmonary fibrosis, unspecified
CPT/HCPCS: 71250

== ENCOUNTER 2022-07-15 08:54 | Day surgery (SDC) | payer MEDICARE, BC ==
[2022-07-15] MEDS ORDERED: fentaNYL (PF) 50 MCG/ML 2 ML AMP ONE (09:03)
[2022-07-15] MEDS ORDERED: SODIUM CHLORIDE 0.9% 500 ML IV ONE (09:05)
[2022-07-15 09:12] VITALS: TEMP 97.6
[2022-07-15] MEDS: BENZOCAINE SPRAY 1 CAN TOPICAL ONE ×2 (09:17→09:23)
[2022-07-15] MEDS ORDERED: MIDAZOLAM 2 MG/2 ML VIAL IV ONE ×2 (09:23→09:24)
[2022-07-15] MEDS ORDERED: fentaNYL (PF) 50 MCG/ML 2 ML AMP IV ONE (09:23)
[2022-07-15] MEDS ORDERED: METOPROLOL SUCCINATE (ER) 50 MG TAB.ER.24H PO STA (09:31)
--- NOTE | 2022-07-15 09:36 | P.PCN ---
Date of Procedure: 07/15/22 Operative Findings: TRANSESOPHAGEAL ECHOCARDIOGRAM CONTINUOUS TOWEL ROLLER: ILEANA CHANDLER MD, RPVI INDICATION: Mitral regurgitation SEDATION: Conscious sedation COMPLICATION: None LEVEL OF SEDATION Moderate to sedation length of 15 minutes PROCEDURE DESCRIPTION: After obtaining an informed consent, the patient was brought to transesophageal echocardiogram room. Pulse oximetry and heart monitors were attached to the patient. The patient throat was sprayed using lidocaine. The patient was turned into left lateral position. After that a bite guard was placed. After an appropriate conscious sedation was initiated, the transesophageal echocardiogram was advanced through a bite guard into the mid esophagus. A 2-D echocardiogram images, color Doppler images, continuous wave images, pulse-wave images, of various cardiac structure were performed. After that the transesophageal echocardiogram probe was advanced into the stomach and fixed to obtain transgastric view was. The probe was brought into the mid esophagus. Inter-atrial septum was interrogated using 2D images, color Doppler images, and then contrast study. After that transesophageal echocardiogram was withdrawn out and upon withdrawing the descending thoracic aorta all the way up to the arch was evaluated. FINDING: The left ventricular dimension and systolic function appeared to be normal with an ejection fraction around 50%. The right ventricle appeared to be dilated. The right and left atrium appears to be dilated. The left atrial appendage appears to be free from any thrombus. The aortic valve is trileaflet valve with no stenosis with mild insufficiency. The mitral valve appeared to be mildly thickened was moderate MR only. There is moderate tricuspid regurgitation was identified CONCLUSION 1. Normal LV systolic function was EF around 50% 2. Moderate mitral regurgitation 3. Moderate tricuspid regurgitation 4. No evidence of pericardial effusion
[2022-07-15 09:46] VITALS: RESP 18
[2022-07-15 11:51] VITALS: BP 118/85; PULSE 114
[2022-07-15] MEDS ORDERED: METOPROLOL SUCCINATE (ER) 100 MG TAB.ER.24H PO SCH (21:00)
== END 2022-07-15 11:06 | disposition home or self-care (01) ==
LOC: CATHCVL 08:54
PROVIDERS: ATTEND Internal Medicine Interventional Cardiology
DX: I08.3 Combined rheumatic disorders of mitral, aortic and tricuspid valves (principal); I48.21 Permanent atrial fibrillation; I42.8 Other cardiomyopathies; I25.10 Atherosclerotic heart disease of native coronary artery without angina pectoris; Z95.5 Presence of coronary angioplasty implant and graft; E78.5 Hyperlipidemia, unspecified; I10 Essential (primary) hypertension; I27.20 Pulmonary hypertension, unspecified; I49.3 Ventricular premature depolarization; J44.9 Chronic obstructive pulmonary disease, unspecified; Z79.01 Long term (current) use of anticoagulants; Z79.02 Long term (current) use of antithrombotics/antiplatelets; Z79.899 Other long term (current) drug therapy; Z88.0 Allergy status to penicillin; Z88.1 Allergy status to other antibiotic agents; Z88.8 Allergy status to other drugs, medicaments and biological substances
CPT/HCPCS: 93312; 93320; 93325; 99152; J2250; J3010

== ENCOUNTER 2022-08-06 05:55 | Day surgery (SDC) | payer MEDICARE, BC ==
[2022-08-04 13:48] VITALS: BMI 25.7
[2022-08-06] MEDS ORDERED: LIDOCAINE 1% (10MG/ML) FOR IV START INTRADERMA PRN (05:56)
[2022-08-06] MEDS ORDERED: LACTATED RINGERS 1,000 ML IV SCH (05:56)
[2022-08-06 07:04] VITALS: TEMP 97
[2022-08-06 07:05] LABS: African American GFR (CKD) 53 (>60 ml/min/1.73 sqM); Anion Gap 9 mmol/L; Blood Urea Nitrogen 30 mg/dL (9-20); Calcium 9.2 mg/dL (8.4-10.2); Carbon Dioxide 28 mmol/L (22-30); Chloride 104 mmol/L (98-107); Glucose 116 mg/dL (74-99); Non-African American GFR(CKD) 46 (>60 ml/min/1.73 sqM); Potassium 4.6 mmol/L (3.5-5.1); Sodium 141 mmol/L (137-145)
[2022-08-06] MEDS ORDERED: ATROPINE SULFATE 0.1 MG/ML 10ML SYRINGE ONE (07:38)
[2022-08-06] MEDS ORDERED: PROPOFOL 10 MG/ML 20 ML VIAL IV ONE (07:38)
[2022-08-06 08:02] VITALS: RESP 16
--- NOTE | 2022-08-06 09:20 | P.PCN ---
Date of Procedure: 08/06/22 Operative Findings: Cardioversion Report Performing physician Jim Mina M.D. Procedure performed Successful cardioversion of atrial fibrillation to normal sinus mechanism using 200 J at first attempt Indication Symptomatic atrial fibrillation Complication None Level of sedation The procedure was performed under deep sedation using propofol with PRINCIPAL BIOSTATISTICIAN in the room Procedure description After obtaining an informed consent the patient was brought to the recovery room. Sedation was introduced using propofol with PRINCIPAL BIOSTATISTICIAN in the room. Subsequently the patient cardioverted from atrial fibrillation to normal sinus mechanism using 200 J and first attempt Conclusion Successful cardioversion of atrial fibrillation to normal sinus mechanism using 200 J Postprocedure management Continue the current medical regimen Continue oral anticoagulation Follow-up with the patient
[2022-08-06 09:25] VITALS: BP 142/82; PULSE 66
== END 2022-08-06 09:39 | disposition home or self-care (01) ==
LOC: OR 05:55
PROVIDERS: ATTEND Internal Medicine Interventional Cardiology
DX: I48.91 Unspecified atrial fibrillation (principal)
CPT/HCPCS: 92960; 80048; J0461; J2704

== ENCOUNTER 2022-08-06 15:30 | Observation (INO) | payer MEDICARE, BC ==
--- NOTE | 2022-08-06 16:48 | ED ---
General Adult HPI - General Chief complaint: Chest Pain Stated complaint: SOB-procedure this morning Time Seen by Provider: 08/06/22 16:35 Source: patient, family, RN notes reviewed, old records reviewed Mode of arrival: wheelchair - History of Present Illness Initial comments: 82 yo male presents for evaluation of palpitation, lightheadedness and chest discomfort. Patient has history of atrial fibrillation and underwent cardioversion this morning. He states that he was fluctuating sinus rhythm and an abnormal rhythm. He was possibly going to stay in the hospital this morning but then converted to sinus rhythm and was discharged. This history is from the patient. He denies fever. He does report exertional dyspnea. He is on Xarelto, amiodarone, losartan, and metoprolol succinate. - Related Data Home Medications Medication Instructions Recorded Confirmed Multivit-Min/FA/Lycopen/Lutein 1 tab PO DAILY 06/26/16 08/06/22 [Centrum Silver Men Tablet] Simvastatin [Zocor] 20 mg PO HS 06/21/18 08/06/22 ALPRAZolam [Xanax] 0.125 mg PO HS PRN 07/18/19 08/06/22 Acetaminophen [Tylenol Arthritis] 1,300 mg PO Q8H PRN 07/18/19 08/06/22 Cholecalciferol [Vitamin D3 (25 25 mcg PO DAILY 07/18/19 08/06/22 Mcg = 1000 Iu)] Loratadine [Claritin] 10 mg PO DAILY 07/18/19 08/06/22 Magnesium Oxide [Meehan] 500 mg PO DAILY 07/18/19 08/06/22 Rivaroxaban [Xarelto] 15 mg PO HS 05/10/21 08/06/22 Calcium Carbonate [Calcium] 600 mg PO BID 05/01/22 08/06/22 Albuterol Nebulized [Ventolin 2.5 mg INHALATION RT-QID PRN 07/14/22 08/06/22 Nebulized] Metoprolol Succinate (ER) [Toprol 100 mg PO BID 07/15/22 08/06/22 Xl] Amiodarone [Cordarone] 200 mg PO BID 08/04/22 08/06/22 Omeprazole 20 mg PO DAILY 08/06/22 08/06/22 Previous Rx's Medication Instructions Recorded Clopidogrel Bisulfate [Plavix] 75 mg PO DAILY #90 tab 07/07/20 Losartan [Cozaar] 25 mg PO DAILY 30 Days #15 tab 05/27/22 Allergies Allergy/AdvReac Type Severity Reaction Status Date / Time gentamicin AdvReac Nausea & Verified 08/06/22 17:33 Vomiting levofloxacin [From Levaquin] AdvReac Nausea & Verified 08/06/22 17:33 Vomiting Review of Systems ROS Statement: Those systems with pertinent positive or pertinent negative responses have been documented in the HPI. ROS Other: All systems not noted in ROS Statement are negative. Past Medical History Past Medical History: Atrial Fibrillation, Coronary Artery Disease (CAD), Cancer, GERD/Reflux, Hyperlipidemia, Hypertension, Osteoarthritis (OA) Additional Past Medical History / Comment(s): "Getting weaker and more SOB every day." 2004 - prostate cancer with surgery. Hiatal hernia. Hx gastric ulcers as a teenager. Hx Iron Defiency Anemia in the past. 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 Adrenal insufficiency related to being on snf steroids in the past. Very SOB w/minimal exertion. Thin skin. History of Any Multi-Drug Resistant Organisms: None Reported Past Surgical History: Adenoidectomy, Back Surgery, Cardiac Ablation, EPS, Heart Catheterization With Stent, Joint Replacement, Orthopedic Surgery, Prostate Surgery, Tonsillectomy Additional Past Surgical History / Comment(s): Prostatectomy, right hip repla cement, low back surgery, left hand 2nd/3rd finger partial amputations, ANETA X2, cardioversions, colonoscopy, right lung thorascopy, cardiac stents X3 Past Anesthesia/Blood Transfusion Reactions: No Reported Reaction Date of Last Stent Placement:: 05-06-22 Past Psychological History: Anxiety Smoking Status: Former smoker Past Alcohol Use History: Occasional Past Drug Use History: None Reported - Past Family History Brother(s) Family Medical History: Cancer Additional Family Medical History / Comment(s): Brother of pancreatic cancer. Mother Family Medical History: Vascular Disorder Additional Family Medical History / Comment(s): Mother had varicosities and leg ulcers. Father Family Medical History: Myocardial Infarction ([place]) Additional Family Medical History / Comment(s): Father of a [place] at the age of 64 yrs. General Exam General appearance: alert, in no apparent distress Head exam: Present: atraumatic, normocephalic Eye exam: Present: normal appearance, PERRL ENT exam: Present: normal exam Neck exam: Present: normal inspection. Absent: tenderness, meningismus Respiratory exam: Present: normal lung sounds bilaterally. Absent: respiratory distress, wheezes Cardiovascular Exam: Present: bradycardia, irregular rhythm GI/Abdominal exam: Present: soft. Absent: distended, tenderness, guarding Extremities exam: Present: normal inspection, normal capillary refill. Absent: calf tenderness Neurological exam: Present: alert, oriented X3, CN II-XII intact. Absent: motor sensory deficit Psychiatric exam: Present: normal affect, normal mood Skin exam: Present: warm, dry, intact. Absent: cyanosis, diaphoretic Course Vital Signs 08/06/22 08/06/22 08/06/22 15:36 17:10 18:00 Temperature 98.6 F Pulse Rate 43 L 39 L 48 L Respiratory 16 19 26 H Rate Blood Pressure 111/81 106/76 108/70 O2 Sat by Pulse 95 99 Oximetry Medical Decision Making - Medical Decision Making Was pt. sent in by a medical professional or institution (Dr. PA, EXPLOSIVES HANDLER, urgent care, hospital, or halfway...) When possible be specific @ -No Did you speak to anyone other than the patient for history (EMS, parent, family, police, friend...)? What history was obtained from this source @ -No Did you review nursing and triage notes (agree or disagree)? Why? @ -I reviewed and agree with nursing and triage notes Were old charts reviewed (outside hosp., previous admission, EMS record, old EKG, old radiological studies, urgent care reports/EKG's, halfway records)? Report findings @ -Cardioversion note from earlier today Differential Diagnosis (chest pain, altered mental status, abdominal pain women, abdominal pain men, vaginal bleeding, weakness, fever, dyspnea, syncope, headache, dizziness, GI bleed, back pain, seizure, CVA, palpatations, mental health, musculoskeletal)? @ -Differential Palpitations Ventricular arrhythmias, atrial arrhythmias, myocardial infarction, anemia, thyrotoxicosis, electrolyte imbalance, hypokalemia, pulmonary embolism, pulmonary disease, drugs, alcohol, anxiety, stress.... This is not meant to be an all-inclusive list. EKG interpreted by me (3pts min.). @ -[EKG: Sinus bradycardia rate of 52 MD interval 202, QRS duration 83, QTC [address] segment elevation X-rays interpreted by me (1pt min.). @ -[No focal pneumonia or acute findings CT interpreted by me (1pt min.). @ -None done U/S interpreted by me (1pt. min.). @ -None done What testing was considered but not performed or refused? (CT, X-rays, U/S, labs)? Why? @ -None What meds were considered but not given or refused? Why? @ -None Did you discuss the management of the patient with other professionals (professionals i.e. , PA, EXPLOSIVES HANDLER, lab, RT, psych nurse, sexual assault social worker, mamma logist, teacher, international first officer, case sealer)? Give summary @ -[EMH for admission, Dr. Diaz, regarding the bradycardia, will hold amiodarone and metoprolol Was smoking cessation discussed for >3mins.? @ -No Was critical care preformed (if so, how long)? @ -No Were there social determinants of health that impacted care today? How? (Homelessness, low income, unemployed, alcoholism, drug addiction, transportation, low edu. Level, literacy, decrease access to med. care, snf, rehab)? @ -No Was there de-escalation of care discussed even if they declined (Discuss DNR or withdrawal of care, Hospice)? DNR status @ -No What co-morbidities impacted this encounter? (DM, HTN, Smoking, COPD, CAD, Cancer, CVA, ARF, Chemo, Hep., AIDS, mental health diagnosis, sleep apnea, morbid obesity)? @ -[Atrial fibrillation Was patient admitted / discharged? Hospital course, mention meds given and route, prescriptions, significant lab abnormalities, going to OR and other pertinent info. @ -82-year-old male presents after cardioversion which occurred this morning w ith palpitations, lightheadedness per patient is bradycardic which is intermittent sinus bradycardia and atrial fibrillation with slow ventricular response. He is on amiodarone and metoprolol. Laboratory testing is unremarkable. His amiodarone and metoprolol will be held he will be monitored on telemetry. Both the admitting team and cardiology are aware of the patient. Undiagnosed new problem with uncertain prognosis? @ -No Drug Therapy requiring intensive monitoring for toxicity (Heparin, Nitro, Insulin, Cardizem)? @ -No Were any procedures done? @ -No Diagnosis/symptom? @ Bradycardia Acute, or Chronic, or Acute on Chronic? @ -[Acute Uncomplicated (without systemic symptoms) or Complicated (systemic symptoms)? @ -complicated Side effects of treatment? @ -No Exacerbation, Progression, or Severe Exacerbation? @ -No Poses a threat to life or bodily function? How? (Chest pain, [place], ID, pneumonia, PE, COPD, DKA, ARF, appy, cholecystitis, CVA, Diverticulitis, Homicidal, Suicidal, threat to staff... and all critical care pts) @ -S, arrhythmia - Lab Data Result diagrams: 08/06/22 16:46 08/06/22 16:46 Lab Results 08/06/22 08/06/22 08/06/22 Range/Units 16:46 16:46 16:46 WBC 9.2 (3.8-10.6) k/uL RBC 4.71 (4.30-5.90) m/uL Hgb 14.3 (13.0-17.5) gm/dL Hct 45.6 (39.0-53.0) % MCV 96.7 (80.0-100.0) fL MCH 30.3 (25.0-35.0) pg MCHC 31.4 (31.0-37.0) g/dL RDW 13.6 (11.5-15.5) % Plt Count 180 (150-450) k/uL MPV 10.3 Neutrophils % 77 % Lymphocytes % 11 % Monocytes % 9 % Eosinophils % 2 % Basophils % 0 % Neutrophils # 7.1 (1.3-7.7) k/uL Lymphocytes # 1.0 (1.0-4.8) k/uL Monocytes # 0.8 (0-1.0) k/uL Eosinophils # 0.2 (0-0.7) k/uL Basophils # 0.0 (0-0.2) k/uL Hypochromasia Slight PT 14.1 H (9.0-12.0) sec INR 1.4 H (<1.2) APTT 27.5 (22.0-30.0) sec Sodium 137 (137-145) mmol/L Potassium 4.9 (3.5-5.1) mmol/L Chloride 101 (98-107) mmol/L Carbon Dioxide 28 (22-30) mmol/L Anion Gap 8 mmol/L BUN 31 H (9-20) mg/dL Creatinine 1.46 H (0.66-1.25) mg/dL Est GFR (CKD-EPI)AfAm 51 (>60 ml/min/1.73 sqM) Est GFR (CKD-EPI)NonAf 45 (>60 ml/min/1.73 sqM) Glucose 105 H (74-99) mg/dL Calcium 9.6 (8.4-10.2) mg/dL Magnesium 2.0 (1.6-2.3) mg/dL Total Bilirubin 1.0 (0.2-1.3) mg/dL AST 30 (17-59) U/L ALT 24 (4-49) U/L Alkaline Phosphatase 68 (38-126) U/L Troponin I (0.000-0.034) ng/mL NT-Pro-B Natriuret Pep pg/mL Total Protein 6.8 (6.3-8.2) g/dL Albumin 4.0 (3.5-5.0) g/dL 08/06/22 08/06/22 Range/Units 16:46 16:46 WBC (3.8-10.6) k/uL RBC (4.30-5.90) m/uL Hgb (13.0-17.5) gm/dL Hct (39.0-53.0) % MCV (80.0-100.0) fL MCH (25.0-35.0) pg MCHC (31.0-37.0) g/dL RDW (11.5-15.5) % Plt Count (150-450) k/uL MPV Neutrophils % % Lymphocytes % % Monocytes % % Eosinophils % % Basophils % % Neutrophils # (1.3-7.7) k/uL Lymphocytes # (1.0-4.8) k/uL Monocytes # (0-1.0) k/uL Eosinophils # (0-0.7) k/uL Basophils # (0-0.2) k/uL Hypochromasia PT (9.0-12.0) sec INR (<1.2) APTT (22.0-30.0) sec Sodium (137-145) mmol/L Potassium (3.5-5.1) mmol/L Chloride (98-107) mmol/L Carbon Dioxide (22-30) mmol/L Anion Gap mmol/L BUN (9-20) mg/dL Creatinine (0.66-1.25) mg/dL Est GFR (CKD-EPI)AfAm (>60 ml/min/1.73 sqM) Est GFR (CKD-EPI)NonAf (>60 ml/min/1.73 sqM) Glucose (74-99) mg/dL Calcium (8.4-10.2) mg/dL Magnesium (1.6-2.3) mg/dL Total Bilirubin (0.2-1.3) mg/dL AST (17-59) U/L ALT (4-49) U/L Alkaline Phosphatase (38-126) U/L Troponin I 0.051 H* (0.000-0.034) ng/mL NT-Pro-B Natriuret Pep 8930 pg/mL Total Protein (6.3-8.2) g/dL Albumin (3.5-5.0) g/dL Disposition Clinical Impression: Bradycardia Disposition: ADMITTED IP TO THIS HOSP Condition: Stable Is patient prescribed a controlled substance at d/c from ED?: No Referrals: Jose Celestin DO [Primary Care Provider] - 1-2 days Time of Disposition: 19:05
[2022-08-06 16:54] LABS: Basophils % (A) 0 %; Eosinophils # (A) 0.2 k/uL (0-0.7); Eosinophils % (A) 2 %; HCT 45.6 % (39.0-53.0); HGB 14.3 gm/dL (13.0-17.5); Hypochromasia Slight; Lymphocytes % (A) 11 %; MCH 30.3 pg (25.0-35.0); MCHC 31.4 g/dL (31.0-37.0); MCV 96.7 fL (80.0-100.0); Mean Platelet Volume 10.3; Monocytes # (A) 0.8 k/uL (0-1.0); Monocytes % (A) 9 %; Neutrophils # (A) 7.1 k/uL (1.3-7.7); Neutrophils % (A) 77 %; Platelet Count 180 k/uL (150-450); RBC 4.71 m/uL (4.30-5.90); RDW 13.6 % (11.5-15.5); WBC 9.2 k/uL (3.8-10.6)
[2022-08-06 17:05] LABS: INR 1.4 (<1.2); Partial Thromboplastin Time 27.5 sec (22.0-30.0); Prothrombin Time 14.1 sec (9.0-12.0)
--- NOTE | 2022-08-06 17:07 | XR ---
EXAMINATION TYPE: XR chest 2V DATE OF EXAM: 08/06/2022 COMPARISON: 05/26/2022 HISTORY: Shortness of breath TECHNIQUE: Frontal and lateral views of the chest are obtained. FINDINGS: Scattered senescent parenchymal changes noted. Hyperinflation compatible with COPD. No evidence for infiltrate. No evidence for atelectasis. Heart size is stable. Mediastinal structures are stable and grossly unremarkable. No evidence for hilar prominence. Degenerative changes dorsal spine. IMPRESSION: 1. No evidence for acute pulmonary disease.
[2022-08-06 17:11] LABS: ALT 24 U/L (4-49); AST 30 U/L (17-59); African American GFR (CKD) 51 (>60 ml/min/1.73 sqM); Alkaline Phosphatase 68 U/L (38-126); Anion Gap 8 mmol/L; Blood Urea Nitrogen 31 mg/dL (9-20); Calcium 9.6 mg/dL (8.4-10.2); Carbon Dioxide 28 mmol/L (22-30); Chloride 101 mmol/L (98-107); Glucose 105 mg/dL (74-99); Non-African American GFR(CKD) 45 (>60 ml/min/1.73 sqM); Potassium 4.9 mmol/L (3.5-5.1); Sodium 137 mmol/L (137-145); Total Protein 6.8 g/dL (6.3-8.2)
[2022-08-06] MEDS ORDERED: NALOXONE 0.4 MG/ML 1 ML VIAL IV PRN (18:59)
[2022-08-06] MEDS ORDERED: ACETAMINOPHEN TAB 325 MG TAB PO PRN (18:59)
[2022-08-06] MEDS ORDERED: ALPRAZolam 0.25 MG TAB PO PRN (21:14)
[2022-08-06] MEDS ORDERED: ALBUTEROL NEBULIZED 2.5 MG/3 ML INHALATION PRN (21:14)
--- NOTE | 2022-08-07 07:39 | P.HPIM ---
History of Present Illness This is a pleasant 82 years old female with past medical history of Atrial Fibrillation, Coronary Artery Disease, GERD/Reflux, Hyperlipidemia, Hypertension, Osteoarthritis (,2005 - prostate cancer with surgery. Hiatal hernia. Patient is a known case of atrial fibrillation on Xarelto at home, he follows up with Dr. Mina and he underwent cardioversion procedure with him yesterday morning, he was kept for one hour and then sent home where he started developing symptoms were becoming for for him to eat and with tiredness and significant exertional dyspnea and palpitations with some lightheadedness so he came back to the hospital. Currently sitting at the bed H, pleasant relaxed and smiling, denies chest pain or dyspnea at rest, no dizziness. Heart rate around 43 43 currently. Denies any GI or urinary other neurological symptom Denies smoking alcohol or illicit tracts On admission her heart rate was running 35-51, blood pressure is stable and patient is afebrile Labs unremarkable including CBC, INR, liver enzymes. BMP is unremarkable except for elevated creatinine 1.4 which is at baseline 1.3-1.5. Troponin is 0.05 which is slightly elevated. Chest x-ray: No acute process. EKG: Sinus bradycardia with no significant ST-T changes and QTC is 448. Patient admitted with cardiology consult Review of Systems Review of systems CONSTITUTIONAL: No fever, no malaise, no fatigue. HEENT: No recent visual problems or hearing problems. Denied any sore throat. CARDIOVASCULAR: No orthopnea, PND, no palpitations, no syncope. PULMONARY: No shortness of breath, no cough, no hemoptysis. GASTROINTESTINAL: No diarrhea, no nausea, no vomiting, no abdominal pain. Normoactive bowel sounds. NEUROLOGICAL: No headaches, no weakness, no numbness. HEMATOLOGICAL: Denies any bleeding or petechiae. GENITOURINARY: Denies any burning micturition, frequency, or urgency. MUSCULOSKELETAL/RHEUMATOLOGICAL: Denies any joint pain, swelling, or any muscle pain. ENDOCRINE: Denies any polyuria or polydipsia. Past Medical History Past Medical History: Atrial Fibrillation, Coronary Artery Disease (CAD), Cancer, GERD/Reflux, Hyperlipidemia, Hypertension, Osteoarthritis (OA) Additional Past Medical History / Comment(s): "Getting weaker and more SOB every day." 2005 - prostate cancer with surgery. Hiatal hernia. Hx gastric ulcers as a teenager. Hx Iron Defiency Anemia in the past. 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 Adrenal insufficiency related to being on long term care administrator steroids in the past. Very SOB w/minimal exertion. Thin skin. History of Any Multi-Drug Resistant Organisms: None Reported Past Surgical History: Adenoidectomy, Back Surgery, Cardiac Ablation, EPS, Heart Catheterization With Stent, Joint Replacement, Orthopedic Surgery, Prostate Surgery, Tonsillectomy Additional Past Surgical History / Comment(s): Prostatectomy, right hip replacement, low back surgery, left hand 2nd/3rd finger partial amputations, ANETA X2, cardioversions, colonoscopy, right lung thorascopy, cardiac stents X3 Past Anesthesia/Blood Transfusion Reactions: No Reported Reaction Date of Last Stent Placement:: 05-06-22 Past Psychological History: Anxiety Smoking Status: Former smoker Past Alcohol Use History: Occasional Past Drug Use History: None Reported - Past Family History Brother(s) Family Medical History: Cancer Additional Family Medical History / Comment(s): Brother of pancreatic cancer. Mother Family Medical History: Vascular Disorder Additional Family Medical History / Comment(s): Mother had varicosities and leg ulcers. Father Family Medical History: Myocardial Infarction ([place]) Additional Family Medical History / Comment(s): Father of a [place] at the age of 64 yrs. Medications and Allergies Home Medications Medication Instructions Recorded Confirmed Type Multivit-Min/FA/Lycopen/Lutein 1 tab PO DAILY 06/26/16 08/06/22 History [Centrum Silver Men Tablet] Simvastatin [Zocor] 20 mg PO HS 06/21/18 08/06/22 History ALPRAZolam [Xanax] 0.125 mg PO HS PRN 07/18/19 08/06/22 History Acetaminophen [Tylenol Arthritis] 1,300 mg PO Q8H PRN 07/18/19 08/06/22 History Cholecalciferol [Vitamin D3 (25 25 mcg PO DAILY 07/18/19 08/06/22 History Mcg = 1000 Iu)] Loratadine [Claritin] 10 mg PO DAILY 07/18/19 08/06/22 History Magnesium Oxide [Meehan] 500 mg PO DAILY 07/18/19 08/06/22 History Clopidogrel Bisulfate [Plavix] 75 mg PO DAILY #90 tab 07/07/20 08/06/22 Rx Rivaroxaban [Xarelto] 15 mg PO HS 05/10/21 08/06/22 History Calcium Carbonate [Calcium] 600 mg PO BID 05/01/22 08/06/22 History Losartan [Cozaar] 25 mg PO DAILY 30 Days #15 tab 05/27/22 08/06/22 Rx Albuterol Nebulized [Ventolin 2.5 mg INHALATION RT-QID PRN 07/14/22 08/06/22 History Nebulized] Metoprolol Succinate (ER) [Toprol 100 mg PO BID 07/15/22 08/06/22 History Xl] Amiodarone [Cordarone] 200 mg PO BID 08/04/22 08/06/22 History Omeprazole 20 mg PO DAILY 08/06/22 08/06/22 History Allergies Allergy/AdvReac Type Severity Reaction Status Date / Time gentamicin AdvReac Nausea & Verified 08/06/22 17:33 Vomiting levofloxacin [From Levaquin] AdvReac Nausea & Verified 08/06/22 17:33 Vomiting Physical Exam Vitals: Vital Signs Temp Pulse Resp BP Pulse Ox 08/07/22 06:00 44 L 124/78 99 08/07/22 05:00 44 L 134/78 96 08/07/22 04:00 51 L 135/76 97 08/07/22 03:00 43 L 127/77 97 08/07/22 02:00 43 L 115/80 98 08/07/22 01:00 45 L 18 111/83 97 08/07/22 00:00 46 L 98 08/06/22 23:00 44 L 108/64 96 08/06/22 22:56 42 L 108/64 98 08/06/22 22:30 40 L 108/64 99 08/06/22 22:00 38 L 105/78 99 08/06/22 21:30 35 L 105/78 97 08/06/22 21:03 37 L 17 105/78 99 08/06/22 18:00 48 L 26 H 108/70 08/06/22 17:10 39 L 19 106/76 99 08/06/22 15:36 98.6 F 43 L 16 111/81 95 Intake and Output 08/06/22 08/06/22 08/07/22 14:59 22:59 06:59 Other: Weight 81.647 kg GENERAL: The patient is alert and oriented x3, not in any acute distress. Well developed, well nourished. HEENT: Pupils are round and equally reacting to light. EOMI. No scleral icterus. No conjunctival pallor. Normocephalic, atraumatic. No pharyngeal erythema. No thyromegaly. CARDIOVASCULAR: S1 and S2 present. No murmurs, rubs, or gallops. PULMONARY: Chest is clear to auscultation, no wheezing , no crackles. ABDOMEN: Soft, nontender, nondistended, normoactive bowel sounds. No palpable o rganomegaly. MUSCULOSKELETAL: No joint swelling or deformity. EXTREMITIES: No cyanosis, clubbing, or pedal edema. NEUROLOGICAL: Gross neurological examination did not reveal any focal deficits. SKIN: No rashes. no petechiae. Results CBC & Chem 7: 08/06/22 16:46 08/06/22 16:46 Labs: Abnormal Lab Results - Last 24 Hours (Table) 08/06/22 08/06/22 08/06/22 Range/Units 16:46 16:46 16:46 PT 14.1 H (9.0-12.0) sec INR 1.4 H (<1.2) BUN 31 H (9-20) mg/dL Creatinine 1.46 H (0.66-1.25) mg/dL Glucose 105 H (74-99) mg/dL Troponin I 0.051 H* (0.000-0.034) ng/mL Assessment and Plan Assessment: Symptomatic sinus Bradycardia, few hours after his cardioversion paroxysmal atrial fibrillation, on xarelto, status post cardioversion on 08/06 Chronic kidney disease stage III History of coronary artery disease Hypertension Hyperlipidemia History of GERD History of osteoarthritis History of hiatal hernia Plan: Continue monitoring heart rate with telemetry Cardiology consult Check TSH Labs and medication were reviewed.. Continue same treatment. Continue with symptomatic treatment. Resume home medication. Monitor labs and vitals. DVT and GI prophylaxis. Further recommendations as per clinical course of the patient DVT prophylaxis: Subcutaneous heparin GI Prophylaxis: Pepcid PT/OT: Pending Prognosis is guarded
[2022-08-07 07:58] LABS: African American GFR (CKD) 41 (>60 ml/min/1.73 sqM); Anion Gap 11 mmol/L; Blood Urea Nitrogen 37 mg/dL (9-20); Calcium 9.6 mg/dL (8.4-10.2); Carbon Dioxide 26 mmol/L (22-30); Chloride 101 mmol/L (98-107); Glucose 80 mg/dL (74-99); Non-African American GFR(CKD) 36 (>60 ml/min/1.73 sqM); Potassium 5.3 mmol/L (3.5-5.1); Sodium 138 mmol/L (137-145)
[2022-08-07] MEDS: CHOLECALCIFEROL 25 MCG (1000 IU) TABLET PO SCH (09:27)
[2022-08-07] MEDS: CALCIUM CARBONATE 500 MG CHEWABLE PO SCH ×2 (09:27→21:20)
[2022-08-07] MEDS: MULTIVITAMINS, THERA 1 EACH TAB PO SCH (09:28)
[2022-08-07] MEDS: CLOPIDOGREL 75 MG TAB PO SCH (09:28)
[2022-08-07] MEDS: LORATADINE 10 MG TAB PO SCH (09:28)
[2022-08-07] MEDS: PANTOPRAZOLE 40 MG TABLET PO SCH (09:28)
--- NOTE | 2022-08-07 11:19 | P.CRDCN ---
History of Present Illness History of present illness: HISTORY OF PRESENT ILLNESS: This is a 82-year-old male with a past medical history significant for coronary artery disease with previous stenting of the left circumflex and LAD, ischemic cardiomyopathy, hypertension, hyperlipidemia, pulmonary hypertension, and persi stent atrial fibrillation. Patient follows in the office with Dr. Mina. We have been asked to see the patient in consultation for bradycardia. Patient examined at the bedside. Patient underwent outpatient cardioversion yesterday with Dr. Mnia. He converted to sinus mechanism and was discharged home in stable condition. Patient states a few hours after he got home he began to feel short of breath and lightheaded. He denies having any syncope. He presented to the hospital for further evaluation. Patient was found to be bradycardic with a heart rate in the 40s. Patient was previously prescribed metoprolol succinate 100 mg twice a day. He states he took his last dose of this yesterday morning prior to his procedure. He denies any chest pain or pressure. He denies shortness of breath at rest but does report shortness of breath with exertion. * EKG reveals sinus bradycardia with no signs of acute ischemia or high grade AV block * Chest xray negative for acute process * Laboratory data: WBC 9.2. Hemoglobin 14.3. Platelet count 180. Sodium 138. Potassium 5.3. BUN 37. Creatinine 1.75. TSH 3.1360. Troponin 0.051. ProBNP 8930. * Current home cardiac medications include losartan 25 mg daily, Plavix 75 mg daily, amiodarone 20 mg twice a day, simvastatin 20 mg at night, and Xarelto 15 mg at night * Most recent echocardiogram obtained in May 2022 revealing ejection fraction 45-50%, moderate pulmonary hypertension, [id number] tricuspid regurgitation and moderate mitral regurgitation * Cardiac catheterization history: June 2020 with stenting of distal left circumflex, mid left circumflex, and proximal left circumflex REVIEW OF SYSTEMS: At the time of my exam: CONSTITUTIONAL: Denies fever or chills. HEENT: Denies blurred vision, vision changes, or eye pain. Denies hemoptysis CARDIOVASCULAR: Denies chest pain. Denies orthopnea. Denies PND. Denies palpitations RESPIRATORY: Denies shortness of breath. GASTROINTESTINAL: Denies abdominal pain. Denies nausea or vomiting. HEMATOLOGIC: Denies bleeding disorders. GENITOURINARY: Denies any blood in urine. SKIN: Denies pruitis. Denies rash. PHYSICAL EXAM: VITAL SIGNS: Reviewed. GENERAL: Well-developed in no acute distress. HEENT: Head is normocephalic. Pupils are equal, round. Sclerae anicteric. Mucous membranes of the mouth are moist. Neck supple. No JVD or thyromegaly LUNGS: Respirations even and unlabored. Lungs essentially clear to auscultation bilaterally. HEART: Bradycardic. Regular rate and rhythm. S1 and S2 heard. ABDOMEN: Soft. Nondistended. Nontender. EXTREMITIES: Normal range of motion. No clubbing or cyanosis. Peripheral pulses intact. No lower extremity edema NEUROLOGIC: Awake and alert. Oriented x 3. ASSESSMENT: Sinus bradycardia Lightheadness Shortness of breath, may be multifactorial secondary to bradycardia and/or medications, no evidence of congestive heart failure despite elevated BNP Persistent atrial fibrillation, status post cardioversion 08/06/2022 with conversion to sinus mechanism Coronary artery disease with previous stenting Ischemic cardiomyopathy, ejection fraction 45% Hypertension Hyperlipidemia Pulmonary hypertension PLAN: Discontinue metoprolol Continue oral amiodarone to an attempt to maintain sinus mechanism Continue additional cardiac medications Continue telemetry monitoring No indication for PPM at this time Continue to monitor patient for an additional 24 hours Further recommendations pending patient course Nurse practitioner note has been reviewed by physician. Signing provider agrees with the documented findings, assessment, and plan of care. Past Medical History Past Medical History: Atrial Fibrillation, Coronary Artery Disease (CAD), Cancer, GERD/Reflux, Hyperlipidemia, Hypertension, Osteoarthritis (OA) Additional Past Medical History / Comment(s): "Getting weaker and more SOB every day." 2004 - prostate cancer with surgery. Hiatal hernia. Hx gastric ulcers as a teenager. Hx Iron Defiency Anemia in the past. 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 Adrenal insufficiency related to being on chcf steroids in the past. Very SOB w/minimal exertion. Thin skin. History of Any Multi-Drug Resistant Organisms: None Reported Past Surgical History: Adenoidectomy, Back Surgery, Cardiac Ablation, EPS, Heart Catheterization With Stent, Joint Replacement, Orthopedic Surgery, Prostate Surgery, Tonsillectomy Additional Past Surgical History / Comment(s): Prostatectomy, right hip replacement, low back surgery, left hand 2nd/3rd finger partial amputations, ANETA X2, cardioversions, colonoscopy, right lung thorascopy, cardiac stents X3 Past Anesthesia/Blood Transfusion Reactions: No Reported Reaction Date of Last Stent Placement:: 05-06-22 Past Psychological History: Anxiety Smoking Status: Former smoker Past Alcohol Use History: Occasional Past Drug Use History: None Reported - Past Family History Brother(s) Family Medical History: Cancer Additional Family Medical History / Comment(s): Brother of pancreatic cancer. Mother Family Medical History: Vascular Disorder Additional Family Medical History / Comment(s): Mother had varicosities and leg ulcers. Father Family Medical History: Myocardial Infarction ([place]) Additional Family Medical History / Comment(s): Father of a [place] at the age of 64 yrs. Medications and Allergies Home Medications Medication Instructions Recorded Confirmed Type Multivit-Min/FA/Lycopen/Lutein 1 tab PO DAILY 06/26/16 08/06/22 History [Centrum Silver Men Tablet] Simvastatin [Zocor] 20 mg PO HS 06/21/18 08/06/22 History ALPRAZolam [Xanax] 0.125 mg PO HS PRN 07/18/19 08/06/22 History Acetaminophen [Tylenol Arthritis] 1,300 mg PO Q8H PRN 07/18/19 08/06/22 History Cholecalciferol [Vitamin D3 (25 25 mcg PO DAILY 07/18/19 08/06/22 History Mcg = 1000 Iu)] Loratadine [Claritin] 10 mg PO DAILY 07/18/19 08/06/22 History Magnesium Oxide [Meehan] 500 mg PO DAILY 07/18/19 08/06/22 History Clopidogrel Bisulfate [Plavix] 75 mg PO DAILY #90 tab 07/07/20 08/06/22 Rx Rivaroxaban [Xarelto] 15 mg PO HS 05/10/21 08/06/22 History Calcium Carbonate [Calcium] 600 mg PO BID 05/01/22 08/06/22 History Losartan [Cozaar] 25 mg PO DAILY 30 Days #15 tab 05/27/22 08/06/22 Rx Albuterol Nebulized [Ventolin 2.5 mg INHALATION RT-QID PRN 07/14/22 08/06/22 History Nebulized] Metoprolol Succinate (ER) [Toprol 100 mg PO BID 07/15/22 08/06/22 History Xl] Amiodarone [Cordarone] 200 mg PO BID 08/04/22 08/06/22 History Omeprazole 20 mg PO DAILY 08/06/22 08/06/22 History Allergies Allergy/AdvReac Type Severity Reaction Status Date / Time gentamicin AdvReac Nausea & Verified 08/06/22 17:33 Vomiting levofloxacin [From Levaquin] AdvReac Nausea & Verified 08/06/22 17:33 Vomiting Physical Exam Vitals: Vital Signs Temp Pulse Pulse Resp BP BP Pulse Ox 08/07/22 08:00 97.9 F 47 L 18 119/64 98 08/07/22 06:00 44 L 124/78 99 08/07/22 05:00 44 L 134/78 96 08/07/22 04:00 51 L 135/76 97 08/07/22 03:00 43 L 127/77 97 08/07/22 02:00 43 L 115/80 98 08/07/22 01:00 45 L 18 111/83 97 08/07/22 00:00 46 L 98 08/06/22 23:00 44 L 108/64 96 08/06/22 22:56 42 L 108/64 98 08/06/22 22:30 40 L 108/64 99 08/06/22 22:00 38 L 105/78 99 08/06/22 21:30 35 L 105/78 97 08/06/22 21:03 37 L 17 105/78 99 08/06/22 18:00 48 L 26 H 108/70 08/06/22 17:10 39 L 19 106/76 99 08/06/22 15:36 98.6 F 43 L 16 111/81 95 Intake and Output 08/06/22 08/07/22 08/07/22 22:59 06:59 14:59 Intake Total 130 Balance 130 Intake: IV 10 Invasive Line 1 10 Oral 120 Other: Weight 81.647 kg Results 08/06/22 16:46 08/07/22 06:52 Cardiac Enzymes 08/06/22 08/06/22 Range/Units 16:46 16:46 AST 30 (17-59) U/L Troponin I 0.051 H* (0.000-0.034) ng/mL Coagulation 08/06/22 Range/Units 16:46 PT 14.1 H (9.0-12.0) sec APTT 27.5 (22.0-30.0) sec CBC 08/06/22 Range/Units 16:46 WBC 9.2 (3.8-10.6) k/uL RBC 4.71 (4.30-5.90) m/uL Hgb 14.3 (13.0-17.5) gm/dL Hct 45.6 (39.0-53.0) % Plt Count 180 (150-450) k/uL Comprehensive Metabolic Panel 08/06/22 08/07/22 Range/Units 16:46 06:52 Sodium 137 138 (137-145) mmol/L Potassium 4.9 5.3 H (3.5-5.1) mmol/L Chloride 101 101 (98-107) mmol/L Carbon Dioxide 28 26 (22-30) mmol/L BUN 31 H 37 H (9-20) mg/dL Creatinine 1.46 H 1.75 H (0.66-1.25) mg/dL Glucose 105 H 80 (74-99) mg/dL Calcium 9.6 9.6 (8.4-10.2) mg/dL AST 30 (17-59) U/L ALT 24 (4-49) U/L Alkaline Phosphatase 68 (38-126) U/L Total Protein 6.8 (6.3-8.2) g/dL Albumin 4.0 (3.5-5.0) g/dL Current Medications Generic Name Dose Route Start Last Admin Trade Name Freq PRN Reason Stop Dose Admin Acetaminophen 650 mg 08/06/22 18:59 Acetaminophen Tab 325 Mg Tab PO Q6HR PRN Mild Pain or Fever > 100.5 Albuterol Sulfate 2.5 mg 08/06/22 21:14 Albuterol Nebulized 2.5 Mg/3 Ml INHALATION RT-QID PRN Shortness Of Breath Alprazolam 0.125 mg 08/06/22 21:14 Alprazolam 0.25 Mg Tab PO HS PRN Insomnia Amiodarone HCl 200 mg 08/07/22 10:00 Amiodarone 200 Mg Tab PO BID WILFRED Calcium Carbonate/Glycine 500 mg 08/07/22 09:00 08/07/22 09:27 Calcium Carbonate 500 Mg Chewable PO 500 mg BID WILFRED Administration Cholecalciferol 25 mcg 08/07/22 09:00 08/07/22 09:27 Cholecalciferol 25 Mcg (1000 Iu) Tablet PO 25 mcg DAILY WILFRED Administration Clopidogrel Bisulfate 75 mg 08/07/22 09:00 08/07/22 09:28 Clopidogrel 75 Mg Tab PO 75 mg DAILY WILFRED Administration Loratadine 10 mg 08/07/22 09:00 08/07/22 09:28 Loratadine 10 Mg Tab PO 10 mg DAILY WILFRED Administration Losartan Potassium 25 mg 08/07/22 10:00 Losartan 25 Mg Tab PO DAILY WILFRED Multivitamins 1 each 08/07/22 09:00 08/07/22 09:28 Multivitamins, Thera 1 Each Tab PO 1 each DAILY WILFRED Administration Naloxone HCl 0.2 mg 08/06/22 18:59 Naloxone 0.4 Mg/Ml 1 Ml Vial IV Q2M PRN Opioid Reversal Pantoprazole Sodium 40 mg 08/07/22 09:00 08/07/22 09:28 Pantoprazole 40 Mg Tablet PO 40 mg DAILY WILFRED Administration Rivaroxaban 15 mg 08/07/22 21:00 Rivaroxaban 15 Mg Tab PO HS [facility] Protocol Intake and Output 08/06/22 08/07/22 08/07/22 22:59 06:59 14:59 Intake Total 130 Balance 130 Intake: IV 10 Invasive Line 1 10 Oral 120 Other: Weight 81.647 kg 08/06/22 16:46 08/07/22 06:52
[2022-08-07] MEDS: AMIODARONE 200 MG TAB PO SCH ×2 (12:04→21:20)
[2022-08-07] MEDS: LOSARTAN 25 MG TAB PO SCH (12:04)
[2022-08-07] MEDS ORDERED: RIVAROXABAN 15 MG TAB PO SCH (21:00)
[2022-08-08 06:01] VITALS: RESP 18
[2022-08-08 07:01] LABS: African American GFR (CKD) 42 (>60 ml/min/1.73 sqM); Anion Gap 6 mmol/L; Blood Urea Nitrogen 35 mg/dL (9-20); Carbon Dioxide 32 mmol/L (22-30); Chloride 101 mmol/L (98-107); Glucose 92 mg/dL (74-99); Non-African American GFR(CKD) 36 (>60 ml/min/1.73 sqM); Potassium 4.8 mmol/L (3.5-5.1); Sodium 139 mmol/L (137-145)
[2022-08-08] MEDS: PANTOPRAZOLE 40 MG TABLET PO SCH (07:54)
[2022-08-08] MEDS: CALCIUM CARBONATE 500 MG CHEWABLE PO SCH (07:54)
[2022-08-08] MEDS: CLOPIDOGREL 75 MG TAB PO SCH (07:54)
[2022-08-08] MEDS: LOSARTAN 25 MG TAB PO SCH (07:54)
[2022-08-08] MEDS: AMIODARONE 200 MG TAB PO SCH (07:54)
[2022-08-08] MEDS: LORATADINE 10 MG TAB PO SCH (07:54)
[2022-08-08] MEDS: MULTIVITAMINS, THERA 1 EACH TAB PO SCH (07:54)
[2022-08-08] MEDS: CHOLECALCIFEROL 25 MCG (1000 IU) TABLET PO SCH (07:55)
--- NOTE | 2022-08-08 10:29 | P.PN ---
Subjective This is a pleasant 82 years old female with past medical history of Atrial Fibrillation, Coronary Artery Disease, GERD/Reflux, Hyperlipidemia, Hypertension, Osteoarthritis (,2005 - prostate cancer with surgery. Evan chang. Patient is a known case of atrial fibrillation on Xarelto at home, he follows up with Dr. Mina and he underwent cardioversion procedure with him yesterday morning, he was kept for one hour and then sent home where he started developing symptoms were becoming for for him to eat and with tiredness and significant exertional dyspnea and palpitations with some lightheadedness so he came back to the hospital. Currently sitting at the bed H, pleasant relaxed and smiling, denies chest pain or dyspnea at rest, no dizziness. Heart rate around 43 43 currently. Denies any GI or urinary other neurological symptom Denies smoking alcohol or illicit tracts On admission her heart rate was running 35-51, blood pressure is stable and patient is afebrile Labs unremarkable including CBC, INR, liver enzymes. BMP is unremarkable except for elevated creatinine 1.4 which is at baseline 1.3-1.5. Troponin is 0.05 which is slightly elevated. Chest x-ray: No acute process. EKG: Sinus bradycardia with no significant ST-T changes and QTC is 448. Patient admitted with cardiology consult 08/08/2022 Patient sitting in chair, pleasant relaxed. Asymptomatic. He denies dizziness palpitation chest pain or dyspnea. No other new symptoms. Hemodynamically stable. Still mildly bradycardic Goat Driver discontinued his metoprolol and started him on losartan by butter liquefier team, patient also with evidence of chronic kidney disease stage III with slowly and progressively worsening creatinine. 1.3 on admission and 1.7 yesterday and today which is at baseline. Patient denies urinary symptoms. We will check a bladder scan Possible discharge soon once it cleared by Goat Driver and he got stabilized s tabilized Objective - Vital Signs Vital signs: Vital Signs Temp 98.1 F 08/08/22 07:50 Pulse 55 L 08/08/22 07:50 Resp 18 08/08/22 07:50 BP 123/62 08/08/22 07:50 Pulse Ox 95 08/08/22 09:44 FiO2 Intake & Output 08/07/22 08/08/22 08/08/22 18:59 06:59 18:59 Intake Total 428 240 Balance 428 240 Weight 81.647 kg Intake: IV 10 Invasive Line 1 10 Oral [id number] 240 Other: Voiding Method Toilet Toilet Toilet # Voids 2 - Labs CBC & Chem 7: 08/06/22 16:46 08/08/22 06:25 Labs: Abnormal Lab Results - Last 24 Hours (Table) 08/08/22 Range/Units 06:25 Carbon Dioxide 32 H (22-30) mmol/L BUN 35 H (9-20) mg/dL Creatinine 1.73 H (0.66-1.25) mg/dL Assessment and Plan Assessment: Symptomatic sinus Bradycardia, few hours after his cardioversion, DC metoprolol paroxysmal atrial fibrillation, on xarelto, status post cardioversion on 08/06 Chronic kidney disease stage III History of coronary artery disease Hypertension Hyperlipidemia History of GERD History of osteoarthritis History of hiatal hernia Plan: Continue monitoring heart rate with telemetry Cardiology consult Monitor heart rate, monitor kidney function Labs and medication were reviewed.. Continue same treatment. Continue with symptomatic treatment. Resume home medication. Monitor labs and vitals. DVT and GI prophylaxis. Further recommendations as per clinical course of the patient DVT prophylaxis: Subcutaneous heparin GI Prophylaxis: Pepcid
--- NOTE | 2022-08-08 10:38 | P.PN ---
Subjective HISTORY OF PRESENT ILLNESS: This is a 82-year-old male with a past medical history significant for coronary artery disease with previous stenting of the left circumflex and LAD, ischemic cardiomyopathy, hypertension, hyperlipidemia, pulmonary hypertension, and persistent atrial fibrillation. Patient follows in the office with Dr. Mina. We have been asked to see the patient in consultation for bradycardia. Patient examined at the bedside. Patient underwent outpatient cardioversion yesterday with Dr. Mina. He converted to sinus mechanism and was discharged home in stable condition. Patient states a few hours after he got home he began to feel short of breath and lightheaded. He denies having any syncope. He presented to the hospital for further evaluation. Patient was found to be bradycardic with a heart rate in the 40s. Patient was previously prescribed metoprolol succinate 100 mg twice a day. He states he took his last dose of this yesterday morning prior to his procedure. He denies any chest pain or pressure. He denies shortness of breath at rest but does report shortness of breath with exertion. * EKG reveals sinus bradycardia with no signs of acute ischemia or high grade AV block * Chest xray negative for acute process * Laboratory data: WBC 9.2. Hemoglobin 14.3. Platelet count 180. Sodium 138. Potassium 5.3. BUN 37. Creatinine 1.75. TSH 3.1360. Troponin 0.051. ProBNP 8930. * Current home cardiac medications include losartan 25 mg daily, Plavix 75 mg daily, amiodarone 20 mg twice a day, simvastatin 20 mg at night, and Xarelto 15 mg at night * Most recent echocardiogram obtained in May 2022 revealing ejection fraction 45-50%, moderate pulmonary hypertension, [id number] tricuspid regurgitation and moderate mitral regurgitation * Cardiac catheterization history: June 2020 with stenting of distal left circumflex, mid left circumflex, and proximal left circumflex 08/08/2022 Patient examined this morning at the bedside. Patient denies chest pain or p ressure. He denies shortness of breath. Telemetry reveals sinus bradycardia with heart rate in the 50s. Patient states his lightheadedness has improved. Blood pressure stable at 123/62. PHYSICAL EXAM: VITAL SIGNS: Reviewed. GENERAL: Well-developed in no acute distress. HEENT: Head is normocephalic. Pupils are equal, round. Sclerae anicteric. Mucous membranes of the mouth are moist. Neck supple. No JVD or thyromegaly LUNGS: Respirations even and unlabored. Lungs essentially clear to auscultation bilaterally. HEART: Bradycardic. Regular rate and rhythm. S1 and S2 heard. ABDOMEN: Soft. Nondistended. Nontender. EXTREMITIES: Normal range of motion. No clubbing or cyanosis. Peripheral pulses intact. No lower extremity edema NEUROLOGIC: Awake and alert. Oriented x 3. ASSESSMENT: Sinus bradycardia Lightheadness Shortness of breath, may be multifactorial secondary to bradycardia and/or medications, no evidence of congestive heart failure despite elevated BNP Persistent atrial fibrillation, status post cardioversion 08/06/2022 with conve rsion to sinus mechanism Coronary artery disease with previous stenting Ischemic cardiomyopathy, ejection fraction 45% Hypertension Hyperlipidemia Pulmonary hypertension PLAN: Discontinue metoprolol at discharge Continue current dose of amiodarone Patient is stable for discharge home today from a cardiac standpoint with outpatient follow-up with Dr. Mina Nurse practitioner note has been reviewed by physician. Signing provider agrees with the documented findings, assessment, and plan of care. Objective - Vital Signs Vital signs: Vital Signs Temp 98.1 F 08/08/22 07:50 Pulse 55 L 08/08/22 07:50 Resp 18 08/08/22 07:50 BP 123/62 08/08/22 07:50 Pulse Ox 95 08/08/22 09:44 FiO2 Intake & Output 08/07/22 08/08/22 08/08/22 18:59 06:59 18:59 Intake Total 428 240 Balance 428 240 Weight 81.647 kg Intake: IV 10 Invasive Line 1 10 Oral 418 240 Other: Voiding Method Toilet Toilet Toilet # Voids 2 - Labs CBC & Chem 7: 08/06/22 16:46 08/08/22 06:25 Labs: Abnormal Lab Results - Last 24 Hours (Table) 08/08/22 Range/Units 06:25 Carbon Dioxide 32 H (22-30) mmol/L BUN 35 H (9-20) mg/dL Creatinine 1.73 H (0.66-1.25) mg/dL
[2022-08-08 11:45] VITALS: BP 137/74; PULSE 61; TEMP 97.6
== END 2022-08-08 15:33 | disposition home or self-care (01) ==
LOC: EC 15:30 → 3SCARD 19:03
PROVIDERS: ADMIT Internal Medicine; ATTEND Internal Medicine
DX: R00.1 Bradycardia, unspecified (principal); R06.02 Shortness of breath; R42 Dizziness and giddiness; I48.19 Other persistent atrial fibrillation; I25.10 Atherosclerotic heart disease of native coronary artery without angina pectoris; K21.9 Gastro-esophageal reflux disease without esophagitis; E78.5 Hyperlipidemia, unspecified; F41.9 Anxiety disorder, unspecified; I25.5 Ischemic cardiomyopathy; I27.20 Pulmonary hypertension, unspecified; I12.9 Hypertensive chronic kidney disease with stage 1 through stage 4 chronic kidney disease, or unspecified chronic kidney disease; N18.30 Chronic kidney disease, stage 3 unspecified; Z85.46 Personal history of malignant neoplasm of prostate; Z87.891 Personal history of nicotine dependence; Z89.022 Acquired absence of left finger(s); Z90.79 Acquired absence of other genital organ(s); Z95.5 Presence of coronary angioplasty implant and graft; Z79.01 Long term (current) use of anticoagulants; Z79.02 Long term (current) use of antithrombotics/antiplatelets; Z79.899 Other long term (current) drug therapy; Z88.1 Allergy status to other antibiotic agents; Z80.0 Family history of malignant neoplasm of digestive organs; Z82.49 Family history of ischemic heart disease and other diseases of the circulatory system
CPT/HCPCS: 99285; 36415; 94760; 93005; 83880; 80053; 80048 ×2; 84443; 83735; 84484; 85025; 85610; 85730; 71046; G0378 ×3

== ENCOUNTER 2022-08-10 07:54 | Emergency (ER) | payer MEDICARE, BC ==
[2022-08-10 07:59] VITALS: TEMP 98.4
[2022-08-10 08:49] LABS: Basophils % (A) 0 %; Eosinophils # (A) 0.3 k/uL (0-0.7); Eosinophils % (A) 3 %; HCT 49.4 % (39.0-53.0); HGB 15.6 gm/dL (13.0-17.5); Hypochromasia Slight; Lymphocytes # (A) 1.2 k/uL (1.0-4.8); Lymphocytes % (A) 15 %; MCH 30.7 pg (25.0-35.0); MCHC 31.7 g/dL (31.0-37.0); MCV 97.1 fL (80.0-100.0); Mean Platelet Volume 10.8; Monocytes # (A) 0.9 k/uL (0-1.0); Monocytes % (A) 11 %; Neutrophils # (A) 5.5 k/uL (1.3-7.7); Neutrophils % (A) 68 %; Platelet Count 187 k/uL (150-450); RBC 5.09 m/uL (4.30-5.90); RDW 13.8 % (11.5-15.5)
--- NOTE | 2022-08-10 08:56 | XR ---
EXAMINATION TYPE: XR chest 2V DATE OF EXAM: 08/10/2022 COMPARISON: 08/06/2022 INDICATION: Cardioversion, A. fib TECHNIQUE: Frontal and lateral views of the chest are obtained. FINDINGS: The heart size is normal. The pulmonary vasculature is mildly prominent. No focal consolidation is evident.. IMPRESSION: 1. Clinical consideration for some mild volume overload.
[2022-08-10 09:01] LABS: INR 1.4 (<1.2); Partial Thromboplastin Time 28.9 sec (22.0-30.0); Prothrombin Time 13.8 sec (9.0-12.0)
[2022-08-10 09:04] LABS: ALT 23 U/L (4-49); AST 32 U/L (17-59); African American GFR (CKD) 66 (>60 ml/min/1.73 sqM); Albumin 3.9 g/dL (3.5-5.0); Alkaline Phosphatase 74 U/L (38-126); Anion Gap 8 mmol/L; Blood Urea Nitrogen 16 mg/dL (9-20); Calcium 9.4 mg/dL (8.4-10.2); Carbon Dioxide 32 mmol/L (22-30); Chloride 101 mmol/L (98-107); Glucose 105 mg/dL (74-99); Magnesium 1.7 mg/dL (1.6-2.3); Non-African American GFR(CKD) 57 (>60 ml/min/1.73 sqM); Sodium 141 mmol/L (137-145); Total Bilirubin 1.1 mg/dL (0.2-1.3); Total Protein 6.8 g/dL (6.3-8.2)
[2022-08-10] MEDS ORDERED: AMIODARONE 200 MG TAB PO STA (09:49)
--- NOTE | 2022-08-10 09:50 | ED ---
Arrhythmia/Palpitations HPI - General Chief Complaint: Arrhythmia/Palpitations Stated Complaint: afib Time Seen by Provider: 08/10/22 08:02 Source: police Mode of arrival: wheelchair - History of Present Illness Initial Comments: 82-year-old male presents to the emergency department reporting palpitations. He has a history of A. fib. He was hospitalized on August 06. He had a cardioversion done by Dr. Alba which was successful. He went home and had bradycardia and weakness. He came back to the emergency department the same day as the procedure and was admitted to the hospital. They stopped his Lopressor. He continues to take his amiodarone without any missed doses. Yesterday around noon the patient noted that he began having palpitations. He checked his pulse ox and his heart rate was anywhere from 110-120. Patient concerned that he went back into A. fib. He has been cardioverted 3 times. He denies any chest pain. No swelling. No other alleviating, precipitating or modifying factors - Related Data Home Medications Medication Instructions Recorded Confirmed Multivit-Min/FA/Lycopen/Lutein 1 tab PO DAILY 06/26/16 08/06/22 [Centrum Silver Men Tablet] Simvastatin [Zocor] 20 mg PO HS 06/21/18 08/06/22 ALPRAZolam [Xanax] 0.125 mg PO HS PRN 07/18/19 08/06/22 Acetaminophen [Tylenol Arthritis] 1,300 mg PO Q8H PRN 07/18/19 08/06/22 Cholecalciferol [Vitamin D3 (25 25 mcg PO DAILY 07/18/19 08/06/22 Mcg = 1000 Iu)] Loratadine [Claritin] 10 mg PO DAILY 07/18/19 08/06/22 Magnesium Oxide [Meehan] 500 mg PO DAILY 07/18/19 08/06/22 Rivaroxaban [Xarelto] 15 mg PO HS 05/10/21 08/06/22 Calcium Carbonate [Calcium] 600 mg PO BID 05/01/22 08/06/22 Albuterol Nebulized [Ventolin 2.5 mg INHALATION RT-QID PRN 07/14/22 08/06/22 Nebulized] Amiodarone [Cordarone] 200 mg PO BID 08/04/22 08/06/22 Omeprazole 20 mg PO DAILY 08/06/22 08/06/22 Previous Rx's Medication Instructions Recorded Clopidogrel Bisulfate [Plavix] 75 mg PO DAILY #90 tab 07/07/20 Losartan [Cozaar] 25 mg PO DAILY 30 Days #15 tab 05/27/22 Allergies Allergy/AdvReac Type Severity Reaction Status Date / Time gentamicin AdvReac Nausea & Verified 08/10/22 07:59 Vomiting levofloxacin [From Levaquin] AdvReac Nausea & Verified 08/10/22 07:59 Vomiting Review of Systems ROS Statement: Those systems with pertinent positive or pertinent negative responses have been documented in the HPI. ROS Other: All systems not noted in ROS Statement are negative. Past Medical History Past Medical History: Atrial Fibrillation, Coronary Artery Disease (CAD), Cancer, GERD/Reflux, Hyperlipidemia, Hypertension, Osteoarthritis (OA) Additional Past Medical History / Comment(s): "Getting weaker and more SOB every day." 2004 - prostate cancer with surgery. Hiatal hernia. Hx gastric ulcers as a teenager. Hx Iron Defiency Anemia in the past. 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 Adrenal insufficiency related to being on intermediate frame tender steroids in the past. Very SOB w/minimal exertion. Thin skin. History of Any Multi-Drug Resistant Organisms: None Reported Past Surgical History: Adenoidectomy, Back Surgery, Cardiac Ablation, EPS, Heart Catheterization With Stent, Joint Replacement, Orthopedic Surgery, Prostate Surgery, Tonsillectomy Additional Past Surgical History / Comment(s): Prostatectomy, right hip replacement, low back surgery, left hand 2nd/3rd finger partial amputations, ANETA X2, cardioversions, colonoscopy, right lung thorascopy, cardiac stents X3, cardioversion 08/06/2022 Past Anesthesia/Blood Transfusion Reactions: No Reported Reaction Date of Last Stent Placement:: 05-06-22 Past Psychological History: Anxiety Smoking Status: Former smoker Past Alcohol Use History: Occasional Past Drug Use History: None Reported - Past Family History Brother(s) Family Medical History: Cancer Additional Family Medical History / Comment(s): Brother of pancreatic cancer. Mother Family Medical History: Vascular Disorder Additional Family Medical History / Comment(s): Mother had varicosities and leg ulcers. Father Family Medical History: Myocardial Infarction (GA) Additional Family Medical History / Comment(s): Father of a GA at the age of 64 yrs. General Exam General appearance: alert, in no apparent distress Head exam: Present: atraumatic, normocephalic, normal inspection Eye exam: Present: normal appearance, PERRL, EOMI. Absent: scleral icterus, conjunctival injection, periorbital swelling ENT exam: Present: normal exam, mucous membranes moist Neck exam: Present: normal inspection. Absent: tenderness, meningismus, lymphadenopathy Respiratory exam: Present: normal lung sounds bilaterally. Absent: respiratory distress, wheezes, rales, rhonchi, stridor Cardiovascular Exam: Present: tachycardia, irregular rhythm, normal heart sounds. Absent: systolic murmur, diastolic murmur, rubs, gallop, clicks GI/Abdominal exam: Present: soft, normal bowel sounds. Absent: distended, tenderness, guarding, rebound, rigid Extremities exam: Present: normal inspection, full ROM, normal capillary refill. Absent: tenderness, pedal edema, joint swelling, calf tenderness Back exam: Present: normal inspection Neurological exam: Present: alert, oriented X3, CN II-XII intact Psychiatric exam: Present: normal affect, normal mood Skin exam: Present: warm, dry, intact, normal color. Absent: rash Course Vital Signs 08/10/22 08/10/22 08/10/22 07:56 08:04 08:07 Temperature 98.4 F Pulse Rate 107 H 92 Pulse Rate [ 104 H Gas Appliance Servicer ] Respiratory 18 16 Rate Blood Pressure 141/96 O2 Sat by Pulse 93 L Oximetry 08/10/22 08/10/22 08/10/22 08:10 08:20 08:30 Temperature Pulse Rate 100 94 96 Pulse Rate [ Gas Appliance Servicer ] Respiratory 15 35 H 19 Rate Blood Pressure 136/91 O2 Sat by Pulse 96 96 92 L Oximetry 08/10/22 08/10/22 08/10/22 08:40 08:50 09:00 Temperature Pulse Rate 96 93 Pulse Rate [ Gas Appliance Servicer ] Respiratory 24 26 H Rate Blood Pressure 133/88 133/88 O2 Sat by Pulse 94 L 92 L Oximetry 08/10/22 08/10/22 08/10/22 09:10 09:20 09:30 Temperature Pulse Rate 96 87 98 Pulse Rate [ Gas Appliance Servicer ] Respiratory 20 20 21 Rate Blood Pressure 125/98 125/98 125/98 O2 Sat by Pulse 91 L 90 L 96 Oximetry 08/10/22 08/10/22 08/10/22 09:40 09:50 10:00 Temperature Pulse Rate 97 94 99 Pulse Rate [ Gas Appliance Servicer ] Respiratory 22 21 23 Rate Blood Pressure 143/98 143/98 143/98 O2 Sat by Pulse 92 L 92 L 92 L Oximetry 08/10/22 08/10/22 10:10 11:43 Temperature Pulse Rate 96 64 Pulse Rate [ Gas Appliance Servicer ] Respiratory 13 18 Rate Blood Pressure 147/107 142/99 O2 Sat by Pulse 95 100 Oximetry Medical Decision Making - Medical Decision Making Was pt. sent in by a medical professional or institution (, [facility]ZZ, FAMILY NURSE PRACTITIONER, urgent care, hospital, or long term...) When possible be specific @ -No Did you speak to anyone other than the patient for history (EMS, parent, family, police, friend...)? What history was obtained from this source @ -No Did you review nursing and triage notes (agree or disagree)? Why? @ -I reviewed and agree with nursing and triage notes Were old charts reviewed (outside hosp., previous admission, EMS record, old EKG, old radiological studies, urgent care reports/EKG's, long term records)? Report findings @ -Old charts were reviewed - recent operative notes from Dr. Mina Differential Diagnosis (chest pain, altered mental status, abdominal pain women, abdominal pain men, vaginal bleeding, weakness, fever, dyspnea, syncope, headache, dizziness, GI bleed, back pain, seizure, CVA, palpatations, mental health, musculoskeletal)? @ -afib, svt, vtach EKG interpreted by me (3pts min.). @ -Yes and demonstrates A. fib with a rapid rate of 103. QRS 88. QTC 422. No acute ST segment elevations or depressions X-rays interpreted by me (1pt min.). @ -yes. no acute process CT interpreted by me (1pt min.). @ -None done U/S interpreted by me (1pt. min.). @ -None done What testing was considered but not performed or refused? (CT, X-rays, U/S, labs)? Why? @ -none What meds were considered but not given or refused? Why? @ -None Did you discuss the management of the patient with other professionals (professionals i.e. , PA, FAMILY NURSE PRACTITIONER, lab, RT, psych nurse, social media project manager, resident in diagnostic radiology, teacher, financial administration officer, residential case manager)? Give summary @ -dr garibay - gives patient the option to stay or get outpatient treatment Was smoking cessation discussed for >3mins.? @ -No Was critical care preformed (if so, how long)? @ -No Were there social determinants of health that impacted care today? How? (Homelessness, low income, unemployed, alcoholism, drug addiction, transportation, low edu. Level, literacy, decrease access to med. care, correction, rehab)? @ -No Was there de-escalation of care discussed even if they declined (Discuss DNR or withdrawal of care, Hospice)? DNR status @ -No What co-morbidities impacted this encounter? (DM, HTN, Smoking, COPD, CAD, Cancer, CVA, ARF, Chemo, Hep., AIDS, mental health diagnosis, sleep apnea, morbid obesity)? @ -afib Was patient admitted / discharged? Hospital course, mention meds given and route, prescriptions, significant lab abnormalities, going to OR and other pertinent info. @ -Upon arrival the patient was placed in room 1. A thorough history and physical exam was performed. IV access established laboratory studies are conducted. Patient is in A. fib with a rate of 101 to 115. Laboratory studies are conducted. Troponin mildly elevated. Called and spoke with Dr. Pathak in regards to the patient's. Patient may be admitted for cardiology consultation or sent home back on his metoprolol. I discussed these treatment options with the patient. He does want to go home. He is given his dose of Lopressor in the emergency department as well as his morning dose of amiodarone. He is to go home and take an additional dose of the medications tonight. He has an a ppointment with Dr. Mina on Thursday. Instructed to keep this appointment. Return for any new or worsening symptoms. Patient agreeable with plan and was discharged in stable condition Undiagnosed new problem with uncertain prognosis? @ -yes Drug Therapy requiring intensive monitoring for toxicity (Heparin, Nitro, Insulin, Cardizem)? @ -No Were any procedures done? @ -No Diagnosis/symptom? @ -acute palpitations, afib with rvr Acute, or Chronic, or Acute on Chronic? @ -acute, recurrent Uncomplicated (without systemic symptoms) or Complicated (systemic symptoms)? @ -complicated Side effects of treatment? @ -No Exacerbation, Progression, or Severe Exacerbation? @ -No Poses a threat to life or bodily function? How? (Chest pain, USA, GA, pneumonia, PE, COPD, DKA, ARF, appy, cholecystitis, CVA, Diverticulitis, Homicidal, Suicidal, threat to staff... and all critical care pts) @ -No - Lab Data Result diagrams: 08/10/22 08:32 08/10/22 08:32 Lab Results 08/10/22 08/10/22 08/10/22 Range/Units 08:32 08:32 08:32 WBC 8.0 (3.8-10.6) k/uL RBC 5.09 (4.30-5.90) m/uL Hgb 15.6 (13.0-17.5) gm/dL Hct 49.4 (39.0-53.0) % MCV 97.1 (80.0-100.0) fL MCH 30.7 (25.0-35.0) pg MCHC 31.7 (31.0-37.0) g/dL RDW 13.8 (11.5-15.5) % Plt Count 187 (150-450) k/uL MPV 10.8 Neutrophils % 68 % Lymphocytes % 15 % Monocytes % 11 % Eosinophils % 3 % Basophils % 0 % Neutrophils # 5.5 (1.3-7.7) k/uL Lymphocytes # 1.2 (1.0-4.8) k/uL Monocytes # 0.9 (0-1.0) k/uL Eosinophils # 0.3 (0-0.7) k/uL Basophils # 0.0 (0-0.2) k/uL Hypochromasia Slight PT 13.8 H (9.0-12.0) sec INR 1.4 H (<1.2) APTT 28.9 (22.0-30.0) sec Sodium 141 (137-145) mmol/L Potassium 4.0 (3.5-5.1) mmol/L Chloride 101 (98-107) mmol/L Carbon Dioxide 32 H (22-30) mmol/L Anion Gap 8 mmol/L BUN 16 (9-20) mg/dL Creatinine 1.19 (0.66-1.25) mg/dL Est GFR (CKD-EPI)AfAm 66 (>60 ml/min/1.73 sqM) Est GFR (CKD-EPI)NonAf 57 (>60 ml/min/1.73 sqM) Glucose 105 H (74-99) mg/dL Calcium 9.4 (8.4-10.2) mg/dL Magnesium 1.7 (1.6-2.3) mg/dL Total Bilirubin 1.1 (0.2-1.3) mg/dL AST 32 (17-59) U/L ALT 23 (4-49) U/L Alkaline Phosphatase 74 (38-126) U/L Troponin I (0.000-0.034) ng/mL Total Protein 6.8 (6.3-8.2) g/dL Albumin 3.9 (3.5-5.0) g/dL TSH 2.540 (0.465-4.680) mIU/L 08/10/22 Range/Units 08:32 WBC (3.8-10.6) k/uL RBC (4.30-5.90) m/uL Hgb (13.0-17.5) gm/dL Hct (39.0-53.0) % MCV (80.0-100.0) fL MCH (25.0-35.0) pg MCHC (31.0-37.0) g/dL RDW (11.5-15.5) % Plt Count (150-450) k/uL MPV Neutrophils % % Lymphocytes % % Monocytes % % Eosinophils % % Basophils % % Neutrophils # (1.3-7.7) k/uL Lymphocytes # (1.0-4.8) k/uL Monocytes # (0-1.0) k/uL Eosinophils # (0-0.7) k/uL Basophils # (0-0.2) k/uL Hypochromasia PT (9.0-12.0) sec INR (<1.2) APTT (22.0-30.0) sec Sodium (137-145) mmol/L Potassium (3.5-5.1) mmol/L Chloride (98-107) mmol/L Carbon Dioxide (22-30) mmol/L Anion Gap mmol/L BUN (9-20) mg/dL Creatinine (0.66-1.25) mg/dL Est GFR (CKD-EPI)AfAm (>60 ml/min/1.73 sqM) Est GFR (CKD-EPI)NonAf (>60 ml/min/1.73 sqM) Glucose (74-99) mg/dL Calcium (8.4-10.2) mg/dL Magnesium (1.6-2.3) mg/dL Total Bilirubin (0.2-1.3) mg/dL AST (17-59) U/L ALT (4-49) U/L Alkaline Phosphatase (38-126) U/L Troponin I 0.206 H* (0.000-0.034) ng/mL Total Protein (6.3-8.2) g/dL Albumin (3.5-5.0) g/dL TSH (0.465-4.680) mIU/L Disposition Clinical Impression: Atrial fibrillation with RVR Disposition: HOME SELF-CARE Condition: Stable Instructions (If sedation given, give patient instructions): A-fib (Atrial Fibrillation) (ED) Additional Instructions: You were given a dose of amiodarone and Lopressor here in the emergency department - these are your morning doses. Please go home and take an additional dose of the amiodarone and Lopressor tonight before bed. Follow-up with Dr. lAba at your scheduled appointment on Thursday and return for any new or worsening symptoms Is patient prescribed a controlled substance at d/c from ED?: No Referrals: Jose Celestin DO [Primary Care Provider] - 1-2 days Jim Mina MD [STAFF PHYSICIAN] - 1-2 days Time of Disposition: 11:19
[2022-08-10] MEDS ORDERED: METOPROLOL SUCCINATE (ER) 100 MG TAB.ER.24H PO STA (10:54)
[2022-08-10 11:45] VITALS: BP 142/99; PULSE 64; RESP 18
== END 2022-08-10 11:45 | disposition home or self-care (01) ==
LOC: EC 07:54
DX: I48.91 Unspecified atrial fibrillation (principal); I10 Essential (primary) hypertension; I25.10 Atherosclerotic heart disease of native coronary artery without angina pectoris; E78.5 Hyperlipidemia, unspecified; F41.9 Anxiety disorder, unspecified; K21.9 Gastro-esophageal reflux disease without esophagitis; Z79.01 Long term (current) use of anticoagulants; Z79.899 Other long term (current) drug therapy; Z88.1 Allergy status to other antibiotic agents; Z87.891 Personal history of nicotine dependence; Z95.5 Presence of coronary angioplasty implant and graft
CPT/HCPCS: 36415; 71046; 80053; 83735; 84443; 84484; 85025; 85610; 85730; 93005; 99285

== ENCOUNTER → 2023-05-21 | Outpatient (CLI) | payer MEDICARE, BC ==
[2023-05-21 15:26] LABS: Basophils # (A) 0.06 X 10*3/uL (0.00-0.10); Basophils % (A) 0.7 %; Eosinophils % (A) 3.3 %; HCT 45.6 % (39.6-50.0); Lymphocytes # (A) 0.86 X 10*3/uL (0.90-5.00); Lymphocytes % (A) 9.4 %; MCH 30.4 pg (27.0-32.0); MCHC 30.7 g/dL (32.0-37.0); MCV 99.1 FL (80.0-97.0); Mean Platelet Volume 12.8 FL (9.5-12.2); Monocytes # (A) 1.18 X 10*3/uL (0.20-1.00); Monocytes % (A) 12.9 %; NRBC Per 100 WBC 0 X 10*3/uL (0.00-0.01); Neutrophils # (A) 6.71 X 10*3/uL (1.80-7.70); Neutrophils % (A) 73.5 %; Platelet Count 158 X 10*3/uL (140-440); RDW 15.4 % (11.5-14.5); WBC 9.13 X 10*3/uL (4.50-10.00)
[2023-05-21 15:50] LABS: ALT 18 U/L (10-49); AST 23 U/L (14-35); Albumin 4.2 g/dL (3.8-4.9); Albumin/Globulin Ratio 1.56 Ratio (1.60-3.17); Alkaline Phosphatase 69 U/L (41-126); BUN/Creat Ratio 20.93 Ratio (12.00-20.00); Blood Urea Nitrogen 29.3 mg/dL (9.0-27.0); Calcium 10.2 mg/dL (8.7-10.3); Carbon Dioxide 28.2 mmol/L (21.6-31.8); Chloride 103 mmol/L (96-109); Globulin 2.7 g/dL (1.6-3.3); Glucose 102 mg/dL (70-110); Potassium 4.7 mmol/L (3.5-5.5); Sodium 142 mmol/L (135-145); Total Bilirubin 0.5 mg/dL (0.3-1.2); Total Protein 6.9 g/dL (6.2-8.2)
== END | disposition home or self-care (01) ==
LOC: LABWHC1 10:44
PROVIDERS: ATTEND Internal Medicine Critical Care Medicine
DX: E27.40 Unspecified adrenocortical insufficiency (principal)
CPT/HCPCS: 36415; 80053; 85025

== ENCOUNTER → 2023-05-29 | Outpatient (CLI) | payer MEDICARE, BC ==
--- NOTE | 2023-05-29 14:05 | CT ---
EXAMINATION TYPE: CT chest wo con DATE OF EXAM: 05/29/2023 COMPARISON: 06/24/2022 HISTORY: interstitial pulmonary disease CT DLP: 1173.6 mGycm. Automated Exposure Control for Dose Reduction was Utilized. TECHNIQUE: CT scan of the thorax is performed without IV contrast. High-resolution technique was uti lized. Scanning was performed in the prone and supine positions FINDINGS: There are able scattered areas of honeycombing in the subpleural parenchymal lung with scattered fine reticulations greatest in the lower lobes and greatest in the peripheral subpleural parenchymal lung . There is stable mild traction bronchiectasis. There is no pleural effusion or pneumothorax. There is no groundglass opacity. There is moderate cardiomegaly. There is no definite hilar, mediastinal or axillary adenopathy of the exam is limited for evaluation of the edith. Limited scanning through the upper abdomen reveals renal cysts. No focal osseous lesions are seen. IMPRESSION: 1. Stable moderate interstitial lung changes as described above. 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 2. No acute cardiopulmonary disease. 3. No suspicious lung mass or nodule.
== END | disposition home or self-care (01) ==
LOC: RADCTMAIN 12:29
PROVIDERS: ATTEND Internal Medicine Critical Care Medicine
DX: J84.9 Interstitial pulmonary disease, unspecified (principal)
CPT/HCPCS: 71250